=== PATIENT | female | born 1945 | race Hispanic/Latino ===

== ENCOUNTER 2019-05-02 15:48 | Emergency (ER) | payer OTHER ==
--- NOTE | 2019-05-02 16:41 | RAD REPORT ---
EXAM DESCRIPTION: RAD - Chest Pa And Lat (2 Views) - 05/02/2019 4:34 pm CLINICAL HISTORY: Cough;SOB Chest pain. COMPARISON: Chest Pa And Lat (2 Views) dated 04/30/2019; CHEST PA AND LAT 2 VIEW dated 05/23/2008 TECHNIQUE: PA and lateral views of the chest were obtained. FINDINGS: The lungs are hyperexpanded compatible with COPD. The heart is upper limit of normal in si ze. No fracture or aggressive bony process. IMPRESSION: COPD without acute process identified.
[2019-05-02 16:48] LABS: Protime INR 1.04
[2019-05-02 16:49] LABS: Basophils % 0.9 % (0-1.3); Hematocrit 43.6 % (36.0-45.0); Lymphocytes % 38.2 % (15.3-44.8); MPV 10.1 fL (7.6-11.3); RBC Red Blood Cell Count 4.57 M/uL (3.86-4.86)
[2019-05-02] MEDS ORDERED: METHYLPREDNISOLONE 40 MG INJ ONE (16:58)
[2019-05-02] MEDS ORDERED: ALBUTEROL 2.5 MG/3 ML NEB SOL ONE (16:58)
[2019-05-02] MEDS ORDERED: IPRATROPIUM BROM 0.5MG/2.5ML ONE (16:58)
[2019-05-02 17:02] LABS: BUN Blood Urea Nitrogen 12 mg/dL (7-18); Bicarbonate 27 mmol/L (21-32); Glucose Level 113 mg/dL (74-106); NT PRO-BNP 111 pg/mL (<125); Potassium 4.1 mmol/L (3.5-5.1); Sodium Level 139 mmol/L (136-145); Troponin (Emerg Dept Use Only) < 0.02 ng/mL (0.0-0.045)
--- NOTE | 2019-05-02 18:05 | ER ---
Nurse's Notes [facility] Name: Isela Silverio Age: 74 yrs Sex: Female : 1945 Arrival Date: 05/02/2019 Time: 15:50 Bed 24 Private MD: Eliseo Moreno R Diagnosis: Acute bronchitis Presentation: 05/02 15:55 Presenting complaint: Patient states: Sneezing, cough and headache for the past week. aj1 Denies fever. Reports shortness of breath at rest. States that he saw Dr. Moreno on Sunday, had a CXR which she was told was normal, she was given a Rx for antibiotics but she isn't feeling better. Transition of care: patient was not received from another setting of care. Onset of symptoms was May 02, 2019. Risk Assessment: Do you want to hurt yourself or someone else? Patient reports no desire to harm self or others. Initial Sepsis Screen: Does the patient meet any 2 criteria? No. Patient's initial sepsis screen is negative. Does the patient have a suspected source of infection? No. Patient's initial sepsis screen is negative. Care prior to arrival: None. 15:55 Method Of Arrival: Ambulatory aj1 15:55 Acuity: TEN 3 aj1 Triage Assessment: 15:57 General: Appears in no apparent distress. comfortable, Behavior is calm, cooperative, aj1 appropriate for age. Pain: Complains of pain in face. Neuro: Level of Consciousness is awake, alert, obeys commands. Cardiovascular: Patient's skin is warm and dry. Respiratory: Airway is patent Respiratory effort is even, unlabored, Respiratory pattern is regular, symmetrical. GI: Abdomen is flat. Historical: - Allergies: 15:57 No Known Allergies; aj1 - Home Meds: 15:57 meloxicam oral oral [Active]; aj1 - PMHx: 15:57 None; aj1 - Immunization history:: Flu vaccine is up to date. - Coronavirus screen:: The patient has NOT traveled to [place], [place], or [place] in the past 14 days. - Social history:: Smoking status: Patient/guardian denies using tobacco. - Ebola Screening: : Patient denies travel to an Ebola-affected area in the 21 days before illness onset. Screenin:10 Abuse screen: Denies threats or abuse. Denies injuries from another. Nutritional screening: No deficits noted. Tuberculosis screening: No symptoms or risk factors identified. Fall Risk None identified. Assessment: 16:10 General: Appears in no apparent distress. Behavior is calm, cooperative, appropriate wh for age. Pain: Denies pain. Neuro: Level of Consciousness is awake, alert, obeys commands, Oriented to person, place, time, situation, Appropriate for age. Cardiovascular: Heart tones S1 S2 Rhythm is regular. Respiratory: Reports cough that is Airway is patent Respiratory effort is even, unlabored, Respiratory pattern is regular, symmetrical, Breath sounds are clear bilaterally. GI: Abdomen is flat, non-distended. : No signs and/or symptoms were reported regarding the genitourinary system. EENT: Throat is pink. Derm: Skin is intact, is healthy with good turgor, Skin is pink, warm \T\ dry. normal. Musculoskeletal: Circulation, motion, and sensation intact. 17:03 Reassessment: Patient appears in no apparent distress at this time. No changes from previously documented assessment. Patient and/or family updated on plan of care and expected duration. Pain level reassessed. Patient is alert, oriented x 3, equal unlabored respirations, skin warm/dry/pink. 18:20 Reassessment: Patient appears in no apparent distress at this time. No changes from previously documented assessment. Patient and/or family updated on plan of care and expected duration. Pain level reassessed. Patient is alert, oriented x 3, equal unlabored respirations, skin warm/dry/pink. Patient states feeling better. Patient states symptoms have improved. Vital Signs: 15:57 BP 127 / 86; Pulse 90; Resp 18; Temp 98.3; Pulse Ox 96% on R/A; Weight 72.12 kg (R); aj1 Pain 7/10; 17:05 BP 137 / 82; Pulse 70; Resp 18; Pulse Ox 98% on R/A; wh 18:19 BP 138 / 71; Pulse 74; Resp 18; Pulse Ox 99% on R/A; ED Course: 15:50 Patient arrived in ED. ag5 15:50 Eliseo Moreno MD is Private Physician. ag5 15:56 Triage completed. aj1 15:57 Arm band placed on Patient placed in an exam room. aj1 16:06 Kevon Dexter PA is PHCP. cp 16:06 Na Nunez MD is Attending Physician. cp 16:10 Patient has correct armband on for positive identification. Placed in gown. Bed in low wh position. Call light in reach. Side rails up X 1. desk monitor on. Pulse ox on. NIBP on. 16:15 Vinicius Martin is Primary Nurse. 16:31 Initial lab(s) drawn, by me, sent to lab. Flu and/or RSV swab sent to lab. Inserted lt1 saline lock: 22 gauge in right antecubital area, using aseptic technique. 16:36 XRAY Chest Pa And Lat (2 Views) In Process Unspecified. EDMS 17:02 EKG done, by ED staff, reviewed by Kevon YOST. 18:03 Eliseo Moreno MD is Referral Physician. cp 18:20 No provider procedures requiring assistance completed. IV discontinued, intact, wh bleeding controlled, No redness/swelling at site. Administered Medications: 17:01 Drug: SOLU-Medrol 80 mg Route: IVP; Site: right antecubital; 18:21 Follow up: Response: No adverse reaction 17:02 Drug: Albuterol 2.5 mg Route: Inhalation; 18:22 Follow up: Response: No adverse reaction 17:02 Drug: AtroVENT Aerosol 0.5 mg Route: Inhalation; 18:21 Follow up: Response: No adverse reaction Outcome: 18:04 Discharge ordered by MD. cp 18:20 Discharged to home ambulatory, with family. 18:20 Condition: stable 18:20 Discharge instructions given to patient, family, Instructed on discharge instructions, follow up and referral plans. medication usage, POC Demonstrated understanding of instructions, follow-up care, medications, POC Prescriptions given X 4. 18:23 Patient left the ED. Signatures: Dispatcher [employer] EDMS Gissel Redman, RN RN Kevon Kinney PA PA Vinicius Martin Rosa Monsalve ag5 Sandhya, Diana lt1
--- NOTE | 2019-05-02 18:05 | EDPHYS ---
Physician Documentation [facility] Name: Isela Silverio Age: 74 yrs Sex: Female : 1945 Arrival Date: 05/02/2019 Time: 15:50 Bed 24 Private MD: Eliseo Moreno R ED Physician Na Nunez HPI: 05/02 16:30 This 74 yrs old Female presents to ER via Ambulatory with complaints of Cough. cp 16:30 The patient or guardian reports cough, that is constant, difficulty breathing. Onset: cp The symptoms/episode began/occurred 1 week(s) ago. Severity of symptoms: in the emergency department the symptoms are unchanged, despite home interventions. Associated signs and symptoms: Pertinent negatives: chest pain, diarrhea, fever, vomiting. The patient has been recently seen by a physician: Dr. oMreno with similar presenting complaints, X-rays were performed, was given a prescription for antibiotics, currently taking prescribed Augmentin for past 3 days. Historical: - Allergies: 15:57 No Known Allergies; aj1 - Home Meds: 15:57 meloxicam oral oral [Active]; aj1 - PMHx: 15:57 None; aj1 - Immunization history:: Flu vaccine is up to date. - Coronavirus screen:: The patient has NOT traveled to [place], [place], or [place] in the past 14 days. - Social history:: Smoking status: Patient/guardian denies using tobacco. - Ebola Screening: : Patient denies travel to an Ebola-affected area in the 21 days before illness onset. ROS: 16:31 Eyes: Negative for injury, pain, redness, and discharge. cp 16:31 Constitutional: Negative for body aches, chills, fever, poor PO intake. 16:31 ENT: Negative for drainage from ear(s), ear pain, difficulty swallowing, difficulty handling secretions. 16:31 Cardiovascular: Negative for chest pain, edema, palpitations. 16:31 Respiratory: Positive for cough, "sounds productive", shortness of breath. 16:31 Abdomen/GI: Negative for abdominal pain, vomiting, diarrhea, constipation. 16:31 Skin: Negative for rash. 16:31 Neuro: Negative for altered mental status, headache, syncope, weakness. 16:31 All other systems are negative. Exam: 16:35 Constitutional: The patient appears in no acute distress, alert, awake, non-toxic, well cp developed, well nourished. 16:35 Head/Face: Normocephalic, atraumatic. cp 16:35 Eyes: Periorbital structures: appear normal, Conjunctiva: normal, no exudate, no injection, Sclera: no appreciated abnormality, Lids and lashes: appear normal, bilaterally. 16:35 ENT: External ear(s): are unremarkable, Ear canal(s): are normal, clear, TM's: bulging, is not appreciated, bilaterally, dullness, bilaterally, erythema, is not appreciated, bilaterally, Nose: is normal, Mouth: Lips: moist, Oral mucosa: pink and intact, moist, Posterior pharynx: is normal, airway is patent, no erythema, no exudate. 16:35 Neck: ROM/movement: is normal, is supple, no meningismus, no nuchal rigidity. 16:35 Chest/axilla: Inspection: normal, Palpation: is normal, no crepitus, no tenderness. 16:35 Cardiovascular: Rate: normal, Rhythm: regular, Edema: is not appreciated, JVD: is not appreciated. 16:35 Respiratory: the patient does not display signs of respiratory distress, Respirations: normal, no use of accessory muscles, no retractions, no splinting, no tachypnea, labored breathing, is not present, Breath sounds: bronchial sounds, that are moderate, are heard diffusely, decreased breath sounds, are not appreciated, stridor, is not appreciated, + upper airway congestion. wheezing: is not appreciated. 16:35 Abdomen/GI: Inspection: abdomen appears normal, Palpation: abdomen is soft and non-tender, in all quadrants. 16:35 Back: pain, is absent, ROM is normal. 16:35 Neuro: Orientation: to person, place \\T\\ time. Mentation: is normal, Motor: moves all fours, strength is normal. 17:08 ECG was reviewed by the Attending Physician. cp Vital Signs: 15:57 BP 127 / 86; Pulse 90; Resp 18; Temp 98.3; Pulse Ox 96% on R/A; Weight 72.12 kg (R); aj1 Pain 7/10; 17:05 BP 137 / 82; Pulse 70; Resp 18; Pulse Ox 98% on R/A; wh 18:19 BP 138 / 71; Pulse 74; Resp 18; Pulse Ox 99% on R/A; wh MDM: 16:06 Patient medically screened. 18:03 Data reviewed: vital signs, nurses notes, lab test result(s), EKG, radiologic studies, cp plain films. 18:03 Differential Diagnosis: Bronchitis Influenza Pneumonia. Test interpretation: by ED cp physician or midlevel provider: ECG, plain radiologic studies, chest xray negative for infiltrates. 05/02 16:15 Order name: Influenza Screen (a \\T\\ B); Complete Time: 17:34 cp 05/02 17:34 Interpretation: Reviewed. 05/02 16:15 Order name: Basic Metabolic Panel; Complete Time: 17:19 05/02 17:19 Interpretation: Normal except: GLUC 113; GFR 57. 05/02 16:15 Order name: CBC with Diff; Complete Time: 17:19 05/02 17:19 Interpretation: Reviewed. 05/02 16:15 Order name: NT PRO-BNP; Complete Time: 17:19 05/02 17:35 Interpretation: Within normal limits: NT PRO-BNP 111. 05/02 16:15 Order name: PT-INR; Complete Time: 17:01 05/02 17:01 Interpretation: Reviewed. 05/02 16:15 Order name: Troponin (emerg Dept Use Only); Complete Time: 17:19 05/02 17:35 Interpretation: TROPED < 0.02; Reviewed. 05/02 16:15 Order name: EKG; Complete Time: 16:15 05/02 16:15 Order name: Cardiac monitoring; Complete Time: 17:06 05/02 16:15 Order name: Procalcitonin; Complete Time: 17:34 cp 05/02 17:34 Interpretation: Reviewed. 05/02 16:15 Order name: Lactate; Complete Time: 17:19 cp 05/02 17:35 Interpretation: LAC 1.2; Reviewed. 05/02 16:15 Order name: XRAY Chest Pa And Lat (2 Views); Complete Time: 17:01 cp 05/02 17:01 Interpretation: Report reviewed. 05/02 16:15 Order name: EKG - Nurse/Tech; Complete Time: 17:06 cp 05/02 16:15 Order name: IV Saline Lock; Complete Time: 16:37 cp 05/02 16:15 Order name: Labs collected and sent; Complete Time: 16:37 cp 05/02 16:15 Order name: O2 Per Protocol; Complete Time: 16:37 cp 05/02 16:15 Order name: O2 Sat Monitoring; Complete Time: 16:37 cp EC:08 Rate is 69 beats/min. Rhythm is regular. RI interval is normal. QRS interval is normal. cp QT interval is normal. T waves are Inverted in leads I, aVL, aVR. Interpreted by me. Reviewed by me. Administered Medications: 17:01 Drug: SOLU-Medrol 80 mg Route: IVP; Site: right antecubital; 18:21 Follow up: Response: No adverse reaction 17:02 Drug: Albuterol 2.5 mg Route: Inhalation; 18:22 Follow up: Response: No adverse reaction 17:02 Drug: AtroVENT Aerosol 0.5 mg Route: Inhalation; 18:21 Follow up: Response: No adverse reaction Disposition: 05/02/19 18:04 Discharged to Home. Impression: Acute bronchitis. - Condition is Stable. - Discharge Instructions: Acute Bronchitis, Adult. - Prescriptions for Tessalon Perles 100 mg Oral Capsule - take 2 capsule by ORAL route every 8 hours As needed; 20 capsule. Albuterol Sulfate 2.5 mg /3 mL (0.083 %) Inhalation Solution for Nebulization - inhale 1 unit by NEBULIZATION route every 8 hours As needed; 1 box. Prednisone 20 mg Oral Tablet - take 2 tablet by ORAL route once daily for 5 days; 10 tablet. Albuterol Sulfate 90 mcg/actuation - inhale 1-2 puff by INHALATION route every 4-6 hours; 1 Inhaler. - Medication Reconciliation Form, Thank You Letter, Antibiotic Education, Prescription Opioid Use form. - Follow up: Eliseo Moreno MD; When: 2 - 3 days; Reason: Recheck today's complaints. - Problem is new. - Symptoms have improved. Addendum: 05/05/2019 18:54 Co-signature as Attending Physician, Na Nunez MD. m a2 Signatures: Dispatcher [employer] EDGissel Warren RN RN aj1 Kevon Dexter PA PA Vinicius Cox Na Nunez MD MD co2 Corrections: (The following items were deleted from the chart) 05/02 18:23 18:04 05/02/2019 18:04 Discharged to Home. Impression: Acute bronchitis. Condition is wh Stable. Forms are Medication Reconciliation Form, Thank You Letter, Antibiotic Education, Prescription Opioid Use. Follow up: Eliseo Moreno; When: 2 - 3 days; Reason: Recheck today's complaints. Problem is new. Symptoms have improved. cp
[2019-05-02 18:30] VITALS: TEMP 98.3
[2019-05-02 18:32] VITALS: BP 138/71; O2SAT 99
--- NOTE | 2019-05-05 09:26 | EKG ---
Test Date: 2019-05-02 Test Time: 16:49:04 Coater Helper: CLARK MEASUREMENT RESULTS: Intervals: Rate: 69 NJ: 138 QRSD: 142 QT: 436 QTc: [address]: P: 62 NJ: 138 QRS: -11 T: 106 INTERPRETIVE STATEMENTS: Normal sinus rhythm Left bundle branch block Abnormal ECG Electronically Signed On 05-05-19 09:25:45 BREWERY PUMPER by Kleber Pollard
== END 2019-05-02 18:23 | disposition home or self-care (01) ==
LOC: ER 15:48
DX: J20.9 Acute bronchitis, unspecified (principal)
CPT/HCPCS: 93005; 85025; 80048; 36415; 85610; 83605; 84484; 84145; 83880; 87804 ×2; 71046; 96374; 99285; J2920

== ENCOUNTER 2021-10-19 10:35 | Day surgery (SDC) | payer MEDICARE ==
[2021-10-18 09:55] LABS: SARS-CoV-2 Antigen Rapid Res Negative (Negative)
[2021-10-19] MEDS ORDERED: Ringers Lactate 1,000 ML IV ONE (10:59)
[2021-10-19] MEDS ORDERED: TRIAMCINOLONE ACETON 40 MG/ML VIAL ONE (12:00)
[2021-10-19] MEDS ORDERED: LIDOCAINE 1% 20 ML MDV ONE (12:01)
[2021-10-19] MEDS ORDERED: LIDOCAINE 2% MPF 5 ML VIAL ONE (12:33)
[2021-10-19] MEDS ORDERED: propofoL 200 MG/20 ML VIAL IV ONE (12:33)
[2021-10-19] MEDS ORDERED: NS 0.9% VIAL 0 ML ONE (12:40)
[2021-10-19] MEDS ORDERED: BUPIVACAINE 0.25% PF 10 ML VIAL ONE (13:01)
--- NOTE | 2021-10-19 13:52 | RAD REPORT ---
EXAM DESCRIPTION: RAD - Fluoroscopy <1 Hour - 10/19/2021 1:40 pm FINDINGS: Two portable C-arm views were obtained and submitted from a fluoroscopic assisted SI joint injection procedure. Fluoro time was 0.3 minutes. Cumulative dose was 5.46 mGy.
[2021-10-19 13:59] VITALS: BP 113/73; TEMP 97.8; O2SAT 97
== END 2021-10-19 14:21 | disposition home or self-care (01) ==
LOC: OR 10:35
PROVIDERS: ATTEND Pain Medicine Interventional Pain Medicine
PROC: 3E0R3BZ Introduction of Anesthetic Agent into Spinal Canal, Percutaneous Approach (ICD-10-PCS; 2021-10-19)
PROC: B01BZZZ Fluoroscopy of Spinal Cord (ICD-10-PCS; 2021-10-19)
PROC: 3E0R3BZ Introduction of Anesthetic Agent into Spinal Canal, Percutaneous Approach (ICD-10-PCS; principal; 2021-10-19 13:00)
DX: M46.1 Sacroiliitis, not elsewhere classified (principal); M54.50 Low back pain, unspecified; M47.816 Spondylosis without myelopathy or radiculopathy, lumbar region; M62.81 Muscle weakness (generalized); G89.4 Chronic pain syndrome; M60.9 Myositis, unspecified; M54.16 Radiculopathy, lumbar region; Z79.899 Other long term (current) drug therapy; J45.909 Unspecified asthma, uncomplicated; Z20.822 Contact with and (suspected) exposure to COVID-19
CPT/HCPCS: 36415; 87811; 62323; J2704; J3301; J7120; 76000

== ENCOUNTER 2022-05-24 15:43 | Emergency (ER) | payer MEDICARE ==
--- OUTSIDE RECORDS SUMMARY | 2022-05-24 15:51 | XMS REPORT | Continuity of Care Document ---
:1945 Author Organization [facility] t Address [address] [place] [address] Care Team Providers Name Role Phone Tim Ha Attending Clinician Unavailable Nodal_J Attending Clinician Unavailable Nodal_J Admitting Clinician Unavailable Payers Payer Name Policy Type Policy Number Effective Date Expiration Date S feliz [facility] [id number] 2021 (MEDICARE 00:00:00 REPLACEMENT HMO) [employer] C1 [id number] 2020 Common g Medicare 00:00:00 [facility] Replace [facility] MEDICARE NOVITAS [id number] 2011 Common 00:00:00 [facility] [employer] C1 [id number] 2020 Common g Medicare 00:00:00 [facility] - [facility] Replace [facility] MEDICARE NOVITAS [id number] 2011 Common 00:00:00 [facility] - [facility] [employer] C1 [id number] 2020 Common g Medicare 00:00:00 [facility] - [facility] Problems Condition Condition Condition Status Onset Resolution Last Treating Co mments Source Name Details Category Date Date Treatment Clinician Date [id number] Body mass Problem Com mon index Spirit (BMI) - CHI 30.0-30.9, [facility] [id number] Other Problem Common chronic [facility] pain - [facility] [id number] Other Problem Common obesity Spirit due to - [facility] excess [facility] [id number] Mixed Problem Common hyperlipid Spirit emia - [facility] [id number] Type 2 Problem Common diabetes Spirit mellitus - [facility] with [facility] long-term current use of insulin [id number] Chronic Problem Common maxillary Spirit sinusitis - [facility] [id number] Arthritis Problem Co mmon [id number] of knee, [facility] right [facility] [id number] Essential Problem Comm on hypertensi Spirit on - [facility] [id number] Arthritis Problem Co mmon [id number] of knee, [facility] left [facility] [id number] 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 Exposure Problem Commo n to tobacco Spirit smoke - [facility] [id number] Chronic Problem Common obstructiv Spirit e - [facility] type [id number] COPD with Problem Com mon exacerbati Spirit on [facility] [id number] Primary Problem Common open-angle Spirit glaucoma, - [facility]I bilateral, [facility] [id number] GERD Problem Common without Spirit esophagiti - [facility] s [facility] [id number] Primary Problem Common insomnia Spirit - [facility] [id number] Rotator Problem Comm on [id number] cuff Spirit arthropath - [facility] y of right [facility] Type II Type 2 Problem Common diabetes diabetes Spirit mellitus - [facility] without complicati [facility] Left low Left low Problem Commo n back pain, back pain, Sp january unspecifie unspecifie - [facility]I d d St chronicity chronicity Patti kes , , Medical unspecifie unspecifie Ce nter d whether d whether sciatica sciatica present present Allergies, Adverse Reactions, Alerts Allergy Allergy Status Severity Reaction(s) Onset Inactive Treating Comm ents Source Name Type Date Date Clinician tramadol tramadol Active Severe Common vomitting [facility] Social History Social Habit Start Date Stop Date Quantity Comments Source Sex Assigned At Com mon [facility] History of Tobacco Use Co mmon [facility] Smoking Status Start Date Stop Date Source Never Smoker Common [facility] Medications Ordered Filled Start Stop Current Ordering Indication Dosage Frequency Signature Comments Components Source Medication Medication Date Date Medication? Clinician (SIG) Name Name Giselle Desai No 40mg Common (Triamcinol (Triamcinol 1-26 S pirit one) one) 00:00: - [facility] Giselle Desai No 40mg Common (Triamcinol (Triamcinol 1-26 S pirit one) one) 00:00: - [facility] Pseudoeph-B Pseudoeph-B 2021-03- No 5{ml_as QID Pseudoeph- romphen-DM romphen-DM 2-16 12-23 _needed Bromphen-D 30-2-10 30-2-10 00:00: 00:00 } M 30-2-10 MG/5ML MG/5ML 00 :00 MG/5ML Pseudoeph-B Pseudoeph-B 2021-03- No 5{ml_as QID Pseudoeph- romphen-DM romphen-DM 2-16 12-23 _needed Bromphen-D 30-2-10 30-2-10 00:00: 00:00 } M 30-2-10 MG/5ML MG/5ML 00 :00 MG/5ML predniSONE predniSONE 2021-03- No QD predniSONE 20 MG 20 MG 2-16 12-21 20 MG 00:00: 00:00 00 :00 predniSONE predniSONE 2021-03- No QD predniSONE 20 MG 20 MG 2-16 12-21 20 MG 00:00: 00:00 00 :00 Giselle Desai 2021-03 No 40mg Common (Triamcinol (Triamcinol 1-15 S pirit one) one) 00:00: - [facility] Bupivicaine Bupivicaine 2021-03 No 2.5mg Common Menno Menno 1-15 Spirit 00:00: - [facility] 00 [facility] Giselle Kenalog 2021-03 No 40mg Common (Triamcinol (Triamcinol 1-15 S pirit one) one) 00:00: - [facility] 00 [facility] Bupivicaine Bupivicaine 2021-03 No 2.5mg Common Menno Menno 1-15 Spirit 00:00: - [facility] 00 [facility] Giselle Kenalog 2021-03 No 40mg Common (Triamcinol (Triamcinol 1-15 S pirit one) one) 00:00: - [facility] 00 [facility] Bupivicaine Bupivicaine 2021-03 No 2.5mg Common Menno Menno 1-15 Spirit 00:00: - [facility] 00 [facility] Giselle Kenalog 2021-03 No 40mg Common (Triamcinol (Triamcinol 1-15 S pirit one) one) 00:00: - [facility] 00 [facility] Bupivicaine Bupivicaine 2021-03 No 2.5mg Common Menno Menno 1-15 Spirit 00:00: - [facility] 00 [facility] Giselle Woodardalog 2021-03 No 40mg Common (Triamcinol (Triamcinol 1-15 S pirit one) one) 00:00: - [facility] 00 [facility] Bupivicaine Bupivicaine 2021-03 No 2.5mg Common Menno Menno 1-15 Spirit 00:00: - [facility] 00 [facility] Giselle Kenalog 2021-03 No 40mg Common (Triamcinol (Triamcinol 1-15 S pirit one) one) 00:00: - [facility] 00 [facility] Bupivicaine Bupivicaine 2021-03 No 2.5mg Common Menno Menno 1-15 Spirit 00:00: - [facility] 00 [facility] Giselle Kenalog 2021-03 No 40mg Common (Triamcinol (Triamcinol 1-15 S pirit one) one) 00:00: - [facility] 00 [facility] Bupivicaine Bupivicaine 2021-03 No 2.5mg Common Menno Menno 1-15 Spirit 00:00: - [facility] 00 [facility] Kenalog Kenalog 2021-03 No 40mg Common (Triamcinol (Triamcinol 1-15 S pirit one) one) 00:00: - [facility] Bupivicaine Bupivicaine 2021-03 No 2.5mg Common Menno Menno 1-15 Spirit 00:00: - [facility] Cyclobenzap Cyclobenzap No 1{table QD Cyclobenza rine HCl 5 rine HCl 5 8-30 t_at_be romana HCl MG MG 00:00: dtime_a 5 MG 00 s_neede d} Cyclobenzap Cyclobenzap No 1{table QD Cyclobenza rine HCl 5 rine HCl 5 8-30 t_at_be romana HCl MG MG 00:00: dtime_a 5 MG 00 s_neede d} ProAir HFA ProAir HFA No 2{puffs ProAir HFA 108 (90 108 (90 5-25 _as_nee 108 (90 Base) Base) 00:00: ded} Base) MCG/ACT MCG/ACT 00 MCG/ACT ProAir HFA ProAir HFA No 2{puffs ProAir HFA 108 (90 108 (90 5-25 _as_nee 108 (90 Base) Base) 00:00: ded} Base) MCG/ACT MCG/ACT 00 MCG/ACT ProAir HFA ProAir HFA No 2{puffs ProAir HFA 108 (90 108 (90 5-25 _as_nee 108 (90 Base) Base) 00:00: ded} Base) MCG/ACT MCG/ACT 00 MCG/ACT ProAir HFA ProAir HFA No 2{puffs ProAir HFA 108 (90 108 (90 5-25 _as_nee 108 (90 Base) Base) 00:00: ded} Base) MCG/ACT MCG/ACT 00 MCG/ACT ProAir HFA ProAir HFA No 2{puffs ProAir HFA 108 (90 108 (90 5-25 _as_nee 108 (90 Base) Base) 00:00: ded} Base) MCG/ACT MCG/ACT 00 MCG/ACT ProAir HFA ProAir HFA 2021-0 No 2{puffs ProAir HFA 108 (90 108 (90 5-25 _as_nee 108 (90 Base) Base) 00:00: ded} Base) MCG/ACT MCG/ACT 00 MCG/ACT Kenalog Kenalog 2021-0 No 40mg Common (Triamcinol (Triamcinol 2-24 S pirit one) one) 00:00: - [facility] 00 [facility] Bupivicaine Bupivicaine 2021-0 No Common Menno Menno 2-24 Spirit 00:00: - [facility] 00 [facility] Kenalog Kenalog 2021-0 No 40mg Common (Triamcinol (Triamcinol 2-24 S pirit one) one) 00:00: - [facility] 00 [facility] Bupivicaine Bupivicaine 2021-0 No 2.5mg Common Menno Menno 2-24 Spirit 00:00: - [facility] 00 [facility] Kenalog Kenalog 2021-0 No 40mg Common (Triamcinol (Triamcinol 2-24 S pirit one) one) 00:00: - [facility] 00 [facility] Bupivicaine Bupivicaine 2021-0 No 2.5mg Common Menno Menno 2-24 Spirit 00:00: - [facility] 00 [facility] Kenalog Kenalog 2021-0 No 40mg Common (Triamcinol (Triamcinol 2-24 S pirit one) one) 00:00: - [facility] 00 [facility] Bupivicaine Bupivicaine 2021-0 No 2.5mg Common Menno Menno 2-24 Spirit 00:00: - [facility] 00 [facility] Kenalog Kenalog 2021-0 No 40mg Common (Triamcinol (Triamcinol 2-24 S pirit one) one) 00:00: - [facility] 00 [facility] Bupivicaine Bupivicaine 2-0 No 2.5mg Common Menno Menno 2-24 Spirit 00:00: - [facility] 00 [facility] Kenalog Kenalog 2-0 No 40mg Common (Triamcinol (Triamcinol 2-24 S pirit one) one) 00:00: - [facility] 00 [facility] Bupivicaine Bupivicaine 2-0 No 2.5mg Common Menno Menno 2-24 Spirit 00:00: - [facility] 00 [facility] Kenalog Kenalog 2-0 No 40mg Common (Triamcinol (Triamcinol 2-24 S pirit one) one) 00:00: - [facility] 00 [facility] Bupivicaine Bupivicaine 2-0 No 2.5mg Common Menno Menno 2-24 Spirit 00:00: - [facility] 00 [facility] Kenalog Kenalog 2021-0 No 40mg Common (Triamcinol (Triamcinol 2-24 S pirit one) one) 00:00: - [facility] 00 [facility] Bupivicaine Bupivicaine 2-0 No 2.5mg Common Menno Menno 2-24 Spirit 00:00: - [facility] 00 [facility] Kenalog Kenalog 2-0 No 40mg Common (Triamcinol (Triamcinol 2-24 S pirit one) one) 00:00: - [facility] 00 [facility] Bupivicaine Bupivicaine 2-0 No 2.5mg Common Menno Menno 2-24 Spirit 00:00: - [facility] 00 [facility] Kenalog Kenalog 2-0 No 40mg Common (Triamcinol (Triamcinol 2-24 S pirit one) one) 00:00: - [facility] 00 [facility] Bupivicaine Bupivicaine 2-0 No 2.5mg Common Menno Menno 2-24 Spirit 00:00: - [facility] 00 [facility] Kenalog Kenalog 2-0 No 40mg Common (Triamcinol (Triamcinol 2-24 S pirit one) one) 00:00: - [facility] 00 [facility] Bupivicaine Bupivicaine 2-0 No 2.5mg Common Menno Menno 2-24 Spirit 00:00: - [facility] 00 [facility] Kenalog Kenalog 2-0 No 40mg Common (Triamcinol (Triamcinol 2-24 S pirit one) one) 00:00: - [facility] 00 [facility] Bupivicaine Bupivicaine 2-0 No 2.5mg Common Menno Menno 2-24 Spirit 00:00: - [facility] 00 [facility] Kenalog Kenalog 2-0 No 40mg Common (Triamcinol (Triamcinol 2-24 S pirit one) one) 00:00: - [facility] 00 [facility] Bupivicaine Bupivicaine 2-0 No 2.5mg Common Menno Menno 2-24 Spirit 00:00: - [facility] 00 [facility] Kenalog Kenalog 2021-0 No 40mg Common (Triamcinol (Triamcinol 2-24 S pirit one) one) 00:00: - [facility] 00 [facility] Bupivicaine Bupivicaine 2-0 No 2.5mg Common Menno Menno 2-24 Spirit 00:00: - [facility] 00 [facility] Kenalog Kenalog 2021-0 No 40mg Common (Triamcinol (Triamcinol 2-24 S pirit one) one) 00:00: - [facility] 00 [facility] Bupivicaine Bupivicaine 2-0 No 2.5mg Common Menno Menno 2-24 Spirit 00:00: - [facility] 00 [facility] Kenalog Kenalog 2021-0 No 40mg Common (Triamcinol (Triamcinol 2-24 S pirit one) one) 00:00: - [facility] 00 [facility] Bupivicaine Bupivicaine 2-0 No 2.5mg Common Menno Menno 2-24 Spirit 00:00: - [facility] 00 [facility] Kenalog Kenalog 2-0 No 40mg Common (Triamcinol (Triamcinol 2-24 S pirit one) one) 00:00: - [facility] 00 [facility] Bupivicaine Bupivicaine 2-0 No 2.5mg Common Menno Menno 2-24 Spirit 00:00: - [facility] 00 [facility] Kenalog Kenalog 2-0 No 40mg Common (Triamcinol (Triamcinol 2-24 S pirit one) one) 00:00: - [facility] 00 [facility] Bupivicaine Bupivicaine 2-0 No 2.5mg Common Menno Menno 2-24 Spirit 00:00: - [facility] 00 [facility] Kenalog Kenalog 2-0 No 40mg Common (Triamcinol (Triamcinol 2-24 S pirit one) one) 00:00: - [facility] 00 [facility] Bupivicaine Bupivicaine 2-0 No 2.5mg Common Menno Menno 2-24 Spirit 00:00: - [facility] 00 [facility] Kenalog Kenalog 2-0 No 40mg Common (Triamcinol (Triamcinol 2-24 S pirit one) one) 00:00: - [facility] Bupivicaine Bupivicaine 2-0 No 2.5mg Common Menno Menno 2-24 Spirit 00:00: - [facility] 00 [facility] Kenalog Kenalog 2-0 No 40mg Common (Triamcinol (Triamcinol 2-24 S pirit one) one) 00:00: - [facility] 00 [facility] Bupivicaine Bupivicaine 2-0 No 2.5mg Common Menno Menno 2-24 Spirit 00:00: - [facility] Benzonatate Benzonatate 2020-03- No 1{capsu Benzonatat 100 MG 100 MG 03-29 le_as_n e 100 MG 00:00: 00:00 eeded} 00 :00 Benzonatate Benzonatate 2020-03- No 1{capsu 100 MG 100 MG 03-29 le_as_n 00:00: 00:00 eeded} 00 :00 methylPREDN methylPREDN 2020-03- No QD methylPRED ISolone 4 ISolone 4 03-29 NISolone 4 MG MG 00:00: 00:00 MG 00 :00 methylPREDN methylPREDN 2020-03- No QD ISolone 4 ISolone 4 03-29 MG MG 00:00: 00:00 00 :00 Azithromyci Azithromyci 2020-03- No QD Azithromyc n 250 MG n 250 MG 03-29 in 250 MG 00:00: 00:00 00 :00 Azithromyci Azithromyci 2020-03- No QD n 250 MG n 250 MG 03-29 00:00: 00:00 00 :00 Pantoprazol Pantoprazol 2020-1 No 1{table QD Pantoprazo e Sodium 40 e Sodium 40 0-14 t} le Sodium MG MG 00:00: 40 MG 00 Pantoprazol Pantoprazol 1 No 1{table QD e Sodium 40 e Sodium 40 0-14 t} MG MG 00:00: 00 Bupivicaine Bupivicaine 2020-0 No Common Menno Menno 8-17 Spirit 00:00: - [facility] 00 [facility] Bupivicaine Bupivicaine 2020-0 No Common Menno Menno 8-17 Spirit 00:00: - [facility] 00 [facility] Kenalog Kenalog 2020-0 No 40mg Common (Triamcinol (Triamcinol 8-17 S pirit one) one) 00:00: - [facility] 00 [facility] Kenalog Kenalog 2020-0 No 40mg Common (Triamcinol (Triamcinol 8-17 S pirit one) one) 00:00: - [facility] 00 [facility] Bupivicaine Bupivicaine 2020-0 No Common Menno Menno 8-17 Spirit 00:00: - [facility] 00 [facility] Bupivicaine Bupivicaine 2020-0 No Common Menno Menno 8-17 Spirit 00:00: - [facility] 00 [facility] Kenalog Kenalog 2020-0 No 40mg Common (Triamcinol (Triamcinol 8-17 S pirit one) one) 00:00: - [facility] 00 [facility] Kenalog Kenalog 2020-0 No 40mg Common (Triamcinol (Triamcinol 8-17 S pirit one) one) 00:00: - [facility] 00 [facility] Bupivicaine Bupivicaine 2020-0 No Common Menno Menno 8-17 Spirit 00:00: - [facility] 00 [facility] Bupivicaine Bupivicaine 2020-0 No Common Menno Menno 8-17 Spirit 00:00: - [facility] 00 [facility] Kenalog Kenalog 2020-0 No 40mg Common (Triamcinol (Triamcinol 8-17 S pirit one) one) 00:00: - [facility] 00 [facility] Kenalog Kenalog 2021-0 No 40mg Common (Triamcinol (Triamcinol 8-17 S pirit one) one) 00:00: - [facility] 00 [facility] Bupivicaine Bupivicaine 1-0 No 2.5mg Common Menno Menno 8-17 Spirit 00:00: - [facility] 00 [facility] Bupivicaine Bupivicaine 2020-0 No 2.5mg Common Menno Menno 8-17 Spirit 00:00: - [facility] 00 [facility] Kenalog Kenalog 2020-0 No 40mg Common (Triamcinol (Triamcinol 8-17 S pirit one) one) 00:00: - [facility] 00 [facility] Kenalog Kenalog 2020-0 No 40mg Common (Triamcinol (Triamcinol 8-17 S pirit one) one) 00:00: - [facility] 00 [facility] Bupivicaine Bupivicaine 2020-0 No 2.5mg Common Menno Menno 8-17 Spirit 00:00: - [facility] 00 [facility] Bupivicaine Bupivicaine 2020-0 No 2.5mg Common Menno Menno 8-17 Spirit 00:00: - [facility] 00 [facility] Kenalog Kenalog 2020-0 No 40mg Common (Triamcinol (Triamcinol 8-17 S pirit one) one) 00:00: - [facility] 00 [facility] Kenalog Kenalog 2020-0 No 40mg Common (Triamcinol (Triamcinol 8-17 S pirit one) one) 00:00: - [facility] 00 [facility] Bupivicaine Bupivicaine 2020-0 No 2.5mg Common Menno Menno 8-17 Spirit 00:00: - [facility] 00 [facility] Bupivicaine Bupivicaine 2020-0 No 2.5mg Common Menno Menno 8-17 Spirit 00:00: - [facility] 00 [facility] Kenalog Kenalog 2020-0 No 40mg Common (Triamcinol (Triamcinol 8-17 S pirit one) one) 00:00: - [facility] 00 [facility] Kenalog Kenalog 2020-0 No 40mg Common (Triamcinol (Triamcinol 8-17 S pirit one) one) 00:00: - [facility] 00 [facility] Bupivicaine Bupivicaine 2020-0 No 2.5mg Common Menno Menno 8-17 Spirit 00:00: - [facility] 00 [facility] Bupivicaine Bupivicaine 2020-0 No 2.5mg Common Menno Menno 8-17 Spirit 00:00: - [facility] 00 [facility] Kenalog Kenalog 2020-0 No 40mg Common (Triamcinol (Triamcinol 8-17 S pirit one) one) 00:00: - [facility] 00 [facility] Kenalog Kenalog 2020-0 No 40mg Common (Triamcinol (Triamcinol 8-17 S pirit one) one) 00:00: - [facility] 00 [facility] Bupivicaine Bupivicaine 2020-0 No 2.5mg Common Menno Menno 8-17 Spirit 00:00: - [facility] 00 [facility] Bupivicaine Bupivicaine 2020-0 No 2.5mg Common Menno Menno 8-17 Spirit 00:00: - [facility] 00 [facility] Kenalog Kenalog 2020-0 No 40mg Common (Triamcinol (Triamcinol 8-17 S pirit one) one) 00:00: - [facility] 00 [facility] Kenalog Kenalog 2020-0 No 40mg Common (Triamcinol (Triamcinol 8-17 S pirit one) one) 00:00: - [facility] 00 [facility] Bupivicaine Bupivicaine 2020-0 No 2.5mg Common Menno Menno 8-17 Spirit 00:00: - [facility] 00 [facility] Bupivicaine Bupivicaine 2020-0 No 2.5mg Common Menno Menno 8-17 Spirit 00:00: - [facility] 00 [facility] Kenalog Kenalog 2020-0 No 40mg Common (Triamcinol (Triamcinol 8-17 S pirit one) one) 00:00: - [facility] 00 [facility] Kenalog Kenalog 2020-0 No 40mg Common (Triamcinol (Triamcinol 8-17 S pirit one) one) 00:00: - [facility] 00 [facility] Bupivicaine Bupivicaine 2020-0 No 2.5mg Common Menno Menno 8-17 Spirit 00:00: - [facility] 00 [facility] Bupivicaine Bupivicaine 2020-0 No 2.5mg Common Menno Menno 8-17 Spirit 00:00: - [facility] 00 [facility] Kenalog Kenalog 2020-0 No 40mg Common (Triamcinol (Triamcinol 8-17 S pirit one) one) 00:00: - [facility] 00 [facility] Kenalog Kenalog 2020-0 No 40mg Common (Triamcinol (Triamcinol 8-17 S pirit one) one) 00:00: - [facility] 00 [facility] Bupivicaine Bupivicaine 2020-0 No 2.5mg Common Menno Menno 8-17 Spirit 00:00: - [facility] 00 [facility] Bupivicaine Bupivicaine 2020-0 No 2.5mg Common Menno Menno 8-17 Spirit 00:00: - [facility] 00 [facility] Kenalog Kenalog 2020-0 No 40mg Common (Triamcinol (Triamcinol 8-17 S pirit one) one) 00:00: - [facility] 00 [facility] Kenalog Kenalog 2020-0 No 40mg Common (Triamcinol (Triamcinol 8-17 S pirit one) one) 00:00: - [facility] 00 [facility] Bupivicaine Bupivicaine 2020-0 No 2.5mg Common Menno Menno 8-17 Spirit 00:00: - [facility] 00 [facility] Bupivicaine Bupivicaine 2020-0 No 2.5mg Common Menno Menno 8-17 Spirit 00:00: - [facility] 00 [facility] Kenalog Kenalog 2020-0 No 40mg Common (Triamcinol (Triamcinol 8-17 S pirit one) one) 00:00: - [facility] 00 [facility] Kenalog Kenalog 2020-0 No 40mg Common (Triamcinol (Triamcinol 8-17 S pirit one) one) 00:00: - [facility] 00 [facility] Bupivicaine Bupivicaine 2020-0 No 2.5mg Common Menno Menno 8-17 Spirit 00:00: - [facility] 00 [facility] Bupivicaine Bupivicaine 1-0 No 2.5mg Common Menno Menno 8-17 Spirit 00:00: - [facility] 00 [facility] Kenalog Kenalog 2020-0 No 40mg Common (Triamcinol (Triamcinol 8-17 S pirit one) one) 00:00: - [facility] 00 [facility] Kenalog Kenalog 2020-0 No 40mg Common (Triamcinol (Triamcinol 8-17 S pirit one) one) 00:00: - [facility] 00 [facility] Bupivicaine Bupivicaine 2020-0 No 2.5mg Common Menno Menno 8-17 Spirit 00:00: - [facility] 00 [facility] Bupivicaine Bupivicaine 2020-0 No 2.5mg Common Menno Menno 8-17 Spirit 00:00: - [facility] 00 [facility] Kenalog Kenalog 2020-0 No 40mg Common (Triamcinol (Triamcinol 8-17 S pirit one) one) 00:00: - [facility] 00 [facility] Kenalog Kenalog 2020-0 No 40mg Common (Triamcinol (Triamcinol 8-17 S pirit one) one) 00:00: - [facility] 00 [facility] Bupivicaine Bupivicaine 2020-0 No 2.5mg Common Menno Menno 8-17 Spirit 00:00: - [facility] 00 [facility] Bupivicaine Bupivicaine 2020-0 No 2.5mg Common Menno Menno 8-17 Spirit 00:00: - [facility] 00 [facility] Kenalog Kenalog 2020-0 No 40mg Common (Triamcinol (Triamcinol 8-17 S pirit one) one) 00:00: - [facility] 00 [facility] Kenalog Kenalog 2020-0 No 40mg Common (Triamcinol (Triamcinol 8-17 S pirit one) one) 00:00: - [facility] 00 [facility] Bupivicaine Bupivicaine 2020-0 No 2.5mg Common Menno Menno 8-17 Spirit 00:00: - [facility] 00 [facility] Bupivicaine Bupivicaine 2020-0 No 2.5mg Common Menno Menno 8-17 Spirit 00:00: - [facility] 00 [facility] Kenalog Kenalog 2020-0 No 40mg Common (Triamcinol (Triamcinol 8-17 S pirit one) one) 00:00: - [facility] 00 [facility] Kenalog Kenalog 2020-0 No 40mg Common (Triamcinol (Triamcinol 8-17 S pirit one) one) 00:00: - [facility] 00 [facility] Bupivicaine Bupivicaine 2020-0 No 2.5mg Common Menno Menno 8-17 Spirit 00:00: - [facility] 00 [facility] Bupivicaine Bupivicaine 2020-0 No 2.5mg Common Menno Menno 8-17 Spirit 00:00: - [facility] 00 [facility] Kenalog Kenalog 2020-0 No 40mg Common (Triamcinol (Triamcinol 8-17 S pirit one) one) 00:00: - [facility] 00 [facility] Kenalog Kenalog 2020-0 No 40mg Common (Triamcinol (Triamcinol 8-17 S pirit one) one) 00:00: - [facility] 00 [facility] Bupivicaine Bupivicaine 2020-0 No 2.5mg Common Menno Menno 8-17 Spirit 00:00: - [facility] 00 [facility] Bupivicaine Bupivicaine 2020-0 No 2.5mg Common Menno Menno 8-17 Spirit 00:00: - [facility] 00 [facility] Kenalog Kenalog 2020-0 No 40mg Common (Triamcinol (Triamcinol 8-17 S pirit one) one) 00:00: - [facility] 00 [facility] Kenalog Kenalog 2020-0 No 40mg Common (Triamcinol (Triamcinol 8-17 S pirit one) one) 00:00: - [facility] 00 [facility] Bupivicaine Bupivicaine 2020-0 No 2.5mg Common Menno Menno 8-17 Spirit 00:00: - [facility] Bupivicaine Bupivicaine 2020-0 No 2.5mg Common Menno Menno 8-17 [facility] 00:00: - [facility] 00 [facility] [facility] Kenalog Kenalog 2020-0 No 40mg Common (Triamcinol (Triamcinol 8-17 S pirit one) one) 00:00: - [facility] Vancealog Kenalog 2020-0 No 40mg Common (Triamcinol (Triamcinol 8-17 S pirit one) one) 00:00: - [facility] Bupivicaine Bupivicaine 2020-0 No 2.5mg Common Menno Menno 8-17 Spirit 00:00: - [facility] Bupivicaine Bupivicaine 2020-0 No 2.5mg Common Menno Menno 8-17 Spirit 00:00: - [facility] Giselle Kenalog 2020-0 No 40mg Common (Triamcinol (Triamcinol 8-17 S pirit one) one) 00:00: - [facility] Giselle Kenalog 2020-0 No 40mg Common (Triamcinol (Triamcinol 8-17 S pirit one) one) 00:00: - [facility] Bupivicaine Bupivicaine 2020-0 No 2.5mg Common Menno Menno 8-17 Spirit 00:00: - [facility] Bupivicaine Bupivicaine 2020-0 No 2.5mg Common Menno Menno 8-17 Spirit 00:00: - [facility] Giselle Kenalog 2020-0 No 40mg Common (Triamcinol (Triamcinol 8-17 S pirit one) one) 00:00: - [facility] Kenalog Kenalog 2020-0 No 40mg Common (Triamcinol (Triamcinol 8-17 S pirit one) one) 00:00: - [facility] Bupivicaine Bupivicaine 2020-0 No 2.5mg Common Menno Menno 8-17 Spirit 00:00: - [facility] Bupivicaine Bupivicaine 2020-0 No 2.5mg Common Menno Menno 8-17 Spirit 00:00: - [facility] Kenalog Kenalog 2020-0 No 40mg Common (Triamcinol (Triamcinol 8-17 S pirit one) one) 00:00: - [facility] Kenalog Kenalog 2020-0 No 40mg Common (Triamcinol (Triamcinol 8-17 S pirit one) one) 00:00: - [facility] Bupivicaine Bupivicaine 1-0 No 2.5mg Common Menno Menno 8-17 Spirit 00:00: - [facility] Bupivicaine Bupivicaine 1-0 No 2.5mg Common Menno Menno 8-17 Spirit 00:00: - [facility] Kenalog Kenalog 2020-0 No 40mg Common (Triamcinol (Triamcinol 8-17 S pirit one) one) 00:00: - [facility] Vancealog Kenalog 2020-0 No 40mg Common (Triamcinol (Triamcinol 8-17 S pirit one) one) 00:00: - [facility] predniSONE predniSONE No predniSONE Ocuvite Ocuvite No Ocuvite Lisinopril Lisinopril No 1{table QD Lisinopril 5 MG 5 MG t} 5 MG Calcium 500 Calcium 500 No 1{table BID Calcium MG MG t_with_ 500 MG meals} metFORMIN metFORMIN No metFORMIN HCl ER 750 HCl ER 750 HCl ER 750 MG MG MG Budesonide- Budesonide- No Budesonide Formoterol Formoterol -Formotero Fumarate Fumarate l Fumarate Atorvastati Atorvastati No 1{table QD Atorvastat n Calcium n Calcium t} in Calcium 10 MG 10 MG 10 MG Lisinopril Lisinopril No 1{table QD Lisinopril 5 MG 5 MG t} 5 MG Meloxicam Meloxicam No Meloxicam 7.5 MG 7.5 MG 7.5 MG Montelukast Montelukast No 1{table QD Montelukas Sodium 10 Sodium 10 t} t Sodium MG MG 10 MG Albuterol Albuterol No Albuterol Sulfate HFA Sulfate HFA Sulfate 108 (90 108 (90 HFA 108 Base) Base) (90 Base) MCG/ACT MCG/ACT MCG/ACT Breo Breo No Breo Ellipta Ellipta Ellipta 100-25 100-25 100-25 MCG/INH MCG/INH MCG/INH metFORMIN metFORMIN No 1{table QD metFORMIN HCl ER 750 HCl ER 750 t_with_ HCl ER 750 MG MG evening MG _meal} Multi Multi No Multi Vitamin Vitamin Vitamin predniSONE predniSONE No predniSONE Budesonide- Budesonide- No Budesonide Formoterol Formoterol -Formotero Fumarate Fumarate l Fumarate Meloxicam Meloxicam No Meloxicam 7.5 MG 7.5 MG 7.5 MG Lisinopril Lisinopril No 1{table QD Lisinopril 5 MG 5 MG t} 5 MG Lisinopril Lisinopril No 1{table QD Lisinopril 5 MG 5 MG t} 5 MG Albuterol Albuterol No Albuterol Sulfate HFA Sulfate HFA Sulfate 108 (90 108 (90 HFA 108 Base) Base) (90 Base) MCG/ACT MCG/ACT MCG/ACT Calcium 500 Calcium 500 No 1{table BID Calcium MG MG t_with_ 500 MG meals} Multi Multi No Multi Vitamin Vitamin Vitamin metFORMIN metFORMIN No metFORMIN HCl ER 750 HCl ER 750 HCl ER 750 MG MG MG Breo Breo No 1{puff} QD Breo Ellipta Ellipta Ellipta 100-25 100-25 100-25 MCG/INH MCG/INH MCG/INH Montelukast Montelukast No 1{table QD Montelukas Sodium 10 Sodium 10 t} t Sodium MG MG 10 MG metFORMIN metFORMIN No BID metFORMIN HCl ER 750 HCl ER 750 HCl ER 750 MG MG MG Atorvastati Atorvastati No 1{table QD Atorvastat n Calcium n Calcium t} in Calcium 10 MG 10 MG 10 MG Breo Breo No Breo Ellipta Ellipta Ellipta 100-25 100-25 100-25 MCG/INH MCG/INH MCG/INH Ocuvite Ocuvite No Ocuvite predniSONE predniSONE No Budesonide- Budesonide- No Formoterol Formoterol Fumarate Fumarate Meloxicam Meloxicam No 7.5 MG 7.5 MG Lisinopril Lisinopril No 1{table QD 5 MG 5 MG t} Lisinopril Lisinopril No 1{table QD 5 MG 5 MG t} Albuterol Albuterol No Sulfate HFA Sulfate HFA 108 (90 108 (90 Base) Base) MCG/ACT MCG/ACT Calcium 500 Calcium 500 No 1{table BID MG MG t_with_ meals} Multi Multi No Vitamin Vitamin metFORMIN metFORMIN No HCl ER 750 HCl ER 750 MG MG Breo Breo No 1{puff} QD Ellipta Ellipta 100-25 100-25 MCG/INH MCG/INH Montelukast Montelukast No 1{table QD Sodium 10 Sodium 10 t} MG MG metFORMIN metFORMIN No BID HCl ER 750 HCl ER 750 MG MG Atorvastati Atorvastati No 1{table QD n Calcium n Calcium t} 10 MG 10 MG Breo Breo No Ellipta Ellipta 100-25 100-25 MCG/INH MCG/INH Ocuvite Ocuvite No metFORMIN metFORMIN No metFORMIN HCl ER 750 HCl ER 750 HCl ER 750 MG MG MG Atorvastati Atorvastati No 1{table QD Atorvastat n Calcium n Calcium t} in Calcium 10 MG 10 MG 10 MG Breo Breo No 1{puff} QD Breo Ellipta Ellipta Ellipta 100-25 100-25 100-25 MCG/INH MCG/INH MCG/INH Calcium 500 Calcium 500 No 1{table BID Calcium MG MG t_with_ 500 MG meals} Lisinopril Lisinopril No 1{table QD Lisinopril 5 MG 5 MG t} 5 MG Albuterol Albuterol No Albuterol Sulfate HFA Sulfate HFA Sulfate 108 (90 108 (90 HFA 108 Base) Base) (90 Base) MCG/ACT MCG/ACT MCG/ACT Budesonide- Budesonide- No Budesonide Formoterol Formoterol -Formotero Fumarate Fumarate l Fumarate Montelukast Montelukast No 1{table QD Montelukas Sodium 10 Sodium 10 t} t Sodium MG MG 10 MG Ocuvite Ocuvite No Ocuvite Meloxicam Meloxicam No Meloxicam 7.5 MG 7.5 MG 7.5 MG Multi Multi No Multi Vitamin Vitamin Vitamin predniSONE predniSONE No predniSONE Breo Breo No Breo Ellipta Ellipta Ellipta 100-25 100-25 100-25 MCG/INH MCG/INH MCG/INH Lisinopril Lisinopril No 1{table QD Lisinopril 5 MG 5 MG t} 5 MG Pantoprazol Pantoprazol No Pantoprazo e Sodium 40 e Sodium 40 le Sodium MG MG 40 MG metFORMIN metFORMIN No BID metFORMIN HCl ER 750 HCl ER 750 HCl ER 750 MG MG MG Pantoprazol Pantoprazol No 1{table QD Pantoprazo e Sodium 40 e Sodium 40 t} le Sodium MG MG 40 MG Breo Breo No 1{puff} QD Breo Ellipta Ellipta Ellipta 100-25 100-25 100-25 MCG/INH MCG/INH MCG/INH Montelukast Montelukast No 1{table QD Montelukas Sodium 10 Sodium 10 t} t Sodium MG MG 10 MG Lisinopril Lisinopril No 1{table QD Lisinopril 5 MG 5 MG t} 5 MG Atorvastati Atorvastati No 1{table QD Atorvastat n Calcium n Calcium t} in Calcium 10 MG 10 MG 10 MG metFORMIN metFORMIN No BID metFORMIN HCl ER 750 HCl ER 750 HCl ER 750 MG MG MG Breo Breo No 1{puff} QD Breo Ellipta Ellipta Ellipta 100-25 100-25 100-25 MCG/INH MCG/INH MCG/INH Atorvastati Atorvastati No 1{table QD Atorvastat n Calcium n Calcium t} in Calcium 10 MG 10 MG 10 MG Montelukast Montelukast No 1{table QD Montelukas Sodium 10 Sodium 10 t} t Sodium MG MG 10 MG Lisinopril Lisinopril No 1{table QD Lisinopril 5 MG 5 MG t} 5 MG Pantoprazol Pantoprazol No Pantoprazo e Sodium 40 e Sodium 40 le Sodium MG MG 40 MG metFORMIN metFORMIN No BID metFORMIN HCl ER 750 HCl ER 750 HCl ER 750 MG MG MG Breo Breo No 1{puff} QD Breo Ellipta Ellipta Ellipta 100-25 100-25 100-25 MCG/INH MCG/INH MCG/INH Atorvastati Atorvastati No 1{table QD Atorvastat n Calcium n Calcium t} in Calcium 10 MG 10 MG 10 MG Montelukast Montelukast No 1{table QD Montelukas Sodium 10 Sodium 10 t} t Sodium MG MG 10 MG Lisinopril Lisinopril No 1{table QD Lisinopril 5 MG 5 MG t} 5 MG Pantoprazol Pantoprazol No Pantoprazo e Sodium 40 e Sodium 40 le Sodium MG MG 40 MG metFORMIN metFORMIN No BID metFORMIN HCl ER 750 HCl ER 750 HCl ER 750 MG MG MG Breo Breo No 1{puff} QD Breo Ellipta Ellipta Ellipta 100-25 100-25 100-25 MCG/INH MCG/INH MCG/INH Atorvastati Atorvastati No 1{table QD Atorvastat n Calcium n Calcium t} in Calcium 10 MG 10 MG 10 MG Montelukast Montelukast No 1{table QD Montelukas Sodium 10 Sodium 10 t} t Sodium MG MG 10 MG Lisinopril Lisinopril No 1{table QD Lisinopril 5 MG 5 MG t} 5 MG Pantoprazol Pantoprazol No Pantoprazo e Sodium 40 e Sodium 40 le Sodium MG MG 40 MG metFORMIN metFORMIN No BID metFORMIN HCl ER 750 HCl ER 750 HCl ER 750 MG MG MG Breo Breo No 1{puff} QD Breo Ellipta Ellipta Ellipta 100-25 100-25 100-25 MCG/INH MCG/INH MCG/INH Atorvastati Atorvastati No 1{table QD Atorvastat n Calcium n Calcium t} in Calcium 10 MG 10 MG 10 MG Montelukast Montelukast No 1{table QD Montelukas Sodium 10 Sodium 10 t} t Sodium MG MG 10 MG Lisinopril Lisinopril No 1{table QD Lisinopril 5 MG 5 MG t} 5 MG Pantoprazol Pantoprazol No Pantoprazo e Sodium 40 e Sodium 40 le Sodium MG MG 40 MG Montelukast Montelukast No 1{table QD Montelukas Sodium 10 Sodium 10 t} t Sodium MG MG 10 MG Lisinopril Lisinopril No 1{table QD Lisinopril 5 MG 5 MG t} 5 MG Atorvastati Atorvastati No 1{table QD Atorvastat n Calcium n Calcium t} in Calcium 10 MG 10 MG 10 MG metFORMIN metFORMIN No BID metFORMIN HCl ER 750 HCl ER 750 HCl ER 750 MG MG MG Pantoprazol Pantoprazol No Pantoprazo e Sodium 40 e Sodium 40 le Sodium MG MG 40 MG Breo Breo No 1{puff} QD Breo Ellipta Ellipta Ellipta 100-25 100-25 100-25 MCG/INH MCG/INH MCG/INH Montelukast Montelukast No 1{table QD Montelukas Sodium 10 Sodium 10 t} t Sodium MG MG 10 MG Atorvastati Atorvastati No 1{table QD Atorvastat n Calcium n Calcium t} in Calcium 10 MG 10 MG 10 MG Breo Breo No 1{puff} QD Breo Ellipta Ellipta Ellipta 100-25 100-25 100-25 MCG/INH MCG/INH MCG/INH traZODone traZODone No traZODone HCl 100 MG HCl 100 MG HCl 100 MG Pantoprazol Pantoprazol No Pantoprazo e Sodium 40 e Sodium 40 le Sodium MG MG 40 MG metFORMIN metFORMIN No BID metFORMIN HCl ER 750 HCl ER 750 HCl ER 750 MG MG MG Lisinopril Lisinopril No 1{table QD Lisinopril 5 MG 5 MG t} 5 MG Montelukast Montelukast No 1{table QD Montelukas Sodium 10 Sodium 10 t} t Sodium MG MG 10 MG Atorvastati Atorvastati No 1{table QD Atorvastat n Calcium n Calcium t} in Calcium 10 MG 10 MG 10 MG Breo Breo No 1{puff} QD Breo Ellipta Ellipta Ellipta 100-25 100-25 100-25 MCG/INH MCG/INH MCG/INH traZODone traZODone No traZODone HCl 100 MG HCl 100 MG HCl 100 MG Pantoprazol Pantoprazol No Pantoprazo e Sodium 40 e Sodium 40 le Sodium MG MG 40 MG metFORMIN metFORMIN No BID metFORMIN HCl ER 750 HCl ER 750 HCl ER 750 MG MG MG Lisinopril Lisinopril No 1{table QD Lisinopril 5 MG 5 MG t} 5 MG Montelukast Montelukast No 1{table QD Montelukas Sodium 10 Sodium 10 t} t Sodium MG MG 10 MG Atorvastati Atorvastati No 1{table QD Atorvastat n Calcium n Calcium t} in Calcium 10 MG 10 MG 10 MG Breo Breo No 1{puff} QD Breo Ellipta Ellipta Ellipta 100-25 100-25 100-25 MCG/INH MCG/INH MCG/INH traZODone traZODone No traZODone HCl 100 MG HCl 100 MG HCl 100 MG Pantoprazol Pantoprazol No Pantoprazo e Sodium 40 e Sodium 40 le Sodium MG MG 40 MG metFORMIN metFORMIN No BID metFORMIN HCl ER 750 HCl ER 750 HCl ER 750 MG MG MG Lisinopril Lisinopril No 1{table QD Lisinopril 5 MG 5 MG t} 5 MG metFORMIN metFORMIN No BID metFORMIN HCl ER 750 HCl ER 750 HCl ER 750 MG MG MG Montelukast Montelukast No 1{table QD Montelukas Sodium 10 Sodium 10 t} t Sodium MG MG 10 MG Pantoprazol Pantoprazol No Pantoprazo e Sodium 40 e Sodium 40 le Sodium MG MG 40 MG Lisinopril Lisinopril No 1{table QD Lisinopril 5 MG 5 MG t} 5 MG Breo Breo No 1{puff} QD Breo Ellipta Ellipta Ellipta 100-25 100-25 100-25 MCG/INH MCG/INH MCG/INH Atorvastati Atorvastati No 1{table QD Atorvastat n Calcium n Calcium t} in Calcium 10 MG 10 MG 10 MG traZODone traZODone No traZODone HCl 100 MG HCl 100 MG HCl 100 MG metFORMIN metFORMIN No BID metFORMIN HCl ER 750 HCl ER 750 HCl ER 750 MG MG MG Montelukast Montelukast No 1{table QD Montelukas Sodium 10 Sodium 10 t} t Sodium MG MG 10 MG Pantoprazol Pantoprazol No Pantoprazo e Sodium 40 e Sodium 40 le Sodium MG MG 40 MG Lisinopril Lisinopril No 1{table QD Lisinopril 5 MG 5 MG t} 5 MG Breo Breo No 1{puff} QD Breo Ellipta Ellipta Ellipta 100-25 100-25 100-25 MCG/INH MCG/INH MCG/INH Atorvastati Atorvastati No 1{table QD Atorvastat n Calcium n Calcium t} in Calcium 10 MG 10 MG 10 MG traZODone traZODone No traZODone HCl 100 MG HCl 100 MG HCl 100 MG Lisinopril Lisinopril No 1{table QD Lisinopril 5 MG 5 MG t} 5 MG traZODone traZODone No traZODone HCl 100 MG HCl 100 MG HCl 100 MG traZODone traZODone No 1{table QD traZODone HCl 100 MG HCl 100 MG t_at_be HCl 100 MG dtime} Pantoprazol Pantoprazol No Pantoprazo e Sodium 40 e Sodium 40 le Sodium MG MG 40 MG Montelukast Montelukast No 1{table QD Montelukas Sodium 10 Sodium 10 t} t Sodium MG MG 10 MG Pantoprazol Pantoprazol No 1{table QD Pantoprazo e Sodium 40 e Sodium 40 t} le Sodium MG MG 40 MG metFORMIN metFORMIN No BID metFORMIN HCl ER 750 HCl ER 750 HCl ER 750 MG MG MG Breo Breo No 1{puff} QD Breo Ellipta Ellipta Ellipta 100-25 100-25 100-25 MCG/INH MCG/INH MCG/INH Atorvastati Atorvastati No 1{table QD Atorvastat n Calcium n Calcium t} in Calcium 10 MG 10 MG 10 MG Lisinopril Lisinopril No 1{table QD Lisinopril 5 MG 5 MG t} 5 MG traZODone traZODone No traZODone HCl 100 MG HCl 100 MG HCl 100 MG traZODone traZODone No 1{table QD traZODone HCl 100 MG HCl 100 MG t_at_be HCl 100 MG dtime} Pantoprazol Pantoprazol No Pantoprazo e Sodium 40 e Sodium 40 le Sodium MG MG 40 MG Montelukast Montelukast No 1{table QD Montelukas Sodium 10 Sodium 10 t} t Sodium MG MG 10 MG Pantoprazol Pantoprazol No 1{table QD Pantoprazo e Sodium 40 e Sodium 40 t} le Sodium MG MG 40 MG metFORMIN metFORMIN No BID metFORMIN HCl ER 750 HCl ER 750 HCl ER 750 MG MG MG Breo Breo No 1{puff} QD Breo Ellipta Ellipta Ellipta 100-25 100-25 100-25 MCG/INH MCG/INH MCG/INH Atorvastati Atorvastati No 1{table QD Atorvastat n Calcium n Calcium t} in Calcium 10 MG 10 MG 10 MG Lisinopril Lisinopril No 1{table QD Lisinopril 5 MG 5 MG t} 5 MG Pantoprazol Pantoprazol No Pantoprazo e Sodium 40 e Sodium 40 le Sodium MG MG 40 MG Breo Breo No 1{puff} QD Breo Ellipta Ellipta Ellipta 100-25 100-25 100-25 MCG/INH MCG/INH MCG/INH Pantoprazol Pantoprazol No 1{table QD Pantoprazo e Sodium 40 e Sodium 40 t} le Sodium MG MG 40 MG traZODone traZODone No 1{table QD traZODone HCl 100 MG HCl 100 MG t_at_be HCl 100 MG dtime} Atorvastati Atorvastati No 1{table QD Atorvastat n Calcium n Calcium t} in Calcium 10 MG 10 MG 10 MG Montelukast Montelukast No 1{table QD Montelukas Sodium 10 Sodium 10 t} t Sodium MG MG 10 MG metFORMIN metFORMIN No BID metFORMIN HCl ER 750 HCl ER 750 HCl ER 750 MG MG MG traZODone traZODone No traZODone HCl 100 MG HCl 100 MG HCl 100 MG metFORMIN metFORMIN No BID metFORMIN HCl ER 750 HCl ER 750 HCl ER 750 MG MG MG Lisinopril Lisinopril No 1{table QD Lisinopril 5 MG 5 MG t} 5 MG Atorvastati Atorvastati No 1{table QD Atorvastat n Calcium n Calcium t} in Calcium 10 MG 10 MG 10 MG Pantoprazol Pantoprazol No Pantoprazo e Sodium 40 e Sodium 40 le Sodium MG MG 40 MG traZODone traZODone No 1{table QD traZODone HCl 100 MG HCl 100 MG t_at_be HCl 100 MG dtime} Montelukast Montelukast No 1{table QD Montelukas Sodium 10 Sodium 10 t} t Sodium MG MG 10 MG Pantoprazol Pantoprazol No 1{table QD Pantoprazo e Sodium 40 e Sodium 40 t} le Sodium MG MG 40 MG Breo Breo No 1{puff} QD Breo Ellipta Ellipta Ellipta 100-25 100-25 100-25 MCG/INH MCG/INH MCG/INH traZODone traZODone No traZODone HCl 100 MG HCl 100 MG HCl 100 MG metFORMIN metFORMIN No BID metFORMIN HCl ER 750 HCl ER 750 HCl ER 750 MG MG MG Lisinopril Lisinopril No 1{table QD Lisinopril 5 MG 5 MG t} 5 MG Atorvastati Atorvastati No 1{table QD Atorvastat n Calcium n Calcium t} in Calcium 10 MG 10 MG 10 MG Pantoprazol Pantoprazol No Pantoprazo e Sodium 40 e Sodium 40 le Sodium MG MG 40 MG traZODone traZODone No 1{table QD traZODone HCl 100 MG HCl 100 MG t_at_be HCl 100 MG dtime} Montelukast Montelukast No 1{table QD Montelukas Sodium 10 Sodium 10 t} t Sodium MG MG 10 MG Pantoprazol Pantoprazol No 1{table QD Pantoprazo e Sodium 40 e Sodium 40 t} le Sodium MG MG 40 MG Breo Breo No 1{puff} QD Breo Ellipta Ellipta Ellipta 100-25 100-25 100-25 MCG/INH MCG/INH MCG/INH traZODone traZODone No traZODone HCl 100 MG HCl 100 MG HCl 100 MG Breo Breo No 1{puff} QD Breo Ellipta Ellipta Ellipta 100-25 100-25 100-25 MCG/INH MCG/INH MCG/INH Atorvastati Atorvastati No 1{table QD Atorvastat n Calcium n Calcium t} in Calcium 10 MG 10 MG 10 MG traZODone traZODone No 1{table QD traZODone HCl 100 MG HCl 100 MG t_at_be HCl 100 MG dtime} Lisinopril Lisinopril No 1{table QD Lisinopril 5 MG 5 MG t} 5 MG metFORMIN metFORMIN No metFORMIN HCl ER 750 HCl ER 750 HCl ER 750 MG MG MG Pantoprazol Pantoprazol No Pantoprazo e Sodium 40 e Sodium 40 le Sodium MG MG 40 MG traZODone traZODone No traZODone HCl 100 MG HCl 100 MG HCl 100 MG Montelukast Montelukast No 1{table QD Montelukas Sodium 10 Sodium 10 t} t Sodium MG MG 10 MG metFORMIN metFORMIN No metFORMIN HCl ER 750 HCl ER 750 HCl ER 750 MG MG MG Pantoprazol Pantoprazol No Pantoprazo e Sodium 40 e Sodium 40 le Sodium MG MG 40 MG ProAir HFA ProAir HFA No 2{puffs ProAir HFA 108 (90 108 (90 _as_nee 108 (90 Base) Base) ded} Base) MCG/ACT MCG/ACT MCG/ACT traZODone traZODone No 1{table QD traZODone HCl 100 MG HCl 100 MG t_at_be HCl 100 MG dtime} Pantoprazol Pantoprazol No 1{table QD Pantoprazo e Sodium 40 e Sodium 40 t} le Sodium MG MG 40 MG Montelukast Montelukast No 1{table QD Montelukas Sodium 10 Sodium 10 t} t Sodium MG MG 10 MG Lisinopril Lisinopril No 1{table QD Lisinopril 5 MG 5 MG t} 5 MG Montelukast Montelukast No 1{table QD Montelukas Sodium 10 Sodium 10 t} t Sodium MG MG 10 MG Albuterol Albuterol No 3{ml_as 8xD Albuterol Sulfate Sulfate _needed Sulfate (2.5 (2.5 } (2.5 MG/3ML) MG/3ML) MG/3ML) 0.083% 0.083% 0.083% Breo Breo No 1{puff} QD Breo Ellipta Ellipta Ellipta 100-25 100-25 100-25 MCG/INH MCG/INH MCG/INH metFORMIN metFORMIN No TID metFORMIN HCl ER 750 HCl ER 750 HCl ER 750 MG MG MG ZyrTEC ZyrTEC No 1{capsu QD ZyrTEC Allergy 10 Allergy 10 le} Allergy 10 MG MG MG Atorvastati Atorvastati No 1{table QD Atorvastat n Calcium n Calcium t} in Calcium 10 MG 10 MG 10 MG traZODone traZODone No 1{table QD traZODone HCl 100 MG HCl 100 MG t_at_be HCl 100 MG dtime} Breo Breo No 1{puff} QD Breo Ellipta Ellipta Ellipta 100-25 100-25 100-25 MCG/INH MCG/INH MCG/INH Breo Breo No 1{puff} QD Breo Ellipta Ellipta Ellipta 100-25 100-25 100-25 MCG/INH MCG/INH MCG/INH traZODone traZODone No 1{table QD traZODone HCl 100 MG HCl 100 MG t_at_be HCl 100 MG dtime} ProAir HFA ProAir HFA No 2{puffs ProAir HFA 108 (90 108 (90 _as_nee 108 (90 Base) Base) ded} Base) MCG/ACT MCG/ACT MCG/ACT Pantoprazol Pantoprazol No 1{table QD Pantoprazo e Sodium 40 e Sodium 40 t} le Sodium MG MG 40 MG Albuterol Albuterol No 3{ml_as 8xD Albuterol Sulfate Sulfate _needed Sulfate (2.5 (2.5 } (2.5 MG/3ML) MG/3ML) MG/3ML) 0.083% 0.083% 0.083% traZODone traZODone No 1{table QD traZODone HCl 100 MG HCl 100 MG t_at_be HCl 100 MG dtime} metFORMIN metFORMIN No TID metFORMIN HCl ER 750 HCl ER 750 HCl ER 750 MG MG MG metFORMIN metFORMIN No metFORMIN HCl ER 750 HCl ER 750 HCl ER 750 MG MG MG Pantoprazol Pantoprazol No Pantoprazo e Sodium 40 e Sodium 40 le Sodium MG MG 40 MG Lisinopril Lisinopril No 1{table QD Lisinopril 5 MG 5 MG t} 5 MG Atorvastati Atorvastati No 1{table QD Atorvastat n Calcium n Calcium t} in Calcium 10 MG 10 MG 10 MG Montelukast Montelukast No Montelukas Sodium 10 Sodium 10 t Sodium MG MG 10 MG ZyrTEC ZyrTEC No 1{capsu QD ZyrTEC Allergy 10 Allergy 10 le} Allergy 10 MG MG MG Breo Breo No 1{puff} QD Breo Ellipta Ellipta Ellipta 100-25 100-25 100-25 MCG/INH MCG/INH MCG/INH Breo Breo No 1{puff} QD Breo Ellipta Ellipta Ellipta 100-25 100-25 100-25 MCG/INH MCG/INH MCG/INH metFORMIN metFORMIN No TID metFORMIN HCl ER 750 HCl ER 750 HCl ER 750 MG MG MG Montelukast Montelukast No 1{table QD Montelukas Sodium 10 Sodium 10 t} t Sodium MG MG 10 MG ProAir HFA ProAir HFA No 2{puffs ProAir HFA 108 (90 108 (90 _as_nee 108 (90 Base) Base) ded} Base) MCG/ACT MCG/ACT MCG/ACT Pantoprazol Pantoprazol No Pantoprazo e Sodium 40 e Sodium 40 le Sodium MG MG 40 MG metFORMIN metFORMIN No metFORMIN HCl ER 750 HCl ER 750 HCl ER 750 MG MG MG Montelukast Montelukast No Montelukas Sodium 10 Sodium 10 t Sodium MG MG 10 MG Atorvastati Atorvastati No 1{table QD Atorvastat n Calcium n Calcium t} in Calcium 10 MG 10 MG 10 MG traZODone traZODone No 1{table QD traZODone HCl 100 MG HCl 100 MG t_at_be HCl 100 MG dtime} Albuterol Albuterol No 3{ml_as 8xD Albuterol Sulfate Sulfate _needed Sulfate (2.5 (2.5 } (2.5 MG/3ML) MG/3ML) MG/3ML) 0.083% 0.083% 0.083% Pantoprazol Pantoprazol No 1{table QD Pantoprazo e Sodium 40 e Sodium 40 t} le Sodium MG MG 40 MG ZyrTEC ZyrTEC No 1{capsu QD ZyrTEC Allergy 10 Allergy 10 le} Allergy 10 MG MG MG Lisinopril Lisinopril No 1{table QD Lisinopril 5 MG 5 MG t} 5 MG Breo Breo No 1{puff} QD Breo Ellipta Ellipta Ellipta 100-25 100-25 100-25 MCG/INH MCG/INH MCG/INH Cyclobenzap Cyclobenzap No 1{table QD Cyclobenza rine HCl 5 rine HCl 5 t_at_be romana HCl MG MG dtime_a 5 MG s_neede d} traZODone traZODone No 1{table QD traZODone HCl 100 MG HCl 100 MG t_at_be HCl 100 MG dtime} Breo Breo No 1{puff} QD Breo Ellipta Ellipta Ellipta 100-25 100-25 100-25 MCG/INH MCG/INH MCG/INH metFORMIN metFORMIN No TID metFORMIN HCl ER 750 HCl ER 750 HCl ER 750 MG MG MG ZyrTEC ZyrTEC No 1{capsu QD ZyrTEC Allergy 10 Allergy 10 le} Allergy 10 MG MG MG metFORMIN metFORMIN No metFORMIN HCl ER 750 HCl ER 750 HCl ER 750 MG MG MG Montelukast Montelukast No Montelukas Sodium 10 Sodium 10 t Sodium MG MG 10 MG Pantoprazol Pantoprazol No Pantoprazo e Sodium 40 e Sodium 40 le Sodium MG MG 40 MG Atorvastati Atorvastati No 1{table QD Atorvastat n Calcium n Calcium t} in Calcium 10 MG 10 MG 10 MG traZODone traZODone No 1{table QD traZODone HCl 100 MG HCl 100 MG t_at_be HCl 100 MG dtime} Montelukast Montelukast No 1{table QD Montelukas Sodium 10 Sodium 10 t} t Sodium MG MG 10 MG ProAir HFA ProAir HFA No 2{puffs ProAir HFA 108 (90 108 (90 _as_nee 108 (90 Base) Base) ded} Base) MCG/ACT MCG/ACT MCG/ACT Pantoprazol Pantoprazol No 1{table QD Pantoprazo e Sodium 40 e Sodium 40 t} le Sodium MG MG 40 MG Cyclobenzap Cyclobenzap No 1{table QD Cyclobenza rine HCl 5 rine HCl 5 t_at_be romana HCl MG MG dtime_a 5 MG s_neede d} Lisinopril Lisinopril No 1{table QD Lisinopril 5 MG 5 MG t} 5 MG Breo Breo No 1{puff} QD Breo Ellipta Ellipta Ellipta 100-25 100-25 100-25 MCG/INH MCG/INH MCG/INH Albuterol Albuterol No 3{ml_as 8xD Albuterol Sulfate Sulfate _needed Sulfate (2.5 (2.5 } (2.5 MG/3ML) MG/3ML) MG/3ML) 0.083% 0.083% 0.083% traZODone traZODone No 1{table QD traZODone HCl 100 MG HCl 100 MG t_at_be HCl 100 MG dtime} Montelukast Montelukast No Montelukas Sodium 10 Sodium 10 t Sodium MG MG 10 MG ProAir HFA ProAir HFA No 2{puffs ProAir HFA 108 (90 108 (90 _as_nee 108 (90 Base) Base) ded} Base) MCG/ACT MCG/ACT MCG/ACT Atorvastati Atorvastati No 1{table QD Atorvastat n Calcium n Calcium t} in Calcium 10 MG 10 MG 10 MG ZyrTEC ZyrTEC No 1{capsu QD ZyrTEC Allergy 10 Allergy 10 le} Allergy 10 MG MG MG Pantoprazol Pantoprazol No 1{table QD Pantoprazo e Sodium 40 e Sodium 40 t} le Sodium MG MG 40 MG metFORMIN metFORMIN No TID metFORMIN HCl ER 750 HCl ER 750 HCl ER 750 MG MG MG Breo Breo No 1{puff} QD Breo Ellipta Ellipta Ellipta 100-25 100-25 100-25 MCG/INH MCG/INH MCG/INH Pantoprazol Pantoprazol No Pantoprazo e Sodium 40 e Sodium 40 le Sodium MG MG 40 MG Breo Breo No 1{puff} QD Breo Ellipta Ellipta Ellipta 100-25 100-25 100-25 MCG/INH MCG/INH MCG/INH Cyclobenzap Cyclobenzap No 1{table QD Cyclobenza rine HCl 5 rine HCl 5 t_at_be romana HCl MG MG dtime_a 5 MG s_neede d} Montelukast Montelukast No 1{table QD Montelukas Sodium 10 Sodium 10 t} t Sodium MG MG 10 MG metFORMIN metFORMIN No metFORMIN HCl ER 750 HCl ER 750 HCl ER 750 MG MG MG Albuterol Albuterol No 3{ml_as 8xD Albuterol Sulfate Sulfate _needed Sulfate (2.5 (2.5 } (2.5 MG/3ML) MG/3ML) MG/3ML) 0.083% 0.083% 0.083% Lisinopril Lisinopril No 1{table QD Lisinopril 5 MG 5 MG t} 5 MG traZODone traZODone No 1{table QD traZODone HCl 100 MG HCl 100 MG t_at_be HCl 100 MG dtime} traZODone traZODone No 1{table QD traZODone HCl 100 MG HCl 100 MG t_at_be HCl 100 MG dtime} Montelukast Montelukast No Montelukas Sodium 10 Sodium 10 t Sodium MG MG 10 MG ProAir HFA ProAir HFA No 2{puffs ProAir HFA 108 (90 108 (90 _as_nee 108 (90 Base) Base) ded} Base) MCG/ACT MCG/ACT MCG/ACT Atorvastati Atorvastati No 1{table QD Atorvastat n Calcium n Calcium t} in Calcium 10 MG 10 MG 10 MG ZyrTEC ZyrTEC No 1{capsu QD ZyrTEC Allergy 10 Allergy 10 le} Allergy 10 MG MG MG Pantoprazol Pantoprazol No 1{table QD Pantoprazo e Sodium 40 e Sodium 40 t} le Sodium MG MG 40 MG metFORMIN metFORMIN No TID metFORMIN HCl ER 750 HCl ER 750 HCl ER 750 MG MG MG Breo Breo No 1{puff} QD Breo Ellipta Ellipta Ellipta 100-25 100-25 100-25 MCG/INH MCG/INH MCG/INH Pantoprazol Pantoprazol No Pantoprazo e Sodium 40 e Sodium 40 le Sodium MG MG 40 MG Breo Breo No 1{puff} QD Breo Ellipta Ellipta Ellipta 100-25 100-25 100-25 MCG/INH MCG/INH MCG/INH Cyclobenzap Cyclobenzap No 1{table QD Cyclobenza rine HCl 5 rine HCl 5 t_at_be romana HCl MG MG dtime_a 5 MG s_neede d} Montelukast Montelukast No 1{table QD Montelukas Sodium 10 Sodium 10 t} t Sodium MG MG 10 MG metFORMIN metFORMIN No metFORMIN HCl ER 750 HCl ER 750 HCl ER 750 MG MG MG Albuterol Albuterol No 3{ml_as 8xD Albuterol Sulfate Sulfate _needed Sulfate (2.5 (2.5 } (2.5 MG/3ML) MG/3ML) MG/3ML) 0.083% 0.083% 0.083% Lisinopril Lisinopril No 1{table QD Lisinopril 5 MG 5 MG t} 5 MG traZODone traZODone No 1{table QD traZODone HCl 100 MG HCl 100 MG t_at_be HCl 100 MG dtime} traZODone traZODone No 1{table QD traZODone HCl 100 MG HCl 100 MG t_at_be HCl 100 MG dtime} ZyrTEC ZyrTEC No 1{capsu QD ZyrTEC Allergy 10 Allergy 10 le} Allergy 10 MG MG MG Albuterol Albuterol No 3{ml_as 8xD Albuterol Sulfate Sulfate _needed Sulfate (2.5 (2.5 } (2.5 MG/3ML) MG/3ML) MG/3ML) 0.083% 0.083% 0.083% Montelukast Montelukast No 1{table QD Montelukas Sodium 10 Sodium 10 t} t Sodium MG MG 10 MG Azithromyci Azithromyci No QD Azithromyc n 250 MG n 250 MG in 250 MG Atorvastati Atorvastati No 1{table QD Atorvastat n Calcium n Calcium t} in Calcium 10 MG 10 MG 10 MG Montelukast Montelukast No Montelukas Sodium 10 Sodium 10 t Sodium MG MG 10 MG Pantoprazol Pantoprazol No 1{table QD Pantoprazo e Sodium 40 e Sodium 40 t} le Sodium MG MG 40 MG Breo Breo No 1{puff} QD Breo Ellipta Ellipta Ellipta 100-25 100-25 100-25 MCG/INH MCG/INH MCG/INH Lisinopril Lisinopril No 1{table QD Lisinopril 5 MG 5 MG t} 5 MG metFORMIN metFORMIN No metFORMIN HCl ER 750 HCl ER 750 HCl ER 750 MG MG MG traZODone traZODone No 1{table QD traZODone HCl 100 MG HCl 100 MG t_at_be HCl 100 MG dtime} metFORMIN metFORMIN No TID metFORMIN HCl ER 750 HCl ER 750 HCl ER 750 MG MG MG Pantoprazol Pantoprazol No Pantoprazo e Sodium 40 e Sodium 40 le Sodium MG MG 40 MG traZODone traZODone No 1{table QD traZODone HCl 100 MG HCl 100 MG t_at_be HCl 100 MG dtime} Cyclobenzap Cyclobenzap No 1{table QD Cyclobenza rine HCl 5 rine HCl 5 t_at_be romana HCl MG MG dtime_a 5 MG s_neede d} ProAir HFA ProAir HFA No 2{puffs ProAir HFA 108 (90 108 (90 _as_nee 108 (90 Base) Base) ded} Base) MCG/ACT MCG/ACT MCG/ACT Breo Breo No 1{puff} QD Breo Ellipta Ellipta Ellipta 100-25 100-25 100-25 MCG/INH MCG/INH MCG/INH Atorvastati Atorvastati No 1{table QD Atorvastat n Calcium n Calcium t} in Calcium 10 MG 10 MG 10 MG ZyrTEC ZyrTEC No 1{capsu QD ZyrTEC Allergy 10 Allergy 10 le} Allergy 10 MG MG MG Lisinopril Lisinopril No 1{table QD Lisinopril 5 MG 5 MG t} 5 MG ProAir HFA ProAir HFA No 2{puffs ProAir HFA 108 (90 108 (90 _as_nee 108 (90 Base) Base) ded} Base) MCG/ACT MCG/ACT MCG/ACT traZODone traZODone No 1{table QD traZODone HCl 100 MG HCl 100 MG t_at_be HCl 100 MG dtime} Breo Breo No 1{puff} QD Breo Ellipta Ellipta Ellipta 100-25 100-25 100-25 MCG/INH MCG/INH MCG/INH Albuterol Albuterol No 3{ml_as 8xD Albuterol Sulfate Sulfate _needed Sulfate (2.5 (2.5 } (2.5 MG/3ML) MG/3ML) MG/3ML) 0.083% 0.083% 0.083% Pantoprazol Pantoprazol No Pantoprazo e Sodium 40 e Sodium 40 le Sodium MG MG 40 MG metFORMIN metFORMIN No TID metFORMIN HCl ER 750 HCl ER 750 HCl ER 750 MG MG MG Breo Breo No 1{puff} QD Breo Ellipta Ellipta Ellipta 100-25 100-25 100-25 MCG/INH MCG/INH MCG/INH Azithromyci Azithromyci No QD Azithromyc n 250 MG n 250 MG in 250 MG traZODone traZODone No 1{table QD traZODone HCl 100 MG HCl 100 MG t_at_be HCl 100 MG dtime} metFORMIN metFORMIN No metFORMIN HCl ER 750 HCl ER 750 HCl ER 750 MG MG MG Cyclobenzap Cyclobenzap No 1{table QD Cyclobenza rine HCl 5 rine HCl 5 t_at_be romana HCl MG MG dtime_a 5 MG s_neede d} Pantoprazol Pantoprazol No 1{table QD Pantoprazo e Sodium 40 e Sodium 40 t} le Sodium MG MG 40 MG Montelukast Montelukast No Montelukas Sodium 10 Sodium 10 t Sodium MG MG 10 MG Atorvastati Atorvastati No 1{table QD Atorvastat n Calcium n Calcium t} in Calcium 10 MG 10 MG 10 MG ZyrTEC ZyrTEC No 1{capsu QD ZyrTEC Allergy 10 Allergy 10 le} Allergy 10 MG MG MG Lisinopril Lisinopril No 1{table QD Lisinopril 5 MG 5 MG t} 5 MG ProAir HFA ProAir HFA No 2{puffs ProAir HFA 108 (90 108 (90 _as_nee 108 (90 Base) Base) ded} Base) MCG/ACT MCG/ACT MCG/ACT traZODone traZODone No 1{table QD traZODone HCl 100 MG HCl 100 MG t_at_be HCl 100 MG dtime} Breo Breo No 1{puff} QD Breo Ellipta Ellipta Ellipta 100-25 100-25 100-25 MCG/INH MCG/INH MCG/INH Albuterol Albuterol No 3{ml_as 8xD Albuterol Sulfate Sulfate _needed Sulfate (2.5 (2.5 } (2.5 MG/3ML) MG/3ML) MG/3ML) 0.083% 0.083% 0.083% Pantoprazol Pantoprazol No Pantoprazo e Sodium 40 e Sodium 40 le Sodium MG MG 40 MG metFORMIN metFORMIN No TID metFORMIN HCl ER 750 HCl ER 750 HCl ER 750 MG MG MG Breo Breo No 1{puff} QD Breo Ellipta Ellipta Ellipta 100-25 100-25 100-25 MCG/INH MCG/INH MCG/INH Azithromyci Azithromyci No QD Azithromyc n 250 MG n 250 MG in 250 MG traZODone traZODone No 1{table QD traZODone HCl 100 MG HCl 100 MG t_at_be HCl 100 MG dtime} metFORMIN metFORMIN No metFORMIN HCl ER 750 HCl ER 750 HCl ER 750 MG MG MG Cyclobenzap Cyclobenzap No 1{table QD Cyclobenza rine HCl 5 rine HCl 5 t_at_be romana HCl MG MG dtime_a 5 MG s_neede d} Pantoprazol Pantoprazol No 1{table QD Pantoprazo e Sodium 40 e Sodium 40 t} le Sodium MG MG 40 MG Montelukast Montelukast No Montelukas Sodium 10 Sodium 10 t Sodium MG MG 10 MG Immunizations Ordered Immunization Filled Immunization Date Status Commen ts Source Name Name Jeremy Luna 2020-12-24 [facility] Jeremy Luna 2020-12-24 [facility]00 [facility] Jeremy Luna 2020-12-24 [facility] - [facility] Shingrix Shingrix 2020-12-24 Completed [facility]:57:00 - [facility] Shingrix Shingrix 2020-12-24 [facility]pleted [facility]:57:00 - [facility] Shingrix Shingrix 2020-12-24 [facility]pleted [facility]:57[facility] - [facility] Shingrix Shingrix 2020-12-24 [facility]pleted [facility]:57:00 - [facility] Shingrix Shingrix 2020-12-24 [facility]pleted [facility]:57:00 - [facility] Shingrix Shingrix 2020-12-24 [facility]pleted [facility]:57[facility]00 - [facility] Shingrix Shingrix 2020-12-24 [facility]pleted [facility]:57:00 - [facility] Shingrix Shingrix 2020-12-24 [facility]pleted [facility] - [facility] Shingrix Shingrix 2020-12-24 [facility]pleted [facility]:57[facility] - [facility] Shingrix Shingrix 2020-12-24 [facility]:57[facility]00 - [facility] Shingrix Shingrix 2020-12-24 [facility]pleted [facility] - [facility] Shingrix Shingrix 2020-12-24 [facility]pleted [facility]:57[facility]00 - [facility] Shingrix Shingrix 2020-12-24 [facility]:57[facility]00 - [facility] Shingrix Shingrix 2020-12-24 [facility] - [facility] Shingrix Shingrix 2020-12-24 [facility]:57[facility] - [facility] Shingrix Shingrix 2020-12-24 [facility]00 [facility] Shingrix Shingrix 2020-12-24 [facility]00 [facility] Shingrix Shingrix 2020-12-24 [facility]pleted [facility]:57:00 - [facility] Shingrix Shingrix 2020-12-24 [facility]pleted [facility]:57:00 - [facility] Shingrix Shingrix 2020-12-24 [facility]00 - [facility] Shingrix Shingrix 2020-12-24 [facility]pleted [facility]:57[facility] - [facility] Shingrix Shingrix 2020-12-24 [facility]pleted [facility]:57[facility]00 - [facility] Shingrix Shingrix 2020-12-24 [facility]:57[facility]00 - [facility] Shingrix Shingrix 2020-12-24 [facility]:57[facility]00 - [facility] Shingrix Shingrix 2020-12-24 [facility]pleted [facility]:57:00 - [facility] Shingrix Shingrix 2020-12-24 Completed [facility]:57:00 - [facility] FluAD FluAD 2020-11-30 Completed [facility]:57:00 - [facility] FluAD FluAD 2020-11-30 Completed [facility]:57:00 - [facility] FluAD FluAD 2020-11-30 [facility]:57:00 - [facility] FluAD FluAD 2020-11-30 [facility]:57:00 - [facility] FluAD FluAD 2020-11-30 [facility]:57:00 - [facility] FluAD FluAD 2020-11-30 Com[facility]:57:00 - [facility] FluAD FluAD 2020-11-30 [facility]:57:00 - [facility] FluAD FluAD 2020-11-30 [facility]:57:00 - [facility] FluAD FluAD 2020-11-30 [facility]:57:00 - [facility] FluAD FluAD 2020-11-30 Com[facility]:57:00 - [facility] FluAD FluAD 2020-11-30 [facility]:57:00 - [facility] FluAD FluAD 2020-11-30 [facility]:57:00 - [facility] FluAD FluAD 2020-11-30 [facility]:57:00 - [facility] FluAD FluAD 2020-11-30 Com[facility]:57:00 - [facility] FluAD FluAD 2020-11-30 Com[facility]:57:00 - [facility] FluAD FluAD 2020-11-30 Completed [facility]:57:00 - [facility] FluAD FluAD 2020-11-30 Completed [facility]:57:00 - [facility] FluAD FluAD 2020-11-30 Com[facility]:57:00 - [facility] FluAD FluAD 2020-11-30 Com[facility]:57:00 - [facility] FluAD FluAD 2020-11-30 Completed [facility]:57:00 - [facility] FluAD FluAD 2020-11-30 Com[facility]:57:00 - [facility] FluAD FluAD 2020-11-30 Completed [facility]:57:00 - [facility] FluAD FluAD 2020-11-30 Completed [facility]:57:00 - [facility] FluAD FluAD 2020-11-30 Completed [facility]:57:00 - [facility] FluAD FluAD 2020-11-30 Completed [facility]:57:00 - [facility] FluAD FluAD 2020-11-30 Com[facility] 14:57:00 - [facility] FluAD FluAD 2020-11-30 Completed [facility] 14:57:00 - [facility] FluAD FluAD 2020-11-30 Completed [facility]:57:00 - [facility] FluAD FluAD 2020-11-30 Completed [facility] 14:57:00 - [facility] Bupivicaine Menno Bupivicaine Menno 2020-11-09 Completed [facility]:15:00 - [facility] Bupivicaine Menno Bupivicaine Menno 2020-11-09 Completed [facility] 15:15:00 - [facility] Kenalog Kenalog 2020-11-09 Com[facility] (Triamcinolone) (Triamcinolone) 15:14:00 - [facility] Giselle Desai 2020-11-09 Completed [facility] (Triamcinolone) (Triamcinolone) 15:14:00 - [facility] Pneumovax (PPSV23) Pneumovax (PPSV23) 2019-12-02 Completed [facility] 15:22:00 [facility] Pneumovax (PPSV23) Pneumovax (PPSV23) 2019-12-02 Completed [facility] 15:22:00 [facility] Pneumovax (PPSV23) Pneumovax (PPSV23) 2019-12-02 Completed [facility] 15:22:00 [facility] Pneumovax (PPSV23) Pneumovax (PPSV23) 2019-12-02 Completed [facility] 15:22:00 [facility] Pneumovax (PPSV23) Pneumovax (PPSV23) 2019-12-02 [facility]pleted [facility] 15:22:00 [facility] Pneumovax (PPSV23) Pneumovax (PPSV23) 2019-12-02 Completed [facility] 15:22:00 [facility] Pneumovax (PPSV23) Pneumovax (PPSV23) 2019-12-02 Completed [facility] 15:22:00 [facility] Pneumovax (PPSV23) Pneumovax (PPSV23) 2019-12-02 Completed [facility] 15:22:00 [facility] Pneumovax (PPSV23) Pneumovax (PPSV23) 2019-12-02 Completed [facility] 15:22:00 [facility] Pneumovax (PPSV23) Pneumovax (PPSV23) 2019-12-02 Completed [facility] 15:22:00 [facility] Pneumovax (PPSV23) Pneumovax (PPSV23) 2019-12-02 Completed [facility] 15:22:00 [facility] Pneumovax (PPSV23) Pneumovax (PPSV23) 2019-12-02 Completed [facility] 15:22:00 [facility] Pneumovax (PPSV23) Pneumovax (PPSV23) 2019-12-02 Completed [facility] 15:22:00 [facility] Pneumovax (PPSV23) Pneumovax (PPSV23) 2019-12-02 Completed [facility] 15:22:00 [facility] Pneumovax (PPSV23) Pneumovax (PPSV23) 2019-12-02 Completed [facility] 15:22:00 [facility] Pneumovax (PPSV23) Pneumovax (PPSV23) 2019-12-02 Completed [facility] 15:22:00 [facility] Pneumovax (PPSV23) Pneumovax (PPSV23) 2019-12-02 Completed [facility] 15:22:00 [facility] Pneumovax (PPSV23) Pneumovax (PPSV23) 2019-12-02 Completed [facility] 15:22:00 [facility] Pneumovax (PPSV23) Pneumovax (PPSV23) 2019-12-02 Completed [facility] 15:22:00 [facility] Pneumovax (PPSV23) Pneumovax (PPSV23) 2019-12-02 Completed [facility] 15:22:00 [facility] Pneumovax (PPSV23) Pneumovax (PPSV23) 2019-12-02 Completed [facility] 15:22:00 [facility] Pneumovax (PPSV23) Pneumovax (PPSV23) 2019-12-02 Completed [facility] 15:22:00 [facility] Pneumovax (PPSV23) Pneumovax (PPSV23) 2019-12-02 Completed [facility] 15:22:00 [facility] Pneumovax (PPSV23) Pneumovax (PPSV23) 2019-12-02 Completed [facility] 15:22:00 [facility] Pneumovax (PPSV23) Pneumovax (PPSV23) 2019-12-02 Completed [facility] 15:22:00 [facility] Pneumovax (PPSV23) Pneumovax (PPSV23) 2019-12-02 Completed [facility] 15:22:00 - [facility] Pneumovax (PPSV23) Pneumovax (PPSV23) 2019-12-02 Completed [facility] 15:22:00 - [facility] Pneumovax (PPSV23) Pneumovax (PPSV23) 2019-12-02 Completed [facility] 15:22:00 - [facility] Pneumovax (PPSV23) Pneumovax (PPSV23) 2019-12-02 Completed [facility] 15:22:00 - [facility] Pneumovax (PPSV23) Pneumovax (PPSV23) 2019-12-02 Completed [facility] 15:22:00 - [facility] FluAD FluAD 2019-11-26 Completed [facility] 15::00 - [facility] FluAD FluAD 2019-11-26 Completed [facility] 15:: - [facility] FluAD FluAD 2019-11-26 Completed [facility] 15:: - [facility] FluAD FluAD 2019-11-26 Completed [facility] 15:21:00 - [facility] FluAD FluAD 2019-11-26 Completed [facility] 15:21:00 - [facility] FluAD FluAD 2019-11-26 Completed [facility] 15::00 - [facility] FluAD FluAD 2019-11-26 Completed [facility] 15[facility]21: - [facility] FluAD FluAD 2019-11-26 Completed [facility] 15:21:00 - [facility] FluAD FluAD 2019-11-26 Completed [facility] 15:21:00 - [facility] FluAD FluAD 2019-11-26 Completed [facility] 15:21:00 - [facility] FluAD FluAD 2019-11-26 Completed [facility] 15::00 - [facility] FluAD FluAD 2019-11-26 Completed [facility] 15::00 - [facility] FluAD FluAD 2019-11-26 Completed [facility] 15:: - [facility] FluAD FluAD 2019-11-26 Completed [facility] 15::00 - [facility] FluAD FluAD 2019-11-26 Completed [facility] 15:21:00 - [facility] FluAD FluAD 2019-11-26 Completed [facility] 15:21:00 - [facility] FluAD FluAD 2019-11-26 Completed [facility] 15::00 - [facility] FluAD FluAD 2019-11-26 Completed [facility] 15::00 - [facility] FluAD FluAD 2019-11-26 Completed [facility] 15:21:00 - [facility] FluAD FluAD 2019-11-26 Completed [facility] 15:21:00 - [facility] FluAD FluAD 2019-11-26 Completed [facility] 15:21:00 - [facility] FluAD FluAD 2019-11-26 Completed [facility] 15:: - [facility] FluAD FluAD 2019-11-26 Completed [facility] 15:: - [facility] FluAD FluAD 2019-11-26 Completed [facility] 15::00 - [facility] FluAD FluAD 2019-11-26 Completed [facility] 15::00 - [facility] FluAD FluAD 2019-11-26 Completed [facility] 15:21:00 - [facility] FluAD FluAD 2019-11-26 Completed [facility] 15::00 - [facility] FluAD FluAD 2019-11-26 Completed [facility] 15:: - [facility] FluAD FluAD 2019-11-26 Completed [facility] 15::00 - [facility] FluAD FluAD 2019-11-26 Completed [facility] 15::00 - [facility] Vital Signs Vital Name Observation Time Observation Value Comments Source height 2022-04-20 11:30:00 60 [in_i] [facility] weight 2022-04-20 11:30:00 151.6 [lb_av] [facility] temperature 2022-04-20 11:30:00 97.6 [degF] [facility] bmi 2022-04-20 11:30:00 29.6 kg/m2 [facility] oximetry 2022-04-20 11:30:00 98 % [facility] respiratory rate 2022-04-20 11:30:00 17 /min Comm on [facility] blood pressure 2022-04-20 11:30:00 130 mm[Hg] [facility] - systolic [facility] blood pressure 2022-04-20 11:30:00 83 mm[Hg] [facility] - diastolic [facility] height 2022-03-10 11:20:00 60 [in_i] [facility] weight 2022-03-10 11:20:00 150 [lb_av] [facility] bmi 2022-03-10 11:20:00 29.29 kg/m2 [facility] height 2022-02-23 10:40:00 60 [in_i] [facility] weight 2022-02-23 10:40:00 150.1 [lb_av] [facility] temperature 2022-02-23 10:40:00 97.0 [degF] [facility] bmi 2022-02-23 10:40:00 29.31 kg/m2 [facility] oximetry 2022-02-23 10:40:00 98 % [facility] respiratory rate 2022-02-23 10:40:00 18 /min Comm on [facility] blood pressure 2022-02-23 10:40:00 124 mm[Hg] [facility] - systolic [facility] blood pressure 2022-02-23 10:40:00 69 mm[Hg] [facility] - diastolic [facility] height 2022-02-07 13:30:00 60 [in_i] [facility] weight 2022-02-07 13:30:00 153 [lb_av] [facility] temperature 2022-02-07 13:30:00 97.2 [degF] [facility] bmi 2022-02-07 13:30:00 29.88 kg/m2 [facility] blood pressure 2022-02-07 13:30:00 129 mm[Hg] [facility] - systolic [facility] blood pressure 2022-02-07 13:30:00 76 mm[Hg] [facility] - diastolic [facility] height 2021-11-22 10:30:00 60 [in_i] [facility] weight 2021-11-22 10:30:00 162 [lb_av] [facility] temperature 2021-11-22 10:30:00 97.9 [degF] [facility] bmi 2021-11-22 10:30:00 31.64 kg/m2 [facility] oximetry 2021-11-22 10:30:00 94 % [facility] respiratory rate 2021-11-22 10:30:00 16 /min [facility] blood pressure 2021-11-22 10:30:00 138 mm[Hg] [facility] - systolic [facility] blood pressure 2021-11-22 10:30:00 86 mm[Hg] [facility] - diastolic [facility] height 2021-09-06 08:00:00 60 [in_i] [facility] weight 2021-09-06 08:00:00 159.4 [lb_av] [facility] temperature 2021-09-06 08:00:00 98.0 [degF] [facility] bmi 2021-09-06 08:00:00 31.13 kg/m2 [facility] blood pressure 2021-09-06 08:00:00 134 mm[Hg] [facility] - systolic [facility] blood pressure 2021-09-06 08:00:00 86 mm[Hg] [facility] - diastolic [facility] height 2021-08-17 08:10:00 60 [in_i] [facility] weight 2021-08-17 08:10:00 159.0 [lb_av] [facility] - [facility] temperature 2021-08-17 08:10:00 97.8 [degF] [facility] bmi 2021-08-17 08:10:00 31.05 kg/m2 [facility] oximetry 2021-08-17 08:10:00 96 % [facility] respiratory rate 2021-08-17 08:10:00 17 /min [facility] blood pressure 2021-08-17 08:10:00 132 mm[Hg] [facility] - systolic [facility] blood pressure 2021-08-17 08:10:00 76 mm[Hg] [facility] - diastolic [facility] height 2021-07-19 13:30:00 60 [in_i] [facility] weight 2021-07-19 13:30:00 158.6 [lb_av] [facility] temperature 2021-07-19 13:30:00 98.3 [degF] [facility] bmi 2021-07-19 13:30:00 30.97 kg/m2 [facility] blood pressure 2021-07-19 13:30:00 134 mm[Hg] [facility] - systolic [facility] blood pressure 2021-07-19 13:30:00 80 mm[Hg] [facility] - diastolic [facility] height 2021-05-19 13:30:00 60 [in_i] [facility] weight 2021-05-19 13:30:00 155 [lb_av] [facility] bmi 2021-05-19 13:30:00 30.27 kg/m2 [facility] blood pressure 2021-05-19 13:30:00 128 mm[Hg] [facility] - systolic [facility] blood pressure 2021-05-19 13:30:00 78 mm[Hg] [facility] - diastolic [facility] height 2021-04-11 14:20:00 60 [in_i] [facility] weight 2021-04-11 14:20:00 154.2 [lb_av] [facility] temperature 2021-04-11 14:20:00 98.0 [degF] [facility] bmi 2021-04-11 14:20:00 30.11 kg/m2 [facility] oximetry 2021-04-11 14:20:00 96 % [facility] respiratory rate 2021-04-11 14:20:00 18 /min [facility] blood pressure 2021-04-11 14:20:00 119 mm[Hg] [facility] - systolic [facility] blood pressure 2021-04-11 14:20:00 79 mm[Hg] [facility] - diastolic [facility] height 2021-04-11 15:00:00 60 [in_i] [facility] weight 2021-04-11 15:00:00 154.2 [lb_av] [facility] temperature 2021-04-11 15:00:00 98.0 [degF] [facility] bmi 2021-04-11 15:00:00 30.11 kg/m2 [facility] oximetry 2021-04-11 15:00:00 96 % [facility] respiratory rate 2021-04-11 15:00:00 18 /min [facility] blood pressure 2021-04-11 15:00:00 119 mm[Hg] [facility] - systolic [facility] blood pressure 2021-04-11 15:00:00 79 mm[Hg] [facility] height 2021-01-27 08:40:00 60 [in_i] [facility] weight 2021-01-27 08:40:00 153.0 [lb_av] Common [facility] bmi 2021-01-27 08:40:00 29.88 kg/m2 [facility] height 2021-01-06 14:50:00 60 [in_i] [facility] weight 2021-01-06 14:50:00 153.0 [lb_av] [facility] temperature 2021-01-06 14:50:00 97.0 [degF] [facility] bmi 2021-01-06 14:50:00 29.88 kg/m2 [facility] oximetry 2021-01-06 14:50:00 96 % [facility] respiratory rate 2021-01-06 14:50:00 20 /min Comm on [facility] blood pressure 2021-01-06 14:50:00 132 mm[Hg] [facility] systolic [facility] blood pressure 2021-01-06 14:50:00 76 mm[Hg] Common [facility] diastolic [facility] Procedures This patient has no known procedures. Encounters Start End Encounter Admission Attending Care Care Encounter Source Date/Time Date/Time Type Type Clinicians Facility Department ID 2022-05-24 Outpatient Ha, ST[facility]MLC [facility] [id number] Common 08:01:01 [facility] [address] [facility] 2022-03-09 Outpatient Ha, STLMLC STLC [id number] Common 15:46:00 Tim [facility] 2022-03-03 Outpatient Ha, STLMLC STLMLC [id number] Common 12:41:00 Tim [facility] 2022-02-22 Outpatient Ha, STLMLC STLC [id number] Common 08:32:01 Tim [facility] 2021-09-07 Outpatient Ha, STLMLC STLC [id number] Common 07:36:00 Tim [facility] 2021-08-29 Outpatient Ha, STLMLC STLMLC [id number] Common 11:21:01 Tim [facility] 2021-04-20 Outpatient Ha, STLMLC STLC Common 14:35:25 Tim [facility] 2021-04-20 Outpatient Ha, STLMLC STLC Common 14:32:00 Tim [facility] 2021-04-20 Outpatient Ha, STLMLC STLC Common 14:10:51 Tim [facility] 2021-04-20 Outpatient Ha, STLMLC STLC Common 14:01:01 Tim [id number] [facility] 2021-04-20 Outpatient Ha, STLMLC STLC Common 14:00:51 Tim [id number] [facility] 2021-04-20 Outpatient Ha, STLMLC STLC Common 13:39:28 Tim [id number] [facility] 2021-04-20 Outpatient Ha, STLMLC STLC Common 13:32:21 Tim 14[address] [facility] 2021-04-20 Outpatient Ha, STLMLC STLC Common 13:24:06 Tim [id number] [facility] 2021-04-20 Outpatient Ha, STLMLC STLC Common 13:21:10 Tim [id number] [facility] 2021-04-20 Outpatient Ha, STLMLC STLC Common 12:38:25 Tim [id number] [facility] 2021-04-20 Outpatient Ha, STLMLC STLC Common 12:37:39 Tim 299[address] [facility] 2021-04-20 Outpatient Ha, STLMLC STLC [id number] Common 12:34:27 Tim [id number] [facility] 2021-04-20 Outpatient Ha, STLMLC STLMLC [id number] Common 12:27:35 Tim 45849 [facility] 2021-04-20 Outpatient Ha, STLMLC STLMLC [id number] Common 11:58:08 Tim 30353 [facility] 2021-04-20 Outpatient Ha, STLMLC STLMLC [id number] Common 11:57:35 Tim 39231 [facility] 2021-04-20 Outpatient Ha, STLMLC STLMLC [id number] Common 11:49:28 Tim [address] [facility] 2021-04-20 Outpatient Ha, STLMLC STLMLC [id number] Common 11:49:07 Tim 45258 [facility] 2021-04-20 Outpatient Ha, STLMLC STLMLC [id number] Common 11:48:59 Tim [id number] [facility] 2022-04-20 2022-04-20 (TEL) STLMLC STLMLC [id number] Co mmon 00:00:00 00:00:00 [facility] 2022-04-20 2022-04-20 OFFICE STLMLC STLMLC [id number] Co mmon 00:00:00 00:00:00 VISIT EST Spir it PT LEVEL 3 [facility] 2022-03-28 2022-03-28 (TEL) STLMLC STLMLC [id number] Co mmon 00:00:00 00:00:00 [facility] 2022-03-10 2022-03-10 OFFICE STLMLC STLMLC [id number] Co mmon 00:00:00 00:00:00 VISIT EST Spir it PT LEVEL 3 [facility] 2022-03-09 2022-03-09 (TEL) STLMLC STLMLC [id number] Co mmon 00:00:00 00:00:00 [facility] 2022-03-01 2022-03-01 (TEL) STLMLC STLMLC [id number] Co mmon 00:00:00 00:00:00 [facility] 2022-02-23 2022-02-23 OFFICE STLMLC STLMLC [id number] Co mmon 00:00:00 00:00:00 [facility] - CHI LEVEL 4 [facility] 2022-02-07 2022-02-07 OFFICE STLMLC STLMLC [id number] Co mmon 00:00:00 00:00:00 [facility]ISIT [facility] PT - CHI LEVEL 4 [facility] 2022-02-01 2022-02-01 Outpatient Nodal[facility] [id number] [facility] 00:00:00 00:00:00 [facility] 2021-11-22 2021-11-22 OFFICE STLMLC STLMLC [id number] Co mmon 00:00:00 00:00:00 VISIT [facility] PT - CHI LEVEL 4 [facility] 2021-11-04 2021-11-04 Outpatient Nodal[facility] [id number] [facility] 00:00:00 00:00:00 [facility] 2021-10-17 2021-10-17 (TEL) STLMLC STLMLC [id number] Co mmon 00:00:00 00:00:00 [facility] 2021-10-10 2021-10-10 Outpatient Nodal_J DMG [id number] [facility] 02:47:00 02:47:00 [facility] 2021-10-07 2021-10-07 Outpatient DM[facility] [id number] [facility] 06:09:00 06:09:00 [facility] 2021-09-08 2021-09-08 (TEL) STLMLC STLMLC [id number] Co mmon 00:00:00 00:00:00 [facility] 2021-09-06 2021-09-06 (TEL) STLMLC STLMLC [id number] Co mmon 00:00:00 00:00:00 [facility] 2021-09-06 2021-09-06 OFFICE STLMLC STLMLC [id number] Co mmon 00:00:00 00:00:00 VISIT [facility] PT - CHI LEVEL 4 [facility] 2021-08-18 2021-08-18 (TEL) STLMLC STLMLC [id number] Co mmon 00:00:00 00:00:00 [facility] 2021-08-17 2021-08-17 OFFICE STLMLC STLMLC [id number] Co mmon 00:00:00 00:00:00 VISIT [facility] PT - CHI LEVEL 4 [facility] 2021-07-21 2021-07-21 (TEL) STLMLC STLMLC [id number] Co mmon 00:00:00 00:00:00 [facility] 2021-07-19 2021-07-19 OFFICE STLMLC STLMLC [id number] Co mmon 00:00:00 00:00:00 VISIT [facility] PT - CHI LEVEL 4 [facility] 2021-07-01 2021-07-01 (TEL) STLMLC STLMLC [id number] Co mmon 00:00:00 00:00:00 [facility] 2021-06-29 2021-06-29 (TEL) STLMLC STLMLC [id number] Co mmon 00:00:00 00:00:00 [facility] 2021-06-29 2021-06-29 (TEL) STLMLC STLMLC [id number] Co mmon 00:00:00 00:00:00 [facility] 2021-05-19 2021-05-19 OFFICE STLMLC STLMLC [id number] Co mmon 00:00:00 00:00:00 VISIT [facility] PT - CHI LEVEL 4 [facility] 2021-05-17 2021-05-17 (TEL) STLMLC STLMLC [id number] Co mmon 00:00:00 00:00:00 [facility] 2021-05-17 2021-05-17 (TEL) STLMLC STLMLC [id number] Co mmon 00:00:00 00:00:00 [facility] 2021-05-11 2021-05-11 (TEL) STLMLC STLMLC [id number] Co mmon 00:00:00 00:00:00 [facility] 2021-04-11 2021-04-11 OFFICE STLMLC STLMLC [id number] Co mmon 00:00:00 00:00:00 VISIT [facility] PT - CHI LEVEL 4 [facility] 2021-04-11 2021-04-11 SUB ANNUAL STLMLC STLMLC [id number] Common 00:00:00 00:00:00 MCR [facility] WELLNESS - CHI VISIT [facility] 2021-01-27 2021-01-27 (TELEAUD) STLMLC STLMLC [id number] Common 00:00:00 00:00:00 AUDIO [facility] TELEMEDICI - CHI NE [facility] 2021-01-26 2021-01-26 Outpatient DMG DMG [id number] [facility] 08:00:00 08:00:00 [facility] 2021-01-26 2021-01-26 (TEL) STLMLC STLMLC [id number] Co mmon 00:00:00 00:00:00 [facility] 2021-01-06 2021-01-06 OFFICE STLMLC STLMLC [id number] Co mmon 00:00:00 00:00:00 VISIT [facility] PT - CHI LEVEL 4 [facility] 2020-12-08 2020-12-08 (TEL) STLMLC STLMLC [id number] Co mmon 00:00:00 00:00:00 [facility] 2020-11-09 2020-11-09 Outpatient STLMLC STLMLC [id number] Common 00:00:00 00:00:00 [facility] 2020-10-20 2020-10-20 Outpatient STLMLC STLMLC [id number] Common 00:00:00 00:00:00 [facility] 2020-10-01 2020-10-01 Outpatient STLMLC STLMLC [id number] Common 00:00:00 00:00:00 [facility] 2020-09-30 2020-09-30 Outpatient STLMLC STLMLC [id number] Common 00:00:00 00:00:00 [facility] 2020-09-24 2020-09-24 Outpatient STLMLC STLMLC [id number] Common 00:00:00 00:00:00 [facility] 2020-09-23 2020-09-23 Outpatient STLMLC STLMLC [id number] Common 00:00:00 00:00:00 [facility] 2020-09-22 2020-09-22 Outpatient STLMLC STLMLC [id number] Common 00:00:00 00:00:00 [facility] 2020-08-16 2020-08-16 Outpatient STLMLC STLMLC [id number] Common 00:00:00 00:00:00 [facility] 2020-08-02 2020-08-02 Outpatient STLMLC STLMLC [id number] Common 00:00:00 00:00:00 [facility] 2020-06-29 2020-06-29 Outpatient STLMLC STLMLC [id number] Common 00:00:00 00:00:00 [facility] 2020-06-15 2020-06-15 Outpatient STLMLC STLMLC [id number] Common 00:00:00 00:00:00 [facility] 2020-06-01 2020-06-01 Outpatient STLMLC STLMLC [id number] Common 00:00:00 00:00:00 [facility] 2020-05-31 2020-05-31 Outpatient STLMLC STLMLC [id number] Common 00:00:00 00:00:00 [facility] 2020-05-31 2020-05-31 Outpatient STLMLC STLMLC [id number] Common 00:00:00 00:00:00 [facility] 2020-05-21 2020-05-21 Outpatient STLMLC STLMLC [id number] Common 00:00:00 00:00:00 [facility] 2020-05-03 2020-05-03 Outpatient STLMLC STLMLC [id number] Common 00:00:00 00:00:00 [facility] 2020-01-29 2020-01-29 Outpatient STLMLC STLMLC [id number] Common 00:00:00 00:00:00 [facility] 2020-01-15 2020-01-15 Outpatient STLMLC STLMLC [id number] Common 00:00:00 00:00:00 [facility] 2020-01-15 2020-01-15 Outpatient STLMLC STLMLC [id number] Common 00:00:00 00:00:00 [facility] 2019-12-18 2019-12-18 Outpatient STLMLC STLMLC [id number] Common 00:00:00 00:00:00 [facility] 2019-12-18 2019-12-18 Outpatient STLMLC STLMLC [id number] Common 00:00:00 00:00:00 [facility] Results Test Description Test Time Test Comments Results Result Comments Source Lipid Panel With LDL/HDL Ratio 2021-04-04 00:00:00 Test Item Value Reference Range Interpretation Comme nts Cholesterol, Total (test code = 2093-3) 151 100-199 Triglycerides (test code = 2571-8) 194 0-149 HDL Cholesterol (test code = 2085-9) 36 >39 Microalbumin/Creat Ratio, Random [id number] 00:00:00 Test Item Value Reference Range Interpretation Comments Creatinine, Urine (test code = 2161-8) 77.5 Not Estab. Albumin, Urine (test code = 21669-7) 3.0 Not Estab. Alb/Creat Ratio (test code = 31033-8) 4 0-29 Hematopath Consultation, [id number] 00:00:00 Test Item Value Reference Range Interpretation Comments PLTs (test code = 78498-4) Comments/Recommendations (test code = 32415-2) Pathologist (test code = 31344-8) Hemoglobin [id number] 00:00:00 Test Item Value Reference Range Interpretation Comments Hemoglobin A1c (test code = 4548-4) 6.6 4.8-5.6 Comp. Metabolic Panel (14) (CMP)2021-04-04 00:00:00 Test Item Value Reference Range Interpretation Comments Glucose (test code = 2345-7) 120 65-99 BUN (test code = 3094-0) 13 8-27 Creatinine (test code = 2160-0) 0.76 0.57-1.00 eGFR If NonAfricn Am (test code = 78 >59 71495-1) eGFR If Africn Am (test code = 42478-2) 89 >59 BUN/Creatinine Ratio (test code = 11 03- 3097-3) Sodium (test code = 2951-2) 140 134-144 Potassium (test code = 2823-3) 5.1 3.5-5.2 Chloride (test code = 2075-0) 102 96-106 Carbon Dioxide, Total (test code = -2027-) Calcium (test code = 97187-2) 9.9 8.7-10.3 Protein, Total (test code = 2885-2) 7.2 6.0-8.5 Albumin (test code = 1751-7) 4.4 3.7-4.7 Globulin, Total (test code = 01938-3) 2.8 1.5-4.5 A/G Ratio (test code = 1759-0) 1.6 1.2-2.2 Bilirubin, Total (test code = 1974-) 0.3 0.0-1.2 Alkaline Phosphatase (test code = 153 44-121 6768-6) AST (SGOT) (test code = 1920-8) 26 0-40 ALT (SGPT) (test code = 1742-6) 19 0-32
--- NOTE | 2022-05-24 16:26 | RAD REPORT ---
EXAM DESCRIPTION: RAD - Chest Single View - 05/24/2022 4:21 pm CLINICAL HISTORY: COUGH Chest pain. COMPARISON: Chest Pa And Lat (2 Views) dated 05/03/2020; Chest Pa And Lat (2 Views) dated 05/02/2019; Ch est Pa And Lat (2 Views) dated 04/30/2019; CHEST PA AND LAT 2 VIEW dated 05/23/2008 FINDINGS: Portable technique limits examination quality. The lungs are grossly clear. The heart is normal in size. No displaced fractures. IMPRESSION: No acute intrathoracic process suspected.
[2022-05-24 17:35] LABS: Hematocrit 41.9 % (36.0-45.0); Lymphocytes % 31.8 % (15.3-44.8); MCV 94.6 fL (80-100); MPV 8.8 fL (7.6-11.3); RBC Red Blood Cell Count 4.43 M/uL (3.86-4.86)
[2022-05-24 17:37] LABS: Protime INR 1.01
[2022-05-24 17:46] LABS: SARS-CoV-2 Antigen Rapid Res Negative (Negative)
[2022-05-24 17:59] LABS: Albumin 3.9 g/dL (3.4-5.0); Bilirubin Direct 0.1 mg/dL (0-0.2); Bilirubin Total 0.4 mg/dL (0.2-1.0); Potassium 3.8 mmol/L (3.5-5.1); Protein, Total 7.8 g/dL (6.4-8.2); Thyroid Stimulating Hormone 2.08 uIU/mL (0.358-3.740); Troponin High Sensitivity 8.5 pg/mL (<58.9)
[2022-05-24 18:51] LABS: SARS-COV-2 RT PCR NEGATIVE (NEGATIVE)
[2022-05-24 19:14] LABS: Urine Blood Trace-lysed (Negative); Urine Glucose Negative (Negative); Urine Protein Negative (Negative); Urine pH 5.5 (5.0-7.0)
--- NOTE | 2022-05-24 19:19 | ER ---
Nurse's Notes [facility] Name: Isela Silverio Age: 77 yrs Sex: Female : 1945 Arrival Date: 05/24/2022 Time: 15:45 Bed 18 Private MD: Diagnosis: Dyspnea;Palpitations;UTI/ Urinary tract infection, site not specified Presentation: 05/24 16:39 Chief complaint: Patient states: cough and runny nose that began 2 weeks ago. ss Coronavirus screen: Client denies travel out of the [place] in the last 14 days. Client presents with at least one sign or symptom that may indicate coronavirus-19. Coronavirus screen: Client presents with at least one sign or symptom that may indicate coronavirus-19. Standard/surgical mask placed on the client. Ebola Screen: Patient denies exposure to infectious person. Patient denies travel to an Ebola-affected area in the 21 days before illness onset. Initial Sepsis Screen: Does the patient meet any 2 criteria? No. Patient's initial sepsis screen is negative. Does the patient have a suspected source of infection? No. Patient's initial sepsis screen is negative. Risk Assessment: Do you want to hurt yourself or someone else? Patient reports no desire to harm self or others. Onset of symptoms was May 10, 2022. 16:39 Method Of Arrival: Ambulatory 16:39 Acuity: TEN 3 ss Historical: - Allergies: 16:40 No Known Allergies; ss - Home Meds: 16:40 None [Active]; ss - PMHx: 16:40 Hypertensive disorder; ss - Immunization history:: Client reports receiving the 2nd dose of the Covid vaccine. - Social history:: Smoking status: Patient denies any tobacco usage or history of. - Family history:: not pertinent. Screenin:46 [facility] ED Fall Risk Assessment (Adult) History of falling in the last 3 months, ap3 including since admission No falls in past 3 months (0 pts). Abuse screen: Denies threats or abuse. Nutritional screening: No deficits noted. Tuberculosis screening: No symptoms or risk factors identified. Assessment: 17:46 General: Appears in no apparent distress. Behavior is calm, cooperative, appropriate ap3 for age. Pain: Denies pain. Neuro: Level of Consciousness is awake, alert, obeys commands, Oriented to person, place, time, situation, Appropriate for age. Cardiovascular: Patient's skin is warm and dry. Rhythm is sinus tachycardia. Respiratory: Reports cough that is Airway is patent Respiratory effort is even, unlabored, Respiratory pattern is regular, symmetrical. Vital Signs: 16:39 BP 114 / 85; Pulse 122; Resp 16; Temp 98.1(TE); Pulse Ox 98% on R/A; Weight 68.49 kg; ss Height 5 ft. 0 in. (152.40 cm); Pain 0/10; 17:45 BP 122 / 83; Pulse 86; Pulse Ox 96% ; ap3 18:58 BP 134 / 74; Pulse 72; ap3 19:37 BP 133 / 75; Pulse 79; Resp 17; Pulse Ox 96% on R/A; ll3 16:39 Body Mass Index 29.49 (68.49 kg, 152.40 cm) ED Course: 15:45 Patient arrived in ED. rg4 16:03 Kevon Do MD is Attending Physician. preston 16:22 XRAY Chest (1 view) In Process Unspecified. EDMS 16:40 Triage completed. ss 16:40 Arm band placed on right wrist. ss 17:14 Katy Yu, RN is Primary Nurse. ap3 17:46 Patient has correct armband on for positive identification. Placed in gown. Bed in low ap3 position. Call light in reach. Side rails up X 1. Adult w/ patient. swage tender on. Pulse ox on. NIBP on. Door closed. Noise minimized. 18:09 COVID-19/FLU A+B Sent. ap3 19:11 CT Chest For PE Angio In Process Unspecified. EDMS 19:19 Prudencio Garcia MD is Referral Physician. preston 19:36 No provider procedures requiring assistance completed. IV discontinued, intact, ll3 bleeding controlled, No redness/swelling at site. Pressure dressing applied. Administered Medications: 17:32 Drug: NS 0.9% 500 ml Route: IV; Rate: bolus; Site: left antecubital; ap3 18:43 Follow up: IV Status: Completed infusion; IV Intake: 500ml ap3 17:47 Drug: NS 0.9% 500 ml Route: IV; Rate: bolus; Site: left antecubital; ap3 18:58 Follow up: IV Status: Completed infusion; IV Intake: 500ml ap3 18:58 Not Given (bolus orderedd): NS 0.9% 1000 ml IV at 125 ml/hr continuous ap3 19:27 Drug: Rocephin (cefTRIAXone) 1 grams Route: IV; Rate: per protocol; Site: left ll3 antecubital; 19:27 Drug: Cipro (ciprofloxacin) 500 mg Route: PO; ll3 Medication: 18:59 VIS not applicable for this client. ap3 Intake: 18:43 IV: 500ml; Total: 500ml. ap3 18:58 IV: 500ml; Total: 1000ml. ap3 Outcome: 19:19 Discharge ordered by . preston 19:36 Discharged to home ambulatory, with family. ll3 19:36 Condition: stable 19:36 Discharge instructions given to patient, family, Instructed on discharge instructions, follow up and referral plans. medication usage, Demonstrated understanding of instructions, follow-up care, medications, Prescriptions given X 2. 19:37 Patient left the ED. ll3 Signatures: Dispatcher [employer] EDWA Kevon Do MD MD cha Smirch, Shelby, RN RN Aaliyah Crowley rg4 Katy Yu RN RN ap3 Isai Miles RN RN ll3 Corrections: (The following items were deleted from the chart) 16:42 16:40 Allergies: unknown pain pill; ss ss 16:42 16:40 PMHx: None; ss ss
--- NOTE | 2022-05-24 19:19 | EDPHYS ---
[facility] Documentation [facility] Name: Isela Silverio Age: 77 yrs Sex: Female : 1945 Arrival Date: 05/24/2022 Time: 15:45 Bed 18 Private MD: ED Physician Kevon Do HPI: 05/24 17:39 This 77 yrs old Female presents to ER via Ambulatory with complaints of preston Palpitations. 17:39 The patient presents with a history of heart racing. Context: The symptoms occur at preston rest. Onset: The symptoms/episode began/occurred 2 week(s) ago. Duration: The patient or guardian reports multiple episodes, that wax and wane, with no pattern. Modifying factors: The symptoms are aggravated by nothing. The symptoms are alleviated by nothing. Associated signs and symptoms: The patient has no apparent associated signs or symptoms. Severity of symptoms: At their worst the symptoms were moderate in the emergency department the symptoms are unchanged. The patient has not experienced similar symptoms in the past. Historical: - Allergies: 16:40 No Known Allergies; ss - Home Meds: 16:40 None [Active]; ss - PMHx: 16:40 Hypertensive disorder; ss - Immunization history:: Client reports receiving the 2nd dose of the Covid vaccine. - Social history:: Smoking status: Patient denies any tobacco usage or history of. - Family history:: not pertinent. ROS: 17:39 Constitutional: Negative for fever, chills, and weight loss, Eyes: Negative for injury, preston pain, redness, and discharge, ENT: Negative for injury, pain, and discharge, Neck: Negative for injury, pain, and swelling, Abdomen/GI: Negative for abdominal pain, nausea, vomiting, diarrhea, and constipation, Back: Negative for injury and pain, : Negative for injury, bleeding, discharge, and swelling, MS/Extremity: Negative for injury and deformity, Skin: Negative for injury, rash, and discoloration, Neuro: Negative for headache, weakness, numbness, tingling, and seizure, Psych: Negative for depression, anxiety, suicide ideation, homicidal ideation, and hallucinations, Allergy/Immunology: Negative for hives, rash, and allergies, Endocrine: Negative for neck swelling, polydipsia, polyuria, polyphagia, and marked weight changes, Hematologic/Lymphatic: Negative for swollen nodes, abnormal bleeding, and unusual bruising. 17:39 Cardiovascular: Positive for palpitations. 17:39 Respiratory: Positive for cough, shortness of breath, at rest. 17:39 MS/extremity: Negative for acute changes. Exam: 17:39 Constitutional: This is a well developed, well nourished patient who is awake, alert, preston and in no acute distress. Head/Face: Normocephalic, atraumatic. Eyes: Pupils equal round and reactive to light, extra-ocular motions intact. Lids and lashes normal. Conjunctiva and sclera are non-icteric and not injected. Cornea within normal limits. Periorbital areas with no swelling, redness, or edema. ENT: Nares patent. No nasal discharge, no septal abnormalities noted. Tympanic membranes are normal and external auditory canals are clear. Oropharynx with no redness, swelling, or masses, exudates, or evidence of obstruction, uvula midline. Mucous membranes moist. Neck: Trachea midline, no thyromegaly or masses palpated, and no cervical lymphadenopathy. Supple, full range of motion without nuchal rigidity, or vertebral point tenderness. No Meningismus. Chest/axilla: Normal chest wall appearance and motion. Nontender with no deformity. No lesions are appreciated. Respiratory: Lungs have equal breath sounds bilaterally, clear to auscultation and percussion. No rales, rhonchi or wheezes noted. No increased work of breathing, no retractions or nasal flaring. Abdomen/GI: Soft, non-tender, with normal bowel sounds. No distension or tympany. No guarding or rebound. No evidence of tenderness throughout. Back: No spinal tenderness. No costovertebral tenderness. Full range of motion. Female : Normal external genitalia. Skin: Warm, dry with normal turgor. Normal color with no rashes, no lesions, and no evidence of cellulitis. MS/ Extremity: Pulses equal, no cyanosis. Neurovascular intact. Full, normal range of motion. Neuro: Awake and alert, GCS 15, oriented to person, place, time, and situation. Cranial nerves II-XII grossly intact. Motor strength 5/5 in all extremities. Sensory grossly intact. Cerebellar exam normal. Normal gait. Psych: Awake, alert, with orientation to person, place and time. Behavior, mood, and affect are within normal limits. 17:39 Cardiovascular: Rate: tachycardic, actual rate is 122 bpm, Rhythm: regular, Pulses: Pulses are 4+ in bilateral radial, brachial, femoral, popliteal, posterior tibial and and dorsalis pedis arteries.. Heart sounds: normal, Edema: is not appreciated, JVD: is not appreciated. 17:39 Musculoskeletal/extremity: DVT Exam: No signs of deep vein thrombosis. no pain, no swelling, no tenderness, negative Homans' sign noted on exam, no appreciated bluish discoloration, no erythema, no increased warmth. 17:54 ECG was reviewed by the Attending Physician. preston 19:18 Back: pain, is absent, ROM is normal, normal spinal alignment noted, CVA tenderness, is preston absent, vertebral tenderness, is not appreciated, muscle spasm, is not present. Vital Signs: 16:39 BP 114 / 85; Pulse 122; Resp 16; Temp 98.1(TE); Pulse Ox 98% on R/A; Weight 68.49 kg; ss Height 5 ft. 0 in. (152.40 cm); Pain 0/10; 17:45 BP 122 / 83; Pulse 86; Pulse Ox 96% ; ap3 18:58 BP 134 / 74; Pulse 72; ap3 19:37 BP 133 / 75; Pulse 79; Resp 17; Pulse Ox 96% on R/A; ll3 16:39 Body Mass Index 29.49 (68.49 kg, 152.40 cm) ss MDM: 16:50 Patient medically screened. preston 17:41 PHILLIP Risk Score: 1 - Patient's age is greater or equal to 65, 1 - ASA use in past 7 preston days. Differential diagnosis: arrythmia, dehydration, stress disorder. Data reviewed: vital signs, nurses notes, lab test result(s), EKG, radiologic studies, CT scan, ultrasound. Consideration of Admission/Observation Escalation of care including admission/observation considered. I considered the following discharge prescriptions or medication management in the emergency department Medications were administered in the Emergency Department. See MAR. Test considered but Not performed: Ultrasound bilateral le venous doppler. Care significantly affected by the following chronic conditions: Hypertension. 05/24 16:06 Order name: Basic Metabolic Panel; Complete Time: 18:06 preston 05/24 16:06 Order name: CBC with Diff; Complete Time: 17:55 preston 05/24 16:06 Order name: LFT's; Complete Time: 18:06 05/24 16:06 Order name: Magnesium; Complete Time: 18:06 05/24 16:06 Order name: NT PRO-BNP; Complete Time: 18:06 05/24 16:06 Order name: PT-INR; Complete Time: 17:55 05/24 16:06 Order name: Troponin HS; Complete Time: 18:06 05/24 16:06 Order name: XRAY Chest (1 view); Complete Time: 17:29 05/24 16:06 Order name: EKG; Complete Time: 16:07 05/24 16:06 Order name: Cardiac monitoring; Complete Time: 17:45 05/24 16:06 Order name: EKG - Nurse/Tech; Complete Time: 17:45 05/24 16:06 Order name: IV Saline Lock; Complete Time: 17:33 05/24 16:06 Order name: Labs collected and sent; Complete Time: 17:33 05/24 16:06 Order name: O2 Per Protocol; Complete Time: 17:33 05/24 16:06 Order name: O2 Sat Monitoring; Complete Time: 17:33 05/24 16:06 Order name: Urine Dipstick-Ancillary (obtain specimen); Complete Time: 19:13 05/24 16:06 Order name: TSH; Complete Time: 18:06 05/24 16:06 Order name: SARS RAPID; Complete Time: 17:55 05/24 16:50 Order name: Labs - recollect needed: recollect covid swab,use correct swab; Complete bd Time: 17:32 05/24 17:37 Order name: COVID-19/FLU A+B; Complete Time: 18:52 05/24 17:37 Order name: CT Chest For PE Angio 05/24 18:52 Order name: Misc. Order: please get ua; Complete Time: 19:13 05/24 19:14 Order name: Urine Dipstick-Ancillary; Complete Time: 19:17 EDMS EC:54 Rate is 94 beats/min. Rhythm is regular. QRS [place] is Normal. NV interval is normal. QRS [place]ston interval is normal. QT interval is normal. No Q waves. T waves are Normal. No ST changes noted. Clinical impression: NSR w/ Non-specific ST/T Changes, LVH, and No evidence of ischemia. Interpreted by me. Reviewed by me. Administered Medications: 17:32 Drug: NS 0.9% 500 ml Route: IV; Rate: bolus; Site: left antecubital; ap3 18:43 Follow up: IV Status: Completed infusion; IV Intake: 500ml ap3 17:47 Drug: NS 0.9% 500 ml Route: IV; Rate: bolus; Site: left antecubital; ap3 18:58 Follow up: IV Status: Completed infusion; IV Intake: 500ml ap3 18:58 Not Given (bolus orderedd): NS 0.9% 1000 ml IV at 125 ml/hr continuous ap3 19:27 Drug: Rocephin (cefTRIAXone) 1 grams Route: IV; Rate: per protocol; Site: left ll3 antecubital; 19:27 Drug: Cipro (ciprofloxacin) 500 mg Route: PO; ll3 Disposition Summary: 05/24/22 19:19 Discharge Ordered Location: Home preston Problem: new preston Symptoms: have improved preston Condition: Stable preston Diagnosis - Dyspnea preston - Palpitations preston - UTI/ Urinary tract infection, site not specified preston Followup: preston - With: Private Physician - When: 2 - 3 days - Reason: Recheck today's complaints, Continuance of care, Re-evaluation by your physician Followup: preston - With: - When: 2 - 3 days - Reason: Recheck today's complaints, Continuance of care, Re-evaluation by your physician Discharge Instructions: - Discharge Summary Sheet preston - Palpitations preston - Urinary Tract Infection, Adult preston - Urinary Tract Infection, Adult, [id number] preston - Aspirin and Your Heart preston - Palpitations, [id number] preston Forms: - Medication Reconciliation Form preston - Thank You Letter preston - Antibiotic Education preston - Prescription Opioid Use preston Prescriptions: - Cipro 250 mg Oral Tablet - take 1 tablet by ORAL route every 12 hours; 14 tablet; Refills: 0, Product preston Selection Permitted - Toprol XL 25 mg Oral Tablet - take 1 tablet by ORAL route once daily; 20 tablet; Refills: 0, Product preston Selection Permitted Signatures: Dispatcher [employer] EDLoyda Gerber Corey, MD MD cha Smirch, Shelby, RN RN Magan Mandujano NP [employer] pm1 Katy Yu, RN RN ap3 Isai Miles RN RN ll3 Corrections: (The following items were deleted from the chart) 16: Allergies: unknown pain pill; ss ss 16:40 PMHx: None; [facility]
--- NOTE | 2022-05-24 19:19 | RAD REPORT ---
EXAM DESCRIPTION: CT - Chest For Pe Angio - 05/24/2022 7:10 pm CLINICAL HISTORY: Chest pain. Congestion COMPARISON: Chest Single View dated 05/24/2022 TECHNIQUE: CT angiogram of the pulmonary arteries was performed with MIP. All CT scans are performed using dose optimization technique as appropriate and may include automated exposure control or mA/KV adjustment according to patient size. FINDINGS: No evidence of pulmonary thromboembolism. No acute aortic finding demonstrated. The lungs are clear. No significant pericardial or pleural fluid. No concerning bony finding. IMPRESSION: No evidence of pulmonary thromboembolism. No acute lung findings.
[2022-05-24] MEDS ORDERED: CEFTRIAXONE 1000 MG/VIAL ONE (19:23)
[2022-05-24] MEDS ORDERED: CIPROFLOXACIN HCL 500 MG TAB ONE (19:23)
--- NOTE | 2022-05-25 17:27 | EKG ---
Test Date: 2022-05-24 Test Time: 17:41:08 Territory Outside Sales Manager: ALP MEASUREMENT RESULTS: Intervals: Rate: 94 AK: 150 QRSD: 112 QT: 364 QTc: 455 [place]: P: 53 AK: 150 QRS: -53 T: 92 INTERPRETIVE STATEMENTS: Normal sinus rhythm Left axis deviation Left ventricular hypertrophy with repolarization abnormality Cannot rule out Septal infarct, age undetermined Abnormal ECG Compared to ECG 05/02/2019 16:49:04 Left-axis deviation now present Left ventricular hypertrophy now present Early repolarization now present Myocardial infarct finding now present Left bundle-branch block no longer present Electronically Signed On 05-25-22 17:25:59 FRONT WORKER by Prudencio Garcia
== END 2022-05-24 19:37 | disposition home or self-care (01) ==
LOC: ER 15:43
DX: R00.2 Palpitations (principal); R06.00 Dyspnea, unspecified; N39.0 Urinary tract infection, site not specified; I10 Essential (primary) hypertension; Z20.822 Contact with and (suspected) exposure to COVID-19
CPT/HCPCS: 85025; 80048; 36415; 83735; 85610; 80076; 84443; 81003; 84484; 83880; 0240U; 71275; 71045; 87811; Q9967; 93005

== ENCOUNTER 2023-05-08 13:06 | Inpatient (IN) | payer MEDICARE, OTHER ==
--- OUTSIDE RECORDS SUMMARY | 2023-05-08 13:19 | XMS REPORT | Continuity of Care Document ---
Author Name Unknown Address [address] [facility] [place] [address] [facility] thconnect Address [address] [facility] [address] [place] [address] Care Team Providers Care Envelope Folder Name Role Phone Tim Ha Attending Clinician Unavailable Marietta Tai Attending Clinician Doe Mo Attending Clinician UnavailPa Whiteside Attending Clinician GC_GCBZW_Kadottie_Darrin Attending Clinician Regulo Yin -Ariella Wells Attending Clinician Quirino Jacinto Attending Clinician Nodal_Moises Attending Clinician Unavailable Doe Mo Admitting Clinician Unavailabl e GC_GCBZW_Kadiyalyu_S Admitting Clinician Unavaila ble Nodal_J Admitting Clinician Unavailable Payers Payer Name Policy Type Policy Number Effective Date Expirati on Date Source [facility] 53 [id number] [facility] DEVOTED HEALTH (MEDICARE REPLACEMENT HMO) [id number] 2021 00:00:00 [employer] Replace C1 [id number] 2020 00:00:00 [facility] MEDICARE NOVITAS [id number] 2011 00:00:00 [facility] [employer] Medicare Replace C1 [id number] 2020 00:00:00 [facility] MEDICARE NOVITAS [id number] 2011 00:00:00 [facility] [employer] Medicare Replace C1 [id number] 2020 00:00:00 [facility] Problems Condition Name Condition Details Condition Category Status Onset Date Resolution Date Last Treatment Date Treating Clinician Comments Source [id number] Pacemaker Problem Comm on [facility] [id number] Body mass index (BMI) 30.0-30.9, adult Problem [facility] [id number] Other chronic pain Problem [facility] [id number] Other obesity due to excess calories Problem [facility] [id number] Mixed hyperlipid emia Problem [facility] [id number] Type 2 diabetes mellitus with hyperglyce sonia, without long-term current use of insulin Problem [facility] [id number] Chronic maxillary sinusitis Problem [facility] [id number] Arthritis of knee, right Problem [facility] [id number] Essential hypertensi on Problem [facility] [id number] Arthritis of knee, left Problem [facility] [id number] Non-season al allergic rhinitis, unspecifie d trigger Problem [facility] [id number] Exposure to tobacco smoke Problem [facility] [id number] Chronic obstructiv e pulmonary disease, unspecifie d COPD type Problem [facility] [id number] COPD with exacerbati on Problem [facility] 05608295 Primary open-angle glaucoma, bilateral, mild stage Problem [facility] [id number] GERD without esophagiti s Problem [facility] Pain in pelvis Pelvic pain Problem [facility] [id number] Primary insomnia Problem [facility] [id number] Rotator cuff arthropath y of right shoulder Problem [facility] Type II diabetes mellitus without complicati on Type 2 diabetes Problem [facility] Left low back pain, unspecifie d chronicity , unspecifie d whether sciatica present Left low back pain, unspecifie d chronicity , unspecifie d whether sciatica present Problem [facility] Otorrhea Ear drainage Problem [facility] [id number] Chronic systolic congestive heart failure Problem [facility] Ear fullness Ear fullness Problem [facility] Allergies, Adverse Reactions, Alerts Allergy Name Allergy Type Status Severity Reaction(s) Onset Date Inactive Date Treating Clinician Comments Source tramadol DA Active U WEAK 2022-03- 00:00: 00 [facility] tramadol tramadol Active Severe vomitting [facility] Social History Social Habit Start Date Stop Date Quantity Comments Source Sex Assigned At [facility] History of Tobacco Use [facility] Smoking Status Start Date Stop Date Source Never Smoker [facility] Medications Ordered Medication Name Filled Medication Name Start Date Stop Date Current Medication? Ordering Clinician Indication Dosage Frequency Signature (SIG) Comments Components Source Benzonatate 200 MG Benzonatate 200 MG 2022-03 0-23 00:00: 00 No 1{capsu le} TID Benzonatat e 200 MG Benzonatate 200 MG Benzonatate 200 MG 2022-03 00:00: 00 No 1{capsu le} TID Benzonatat e 200 MG Benzonatate 200 MG Benzonatate 200 MG 2022-03 00:00: 00 No 1{capsu le} TID Benzonatat e 200 MG Benzonatate 200 MG Benzonatate 200 MG 2022-03 00:00: 00 No 1{capsu le} TID Benzonatat e 200 MG Benzonatate 200 MG Benzonatate 200 MG 2022-03 00:00: 00 No 1{capsu le} TID Benzonatat e 200 MG Benzonatate 200 MG Benzonatate 200 MG 2022-03 00:00: 00 No 1{capsu le} TID Benzonatat e 200 MG Benzonatate 200 MG Benzonatate 200 MG 2022-03 00:00: 00 No 1{capsu le} TID Benzonatat e 200 MG Benzonatate 200 MG Benzonatate 200 MG 2022-03 00:00: 00 No 1{capsu le} TID Benzonatat e 200 MG Benzonatate 200 MG Benzonatate 200 MG 2022-03 00:00: 00 No 1{capsu le} TID Benzonatat e 200 MG Benzonatate 200 MG Benzonatate 200 MG 2022-03 00:00: 00 No 1{capsu le} TID Benzonatat e 200 MG Benzonatate 200 MG Benzonatate 200 MG 2022-03 00:00: 00 No 1{capsu le} TID Benzonatat e 200 MG Benzonatate 200 MG Benzonatate 200 MG 2022-03 00:00: 00 No 1{capsu le} TID Benzonatat e 200 MG Benzonatate 200 MG Benzonatate 200 MG 2022-03 00:00: 00 No 1{capsu le} TID Benzonatat e 200 MG Benzonatate 200 MG Benzonatate 200 MG 2022-03 00:00: 00 No 1{capsu le} TID Benzonatat e 200 MG Benzonatate 200 MG Benzonatate 200 MG 2022-03 00:00: 00 No 1{capsu le} TID Benzonatat e 200 MG Benzonatate 200 MG Benzonatate 200 MG 2022-1 0-23 00:00: 00 No 1{capsu le} TID Benzonatat e 200 MG Benzonatate 200 MG Benzonatate 200 MG 2022-1 0-23 00:00: 00 No 1{capsu le} TID Benzonatat e 200 MG Benzonatate 200 MG Benzonatate 200 MG 2022-1 023 00:00: 00 No 1{capsu le} TID Benzonatat e 200 MG Amoxicillin -Pot Clavulanate 875-125 MG Amoxicillin -Pot Clavulanate 875-125 MG 3-1 0-18 00:00: 00 No 1{table t} BID Amoxicilli n-Pot Clavulanat e 875-125 MG Amoxicillin -Pot Clavulanate 875-125 MG Amoxicillin -Pot Clavulanate 875-125 MG 2022-1 0-18 00:00: 00 No 1{table t} BID Amoxicilli n-Pot Clavulanat e 875-125 MG Amoxicillin -Pot Clavulanate 875-125 MG Amoxicillin -Pot Clavulanate 875-125 MG 3-1 018 00:00: 00 No 1{table t} BID Amoxicilli n-Pot Clavulanat e 875-125 MG Amoxicillin -Pot Clavulanate 875-125 MG Amoxicillin -Pot Clavulanate 875-125 MG 3-1 018 00:00: 00 No 1{table t} BID Amoxicilli n-Pot Clavulanat e 875-125 MG Amoxicillin -Pot Clavulanate 875-125 MG Amoxicillin -Pot Clavulanate 875-125 MG 3-1 0-18 00:00: 00 No 1{table t} BID Amoxicilli n-Pot Clavulanat e 875-125 MG [facility] [place] [facility] [place] 2022-0 14 00:00: 00 No 5mL [facility] Kenalog (Triamcinol one) Kenalog (Triamcinol one) 2022-0 -14 00:00: 00 No 1mL [facility]upivic[facility] [place] [facility]up[facility] [place] 2022-0 14 00:00: 00 No 5mL [facility] Kenalog (Triamcinol one) Kenalog (Triamcinol one) 0 14 00:00: 00 No 1mL [facility] Bupivicaine [place] Bupivicaine [place] 2022-0 14 00:00: 00 No 5mL [facility] Kenalog (Triamcinol one) Kenalog (Triamcinol one) 0 14 00:00: 00 No 1mL [facility] B[facility]iv[facility] [place] Bupiv[facility] [place] 0 14 00:00: 00 No 5mL [facility] Kenalog (Triamcinol one) Kenalog (Triamcinol one) 0 12-07 00:00: 00 No 1mL [facility] Bupivicaine [place] Bupivicaine [place] 0 12-07 00:00: 00 No 5mL [facility] Kenal[facility] (Triamcinol one) Kenalog (Triamcinol one) 0 14 00:00: 00 No 1mL [facility] Bupivicaine [place] Bupivicaine [place] 0 12-07 00:00: 00 No 5mL [facility] Kenalog (Triamcinol one) Kenalog (Triamcinol one) 0 12-07 00:00: 00 No 1mL [facility] Bupiv[facility] [place] Bupiv[facility]aine [place] 2022-0 14 00:00: 00 No 5mL [facility] Kenal[facility] (Triamcinol one) Kenalog (Triamcinol one) 0 14 00:00: 00 No 1mL [facility] Bupivic[facility] [place] Bupiv[facility]aine [place] 2022-0 14 00:00: 00 No 5mL [facility] Ken[facility] (Triamcinol one) Kenalog (Triamcinol one) 0 12-07 00:00: 00 No 1mL [facility] Bupivicaine [place] Bupivicaine [place] 0 12-07 00:00: 00 No 5mL [facility] Kenalog (Triamcinol one) Kenalog (Triamcinol one) 0 12-07 00:00: 00 No 1mL [facility] Bupivicaine [place] Bupiv[facility]aine [place] 0 12-07 00:00: 00 No 5mL [facility] Kenalog (Triamcinol one) Kenalog (Triamcinol one) 0 12-07 00:00: 00 No 1mL [facility] Bupivicaine [place] Bupiv[facility]aine [place] 0 12-07 00:00: 00 No 5mL [facility] Kenalog (Triamcinol one) Kenalog (Triamcinol one) 0 12-07 00:00: 00 No 1mL [facility] Bupivicaine [place] Bupiv[facility]aine [place] 0 12-07 00:00: 00 No 5mL [facility] Ken[facility]og (Triamcinol one) Kenalog (Triamcinol one) 0 12-07 00:00: 00 No 1mL [facility] Bupivicaine [place] Bupivicaine [place] 0 12-07 00:00: 00 No 5mL [facility] Kenalog (Triamcinol one) Kenalog (Triamcinol one) 0 12-07 00:00: 00 No 1mL [facility] Bupivicaine [place] Bupiv[facility]aine [place] 0 14 00:00: 00 No 5mL [facility] Kenalog (Triamcinol one) Kenalog (Triamcinol one) 0 14 00:00: 00 No 1mL [facility] Bupivicaine [place] Bupiv[facility]aine [place] 0 14 00:00: 00 No 5mL [facility] Kenalog (Triamcinol one) Kenalog (Triamcinol one) 0 -14 00:00: 00 No 1mL [facility] Bupivicaine [place] Bupiv[facility]aine [place] 0 14 00:00: 00 No 5mL [facility] Kenalog (Triamcinol one) Kenalog (Triamcinol one) 0 14 00:00: 00 No 1mL [facility] Bupivicaine [place] Bupivicaine [place] 0 14 00:00: 00 No 5mL [facility] Kenalog (Triamcinol one) Kenalog (Triamcinol one) 0 14 00:00: 00 No 1mL [facility] Bupivicaine [place] Bupivicaine [place] 0 14 00:00: 00 No 5mL [facility] Kenalog (Triamcinol one) Kenalog (Triamcinol one) 0 14 00:00: 00 No 1mL [facility] Bupivicaine [place] Bupivicaine [place] 0 14 00:00: 00 No 5mL [facility] Kenalog (Triamcinol one) Kenalog (Triamcinol one) 0 14 00:00: 00 No 1mL [facility] Bupivicaine [place] Bupivicaine [place] 0 -14 00:00: 00 No 5mL [facility] Kenalog (Triamcinol one) Kenalog (Triamcinol one) 0 -14 00:00: 00 No 1mL [facility] Bupivicaine [place] Bupiv[facility]aine [place] 2022-0 -14 00:00: 00 No 5mL [facility] Ken[facility]og (Triamcinol one) Kenalog (Triamcinol one) 0 -14 00:00: 00 No 1mL [facility] Bupivicaine [place] Bupivicaine [place] 0 -14 00:00: 00 No 5mL [facility] Kenalog (Triamcinol one) Kenalog (Triamcinol one) 0 14 00:00: 00 No 1mL [facility] Bupivicaine [place] Bupivicaine [place] 0 14 00:00: 00 No 5mL [facility] Kenalog (Triamcinol one) Kenalog (Triamcinol one) 0 14 00:00: 00 No 1mL [facility] Bupivicaine [place] Bupivicaine [place] 0 14 00:00: 00 No 5mL [facility] Kenalog (Triamcinol one) Kenalog (Triamcinol one) 0 14 00:00: 00 No 1mL [facility] Bupivicaine [place] Bupivicaine [place] 0 14 00:00: 00 No 5mL [facility] Kenalog (Triamcinol one) Kenalog (Triamcinol one) 0 14 00:00: 00 No 1mL [facility] Bupivicaine [place] Bupivicaine [place] 0 14 00:00: 00 No 5mL [facility] Ken[facility] (Triamcinol one) Kenalog (Triamcinol one) 0 14 00:00: 00 No 1mL [facility] Bupivicaine [place] Bupivicaine [place] 0 -14 00:00: 00 No 5mL [facility] Kenalog (Triamcinol one) Kenalog (Triamcinol one) 0 14 00:00: 00 No 1mL [facility] Bupivicaine [place] Bupiv[facility]aine [place] 2022-0 -14 00:00: 00 No 5mL [facility] Ken[facility]og (Triamcinol one) Kenalog (Triamcinol one) 0 12-07 00:00: 00 No 1mL [facility] Bupivicaine [place] Bupivicaine [place] 0 12-07 00:00: 00 No 5mL [facility] Kenalog (Triamcinol one) Kenalog (Triamcinol one) 0 12-07 00:00: 00 No 1mL [facility] Bupivicaine [place] Bupivicaine [place] 0 12-07 00:00: 00 No 5mL [facility] Kenalog (Triamcinol one) Kenalog (Triamcinol one) 0 12-07 00:00: 00 No 1mL [facility] Bupivicaine [place] Bupivicaine [place] 0 12-07 00:00: 00 No 5mL [facility] Ken[facility] (Triamcinol one) Kenalog (Triamcinol one) 0 12-07 00:00: 00 No 1mL [facility] Bupivicaine [place] Bupivicaine [place] 0 12-07 00:00: 00 No 5mL [facility] Ken[facility] (Triamcinol one) Kenalog (Triamcinol one) 0 12-07 00:00: 00 No 1mL [facility] Bupivicaine [place] Bupivicaine [place] 0 12-07 00:00: 00 No 5mL [facility] Kenalog (Triamcinol one) Kenalog (Triamcinol one) 0 12-07 00:00: 00 No 1mL [facility] Bupivicaine [place] Bupivicaine [place] 0 14 00:00: 00 No 5mL [facility] Kenal[facility] (Triamcinol one) Kenalog (Triamcinol one) 0 12-07 00:00: 00 No 1mL [facility] Bupivicaine [place] Bupivicaine [place] 0 12-07 00:00: 00 No 5mL [facility] Ken[facility] (Triamcinol one) Kenalog (Triamcinol one) 0 12-07 00:00: 00 No 1mL [facility] Bupivicaine [place] Bupivicaine [place] 0 14 00:00: 00 No 5mL [facility] (Triamcinol one) Kenalog (Triamcinol one) 0 12-07 00:00: 00 No 1mL [facility] Bupivicaine [place] Bupivicaine [place] 0 12-07 00:00: 00 No 5mL [facility] Ken[facility]og (Triamcinol one) Kenalog (Triamcinol one) 0 12-07 00:00: 00 No 1mL [facility] Bupivicaine [place] Bupiv[facility]aine [place] 0 12-07 00:00: 00 No 5mL [facility] Ken[facility]og (Triamcinol one) Kenalog (Triamcinol one) 0 12-07 00:00: 00 No 1mL [facility] Ken[facility]og (Triamcinol one) Kenalog (Triamcinol one) 0 04-20 00:00: 00 No 40mg [facility] Ken[facility] (Triamcinol one) Kenalog (Triamcinol one) 0 - 00:00: 00 No 40mg [facility] Ken[facility] (Triamcinol one) Kenalog (Triamcinol one) 0 - 00:00: 00 No 40mg [facility] Ken[facility] (Triamcinol one) Kenalog (Triamcinol one) 0 - 00:00: 00 No 40mg [facility] Kenal[facility] (Triamcinol one) Kenalog (Triamcinol one) 0 - 00:00: 00 No 40mg [facility] Kenal[facility] (Triamcinol one) Kenalog (Triamcinol one) 04-20 00:00: 00 No 40mg [facility] Ken[facility] (Triamcinol one) Kenalog (Triamcinol one) 04-20 00:00: 00 No 40mg [facility] Ken[facility] (Triamcinol one) Kenalog (Triamcinol one) 04-20 00:00: 00 No 40mg [facility] Ken[facility] (Triamcinol one) Kenalog (Triamcinol one) 04-20 00:00: 00 No 40mg [facility] Ken[facility] (Triamcinol one) Kenalog (Triamcinol one) 04-20 00:00: 00 No 40mg [facility] (Triamcinol one) Kenalog (Triamcinol one) 04-20 00:00: 00 No 40mg [facility] (Triamcinol one) Kenalog (Triamcinol one) 04-20 00:00: 00 No 40mg [facility] (Triamcinol one) Kenalog (Triamcinol one) 04-20 00:00: 00 No 40mg [facility] (Triamcinol one) Kenalog (Triamcinol one) 04-20 00:00: 00 No 40mg [facility] (Triamcinol one) Kenalog (Triamcinol one) 04-20 00:00: 00 No 40mg [facility] (Triamcinol one) Kenalog (Triamcinol one) 04-20 00:00: 00 No 40mg [facility] (Triamcinol one) Kenalog (Triamcinol one) 04-20 00:00: 00 No 40mg [facility] Ken[facility] (Triamcinol one) Kenalog (Triamcinol one) 04-20 00:00: 00 No 40mg [facility] (Triamcinol one) Kenalog (Triamcinol one) 04-20 00:00: 00 No 40mg [facility] (Triamcinol one) Kenalog (Triamcinol one) 04-20 00:00: 00 No 40mg [facility] (Triamcinol one) Kenalog (Triamcinol one) 04-20 00:00: 00 No 40mg [facility] Kenal[facility] (Triamcinol one) Kenalog (Triamcinol one) 04-20 00:00: 00 No 40mg [facility] Kenal[facility] (Triamcinol one) Kenalog (Triamcinol one) 04-20 00:00: 00 No 40mg [facility] Ken[facility] (Triamcinol one) Kenalog (Triamcinol one) 04-20 00:00: 00 No 40mg [facility] (Triamcinol one) Kenalog (Triamcinol one) 04-20 00:00: 00 No 40mg [facility] Ken[facility] (Triamcinol one) Kenalog (Triamcinol one) 04-20 00:00: 00 No 40mg [facility] (Triamcinol one) Kenalog (Triamcinol one) 04-20 00:00: 00 No 40mg [facility] (Triamcinol one) Kenalog (Triamcinol one) 04-20 00:00: 00 No 40mg [facility] Ken[place] (Triamcinol one) Kenalog (Triamcinol one) 04-20 00:00: 00 No 40mg [facility] Kenalog (Triamcinol one) Kenalog (Triamcinol one) 04-20 00:00: 00 No 40mg [facility] Ken[facility] (Triamcinol one) Kenalog (Triamcinol one) 04-20 00:00: 00 No 40mg [facility] Ken[place] (Triamcinol one) Kenalog (Triamcinol one) 04-20 00:00: 00 No 40mg [facility] Ken[facility] (Triamcinol one) Kenalog (Triamcinol one) 04-20 00:00: 00 No 40mg [facility] Ken[facility] (Triamcinol one) Kenalog (Triamcinol one) 04-20 00:00: 00 No 40mg [facility] Ken[facility] (Triamcinol one) Kenalog (Triamcinol one) 04-20 00:00: 00 No 40mg [facility] Ken[facility] (Triamcinol one) Kenalog (Triamcinol one) 04-20 00:00: 00 No 40mg [facility] (Triamcinol one) Kenalog (Triamcinol one) 04-20 00:00: 00 No 40mg [facility] Ken[facility] (Triamcinol one) Kenalog (Triamcinol one) 04-20 00:00: 00 No 40mg [facility] (Triamcinol one) Kenalog (Triamcinol one) 04-20 00:00: 00 No 40mg [facility] Kenal[facility] (Triamcinol one) Kenalog (Triamcinol one) 04-20 00:00: 00 No 40mg [facility] Pseudoeph-B romphen-DM 30-2-10 MG/5ML Pseudoeph-B romphen-DM 30-2-10 MG/5ML 2021-03-16 00:00: 00 03-17 00:00 :00 No 5{ml_as _needed } QID Pseudoeph- Bromphen-D M 30-2-10 MG/5ML Pseudoeph-B romphen-DM 30-2-10 MG/5ML Pseudoeph-B romphen-DM 30-2-10 MG/5ML 2021-0316 00:00: 00 03-17 00:00 :00 No 5{ml_as _needed } QID Pseudoeph- Bromphen-D M 30-2-10 MG/5ML predniSONE 20 MG predniSONE 20 MG 2021-03 00:00: 00 03-15 00:00 :00 No QD predniSONE 20 MG predniSONE 20 MG predniSONE 20 MG 2021-03 00:00: 00 03-15 00:00 :00 No QD predniSONE 20 MG [facility] [place] Bupivicaine [place] 2021-03 00:00: 00 No 2.5mg [facility] Kenalog (Triamcinol one) Kenalog (Triamcinol one) 2021-03 00:00: 00 No 40mg [facility] Bupivicaine [place] Bupivicaine [place] 2021-03 00:00: 00 No 2.5mg [facility] Kenalog (Triamcinol one) Kenalog (Triamcinol one) 2021-03 00:00: 00 No 40mg [facility] Bupivicaine [place] Bupivicaine [place] 2021-03 00:00: 00 No 2.5mg [facility] Kenalog (Triamcinol one) Kenalog (Triamcinol one) 2021-03 00:00: 00 No 40mg [facility] Bupivicaine [place] Bupivicaine [place] 2021-03 00:00: 00 No 2.5mg [facility] Kenalog (Triamcinol one) Kenalog (Triamcinol one) 2021-03 00:00: 00 No 40mg [facility] Bupivicaine [place] Bupivicaine [place] 2021-03 00:00: 00 No 2.5mg [facility]og (Triamcinol one) Kenalog (Triamcinol one) 2021-03 00:00: 00 No 40mg [facility] Bupivicaine [place] Bupivicaine [place] 2021-03 00:00: 00 No 2.5mg [facility] Kenalog (Triamcinol one) Kenalog (Triamcinol one) 2021-03 00:00: 00 No 40mg [facility] Bupivicaine [place] Bupivicaine [place] 2021-03 00:00: 00 No 2.5mg [facility] Kenalog (Triamcinol one) Kenalog (Triamcinol one) 2021-03 00:00: 00 No 40mg [facility] Bupivicaine [place] Bupivicaine [place] 2021-03 00:00: 00 No 2.5mg [facility]alog (Triamcinol one) Kenalog (Triamcinol one) 2021-03 00:00: 00 No 40mg [facility] Bupivicaine [place] Bupiv[facility]aine [place] 2021-03 00:00: 00 No 2.5mg [facility] Kenalog (Triamcinol one) Kenalog (Triamcinol one) 2021-03 00:00: 00 No 40mg [facility] Bupivicaine [place] Bupiv[facility]aine [place] 2021-03 00:00: 00 No 2.5mg [facility] (Triamcinol one) Kenalog (Triamcinol one) 2021-03 00:00: 00 No 40mg [facility] [facility] [place] [facility] [place] 2021-03 00:00: 00 No 2.5mg [facility] Kenalog (Triamcinol one) Kenalog (Triamcinol one) 2021-03 00:00: 00 No 40mg [facility] [place] [facility] [place] 2021-03 00:00: 00 No 2.5mg [facility] Kenalog (Triamcinol one) Kenalog (Triamcinol one) 2021-03 00:00: 00 No 40mg [facility] [place] [facility] [place] 2021-03 00:00: 00 No 2.5mg [facility] Kenalog (Triamcinol one) Kenalog (Triamcinol one) 2021-03 00:00: 00 No 40mg [facility] [place] [facility] [place] 2021-03 00:00: 00 No 2.5mg [facility] Kenalog (Triamcinol one) Kenalog (Triamcinol one) 2021-03 00:00: 00 No 40mg [facility] [place] [facility] [place] 2021-03 00:00: 00 No 2.5mg [facility] Kenalog (Triamcinol one) Kenalog (Triamcinol one) 2021-03 00:00: 00 No 40mg [facility] [place] [facility] [place] 2021-03 00:00: 00 No 2.5mg [facility] Kenalog (Triamcinol one) Kenalog (Triamcinol one) 2021-03 00:00: 00 No 40mg [facility] [place] [facility] [place] 2021-03 00:00: 00 No 2.5mg [facility] Kenalog (Triamcinol one) Kenalog (Triamcinol one) 2021-03 00:00: 00 No 40mg [facility] [place] [facility] [place] 2021-03 00:00: 00 No 2.5mg [facility] Kenalog (Triamcinol one) Kenalog (Triamcinol one) 2021-03 00:00: 00 No 40mg [facility] [place] [facility] [place] 2021-03 00:00: 00 No 2.5mg [facility] Kenalog (Triamcinol one) Kenalog (Triamcinol one) 2021-03 00:00: 00 No 40mg [facility] [place] [facility] [place] 2021-03 00:00: 00 No 2.5mg [facility] Kenalog (Triamcinol one) Kenalog (Triamcinol one) 2021-03 00:00: 00 No 40mg [facility] [place] [facility] [place] 2021-03 00:00: 00 No 2.5mg [facility] Kenalog (Triamcinol one) Kenalog (Triamcinol one) 2021-03 00:00: 00 No 40mg [facility] [place] [facility] [place] 2021-03 00:00: 00 No 2.5mg [facility] Kenalog (Triamcinol one) Kenalog (Triamcinol one) 2021-03 00:00: 00 No 40mg [facility] [place] [facility] [place] 2021-03 00:00: 00 No 2.5mg [facility] Kenalog (Triamcinol one) Kenalog (Triamcinol one) 2021-03 00:00: 00 No 40mg [facility] [place] [facility] [place] 2021-03 00:00: 00 No 2.5mg [facility] Kenalog (Triamcinol one) Kenalog (Triamcinol one) 2021-03 00:00: 00 No 40mg [facility] [place] [facility] [place] 2021-03 00:00: 00 No 2.5mg [facility] Kenalog (Triamcinol one) Kenalog (Triamcinol one) 2021-03 00:00: 00 No 40mg [facility] [place] [facility] [place] 2021-03 00:00: 00 No 2.5mg [facility] Kenalog (Triamcinol one) Kenalog (Triamcinol one) 2021-03 00:00: 00 No 40mg [facility] [place] [facility] [place] 2021-03 00:00: 00 No 2.5mg [facility] Kenalog (Triamcinol one) Kenalog (Triamcinol one) 2021-03 00:00: 00 No 40mg [facility] [place] [facility] [place] 2021-03 00:00: 00 No 2.5mg [facility] Kenalog (Triamcinol one) Kenalog (Triamcinol one) 2021-03 00:00: 00 No 40mg [facility] [place] [facility] [place] 2021-03 00:00: 00 No 2.5mg [facility] Kenalog (Triamcinol one) Kenalog (Triamcinol one) 2021-03 00:00: 00 No 40mg [facility] [place] [facility] [place] 2021-03 00:00: 00 No 2.5mg [facility] Kenalog (Triamcinol one) Kenalog (Triamcinol one) 2021-03 00:00: 00 No 40mg [facility] [place] [facility] [place] 2021-03 00:00: 00 No 2.5mg [facility] Kenalog (Triamcinol one) Kenalog (Triamcinol one) 2021-03 00:00: 00 No 40mg [facility] [place] [facility] [place] 2021-03 00:00: 00 No 2.5mg [facility] Kenalog (Triamcinol one) Kenalog (Triamcinol one) 2021-03 00:00: 00 No 40mg [facility] [place] [facility] [place] 2021-03 00:00: 00 No 2.5mg [facility] Kenalog (Triamcinol one) Kenalog (Triamcinol one) 2021-03 00:00: 00 No 40mg [facility] [place] [facility] [place] 2021-03 00:00: 00 No 2.5mg [facility] Kenalog (Triamcinol one) Kenalog (Triamcinol one) 2021-03 00:00: 00 No 40mg [facility] [place] [facility] [place] 2021-03 00:00: 00 No 2.5mg [facility] Kenalog (Triamcinol one) Kenalog (Triamcinol one) 2021-03 00:00: 00 No 40mg [facility] [place] [facility] [place] 2021-03 00:00: 00 No 2.5mg [facility] Kenalog (Triamcinol one) Kenalog (Triamcinol one) 2021-03 00:00: 00 No 40mg [facility] [place] [facility] [place] 2021-03 00:00: 00 No 2.5mg [facility] Kenalog (Triamcinol one) Kenalog (Triamcinol one) 2021-03 00:00: 00 No 40mg [facility] Kenalog (Triamcinol one) Kenalog (Triamcinol one) 2021-03 00:00: 00 No 40mg [facility] [place] [facility] [place] 2021-03 00:00: 00 No 2.5mg [facility] Kenalog (Triamcinol one) Kenalog (Triamcinol one) 2021-03 00:00: 00 No 40mg [facility] [place] [facility] [place] 2021-03 00:00: 00 No 2.5mg [facility] Kenalog (Triamcinol one) Kenalog (Triamcinol one) 2021-03 00:00: 00 No 40mg [facility] [place] [facility] [place] 2021-03 00:00: 00 No 2.5mg [facility] Kenalog (Triamcinol one) Kenalog (Triamcinol one) 2021-03 00:00: 00 No 40mg [facility] [place] [facility] [place] 2021-03 00:00: 00 No 2.5mg [facility] Kenalog (Triamcinol one) Kenalog (Triamcinol one) 2021-03 00:00: 00 No 40mg [facility] [place] [facility] [place] 2021-03 00:00: 00 No 2.5mg [facility] Kenalog (Triamcinol one) Kenalog (Triamcinol one) 2021-03 00:00: 00 No 40mg [facility] [place] [facility] [place] 2021-03 00:00: 00 No 2.5mg [facility] Kenalog (Triamcinol one) Kenalog (Triamcinol one) 2021-03 00:00: 00 No 40mg [facility] [place] [facility] [place] 2021-03 00:00: 00 No 2.5mg [facility] Kenalog (Triamcinol one) Kenalog (Triamcinol one) 2021-03 00:00: 00 No 40mg [facility] [place] [facility] [place] 2021-03 00:00: 00 No 2.5mg [facility] [place] [facility] [place] 2021-03 00:00: 00 No 2.5mg [facility] Kenalog (Triamcinol one) Kenalog (Triamcinol one) 2021-03 00:00: 00 No 40mg [facility] Cyclobenzap rine HCl 5 MG Cyclobenzap rine HCl 5 MG 830 00:00: 00 No 1{table t_at_be dtime_a s_neede d} QD Cyclobenza romana HCl 5 MG Cyclobenzap rine HCl 5 MG Cyclobenzap rine HCl 5 MG 8-30 00:00: 00 No 1{table t_at_be dtime_a s_neede d} QD Cyclobenza romana HCl 5 MG ProAir HFA 108 (90 Base) MCG/ACT ProAir HFA 108 (90 Base) MCG/ACT 5 00:00: 00 No 2{puffs _as_nee ded} ProAir HFA 108 (90 Base) MCG/ACT ProAir HFA 108 (90 Base) MCG/ACT ProAir HFA 108 (90 Base) MCG/ACT 2021-0 08-17 00:00: 00 No 2{puffs _as_nee ded} ProAir HFA 108 (90 Base) MCG/ACT ProAir HFA 108 (90 Base) MCG/ACT ProAir HFA 108 (90 Base) MCG/ACT 2021-0 08-17 00:00: 00 No 2{puffs _as_nee ded} ProAir HFA 108 (90 Base) MCG/ACT ProAir HFA 108 (90 Base) MCG/ACT ProAir HFA 108 (90 Base) MCG/ACT 2021-0 08-17 00:00: 00 No 2{puffs _as_nee ded} ProAir HFA 108 (90 Base) MCG/ACT ProAir HFA 108 (90 Base) MCG/ACT ProAir HFA 108 (90 Base) MCG/ACT 2021-0 08-17 00:00: 00 No 2{puffs _as_nee ded} ProAir HFA 108 (90 Base) MCG/ACT ProAir HFA 108 (90 Base) MCG/ACT ProAir HFA 108 (90 Base) MCG/ACT 2021-0 08-17 00:00: 00 No 2{puffs _as_nee ded} ProAir HFA 108 (90 Base) MCG/ACT Kenalog (Triamcinol one) Kenalog (Triamcinol one) 0 2-24 00:00: 00 No 40mg [facility] [place] [facility] [place] 2021-0 -24 00:00: 00 No 2.5mg [facility] Kenalog (Triamcinol one) Kenalog (Triamcinol one) 2021-0 -24 00:00: 00 No 40mg [facility] [place] [facility] [place] 2021-0 2-24 00:00: 00 No 2.5mg [facility] Kenalog (Triamcinol one) Kenalog (Triamcinol one) 2021-0 2-24 00:00: 00 No 40mg [facility] [place] [facility] [place] 2021-0 2-24 00:00: 00 No 2.5mg [facility] Kenalog (Triamcinol one) Kenalog (Triamcinol one) 2021-0 224 00:00: 00 No 40mg [facility] [place] [facility] [place] 2021-0 24 00:00: 00 No 2.5mg [facility] Kenalog (Triamcinol one) Kenalog (Triamcinol one) 2021-0 224 00:00: 00 No 40mg [facility] [place] [facility] [place] 2021-0 24 00:00: 00 No 2.5mg [facility] Kenalog (Triamcinol one) Kenalog (Triamcinol one) 2021-0 24 00:00: 00 No 40mg [facility] [place] [facility] [place] 2021-0 24 00:00: 00 No 2.5mg [facility] Kenalog (Triamcinol one) Kenalog (Triamcinol one) 2021-0 24 00:00: 00 No 40mg [facility] [place] [facility] [place] 2021-0 24 00:00: 00 No 2.5mg [facility] Kenalog (Triamcinol one) Kenalog (Triamcinol one) 2021-0 224 00:00: 00 No 40mg [facility] [place] [facility] [place] 2021-0 24 00:00: 00 No 2.5mg [facility] Kenalog (Triamcinol one) Kenalog (Triamcinol one) 2021-0 224 00:00: 00 No 40mg [facility] [place] [facility] [place] 2021-0 224 00:00: 00 No 2.5mg [facility] Kenalog (Triamcinol one) Kenalog (Triamcinol one) 0 24 00:00: 00 No 40mg [facility] [place] [facility] [place] 2021-0 24 00:00: 00 No 2.5mg [facility] Kenalog (Triamcinol one) Kenalog (Triamcinol one) 0 224 00:00: 00 No 40mg [facility] [place] [facility] [place] 2021-0 05-19 00:00: 00 No 2.5mg [facility] Kenalog (Triamcinol one) Kenalog (Triamcinol one) 0 05-19 00:00: 00 No 40mg [facility] [place] [facility] [place] 2021-0 05-19 00:00: 00 No 2.5mg [facility] Kenalog (Triamcinol one) Kenalog (Triamcinol one) 0 2 00:00: 00 No 40mg [facility] [place] [facility] [place] 2021-0 05-19 00:00: 00 No 2.5mg [facility] Kenalog (Triamcinol one) Kenalog (Triamcinol one) 2021-0 24 00:00: 00 No 40mg [facility] [place] [facility] [place] 2021-0 24 00:00: 00 No 2.5mg [facility] Kenalog (Triamcinol one) Kenalog (Triamcinol one) 2021-0 224 00:00: 00 No 40mg [facility] [place] [facility] [place] 2021-0 24 00:00: 00 No 2.5mg [facility] Kenalog (Triamcinol one) Kenalog (Triamcinol one) 2021-0 224 00:00: 00 No 40mg [facility] [place] [facility] [place] 2021-0 24 00:00: 00 No 2.5mg [facility] Kenalog (Triamcinol one) Kenalog (Triamcinol one) 0 24 00:00: 00 No 40mg [facility] [place] [facility] [place] 2021-0 24 00:00: 00 No 2.5mg [facility] Kenalog (Triamcinol one) Kenalog (Triamcinol one) 0 24 00:00: 00 No 40mg [facility] [place] [facility] [place] 0 05-19 00:00: 00 No 2.5mg [facility] Kenalog (Triamcinol one) Kenalog (Triamcinol one) 0 24 00:00: 00 No 40mg [facility] [place] [facility] [place] 0 05-19 00:00: 00 No 2.5mg [facility] Kenalog (Triamcinol one) Kenalog (Triamcinol one) 0 05-19 00:00: 00 No 40mg [facility] [place] [facility] [place] 2021-0 05-19 00:00: 00 No 2.5mg [facility] Kenalog (Triamcinol one) Kenalog (Triamcinol one) 0 24 00:00: 00 No 40mg [facility] [place] [facility] [place] 2021-0 24 00:00: 00 No 2.5mg [facility] Kenalog (Triamcinol one) Kenalog (Triamcinol one) 0 24 00:00: 00 No 40mg [facility] [place] [facility] [place] 2021-0 24 00:00: 00 No 2.5mg [facility] Kenalog (Triamcinol one) Kenalog (Triamcinol one) 0 05-19 00:00: 00 No 40mg [facility] [place] [facility] [place] 0 05-19 00:00: 00 No 2.5mg [facility] Kenalog (Triamcinol one) Kenalog (Triamcinol one) 0 2 00:00: 00 No 40mg [facility] [place] [facility] [place] 0 05-19 00:00: 00 No 2.5mg [facility] Kenalog (Triamcinol one) Kenalog (Triamcinol one) 0 05-19 00:00: 00 No 40mg [facility] [place] [facility] [place] 0 05-19 00:00: 00 No 2.5mg [facility] Kenalog (Triamcinol one) Kenalog (Triamcinol one) 0 05-19 00:00: 00 No 40mg [facility] [place] [facility] [place] 0 05-19 00:00: 00 No 2.5mg [facility] Kenalog (Triamcinol one) Kenalog (Triamcinol one) 0 05-19 00:00: 00 No 40mg [facility] [place] [facility] [place] 2021-0 05-19 00:00: 00 No 2.5mg [facility] Kenalog (Triamcinol one) Kenalog (Triamcinol one) 0 2 00:00: 00 No 40mg [facility] [place] [facility] [place] 2021-0 24 00:00: 00 No 2.5mg [facility] Kenalog (Triamcinol one) Kenalog (Triamcinol one) 0 224 00:00: 00 No 40mg [facility] [place] [facility] [place] 2021-0 2-24 00:00: 00 No 2.5mg [facility] Kenalog (Triamcinol one) Kenalog (Triamcinol one) 0 2-24 00:00: 00 No 40mg [facility] [place] [facility] [place] 2021-0 224 00:00: 00 No 2.5mg [facility] Kenalog (Triamcinol one) Kenalog (Triamcinol one) 2021-0 2-24 00:00: 00 No 40mg [facility] [place] [facility] [place] 2021-0 24 00:00: 00 No 2.5mg [facility] Kenalog (Triamcinol one) Kenalog (Triamcinol one) 2021-0 224 00:00: 00 No 40mg [facility] [place] [facility] [place] 2021-0 24 00:00: 00 No 2.5mg [facility] Kenalog (Triamcinol one) Kenalog (Triamcinol one) 2021-0 224 00:00: 00 No 40mg [facility] [place] [facility] [place] 2021-0 24 00:00: 00 No 2.5mg [facility] Kenalog (Triamcinol one) Kenalog (Triamcinol one) 2021-0 224 00:00: 00 No 40mg [facility] [place] [facility] [place] 2021-0 2-24 00:00: 00 No 2.5mg [facility] Kenalog (Triamcinol one) Kenalog (Triamcinol one) 2021-0 2-24 00:00: 00 No 40mg [facility] [place] [facility] [place] 2021-0 2-24 00:00: 00 No 2.5mg [facility] Kenalog (Triamcinol one) Kenalog (Triamcinol one) 0 05-19 00:00: 00 No 40mg [facility] [place] [facility] [place] 0 05-19 00:00: 00 No 2.5mg [facility] Kenalog (Triamcinol one) Kenalog (Triamcinol one) 0 05-19 00:00: 00 No 40mg [facility] [place] [facility] [place] 0 05-19 00:00: 00 No 2.5mg [facility] Kenalog (Triamcinol one) Kenalog (Triamcinol one) 0 05-19 00:00: 00 No 40mg [facility] [place] [facility] [place] 0 05-19 00:00: 00 No [facility] Kenalog (Triamcinol one) Kenalog (Triamcinol one) 0 05-19 00:00: 00 No 40mg [facility] [place] [facility] [place] 0 05-19 00:00: 00 No 2.5mg [facility] Kenalog (Triamcinol one) Kenalog (Triamcinol one) 0 05-19 00:00: 00 No 40mg [facility] [place] [facility] [place] 2021-0 05-19 00:00: 00 No 2.5mg [facility] Kenalog (Triamcinol one) Kenalog (Triamcinol one) 0 05-19 00:00: 00 No 40mg [facility] [place] [facility] [place] 2021-0 24 00:00: 00 No 2.5mg [facility] Kenalog (Triamcinol one) Kenalog (Triamcinol one) 2021-0 224 00:00: 00 No 40mg [facility] [place] [facility] [place] 2021-0 24 00:00: 00 No 2.5mg [facility] Kenalog (Triamcinol one) Kenalog (Triamcinol one) 2021-0 2-24 00:00: 00 No 40mg [facility] [place] [facility] [place] 2021-0 24 00:00: 00 No 2.5mg [facility] Kenalog (Triamcinol one) Kenalog (Triamcinol one) 0 2 00:00: 00 No 40mg [facility] [place] [facility] [place] 2021-0 24 00:00: 00 No 2.5mg [facility] Kenalog (Triamcinol one) Kenalog (Triamcinol one) 2021-0 224 00:00: 00 No 40mg [facility] [place] [facility] [place] 2021-0 24 00:00: 00 No 2.5mg [facility] Kenalog (Triamcinol one) Kenalog (Triamcinol one) 2021-0 224 00:00: 00 No 40mg [facility] [place] [facility] [place] 2021-0 224 00:00: 00 No 2.5mg [facility] Kenalog (Triamcinol one) Kenalog (Triamcinol one) 2021-0 224 00:00: 00 No 40mg [facility] [place] [facility] [place] 2021-0 24 00:00: 00 No 2.5mg [facility] Kenalog (Triamcinol one) Kenalog (Triamcinol one) 2021-0 2-24 00:00: 00 No 40mg [facility] [place] [facility] [place] 2021-0 24 00:00: 00 No 2.5mg [facility] Kenalog (Triamcinol one) Kenalog (Triamcinol one) 0 24 00:00: 00 No 40mg [facility] [place] [facility] [place] 2021-0 24 00:00: 00 No 2.5mg [facility] Kenalog (Triamcinol one) Kenalog (Triamcinol one) 0 05-19 00:00: 00 No 40mg [facility] [place] [facility] [place] 2021-0 05-19 00:00: 00 No 2.5mg [facility] Kenalog (Triamcinol one) Kenalog (Triamcinol one) 0 05-19 00:00: 00 No 40mg [facility] [place] [facility] [place] 2021-0 05-19 00:00: 00 No 2.5mg [facility] Kenalog (Triamcinol one) Kenalog (Triamcinol one) 2021-0 05-19 00:00: 00 No 40mg [facility] [place] [facility] [place] 2021-0 05-19 00:00: 00 No 2.5mg [facility] Kenalog (Triamcinol one) Kenalog (Triamcinol one) 0 24 00:00: 00 No 40mg [facility] [place] [facility] [place] 2021-0 24 00:00: 00 No 2.5mg [facility] Kenalog (Triamcinol one) Kenalog (Triamcinol one) 0 224 00:00: 00 No 40mg [facility] [place] [facility] [place] 2021-0 24 00:00: 00 No 2.5mg [facility] Kenalog (Triamcinol one) Kenalog (Triamcinol one) 0 224 00:00: 00 No 40mg [facility] [place] [facility] [place] 0 24 00:00: 00 No 2.5mg [facility] Kenalog (Triamcinol one) Kenalog (Triamcinol one) 0 224 00:00: 00 No 40mg [facility] [place] [facility] [place] 0 05-19 00:00: 00 No 2.5mg [facility] Kenalog (Triamcinol one) Kenalog (Triamcinol one) 0 2 00:00: 00 No 40mg [facility] [place] [facility] [place] 0 05-19 00:00: 00 No 2.5mg [facility] Kenalog (Triamcinol one) Kenalog (Triamcinol one) 0 224 00:00: 00 No [facility] [place] [facility] [place] 0 05-19 00:00: 00 No 2.5mg [facility] Kenalog (Triamcinol one) Kenalog (Triamcinol one) 0 224 00:00: 00 No 40mg [facility] [place] [facility] [place] 0 24 00:00: 00 No 2.5mg [facility] Benzonatate 100 MG Benzonatate 100 MG 2020-03 00:00: 00 02-09 00:00 :00 No 1{capsu le_as_n eeded} Benzonatat e 100 MG Benzonatate 100 MG Benzonatate 100 MG 2020-03 00:00: 00 02-09 00:00 :00 No 1{capsu le_as_n eeded} methylPREDN ISolone 4 MG methylPREDN ISolone 4 MG 2020-03 00:00: 00 02-01 00:00 :00 No QD methylPRED NISolone 4 MG methylPREDN ISolone 4 MG methylPREDN ISolone 4 MG 2020-03 00:00: 00 02-01 00:00 :00 No QD Azithromyci n 250 MG Azithromyci n 250 MG 2020-03 00:00: 00 01-31 00:00 :00 No QD Azithromyc in 250 MG Azithromyci n 250 MG Azithromyci n 250 MG 2020-03 00:00: 00 01-31 00:00 :00 No QD Pantoprazol e Sodium 40 MG Pantoprazol e Sodium 40 MG 2020-03 00:00: 00 No 1{table t} QD Pantoprazo le Sodium 40 MG Pantoprazol e Sodium 40 MG Pantoprazol e Sodium 40 MG 2020-03 00:00: 00 No 1{table t} QD [facility] [place] [facility] [place] 11-09 00:00: 00 No 2.5mg [facility] [facility] [place] [facility] [place] 11-09 00:00: 00 No 2.5mg [facility] Kenalog (Triamcinol one) Kenalog (Triamcinol one) 11-09 00:00: 00 No 40mg [facility] Kenalog (Triamcinol one) Kenalog (Triamcinol one) 11-09 00:00: 00 No [facility] [place] [facility] [place] 11-09 00:00: 00 No 2.5mg [facility] [place] [facility] [place] 11-09 00:00: 00 No 2.5mg [facility] Kenalog (Triamcinol one) Kenalog (Triamcinol one) 11-09 00:00: 00 No 40mg [facility] Kenalog (Triamcinol one) Kenalog (Triamcinol one) 0 11-09 00:00: 00 No 40mg [facility] [place] [facility] [place] 0 11-09 00:00: 00 No 2.5mg [facility] [place] [facility] [place] 0 11-09 00:00: 00 No 2.5mg [facility] Kenalog (Triamcinol one) Kenalog (Triamcinol one) 0 11-09 00:00: 00 No 40mg [facility] Kenalog (Triamcinol one) Kenalog (Triamcinol one) 0 11-09 00:00: 00 No 40mg [facility] [place] [facility] [place] 0 11-09 00:00: 00 No 2.5mg [facility] [place] [facility] [place] 0 11-09 00:00: 00 No 2.5mg [facility] Kenalog (Triamcinol one) Kenalog (Triamcinol one) 11-09 00:00: 00 No 40mg [facility] Kenalog (Triamcinol one) Kenalog (Triamcinol one) 0 11-09 00:00: 00 No 40mg [facility] [place] [facility] [place] 0 11-09 00:00: 00 No 2.5mg [facility] [place] [facility] [place] 0 11-09 00:00: 00 No 2.5mg [facility] Kenalog (Triamcinol one) Kenalog (Triamcinol one) 0 11-09 00:00: 00 No 40mg [facility] Kenalog (Triamcinol one) Kenalog (Triamcinol one) 0 11-09 00:00: 00 No 40mg [facility] [place] [facility] [place] 0 11-09 00:00: 00 No 2.5mg [facility] [place] [facility] [place] 0 11-09 00:00: 00 No 2.5mg [facility] Kenalog (Triamcinol one) Kenalog (Triamcinol one) 0 11-09 00:00: 00 No 40mg [facility] Kenalog (Triamcinol one) Kenalog (Triamcinol one) 0 11-09 00:00: 00 No 40mg [facility] [place] [facility] [place] 0 11-09 00:00: 00 No 2.5mg [facility] [place] [facility] [place] 0 11-09 00:00: 00 No 2.5mg [facility] Kenalog (Triamcinol one) Kenalog (Triamcinol one) 0 11-09 00:00: 00 No 40mg [facility] Kenalog (Triamcinol one) Kenalog (Triamcinol one) 0 11-09 00:00: 00 No 40mg [facility] [place] [facility] [place] 0 11-09 00:00: 00 No 2.5mg [facility] [place] [facility] [place] 0 11-09 00:00: 00 No 2.5mg [facility] Kenalog (Triamcinol one) Kenalog (Triamcinol one) 0 11-09 00:00: 00 No 40mg [facility] Kenalog (Triamcinol one) Kenalog (Triamcinol one) 0 11-09 00:00: 00 No 40mg [facility] [place] [facility] [place] 0 11-09 00:00: 00 No 2.5mg [facility] [place] [facility] [place] 2020-0 11-09 00:00: 00 No 2.5mg [facility] Kenalog (Triamcinol one) Kenalog (Triamcinol one) 0 11-09 00:00: 00 No 40mg [facility] Kenalog (Triamcinol one) Kenalog (Triamcinol one) 0 11-09 00:00: 00 No 40mg [facility] [place] [facility] [place] 2020-0 11-09 00:00: 00 No 2.5mg [facility] [place] [facility] [place] 0 11-09 00:00: 00 No 2.5mg [facility] Kenalog (Triamcinol one) Kenalog (Triamcinol one) 0 11-09 00:00: 00 No 40mg [facility] Kenalog (Triamcinol one) Kenalog (Triamcinol one) 0 11-09 00:00: 00 No 40mg [facility] [place] [facility] [place] 2020-0 11-09 00:00: 00 No 2.5mg [facility] [place] [facility] [place] 2020-0 11-09 00:00: 00 No 2.5mg [facility] Kenalog (Triamcinol one) Kenalog (Triamcinol one) 0 11-09 00:00: 00 No 40mg [facility] Kenalog (Triamcinol one) Kenalog (Triamcinol one) 0 11-09 00:00: 00 No 40mg [facility] [place] [facility] [place] 2020-0 11-09 00:00: 00 No 2.5mg [facility] [place] [facility] [place] 2020-0 11-09 00:00: 00 No 2.5mg [facility] Kenalog (Triamcinol one) Kenalog (Triamcinol one) 0 11-09 00:00: 00 No 40mg [facility] Kenalog (Triamcinol one) Kenalog (Triamcinol one) 0 8 00:00: 00 No 40mg [facility] [place] [facility] [place] 0 11-09 00:00: 00 No 2.5mg [facility] [place] [facility] [place] 0 11-09 00:00: 00 No 2.5mg [facility] Kenalog (Triamcinol one) Kenalog (Triamcinol one) 0 11-09 00:00: 00 No 40mg [facility] Kenalog (Triamcinol one) Kenalog (Triamcinol one) 0 11-09 00:00: 00 No 40mg [facility] [place] [facility] [place] 0 11-09 00:00: 00 No 2.5mg [facility] [place] [facility] [place] 0 11-09 00:00: 00 No 2.5mg [facility] Kenalog (Triamcinol one) Kenalog (Triamcinol one) 0 11-09 00:00: 00 No 40mg [facility] Kenalog (Triamcinol one) Kenalog (Triamcinol one) 0 11-09 00:00: 00 No 40mg [facility] [place] [facility] [place] 0 11-09 00:00: 00 No 2.5mg [facility] [place] [facility] [place] 0 8 00:00: 00 No 2.5mg [facility] Kenalog (Triamcinol one) Kenalog (Triamcinol one) 0 11-09 00:00: 00 No 40mg [facility] Kenalog (Triamcinol one) Kenalog (Triamcinol one) 0 11-09 00:00: 00 No 40mg [facility] [place] [facility] [place] 0 8 00:00: 00 No 2.5mg [facility] [place] [facility] [place] 0 11-09 00:00: 00 No 2.5mg [facility] Kenalog (Triamcinol one) Kenalog (Triamcinol one) 0 11-09 00:00: 00 No 40mg [facility] Kenalog (Triamcinol one) Kenalog (Triamcinol one) 0 11-09 00:00: 00 No 40mg [facility] [place] [facility] [place] 0 11-09 00:00: 00 No 2.5mg [facility] [place] [facility] [place] 0 11-09 00:00: 00 No 2.5mg [facility] Kenalog (Triamcinol one) Kenalog (Triamcinol one) 0 11-09 00:00: 00 No 40mg [facility] Kenalog (Triamcinol one) Kenalog (Triamcinol one) 0 11-09 00:00: 00 No 40mg [facility] [place] [facility] [place] 0 11-09 00:00: 00 No 2.5mg [facility] [place] [facility] [place] 0 11-09 00:00: 00 No 2.5mg [facility] Kenalog (Triamcinol one) Kenalog (Triamcinol one) 0 8 00:00: 00 No 40mg [facility] Kenalog (Triamcinol one) Kenalog (Triamcinol one) 11-09 00:00: 00 No 40mg [facility] [place] [facility] [place] 11-09 00:00: 00 No 2.5mg [facility] [place] [facility] [place] 0 11-09 00:00: 00 No 2.5mg [facility] Kenalog (Triamcinol one) Kenalog (Triamcinol one) 0 11-09 00:00: 00 No 40mg [facility] Kenalog (Triamcinol one) Kenalog (Triamcinol one) 11-09 00:00: 00 No 40mg [facility] [place] [facility] [place] 0 11-09 00:00: 00 No 2.5mg [facility] [place] [facility] [place] 11-09 00:00: 00 No 2.5mg [facility] Kenalog (Triamcinol one) Kenalog (Triamcinol one) 11-09 00:00: 00 No 40mg [facility] Kenalog (Triamcinol one) Kenalog (Triamcinol one) 0 11-09 00:00: 00 No 40mg [facility] [place] [facility] [place] 11-09 00:00: 00 No 2.5mg [facility] [place] [facility] [place] 0 11-09 00:00: 00 No 2.5mg [facility] Kenalog (Triamcinol one) Kenalog (Triamcinol one) 0 11-09 00:00: 00 No 40mg [facility] Kenalog (Triamcinol one) Kenalog (Triamcinol one) 0 11-09 00:00: 00 No 40mg [facility] [place] [facility] [place] 2020-0 11-09 00:00: 00 No 2.5mg [facility] [place] [facility] [place] 0 11-09 00:00: 00 No 2.5mg [facility] Kenalog (Triamcinol one) Kenalog (Triamcinol one) 0 8 00:00: 00 No 40mg [facility] Kenalog (Triamcinol one) Kenalog (Triamcinol one) 0 11-09 00:00: 00 No 40mg [facility] [place] [facility] [place] 0 11-09 00:00: 00 No 2.5mg [facility] [place] [facility] [place] 0 11-09 00:00: 00 No 2.5mg [facility] Kenalog (Triamcinol one) Kenalog (Triamcinol one) 0 11-09 00:00: 00 No 40mg [facility] Kenalog (Triamcinol one) Kenalog (Triamcinol one) 0 11-09 00:00: 00 No 40mg [facility] [place] [facility] [place] 0 11-09 00:00: 00 No 2.5mg [facility] [place] [facility] [place] 0 11-09 00:00: 00 No 2.5mg [facility] Kenalog (Triamcinol one) Kenalog (Triamcinol one) 0 11-09 00:00: 00 No 40mg [facility] Kenal[facility] (Triamcinol one) Kenalog (Triamcinol one) 0 11-09 00:00: 00 No 40mg [facility] [place] [facility] [place] 0 8 00:00: 00 No 2.5mg [facility] [place] [facility] [place] 2020-0 11-09 00:00: 00 No 2.5mg [facility] Kenalog (Triamcinol one) Kenalog (Triamcinol one) 0 11-09 00:00: 00 No 40mg [facility] Kenalog (Triamcinol one) Kenalog (Triamcinol one) 0 11-09 00:00: 00 No 40mg [facility] [place] [facility] [place] 0 11-09 00:00: 00 No 2.5mg [facility] [place] [facility] [place] 0 11-09 00:00: 00 No 2.5mg [facility] Kenalog (Triamcinol one) Kenalog (Triamcinol one) 0 11-09 00:00: 00 No 40mg [facility] Kenalog (Triamcinol one) Kenalog (Triamcinol one) 0 11-09 00:00: 00 No 40mg [facility] [place] [facility] [place] 0 11-09 00:00: 00 No 2.5mg [facility] [place] [facility] [place] 0 11-09 00:00: 00 No 2.5mg [facility] Kenalog (Triamcinol one) Kenalog (Triamcinol one) 0 11-09 00:00: 00 No 40mg [facility] Kenalog (Triamcinol one) Kenalog (Triamcinol one) 0 11-09 00:00: 00 No 40mg [facility] [place] [facility] [place] 0 11-09 00:00: 00 No 2.5mg [facility] [place] [facility] [place] 2020-0 11-09 00:00: 00 No 2.5mg [facility] Kenalog (Triamcinol one) Kenalog (Triamcinol one) 0 11-09 00:00: 00 No 40mg [facility] Kenalog (Triamcinol one) Kenalog (Triamcinol one) 0 11-09 00:00: 00 No 40mg [facility] [place] [facility] [place] 0 11-09 00:00: 00 No 2.5mg [facility] [place] [facility] [place] 0 11-09 00:00: 00 No 2.5mg [facility] Kenalog (Triamcinol one) Kenalog (Triamcinol one) 0 11-09 00:00: 00 No 40mg [facility] Kenalog (Triamcinol one) Kenalog (Triamcinol one) 0 11-09 00:00: 00 No 40mg [facility] [place] [facility] [place] 0 11-09 00:00: 00 No 2.5mg [facility] [place] [facility] [place] 0 11-09 00:00: 00 No 2.5mg [facility] Kenalog (Triamcinol one) Kenalog (Triamcinol one) 0 11-09 00:00: 00 No 40mg [facility] Kenalog (Triamcinol one) Kenalog (Triamcinol one) 0 11-09 00:00: 00 No 40mg [facility] [place] [facility] [place] 0 11-09 00:00: 00 No 2.5mg [facility] [place] [facility] [place] 2020-0 11-09 00:00: 00 No 2.5mg [facility] Kenal[facility] (Triamcinol one) Kenalog (Triamcinol one) 0 11-09 00:00: 00 No 40mg [facility] Kenalog (Triamcinol one) Kenalog (Triamcinol one) 0 11-09 00:00: 00 No 40mg [facility] [place] [facility] [place] 0 11-09 00:00: 00 No 2.5mg [facility] [place] [facility] [place] 0 11-09 00:00: 00 No 2.5mg [facility] Kenal[facility] (Triamcinol one) Kenalog (Triamcinol one) 0 11-09 00:00: 00 No 40mg [facility] Kenalog (Triamcinol one) Kenalog (Triamcinol one) 0 11-09 00:00: 00 No 40mg [facility] [place] [facility] [place] 0 11-09 00:00: 00 No 2.5mg [facility] [place] [facility] [place] 0 11-09 00:00: 00 No 2.5mg [facility] Kenal[facility] (Triamcinol one) Kenalog (Triamcinol one) 0 11-09 00:00: 00 No 40mg [facility] Kenalog (Triamcinol one) Kenalog (Triamcinol one) 0 11-09 00:00: 00 No 40mg [facility] [place] [facility] [place] 0 11-09 00:00: 00 No 2.5mg [facility] [place] [facility] [place] 2020-0 11-09 00:00: 00 No 2.5mg [facility] Kenalog (Triamcinol one) Kenalog (Triamcinol one) 0 8 00:00: 00 No 40mg [facility] Kenal[facility] (Triamcinol one) Kenalog (Triamcinol one) 0 11-09 00:00: 00 No 40mg [facility] [place] [facility] [place] 0 11-09 00:00: 00 No 2.5mg [facility] [place] [facility] [place] 0 11-09 00:00: 00 No 2.5mg [facility] Kenalog (Triamcinol one) Kenalog (Triamcinol one) 0 11-09 00:00: 00 No 40mg [facility] Kenalog (Triamcinol one) Kenalog (Triamcinol one) 0 11-09 00:00: 00 No 40mg [facility] [place] [facility] [place] 0 11-09 00:00: 00 No 2.5mg [facility] [place] [facility] [place] 0 11-09 00:00: 00 No 2.5mg [facility] Kenalog (Triamcinol one) Kenalog (Triamcinol one) 0 11-09 00:00: 00 No 40mg [facility] Kenalog (Triamcinol one) Kenalog (Triamcinol one) 0 11-09 00:00: 00 No 40mg [facility] [place] [facility] [place] 0 11-09 00:00: 00 No 2.5mg [facility] [place] [facility] [place] 0 11-09 00:00: 00 No 2.5mg [facility] Kenal[facility] (Triamcinol one) Kenalog (Triamcinol one) 0 11-09 00:00: 00 No 40mg [facility] Kenalog (Triamcinol one) Kenalog (Triamcinol one) 0 11-09 00:00: 00 No 40mg [facility] [place] [facility] [place] 0 11-09 00:00: 00 No 2.5mg [facility] [place] [facility] [place] 0 11-09 00:00: 00 No 2.5mg [facility] Ken[facility] (Triamcinol one) Kenalog (Triamcinol one) 0 11-09 00:00: 00 No 40mg [facility] Kenalog (Triamcinol one) Kenalog (Triamcinol one) 0 11-09 00:00: 00 No 40mg [facility] [place] [facility] [place] 0 11-09 00:00: 00 No 2.5mg [facility] [place] [facility] [place] 0 11-09 00:00: 00 No 2.5mg [facility] Kenal[facility] (Triamcinol one) Kenalog (Triamcinol one) 0 11-09 00:00: 00 No 40mg [facility] Kenalog (Triamcinol one) Kenalog (Triamcinol one) 0 11-09 00:00: 00 No 40mg [facility] [place] [facility] [place] 0 11-09 00:00: 00 No 2.5mg [facility] [place] [facility] [place] 0 11-09 00:00: 00 No 2.5mg [facility] Kenalog (Triamcinol one) Kenalog (Triamcinol one) 0 11-09 00:00: 00 No 40mg [facility] Kenal[facility] (Triamcinol one) Kenalog (Triamcinol one) 0 11-09 00:00: 00 No 40mg [facility] [place] [facility] [place] 0 11-09 00:00: 00 No 2.5mg [facility] [place] [facility] [place] 2020-0 11-09 00:00: 00 No 2.5mg [facility] Kenalog (Triamcinol one) Kenalog (Triamcinol one) 0 11-09 00:00: 00 No 40mg [facility] Kenal[facility] (Triamcinol one) Kenalog (Triamcinol one) 0 11-09 00:00: 00 No 40mg [facility] [place] [facility] [place] 0 11-09 00:00: 00 No 2.5mg [facility] [place] [facility] [place] 0 11-09 00:00: 00 No 2.5mg [facility] Kenal[facility] (Triamcinol one) Kenalog (Triamcinol one) 0 11-09 00:00: 00 No 40mg [facility] Kenal[facility] (Triamcinol one) Kenalog (Triamcinol one) 0 11-09 00:00: 00 No 40mg [facility] [place] [facility] [place] 11-09 00:00: 00 No 2.5mg [facility] [place] [facility] [place] 0 11-09 00:00: 00 No 2.5mg [facility] Kenal[facility] (Triamcinol one) Kenalog (Triamcinol one) 0 11-09 00:00: 00 No 40mg [facility] Kenal[facility] (Triamcinol one) Kenalog (Triamcinol one) 0 11-09 00:00: 00 No 40mg [facility] [place] [facility] [place] 2020-0 11-09 00:00: 00 No 2.5mg [facility] [place] [facility] [place] 2020-0 11-09 00:00: 00 No 2.5mg [facility] Kenalog (Triamcinol one) Kenalog (Triamcinol one) 0 11-09 00:00: 00 No 40mg [facility] Kenalog (Triamcinol one) Kenalog (Triamcinol one) 0 11-09 00:00: 00 No 40mg [facility] [place] [facility] [place] 0 11-09 00:00: 00 No 2.5mg [facility] [place] [facility] [place] 0 11-09 00:00: 00 No 2.5mg [facility] (Triamcinol one) Kenalog (Triamcinol one) 0 11-09 00:00: 00 No 40mg [facility] (Triamcinol one) Kenalog (Triamcinol one) 0 11-09 00:00: 00 No 40mg [facility] [place] [facility] [place] 2020-0 11-09 00:00: 00 No 2.5mg [facility] [place] [facility] [place] 0 11-09 00:00: 00 No 2.5mg [facility] Kenalog (Triamcinol one) Kenalog (Triamcinol one) 0 11-09 00:00: 00 No 40mg [facility] Kenalog (Triamcinol one) Kenalog (Triamcinol one) 0 11-09 00:00: 00 No 40mg [facility] [place] [facility] [place] 2020-0 11-09 00:00: 00 No 2.5mg [facility] [place] [facility] [place] 2020-0 11-09 00:00: 00 No 2.5mg [facility] (Triamcinol one) Kenalog (Triamcinol one) 0 11-09 00:00: 00 No 40mg [facility] Kenalog (Triamcinol one) Kenalog (Triamcinol one) 0 11-09 00:00: 00 No 40mg [facility] [place] [facility] [place] 0 11-09 00:00: 00 No 2.5mg [facility] [place] [facility] [place] 0 11-09 00:00: 00 No 2.5mg [facility] (Triamcinol one) Kenalog (Triamcinol one) 0 11-09 00:00: 00 No [facility]mg [facility] (Triamcinol one) Kenalog (Triamcinol one) 0 11-09 00:00: 00 No [facility]mg [facility] [place] [facility] [place] 0 11-09 00:00: 00 No 2.5mg [facility] [place] [facility] [place] 0 11-09 00:00: 00 No 2.5mg [facility] (Triamcinol one) Kenalog (Triamcinol one) 0 11-09 00:00: 00 No [facility]mg [facility] (Triamcinol one) Kenalog (Triamcinol one) 0 11-09 00:00: 00 No 40mg [facility] [place] [facility] [place] 0 11-09 00:00: 00 No 2.5mg [facility] [place] [facility] [place] 0 11-09 00:00: 00 No 2.5mg [facility] (Triamcinol one) Kenalog (Triamcinol one) 0 8 00:00: 00 No [facility]mg [facility] (Triamcinol one) Kenalog (Triamcinol one) 0 11-09 00:00: 00 No [facility]mg [facility] [place] [facility] [place] 0 11-09 00:00: 00 No 2.5mg [facility] [place] [facility] [place] 0 11-09 00:00: 00 No 2.5mg [facility] (Triamcinol one) Kenalog (Triamcinol one) 0 11-09 00:00: 00 No 40mg [facility]al[facility] (Triamcinol one) Kenalog (Triamcinol one) 0 11-09 00:00: 00 No [facility]mg [facility] [place] [facility] [place] 0 11-09 00:00: 00 No [facility] - [facility] [place] [place] 11-09 00:00: 00 No [facility] Kenalog (Triamcinol one) Kenalog (Triamcinol one) 0 11-09 00:00: 00 No 40mg [facility] Kenalog (Triamcinol one) Kenalog (Triamcinol one) 0 11-09 00:00: 00 No 40mg [facility] [place] B[facility] [place] 0 11-09 00:00: 00 No 2.5mg [facility] [place] Bup[facility] [place] 0 11-09 00:00: 00 No 2.5mg [facility] Kenalog (Triamcinol one) Kenalog (Triamcinol one) 0 11-09 00:00: 00 No 40mg [facility] Kenalog (Triamcinol one) Kenalog (Triamcinol one) 0 8 00:00: 00 No 40mg [facility] [place] [place] 2020-0 11-09 00:00: 00 No [facility] [place] Bupiv[place]aine [place] 0 11-09 00:00: 00 No [facility] Kenalog (Triamcinol one) Kenalog (Triamcinol one) 0 8 00:00: 00 No 40mg [facility] Kenalog (Triamcinol one) Kenalog (Triamcinol one) 0 11-09 00:00: 00 No 40mg [facility] [place] Bup[facility] 0 11-09 00:00: 00 No [facility] [place] Bup[facility] [place] 0 11-09 00:00: 00 No [facility] Kenalog (Triamcinol one) Kenalog (Triamcinol one) 0 11-09 00:00: 00 No 40mg [facility] Kenalog (Triamcinol one) Kenalog (Triamcinol one) 0 11-09 00:00: 00 No 40mg [facility] [place] Bup[facility] 0 11-09 00:00: 00 No [facility] [place] Bup[facility]aine [place] 0 11-09 00:00: 00 No [facility] Kenalog (Triamcinol one) Kenalog (Triamcinol one) 0 11-09 00:00: 00 No 40mg [facility] Kenalog (Triamcinol one) Kenalog (Triamcinol one) 0 8 00:00: 00 No 40mg [facility] [place] [facility] [place] 2020-0 11-09 00:00: 00 No 2.5mg [facility] [place] [facility] [place] 2020-0 8 00:00: 00 No 2.5mg [facility] Kenalog (Triamcinol one) Kenalog (Triamcinol one) 0 11-09 00:00: 00 No 40mg [facility] Kenalog (Triamcinol one) Kenalog (Triamcinol one) 0 11-09 00:00: 00 No 40mg [facility] [place] Bup[place] [place] 0 11-09 00:00: 00 No 2.5mg [facility] [place] Bup[facility]aine [place] 0 11-09 00:00: 00 No 2.5mg [facility] Kenalog (Triamcinol one) Kenalog (Triamcinol one) 0 11-09 00:00: 00 No 40mg [facility] Kenalog (Triamcinol one) Kenalog (Triamcinol one) 0 11-09 00:00: 00 No 40mg [facility] [place] Bup[place]aine [place] 0 11-09 00:00: 00 No 2.5mg [facility] [place] Bup[facility]aine [place] 0 11-09 00:00: 00 No 2.5mg [facility] Kenalog (Triamcinol one) Kenalog (Triamcinol one) 0 11-09 00:00: 00 No 40mg [facility] Kenalog (Triamcinol one) Kenalog (Triamcinol one) 0 11-09 00:00: 00 No 40mg [facility] [place] Bup[place] 0 11-09 00:00: 00 No 2.5mg [facility] [place] [facility] [place] 2020-0 11-09 00:00: 00 No 2.5mg [facility] Kenalog (Triamcinol one) Kenalog (Triamcinol one) 11-09 00:00: 00 No [facility] Kenalog (Triamcinol one) Kenalog (Triamcinol one) 11-09 00:00: 00 No 40mg [facility] [place] B[place] [place] 11-09 00:00: 00 No 2.5mg [facility] [place] B[place] [place] 11-09 00:00: 00 No 2.5mg [facility] Kenalog (Triamcinol one) Kenalog (Triamcinol one) 11-09 00:00: 00 No 40mg [facility] Kenalog (Triamcinol one) Kenalog (Triamcinol one) 11-09 00:00: 00 No 40mg [facility] Farxiga 10 MG Farxiga 10 MG No Farxiga 10 MG Atorvastati n Calcium 10 MG Atorvastati n Calcium 10 MG No 1{table t} QD Atorvastat in Calcium 10 MG Aspirin 81 81 MG Aspirin 81 81 MG No 1{table t} QD Aspirin 81 81 MG Montelukast Sodium 10 MG Montelukast Sodium 10 MG No 1{table t} QD Montelukas t Sodium 10 MG Tradjenta 5 MG Tradjenta 5 MG No Tradjenta 5 MG metFORMIN HCl ER 500 MG metFORMIN HCl ER 500 MG No BID metFORMIN HCl ER 500 MG predniSONE 10 MG predniSONE 10 MG No 1{table t} QD predniSONE 10 MG Pantoprazol e Sodium 40 MG Pantoprazol e Sodium 40 MG No 1{table t} QD Pantoprazo le Sodium 40 MG traZODone HCl 100 MG traZODone HCl 100 MG No 1{table t_at_be dtime} QD traZODone HCl 100 MG Breo Ellipta 100-25 MCG/INH Breo Ellipta 100-25 MCG/INH No 1{puff} QD Breo Ellipta 100-25 MCG/INH Farxiga 10 MG Farxiga 10 MG No 1{table t} QD Farxiga 10 MG Tradjenta 5 MG Tradjenta 5 MG No 1{table t} QD Tradjenta 5 MG Lisinopril 5 MG Lisinopril 5 MG No 1{table t} QD Lisinopril 5 MG Carvedilol 12.5 MG Carvedilol 12.5 MG No 1{table t_with_ food} BID Carvedilol 12.5 MG metFORMIN HCl ER 500 MG metFORMIN HCl ER 500 MG No 2{table t_with_ food} BID metFORMIN HCl ER 500 MG Atorvastati n Calcium 10 MG Atorvastati n Calcium 10 MG No 1{table t} QD Atorvastat in Calcium 10 MG ZyrTEC Allergy 10 MG ZyrTEC Allergy 10 MG No 1{capsu le} QD ZyrTEC Allergy 10 MG Cyclobenzap rine HCl 5 MG Cyclobenzap rine HCl 5 MG No 1{table t_at_be dtime_a s_neede d} QD Cyclobenza romana HCl 5 MG Lisinopril 5 MG Lisinopril 5 MG No 1{table t} QD Lisinopril 5 MG Farxiga 10 MG Farxiga 10 MG No Farxiga 10 MG Atorvastati n Calcium 10 MG Atorvastati n Calcium 10 MG No 1{table t} QD Atorvastat in Calcium 10 MG Aspirin 81 81 MG Aspirin 81 81 MG No 1{table t} QD Aspirin 81 81 MG Montelukast Sodium 10 MG Montelukast Sodium 10 MG No 1{table t} QD Montelukas t Sodium 10 MG Tradjenta 5 MG Tradjenta 5 MG No Tradjenta 5 MG metFORMIN HCl ER 500 MG metFORMIN HCl ER 500 MG No BID metFORMIN HCl ER 500 MG predniSONE 10 MG predniSONE 10 MG No 1{table t} QD predniSONE 10 MG Pantoprazol e Sodium 40 MG Pantoprazol e Sodium 40 MG No 1{table t} QD Pantoprazo le Sodium 40 MG traZODone HCl 100 MG traZODone HCl 100 MG No 1{table t_at_be dtime} QD traZODone HCl 100 MG Breo Ellipta 100-25 MCG/INH Breo Ellipta 100-25 MCG/INH No 1{puff} QD Breo Ellipta 100-25 MCG/INH Farxiga 10 MG Farxiga 10 MG No 1{table t} QD Farxiga 10 MG Tradjenta 5 MG Tradjenta 5 MG No 1{table t} QD Tradjenta 5 MG Lisinopril 5 MG Lisinopril 5 MG No 1{table t} QD Lisinopril 5 MG Carvedilol 12.5 MG Carvedilol 12.5 MG No 1{table t_with_ food} BID Carvedilol 12.5 MG metFORMIN HCl ER 500 MG metFORMIN HCl ER 500 MG No 2{table t_with_ food} BID metFORMIN HCl ER 500 MG Atorvastati n Calcium 10 MG Atorvastati n Calcium 10 MG No 1{table t} QD Atorvastat in Calcium 10 MG ZyrTEC Allergy 10 MG ZyrTEC Allergy 10 MG No 1{capsu le} QD ZyrTEC Allergy 10 MG Cyclobenzap rine HCl 5 MG Cyclobenzap rine HCl 5 MG No 1{table t_at_be dtime_a s_neede d} QD Cyclobenza romana HCl 5 MG Lisinopril 5 MG Lisinopril 5 MG No 1{table t} QD Lisinopril 5 MG Farxiga 10 MG Farxiga 10 MG No Farxiga 10 MG Atorvastati n Calcium 10 MG Atorvastati n Calcium 10 MG No 1{table t} QD Atorvastat in Calcium 10 MG Aspirin 81 81 MG Aspirin 81 81 MG No 1{table t} QD Aspirin 81 81 MG Montelukast Sodium 10 MG Montelukast Sodium 10 MG No 1{table t} QD Montelukas t Sodium 10 MG Tradjenta 5 MG Tradjenta 5 MG No Tradjenta 5 MG metFORMIN HCl ER 500 MG metFORMIN HCl ER 500 MG No BID metFORMIN HCl ER 500 MG predniSONE 10 MG predniSONE 10 MG No 1{table t} QD predniSONE 10 MG Pantoprazol e Sodium 40 MG Pantoprazol e Sodium 40 MG No 1{table t} QD Pantoprazo le Sodium 40 MG traZODone HCl 100 MG traZODone HCl 100 MG No 1{table t_at_be dtime} QD traZODone HCl 100 MG Breo Ellipta 100-25 MCG/INH Breo Ellipta 100-25 MCG/INH No 1{puff} QD Breo Ellipta 100-25 MCG/INH Farxiga 10 MG Farxiga 10 MG No 1{table t} QD Farxiga 10 MG Tradjenta 5 MG Tradjenta 5 MG No 1{table t} QD Tradjenta 5 MG Lisinopril 5 MG Lisinopril 5 MG No 1{table t} QD Lisinopril 5 MG Carvedilol 12.5 MG Carvedilol 12.5 MG No 1{table t_with_ food} BID Carvedilol 12.5 MG metFORMIN HCl ER 500 MG metFORMIN HCl ER 500 MG No 2{table t_with_ food} BID metFORMIN HCl ER 500 MG Atorvastati n Calcium 10 MG Atorvastati n Calcium 10 MG No 1{table t} QD Atorvastat in Calcium 10 MG ZyrTEC Allergy 10 MG ZyrTEC Allergy 10 MG No 1{capsu le} QD ZyrTEC Allergy 10 MG Cyclobenzap rine HCl 5 MG Cyclobenzap rine HCl 5 MG No 1{table t_at_be dtime_a s_neede d} QD Cyclobenza romana HCl 5 MG Lisinopril 5 MG Lisinopril 5 MG No 1{table t} QD Lisinopril 5 MG Farxiga 10 MG Farxiga 10 MG No Farxiga 10 MG Atorvastati n Calcium 10 MG Atorvastati n Calcium 10 MG No 1{table t} QD Atorvastat in Calcium 10 MG Aspirin 81 81 MG Aspirin 81 81 MG No 1{table t} QD Aspirin 81 81 MG Montelukast Sodium 10 MG Montelukast Sodium 10 MG No 1{table t} QD Montelukas t Sodium 10 MG Tradjenta 5 MG Tradjenta 5 MG No Tradjenta 5 MG metFORMIN HCl ER 500 MG metFORMIN HCl ER 500 MG No BID metFORMIN HCl ER 500 MG predniSONE 10 MG predniSONE 10 MG No 1{table t} QD predniSONE 10 MG Pantoprazol e Sodium 40 MG Pantoprazol e Sodium 40 MG No 1{table t} QD Pantoprazo le Sodium 40 MG traZODone HCl 100 MG traZODone HCl 100 MG No 1{table t_at_be dtime} QD traZODone HCl 100 MG Breo Ellipta 100-25 MCG/INH Breo Ellipta 100-25 MCG/INH No 1{puff} QD Breo Ellipta 100-25 MCG/INH Farxiga 10 MG Farxiga 10 MG No 1{table t} QD Farxiga 10 MG Tradjenta 5 MG Tradjenta 5 MG No 1{table t} QD Tradjenta 5 MG Lisinopril 5 MG Lisinopril 5 MG No 1{table t} QD Lisinopril 5 MG Carvedilol 12.5 MG Carvedilol 12.5 MG No 1{table t_with_ food} BID Carvedilol 12.5 MG metFORMIN HCl ER 500 MG metFORMIN HCl ER 500 MG No 2{table t_with_ food} BID metFORMIN HCl ER 500 MG Atorvastati n Calcium 10 MG Atorvastati n Calcium 10 MG No 1{table t} QD Atorvastat in Calcium 10 MG ZyrTEC Allergy 10 MG ZyrTEC Allergy 10 MG No 1{capsu le} QD ZyrTEC Allergy 10 MG Cyclobenzap rine HCl 5 MG Cyclobenzap rine HCl 5 MG No 1{table t_at_be dtime_a s_neede d} QD Cyclobenza romana HCl 5 MG Lisinopril 5 MG Lisinopril 5 MG No 1{table t} QD Lisinopril 5 MG predniSONE predniSONE No predniSONE Ocuvite Ocuvite No Ocuvite Echinacea 400 MG Echinacea 400 MG No Echinacea 400 MG Levaquin 750 MG Levaquin 750 MG No 1{table t} QD Levaquin 750 MG Lisinopril 5 MG Lisinopril 5 MG No 1{table t} QD Lisinopril 5 MG Lisinopril 5 MG Lisinopril 5 MG No 1{table t} QD Lisinopril 5 MG Cyanocobala min 1000 MCG Cyanocobala min 1000 MCG No 1{table t} QD Cyanocobal mixon 1000 MCG Farxiga 10 MG Farxiga 10 MG No 1{table t} QD Farxiga 10 MG Entresto 24-26 MG Entresto 24-26 MG No 1{table t} BID Entresto 24-26 MG Aspirin 81 81 MG Aspirin 81 81 MG No 1{table t} QD Aspirin 81 81 MG Atorvastati n Calcium 10 MG Atorvastati n Calcium 10 MG No 1{table t} QD Atorvastat in Calcium 10 MG metFORMIN HCl ER 500 MG metFORMIN HCl ER 500 MG No BID metFORMIN HCl ER 500 MG predniSONE 20 MG predniSONE 20 MG No 1{table t} QD predniSONE 20 MG Lumigan 0.01 % Lumigan 0.01 % No 1{drop_ into_af fected_ eye_in_ the_eve jason} QD Lumigan 0.01 % Centrum Silver Centrum Silver No Centrum Silver Calcium 500 MG Calcium 500 MG No 1{table t_with_ meals} BID Calcium 500 MG Carvedilol 25 MG Carvedilol 25 MG No 1{table t_with_ food} BID Carvedilol 25 MG Breo Ellipta 100-25 MCG/INH Breo Ellipta 100-25 MCG/INH No 1{puff} QD Breo Ellipta 100-25 MCG/INH metFORMIN HCl ER 750 MG metFORMIN HCl ER 750 MG No metFORMIN HCl ER 750 MG Echinacea 400 MG Echinacea 400 MG No Echinacea 400 MG Budesonide- Formoterol Fumarate Budesonide- Formoterol Fumarate No Budesonide -Formotero l Fumarate Levaquin 750 MG Levaquin 750 MG No 1{table t} QD Levaquin 750 MG Lisinopril 5 MG Lisinopril 5 MG No 1{table t} QD Lisinopril 5 MG Cyanocobala min 1000 MCG Cyanocobala min 1000 MCG No 1{table t} QD Cyanocobal mixon 1000 MCG Farxiga 10 MG Farxiga 10 MG No 1{table t} QD Farxiga 10 MG Entresto 24-26 MG Entresto 24-26 MG No 1{table t} BID Entresto 24-26 MG Aspirin 81 81 MG Aspirin 81 81 MG No 1{table t} QD Aspirin 81 81 MG Atorvastati n Calcium 10 MG Atorvastati n Calcium 10 MG No 1{table t} QD Atorvastat in Calcium 10 MG metFORMIN HCl ER 500 MG metFORMIN HCl ER 500 MG No BID metFORMIN HCl ER 500 MG predniSONE 20 MG predniSONE 20 MG No 1{table t} QD predniSONE 20 MG Atorvastati n Calcium 10 MG Atorvastati n Calcium 10 MG No 1{table t} QD Atorvastat in Calcium 10 MG Lumigan 0.01 % Lumigan 0.01 % No 1{drop_ into_af fected_ eye_in_ the_eve jason} QD Lumigan 0.01 % Centrum Silver Centrum Silver No Centrum Silver Carvedilol 25 MG Carvedilol 25 MG No 1{table t_with_ food} BID Carvedilol 25 MG Breo Ellipta 100-25 MCG/INH Breo Ellipta 100-25 MCG/INH No 1{puff} QD Breo Ellipta 100-25 MCG/INH Lisinopril 5 MG Lisinopril 5 MG No 1{table t} QD Lisinopril 5 MG Meloxicam 7.5 MG Meloxicam 7.5 MG No Meloxicam 7.5 MG Echinacea 400 MG Echinacea 400 MG No Echinacea 400 MG Levaquin 750 MG Levaquin 750 MG No 1{table t} QD Levaquin 750 MG Lisinopril 5 MG Lisinopril 5 MG No 1{table t} QD Lisinopril 5 MG Cyanocobala min 1000 MCG Cyanocobala min 1000 MCG No 1{table t} QD Cyanocobal mixon 1000 MCG Farxiga 10 MG Farxiga 10 MG No 1{table t} QD Farxiga 10 MG Entresto 24-26 MG Entresto 24-26 MG No 1{table t} BID Entresto 24-26 MG Aspirin 81 81 MG Aspirin 81 81 MG No 1{table t} QD Aspirin 81 81 MG Atorvastati n Calcium 10 MG Atorvastati n Calcium 10 MG No 1{table t} QD Atorvastat in Calcium 10 MG Montelukast Sodium 10 MG Montelukast Sodium 10 MG No 1{table t} QD Montelukas t Sodium 10 MG metFORMIN HCl ER 500 MG metFORMIN HCl ER 500 MG No BID metFORMIN HCl ER 500 MG predniSONE 20 MG predniSONE 20 MG No 1{table t} QD predniSONE 20 MG Lumigan 0.01 % Lumigan 0.01 % No 1{drop_ into_af fected_ eye_in_ the_eve jason} QD Lumigan 0.01 % Centrum Silver Centrum Silver No Centrum Silver Carvedilol 25 MG Carvedilol 25 MG No 1{table t_with_ food} BID Carvedilol 25 MG Breo Ellipta 100-25 MCG/INH Breo Ellipta 100-25 MCG/INH No 1{puff} QD Breo Ellipta 100-25 MCG/INH Albuterol Sulfate HFA 108 (90 Base) MCG/ACT Albuterol Sulfate HFA 108 (90 Base) MCG/ACT No Albuterol Sulfate HFA 108 (90 Base) MCG/ACT Breo Ellipta 100-25 MCG/INH Breo Ellipta 100-25 MCG/INH No Breo Ellipta 100-25 MCG/INH Echinacea 400 MG Echinacea 400 MG No Echinacea 400 MG Levaquin 750 MG Levaquin 750 MG No 1{table t} QD Levaquin 750 MG Lisinopril 5 MG Lisinopril 5 MG No 1{table t} QD Lisinopril 5 MG Cyanocobala min 1000 MCG Cyanocobala min 1000 MCG No 1{table t} QD Cyanocobal mixon 1000 MCG Farxiga 10 MG Farxiga 10 MG No 1{table t} QD Farxiga 10 MG metFORMIN HCl ER 750 MG metFORMIN HCl ER 750 MG No 1{table t_with_ evening _meal} QD metFORMIN HCl ER 750 MG Entresto 24-26 MG Entresto 24-26 MG No 1{table t} BID Entresto 24-26 MG Aspirin 81 81 MG Aspirin 81 81 MG No 1{table t} QD Aspirin 81 81 MG Atorvastati n Calcium 10 MG Atorvastati n Calcium 10 MG No 1{table t} QD Atorvastat in Calcium 10 MG metFORMIN HCl ER 500 MG metFORMIN HCl ER 500 MG No BID metFORMIN HCl ER 500 MG predniSONE 20 MG predniSONE 20 MG No 1{table t} QD predniSONE 20 MG Lumigan 0.01 % Lumigan 0.01 % No 1{drop_ into_af fected_ eye_in_ the_eve jason} QD Lumigan 0.01 % Centrum Silver Centrum Silver No Centrum Silver Carvedilol 25 MG Carvedilol 25 MG No 1{table t_with_ food} BID Carvedilol 25 MG Breo Ellipta 100-25 MCG/INH Breo Ellipta 100-25 MCG/INH No 1{puff} QD Breo Ellipta 100-25 MCG/INH Multi Vitamin Multi Vitamin No Multi Vitamin Echinacea 400 MG Echinacea 400 MG No Echinacea 400 MG Levaquin 750 MG Levaquin 750 MG No 1{table t} QD Levaquin 750 MG Lisinopril 5 MG Lisinopril 5 MG No 1{table t} QD Lisinopril 5 MG Cyanocobala min 1000 MCG Cyanocobala min 1000 MCG No 1{table t} QD Cyanocobal mixon 1000 MCG Farxiga 10 MG Farxiga 10 MG No 1{table t} QD Farxiga 10 MG Entresto 24-26 MG Entresto 24-26 MG No 1{table t} BID Entresto 24-26 MG Aspirin 81 81 MG Aspirin 81 81 MG No 1{table t} QD Aspirin 81 81 MG Atorvastati n Calcium 10 MG Atorvastati n Calcium 10 MG No 1{table t} QD Atorvastat in Calcium 10 MG metFORMIN HCl ER 500 MG metFORMIN HCl ER 500 MG No BID metFORMIN HCl ER 500 MG predniSONE 20 MG predniSONE 20 MG No 1{table t} QD predniSONE 20 MG Lumigan 0.01 % Lumigan 0.01 % No 1{drop_ into_af fected_ eye_in_ the_eve jason} QD Lumigan 0.01 % Centrum Silver Centrum Silver No Centrum Silver Carvedilol 25 MG Carvedilol 25 MG No 1{table t_with_ food} BID Carvedilol 25 MG Breo Ellipta 100-25 MCG/INH Breo Ellipta 100-25 MCG/INH No 1{puff} QD Breo Ellipta 100-25 MCG/INH Echinacea 400 MG Echinacea 400 MG No Echinacea 400 MG Levaquin 750 MG Levaquin 750 MG No 1{table t} QD Levaquin 750 MG Lisinopril 5 MG Lisinopril 5 MG No 1{table t} QD Lisinopril 5 MG Cyanocobala min 1000 MCG Cyanocobala min 1000 MCG No 1{table t} QD Cyanocobal mixon 1000 MCG Farxiga 10 MG Farxiga 10 MG No 1{table t} QD Farxiga 10 MG Entresto 24-26 MG Entresto 24-26 MG No 1{table t} BID Entresto 24-26 MG Aspirin 81 81 MG Aspirin 81 81 MG No 1{table t} QD Aspirin 81 81 MG Atorvastati n Calcium 10 MG Atorvastati n Calcium 10 MG No 1{table t} QD Atorvastat in Calcium 10 MG metFORMIN HCl ER 500 MG metFORMIN HCl ER 500 MG No BID metFORMIN HCl ER 500 MG predniSONE 20 MG predniSONE 20 MG No 1{table t} QD predniSONE 20 MG Lumigan 0.01 % Lumigan 0.01 % No 1{drop_ into_af fected_ eye_in_ the_eve jason} QD Lumigan 0.01 % Centrum Silver Centrum Silver No Centrum Silver Carvedilol 25 MG Carvedilol 25 MG No 1{table t_with_ food} BID Carvedilol 25 MG Breo Ellipta 100-25 MCG/INH Breo Ellipta 100-25 MCG/INH No 1{puff} QD Breo Ellipta 100-25 MCG/INH Echinacea 400 MG Echinacea 400 MG No Echinacea 400 MG Levaquin 750 MG Levaquin 750 MG No 1{table t} QD Levaquin 750 MG Lisinopril 5 MG Lisinopril 5 MG No 1{table t} QD Lisinopril 5 MG Cyanocobala min 1000 MCG Cyanocobala min 1000 MCG No 1{table t} QD Cyanocobal mixon 1000 MCG Farxiga 10 MG Farxiga 10 MG No 1{table t} QD Farxiga 10 MG Entresto 24-26 MG Entresto 24-26 MG No 1{table t} BID Entresto 24-26 MG predniSONE predniSONE No predniSONE Aspirin 81 81 MG Aspirin 81 81 MG No 1{table t} QD Aspirin 81 81 MG Atorvastati n Calcium 10 MG Atorvastati n Calcium 10 MG No 1{table t} QD Atorvastat in Calcium 10 MG metFORMIN HCl ER 500 MG metFORMIN HCl ER 500 MG No BID metFORMIN HCl ER 500 MG predniSONE 20 MG predniSONE 20 MG No 1{table t} QD predniSONE 20 MG Lumigan 0.01 % Lumigan 0.01 % No 1{drop_ into_af fected_ eye_in_ the_eve jason} QD Lumigan 0.01 % Centrum Silver Centrum Silver No Centrum Silver Carvedilol 25 MG Carvedilol 25 MG No 1{table t_with_ food} BID Carvedilol 25 MG Breo Ellipta 100-25 MCG/INH Breo Ellipta 100-25 MCG/INH No 1{puff} QD Breo Ellipta 100-25 MCG/INH Budesonide- Formoterol Fumarate Budesonide- Formoterol Fumarate No Budesonide -Formotero l Fumarate Meloxicam 7.5 MG Meloxicam 7.5 MG No Meloxicam 7.5 MG Lisinopril 5 MG Lisinopril 5 MG No 1{table t} QD Lisinopril 5 MG Echinacea 400 MG Echinacea 400 MG No Echinacea 400 MG Levaquin 750 MG Levaquin 750 MG No 1{table t} QD Levaquin 750 MG Lisinopril 5 MG Lisinopril 5 MG No 1{table t} QD Lisinopril 5 MG Cyanocobala min 1000 MCG Cyanocobala min 1000 MCG No 1{table t} QD Cyanocobal mixon 1000 MCG Farxiga 10 MG Farxiga 10 MG No 1{table t} QD Farxiga 10 MG Entresto 24-26 MG Entresto 24-26 MG No 1{table t} BID Entresto 24-26 MG Aspirin 81 81 MG Aspirin 81 81 MG No 1{table t} QD Aspirin 81 81 MG Atorvastati n Calcium 10 MG Atorvastati n Calcium 10 MG No 1{table t} QD Atorvastat in Calcium 10 MG metFORMIN HCl ER 500 MG metFORMIN HCl ER 500 MG No BID metFORMIN HCl ER 500 MG Lisinopril 5 MG Lisinopril 5 MG No 1{table t} QD Lisinopril 5 MG predniSONE 20 MG predniSONE 20 MG No 1{table t} QD predniSONE 20 MG Lumigan 0.01 % Lumigan 0.01 % No 1{drop_ into_af fected_ eye_in_ the_eve jason} QD Lumigan 0.01 % Centrum Silver Centrum Silver No Centrum Silver Carvedilol 25 MG Carvedilol 25 MG No 1{table t_with_ food} BID Carvedilol 25 MG Breo Ellipta 100-25 MCG/INH Breo Ellipta 100-25 MCG/INH No 1{puff} QD Breo Ellipta 100-25 MCG/INH Albuterol Sulfate HFA 108 (90 Base) MCG/ACT Albuterol Sulfate HFA 108 (90 Base) MCG/ACT No Albuterol Sulfate HFA 108 (90 Base) MCG/ACT Calcium 500 MG Calcium 500 MG No 1{table t_with_ meals} BID Calcium 500 MG Echinacea 400 MG Echinacea 400 MG No Echinacea 400 MG Levaquin 750 MG Levaquin 750 MG No 1{table t} QD Levaquin 750 MG Lisinopril 5 MG Lisinopril 5 MG No 1{table t} QD Lisinopril 5 MG Cyanocobala min 1000 MCG Cyanocobala min 1000 MCG No 1{table t} QD Cyanocobal mixon 1000 MCG Farxiga 10 MG Farxiga 10 MG No 1{table t} QD Farxiga 10 MG Entresto 24-26 MG Entresto 24-26 MG No 1{table t} BID Entresto 24-26 MG Aspirin 81 81 MG Aspirin 81 81 MG No 1{table t} QD Aspirin 81 81 MG Atorvastati n Calcium 10 MG Atorvastati n Calcium 10 MG No 1{table t} QD Atorvastat in Calcium 10 MG metFORMIN HCl ER 500 MG metFORMIN HCl ER 500 MG No BID metFORMIN HCl ER 500 MG predniSONE 20 MG predniSONE 20 MG No 1{table t} QD predniSONE 20 MG Lumigan 0.01 % Lumigan 0.01 % No 1{drop_ into_af fected_ eye_in_ the_eve jason} QD Lumigan 0.01 % Centrum Silver Centrum Silver No Centrum Silver Carvedilol 25 MG Carvedilol 25 MG No 1{table t_with_ food} BID Carvedilol 25 MG Multi Vitamin Multi Vitamin No Multi Vitamin Breo Ellipta 100-25 MCG/INH Breo Ellipta 100-25 MCG/INH No 1{puff} QD Breo Ellipta 100-25 MCG/INH metFORMIN HCl ER 750 MG metFORMIN HCl ER 750 MG No metFORMIN HCl ER 750 MG Breo Ellipta 100-25 MCG/INH Breo Ellipta 100-25 MCG/INH No 1{puff} QD Breo Ellipta 100-25 MCG/INH Echinacea 400 MG Echinacea 400 MG No Echinacea 400 MG Levaquin 750 MG Levaquin 750 MG No 1{table t} QD Levaquin 750 MG Lisinopril 5 MG Lisinopril 5 MG No 1{table t} QD Lisinopril 5 MG Cyanocobala min 1000 MCG Cyanocobala min 1000 MCG No 1{table t} QD Cyanocobal mixon 1000 MCG Montelukast Sodium 10 MG Montelukast Sodium 10 MG No 1{table t} QD Montelukas t Sodium 10 MG Farxiga 10 MG Farxiga 10 MG No 1{table t} QD Farxiga 10 MG Entresto 24-26 MG Entresto 24-26 MG No 1{table t} BID Entresto 24-26 MG Aspirin 81 81 MG Aspirin 81 81 MG No 1{table t} QD Aspirin 81 81 MG Atorvastati n Calcium 10 MG Atorvastati n Calcium 10 MG No 1{table t} QD Atorvastat in Calcium 10 MG metFORMIN HCl ER 500 MG metFORMIN HCl ER 500 MG No BID metFORMIN HCl ER 500 MG predniSONE 20 MG predniSONE 20 MG No 1{table t} QD predniSONE 20 MG Lumigan 0.01 % Lumigan 0.01 % No 1{drop_ into_af fected_ eye_in_ the_eve jason} QD Lumigan 0.01 % Centrum Silver Centrum Silver No Centrum Silver Carvedilol 25 MG Carvedilol 25 MG No 1{table t_with_ food} BID Carvedilol 25 MG metFORMIN HCl ER 750 MG metFORMIN HCl ER 750 MG No BID metFORMIN HCl ER 750 MG Breo Ellipta 100-25 MCG/INH Breo Ellipta 100-25 MCG/INH No 1{puff} QD Breo Ellipta 100-25 MCG/INH Atorvastati n Calcium 10 MG Atorvastati n Calcium 10 MG No 1{table t} QD Atorvastat in Calcium 10 MG Echinacea 400 MG Echinacea 400 MG No Echinacea 400 MG Breo Ellipta 100-25 MCG/INH Breo Ellipta 100-25 MCG/INH No Breo Ellipta 100-25 MCG/INH Levaquin 750 MG Levaquin 750 MG No 1{table t} QD Levaquin 750 MG Lisinopril 5 MG Lisinopril 5 MG No 1{table t} QD Lisinopril 5 MG Cyanocobala min 1000 MCG Cyanocobala min 1000 MCG No 1{table t} QD Cyanocobal mixon 1000 MCG Farxiga 10 MG Farxiga 10 MG No 1{table t} QD Farxiga 10 MG Entresto 24-26 MG Entresto 24-26 MG No 1{table t} BID Entresto 24-26 MG Aspirin 81 81 MG Aspirin 81 81 MG No 1{table t} QD Aspirin 81 81 MG Atorvastati n Calcium 10 MG Atorvastati n Calcium 10 MG No 1{table t} QD Atorvastat in Calcium 10 MG metFORMIN HCl ER 500 MG metFORMIN HCl ER 500 MG No BID metFORMIN HCl ER 500 MG predniSONE 20 MG predniSONE 20 MG No 1{table t} QD predniSONE 20 MG Ocuvite Ocuvite No Ocuvite Lumigan 0.01 % Lumigan 0.01 % No 1{drop_ into_af fected_ eye_in_ the_eve jason} QD Lumigan 0.01 % Centrum Silver Centrum Silver No Centrum Silver Carvedilol 25 MG Carvedilol 25 MG No 1{table t_with_ food} BID Carvedilol 25 MG Breo Ellipta 100-25 MCG/INH Breo Ellipta 100-25 MCG/INH No 1{puff} QD Breo Ellipta 100-25 MCG/INH Echinacea 400 MG Echinacea 400 MG No Echinacea 400 MG Levaquin 750 MG Levaquin 750 MG No 1{table t} QD Levaquin 750 MG Lisinopril 5 MG Lisinopril 5 MG No 1{table t} QD Lisinopril 5 MG Cyanocobala min 1000 MCG Cyanocobala min 1000 MCG No 1{table t} QD Cyanocobal mixon 1000 MCG Farxiga 10 MG Farxiga 10 MG No 1{table t} QD Farxiga 10 MG Entresto 24-26 MG Entresto 24-26 MG No 1{table t} BID Entresto 24-26 MG Aspirin 81 81 MG Aspirin 81 81 MG No 1{table t} QD Aspirin 81 81 MG Atorvastati n Calcium 10 MG Atorvastati n Calcium 10 MG No 1{table t} QD Atorvastat in Calcium 10 MG metFORMIN HCl ER 500 MG metFORMIN HCl ER 500 MG No BID metFORMIN HCl ER 500 MG predniSONE 20 MG predniSONE 20 MG No 1{table t} QD predniSONE 20 MG Lumigan 0.01 % Lumigan 0.01 % No 1{drop_ into_af fected_ eye_in_ the_eve jason} QD Lumigan 0.01 % Centrum Silver Centrum Silver No Centrum Silver Carvedilol 25 MG Carvedilol 25 MG No 1{table t_with_ food} BID Carvedilol 25 MG Breo Ellipta 100-25 MCG/INH Breo Ellipta 100-25 MCG/INH No 1{puff} QD Breo Ellipta 100-25 MCG/INH Echinacea 400 MG Echinacea 400 MG No Echinacea 400 MG Levaquin 750 MG Levaquin 750 MG No 1{table t} QD Levaquin 750 MG Lisinopril 5 MG Lisinopril 5 MG No 1{table t} QD Lisinopril 5 MG Cyanocobala min 1000 MCG Cyanocobala min 1000 MCG No 1{table t} QD Cyanocobal mixon 1000 MCG Farxiga 10 MG Farxiga 10 MG No 1{table t} QD Farxiga 10 MG Entresto 24-26 MG Entresto 24-26 MG No 1{table t} BID Entresto 24-26 MG Aspirin 81 81 MG Aspirin 81 81 MG No 1{table t} QD Aspirin 81 81 MG Atorvastati n Calcium 10 MG Atorvastati n Calcium 10 MG No 1{table t} QD Atorvastat in Calcium 10 MG metFORMIN HCl ER 500 MG metFORMIN HCl ER 500 MG No BID metFORMIN HCl ER 500 MG predniSONE 20 MG predniSONE 20 MG No 1{table t} QD predniSONE 20 MG Lumigan 0.01 % Lumigan 0.01 % No 1{drop_ into_af fected_ eye_in_ the_eve jason} QD Lumigan 0.01 % Centrum Silver Centrum Silver No Centrum Silver Carvedilol 25 MG Carvedilol 25 MG No 1{table t_with_ food} BID Carvedilol 25 MG Breo Ellipta 100-25 MCG/INH Breo Ellipta 100-25 MCG/INH No 1{puff} QD Breo Ellipta 100-25 MCG/INH predniSONE predniSONE No Lumigan 0.01 % Lumigan 0.01 % No 1{drop_ into_af fected_ eye_in_ the_eve jason} QD Lumigan 0.01 % Montelukast Sodium 10 MG Montelukast Sodium 10 MG No 1{table t} QD Montelukas t Sodium 10 MG Echinacea 400 MG Echinacea 400 MG No Echinacea 400 MG traZODone HCl 100 MG traZODone HCl 100 MG No 1{table t_at_be dtime} QD traZODone HCl 100 MG Entresto 24-26 MG Entresto 24-26 MG No 1{table t} BID Entresto 24-26 MG Budesonide- Formoterol Fumarate Budesonide- Formoterol Fumarate No Farxiga 10 MG Farxiga 10 MG No 1{table t} QD Farxiga 10 MG Cyanocobala min 1000 MCG Cyanocobala min 1000 MCG No 1{table t} QD Cyanocobal mixon 1000 MCG Cyclobenzap rine HCl 5 MG Cyclobenzap rine HCl 5 MG No 1{table t_at_be dtime_a s_neede d} QD Cyclobenza romana HCl 5 MG Aspirin 81 81 MG Aspirin 81 81 MG No 1{table t} QD Aspirin 81 81 MG Tradjenta 5 MG Tradjenta 5 MG No 1{table t} QD Tradjenta 5 MG Breo Ellipta 100-25 MCG/INH Breo Ellipta 100-25 MCG/INH No 1{puff} QD Breo Ellipta 100-25 MCG/INH metFORMIN HCl ER 500 MG metFORMIN HCl ER 500 MG No BID metFORMIN HCl ER 500 MG predniSONE 20 MG predniSONE 20 MG No 1{table t} QD predniSONE 20 MG Lisinopril 5 MG Lisinopril 5 MG No 1{table t} QD Lisinopril 5 MG Farxiga 10 MG Farxiga 10 MG No 1{table t} QD Farxiga 10 MG Meloxicam 7.5 MG Meloxicam 7.5 MG No Carvedilol 25 MG Carvedilol 25 MG No 1{table t_with_ food} BID Carvedilol 25 MG Atorvastati n Calcium 10 MG Atorvastati n Calcium 10 MG No 1{table t} QD Atorvastat in Calcium 10 MG Centrum Silver Centrum Silver No Centrum Silver metFORMIN HCl ER 500 MG metFORMIN HCl ER 500 MG No 2{table t_with_ food} BID metFORMIN HCl ER 500 MG Pantoprazol e Sodium 40 MG Pantoprazol e Sodium 40 MG No 1{table t} QD Pantoprazo le Sodium 40 MG Amoxicillin -Pot Clavulanate 875-125 MG Amoxicillin -Pot Clavulanate 875-125 MG No 1{table t} BID Amoxicilli n-Pot Clavulanat e 875-125 MG Lisinopril 5 MG Lisinopril 5 MG No 1{table t} QD Lumigan 0.01 % Lumigan 0.01 % No 1{drop_ into_af fected_ eye_in_ the_eve jason} QD Lumigan 0.01 % Montelukast Sodium 10 MG Montelukast Sodium 10 MG No 1{table t} QD Montelukas t Sodium 10 MG Echinacea 400 MG Echinacea 400 MG No Echinacea 400 MG traZODone HCl 100 MG traZODone HCl 100 MG No 1{table t_at_be dtime} QD traZODone HCl 100 MG Entresto 24-26 MG Entresto 24-26 MG No 1{table t} BID Entresto 24-26 MG Farxiga 10 MG Farxiga 10 MG No 1{table t} QD Farxiga 10 MG Cyanocobala min 1000 MCG Cyanocobala min 1000 MCG No 1{table t} QD Cyanocobal mixon 1000 MCG Lisinopril 5 MG Lisinopril 5 MG No 1{table t} QD Cyclobenzap rine HCl 5 MG Cyclobenzap rine HCl 5 MG No 1{table t_at_be dtime_a s_neede d} QD Cyclobenza romana HCl 5 MG Aspirin 81 81 MG Aspirin 81 81 MG No 1{table t} QD Aspirin 81 81 MG Tradjenta 5 MG Tradjenta 5 MG No 1{table t} QD Tradjenta 5 MG Breo Ellipta 100-25 MCG/INH Breo Ellipta 100-25 MCG/INH No 1{puff} QD Breo Ellipta 100-25 MCG/INH metFORMIN HCl ER 500 MG metFORMIN HCl ER 500 MG No BID metFORMIN HCl ER 500 MG predniSONE 20 MG predniSONE 20 MG No 1{table t} QD predniSONE 20 MG Lisinopril 5 MG Lisinopril 5 MG No 1{table t} QD Lisinopril 5 MG Farxiga 10 MG Farxiga 10 MG No 1{table t} QD Farxiga 10 MG Carvedilol 25 MG Carvedilol 25 MG No 1{table t_with_ food} BID Carvedilol 25 MG Atorvastati n Calcium 10 MG Atorvastati n Calcium 10 MG No 1{table t} QD Atorvastat in Calcium 10 MG Albuterol Sulfate HFA 108 (90 Base) MCG/ACT Albuterol Sulfate HFA 108 (90 Base) MCG/ACT No Centrum Silver Centrum Silver No Centrum Silver metFORMIN HCl ER 500 MG metFORMIN HCl ER 500 MG No 2{table t_with_ food} BID metFORMIN HCl ER 500 MG Pantoprazol e Sodium 40 MG Pantoprazol e Sodium 40 MG No 1{table t} QD Pantoprazo le Sodium 40 MG Amoxicillin -Pot Clavulanate 875-125 MG Amoxicillin -Pot Clavulanate 875-125 MG No 1{table t} BID Amoxicilli n-Pot Clavulanat e 875-125 MG Calcium 500 MG Calcium 500 MG No 1{table t_with_ meals} BID Lumigan 0.01 % Lumigan 0.01 % No 1{drop_ into_af fected_ eye_in_ the_eve jason} QD Lumigan 0.01 % Montelukast Sodium 10 MG Montelukast Sodium 10 MG No 1{table t} QD Montelukas t Sodium 10 MG Echinacea 400 MG Echinacea 400 MG No Echinacea 400 MG traZODone HCl 100 MG traZODone HCl 100 MG No 1{table t_at_be dtime} QD traZODone HCl 100 MG Entresto 24-26 MG Entresto 24-26 MG No 1{table t} BID Entresto 24-26 MG Farxiga 10 MG Farxiga 10 MG No 1{table t} QD Farxiga 10 MG Cyanocobala min 1000 MCG Cyanocobala min 1000 MCG No 1{table t} QD Cyanocobal mixon 1000 MCG Cyclobenzap rine HCl 5 MG Cyclobenzap rine HCl 5 MG No 1{table t_at_be dtime_a s_neede d} QD Cyclobenza romana HCl 5 MG Aspirin 81 81 MG Aspirin 81 81 MG No 1{table t} QD Aspirin 81 81 MG Tradjenta 5 MG Tradjenta 5 MG No 1{table t} QD Tradjenta 5 MG Breo Ellipta 100-25 MCG/INH Breo Ellipta 100-25 MCG/INH No 1{puff} QD Breo Ellipta 100-25 MCG/INH metFORMIN HCl ER 500 MG metFORMIN HCl ER 500 MG No BID metFORMIN HCl ER 500 MG predniSONE 20 MG predniSONE 20 MG No 1{table t} QD predniSONE 20 MG Lisinopril 5 MG Lisinopril 5 MG No 1{table t} QD Lisinopril 5 MG Farxiga 10 MG Farxiga 10 MG No 1{table t} QD Farxiga 10 MG Carvedilol 25 MG Carvedilol 25 MG No 1{table t_with_ food} BID Carvedilol 25 MG Atorvastati n Calcium 10 MG Atorvastati n Calcium 10 MG No 1{table t} QD Atorvastat in Calcium 10 MG Centrum Silver Centrum Silver No Centrum Silver metFORMIN HCl ER 500 MG metFORMIN HCl ER 500 MG No 2{table t_with_ food} BID metFORMIN HCl ER 500 MG Multi Vitamin Multi Vitamin No Pantoprazol e Sodium 40 MG Pantoprazol e Sodium 40 MG No 1{table t} QD Pantoprazo le Sodium 40 MG Amoxicillin -Pot Clavulanate 875-125 MG Amoxicillin -Pot Clavulanate 875-125 MG No 1{table t} BID Amoxicilli n-Pot Clavulanat e 875-125 MG metFORMIN HCl ER 750 MG metFORMIN HCl ER 750 MG No Breo Ellipta 100-25 MCG/INH Breo Ellipta 100-25 MCG/INH No 1{puff} QD Lumigan 0.01 % Lumigan 0.01 % No 1{drop_ into_af fected_ eye_in_ the_eve jason} QD Lumigan 0.01 % Montelukast Sodium 10 MG Montelukast Sodium 10 MG No 1{table t} QD Montelukas t Sodium 10 MG Echinacea 400 MG Echinacea 400 MG No Echinacea 400 MG traZODone HCl 100 MG traZODone HCl 100 MG No 1{table t_at_be dtime} QD traZODone HCl 100 MG Entresto 24-26 MG Entresto 24-26 MG No 1{table t} BID Entresto 24-26 MG Farxiga 10 MG Farxiga 10 MG No 1{table t} QD Farxiga 10 MG Cyanocobala min 1000 MCG Cyanocobala min 1000 MCG No 1{table t} QD Cyanocobal mixon 1000 MCG Cyclobenzap rine HCl 5 MG Cyclobenzap rine HCl 5 MG No 1{table t_at_be dtime_a s_neede d} QD Cyclobenza romana HCl 5 MG Aspirin 81 81 MG Aspirin 81 81 MG No 1{table t} QD Aspirin 81 81 MG Tradjenta 5 MG Tradjenta 5 MG No 1{table t} QD Tradjenta 5 MG Montelukast Sodium 10 MG Montelukast Sodium 10 MG No 1{table t} QD Breo Ellipta 100-25 MCG/INH Breo Ellipta 100-25 MCG/INH No 1{puff} QD Breo Ellipta 100-25 MCG/INH metFORMIN HCl ER 500 MG metFORMIN HCl ER 500 MG No BID metFORMIN HCl ER 500 MG predniSONE 20 MG predniSONE 20 MG No 1{table t} QD predniSONE 20 MG Lisinopril 5 MG Lisinopril 5 MG No 1{table t} QD Lisinopril 5 MG Farxiga 10 MG Farxiga 10 MG No 1{table t} QD Farxiga 10 MG Carvedilol 25 MG Carvedilol 25 MG No 1{table t_with_ food} BID Carvedilol 25 MG Atorvastati n Calcium 10 MG Atorvastati n Calcium 10 MG No 1{table t} QD Atorvastat in Calcium 10 MG Centrum Silver Centrum Silver No Centrum Silver metFORMIN HCl ER 500 MG metFORMIN HCl ER 500 MG No 2{table t_with_ food} BID metFORMIN HCl ER 500 MG Pantoprazol e Sodium 40 MG Pantoprazol e Sodium 40 MG No 1{table t} QD Pantoprazo le Sodium 40 MG metFORMIN HCl ER 750 MG metFORMIN HCl ER 750 MG No BID Amoxicillin -Pot Clavulanate 875-125 MG Amoxicillin -Pot Clavulanate 875-125 MG No 1{table t} BID Amoxicilli n-Pot Clavulanat e 875-125 MG Atorvastati n Calcium 10 MG Atorvastati n Calcium 10 MG No 1{table t} QD Breo Ellipta 100-25 MCG/INH Breo Ellipta 100-25 MCG/INH No Lumigan 0.01 % Lumigan 0.01 % No 1{drop_ into_af fected_ eye_in_ the_eve jason} QD Lumigan 0.01 % Montelukast Sodium 10 MG Montelukast Sodium 10 MG No 1{table t} QD Montelukas t Sodium 10 MG Echinacea 400 MG Echinacea 400 MG No Echinacea 400 MG traZODone HCl 100 MG traZODone HCl 100 MG No 1{table t_at_be dtime} QD traZODone HCl 100 MG Ocuvite Ocuvite No Entresto 24-26 MG Entresto 24-26 MG No 1{table t} BID Entresto 24-26 MG Farxiga 10 MG Farxiga 10 MG No 1{table t} QD Farxiga 10 MG Cyanocobala min 1000 MCG Cyanocobala min 1000 MCG No 1{table t} QD Cyanocobal mixon 1000 MCG Cyclobenzap rine HCl 5 MG Cyclobenzap rine HCl 5 MG No 1{table t_at_be dtime_a s_neede d} QD Cyclobenza romana HCl 5 MG Aspirin 81 81 MG Aspirin 81 81 MG No 1{table t} QD Aspirin 81 81 MG Tradjenta 5 MG Tradjenta 5 MG No 1{table t} QD Tradjenta 5 MG Breo Ellipta 100-25 MCG/INH Breo Ellipta 100-25 MCG/INH No 1{puff} QD Breo Ellipta 100-25 MCG/INH metFORMIN HCl ER 500 MG metFORMIN HCl ER 500 MG No BID metFORMIN HCl ER 500 MG predniSONE 20 MG predniSONE 20 MG No 1{table t} QD predniSONE 20 MG Lisinopril 5 MG Lisinopril 5 MG No 1{table t} QD Lisinopril 5 MG Farxiga 10 MG Farxiga 10 MG No 1{table t} QD Farxiga 10 MG Carvedilol 25 MG Carvedilol 25 MG No 1{table t_with_ food} BID Carvedilol 25 MG Atorvastati n Calcium 10 MG Atorvastati n Calcium 10 MG No 1{table t} QD Atorvastat in Calcium 10 MG Centrum Silver Centrum Silver No Centrum Silver metFORMIN HCl ER 500 MG metFORMIN HCl ER 500 MG No 2{table t_with_ food} BID metFORMIN HCl ER 500 MG Pantoprazol e Sodium 40 MG Pantoprazol e Sodium 40 MG No 1{table t} QD Pantoprazo le Sodium 40 MG Amoxicillin -Pot Clavulanate 875-125 MG Amoxicillin -Pot Clavulanate 875-125 MG No 1{table t} BID Amoxicilli n-Pot Clavulanat e 875-125 MG Lumigan 0.01 % Lumigan 0.01 % No 1{drop_ into_af fected_ eye_in_ the_eve jason} QD Lumigan 0.01 % Montelukast Sodium 10 MG Montelukast Sodium 10 MG No 1{table t} QD Montelukas t Sodium 10 MG Echinacea 400 MG Echinacea 400 MG No Echinacea 400 MG traZODone HCl 100 MG traZODone HCl 100 MG No 1{table t_at_be dtime} QD traZODone HCl 100 MG Entresto 24-26 MG Entresto 24-26 MG No 1{table t} BID Entresto 24-26 MG Farxiga 10 MG Farxiga 10 MG No 1{table t} QD Farxiga 10 MG Cyanocobala min 1000 MCG Cyanocobala min 1000 MCG No 1{table t} QD Cyanocobal mixon 1000 MCG Cyclobenzap rine HCl 5 MG Cyclobenzap rine HCl 5 MG No 1{table t_at_be dtime_a s_neede d} QD Cyclobenza romana HCl 5 MG Aspirin 81 81 MG Aspirin 81 81 MG No 1{table t} QD Aspirin 81 81 MG Tradjenta 5 MG Tradjenta 5 MG No 1{table t} QD Tradjenta 5 MG Breo Ellipta 100-25 MCG/INH Breo Ellipta 100-25 MCG/INH No 1{puff} QD Breo Ellipta 100-25 MCG/INH metFORMIN HCl ER 500 MG metFORMIN HCl ER 500 MG No BID metFORMIN HCl ER 500 MG predniSONE 20 MG predniSONE 20 MG No 1{table t} QD predniSONE 20 MG Lisinopril 5 MG Lisinopril 5 MG No 1{table t} QD Lisinopril 5 MG Farxiga 10 MG Farxiga 10 MG No 1{table t} QD Farxiga 10 MG Carvedilol 25 MG Carvedilol 25 MG No 1{table t_with_ food} BID Carvedilol 25 MG Atorvastati n Calcium 10 MG Atorvastati n Calcium 10 MG No 1{table t} QD Atorvastat in Calcium 10 MG Centrum Silver Centrum Silver No Centrum Silver metFORMIN HCl ER 500 MG metFORMIN HCl ER 500 MG No 2{table t_with_ food} BID metFORMIN HCl ER 500 MG Pantoprazol e Sodium 40 MG Pantoprazol e Sodium 40 MG No 1{table t} QD Pantoprazo le Sodium 40 MG Amoxicillin -Pot Clavulanate 875-125 MG Amoxicillin -Pot Clavulanate 875-125 MG No 1{table t} BID Amoxicilli n-Pot Clavulanat e 875-125 MG Lumigan 0.01 % Lumigan 0.01 % No 1{drop_ into_af fected_ eye_in_ the_eve jason} QD Lumigan 0.01 % Montelukast Sodium 10 MG Montelukast Sodium 10 MG No 1{table t} QD Montelukas t Sodium 10 MG Echinacea 400 MG Echinacea 400 MG No Echinacea 400 MG traZODone HCl 100 MG traZODone HCl 100 MG No 1{table t_at_be dtime} QD traZODone HCl 100 MG Entresto 24-26 MG Entresto 24-26 MG No 1{table t} BID Entresto 24-26 MG Farxiga 10 MG Farxiga 10 MG No 1{table t} QD Farxiga 10 MG Cyanocobala min 1000 MCG Cyanocobala min 1000 MCG No 1{table t} QD Cyanocobal mixon 1000 MCG Cyclobenzap rine HCl 5 MG Cyclobenzap rine HCl 5 MG No 1{table t_at_be dtime_a s_neede d} QD Cyclobenza romana HCl 5 MG Aspirin 81 81 MG Aspirin 81 81 MG No 1{table t} QD Aspirin 81 81 MG Tradjenta 5 MG Tradjenta 5 MG No 1{table t} QD Tradjenta 5 MG Breo Ellipta 100-25 MCG/INH Breo Ellipta 100-25 MCG/INH No 1{puff} QD Breo Ellipta 100-25 MCG/INH metFORMIN HCl ER 500 MG metFORMIN HCl ER 500 MG No BID metFORMIN HCl ER 500 MG predniSONE 20 MG predniSONE 20 MG No 1{table t} QD predniSONE 20 MG Lisinopril 5 MG Lisinopril 5 MG No 1{table t} QD Lisinopril 5 MG Farxiga 10 MG Farxiga 10 MG No 1{table t} QD Farxiga 10 MG Carvedilol 25 MG Carvedilol 25 MG No 1{table t_with_ food} BID Carvedilol 25 MG Atorvastati n Calcium 10 MG Atorvastati n Calcium 10 MG No 1{table t} QD Atorvastat in Calcium 10 MG Centrum Silver Centrum Silver No Centrum Silver metFORMIN HCl ER 500 MG metFORMIN HCl ER 500 MG No 2{table t_with_ food} BID metFORMIN HCl ER 500 MG Pantoprazol e Sodium 40 MG Pantoprazol e Sodium 40 MG No 1{table t} QD Pantoprazo le Sodium 40 MG Amoxicillin -Pot Clavulanate 875-125 MG Amoxicillin -Pot Clavulanate 875-125 MG No 1{table t} BID Amoxicilli n-Pot Clavulanat e 875-125 MG Lumigan 0.01 % Lumigan 0.01 % No 1{drop_ into_af fected_ eye_in_ the_eve jason} QD Lumigan 0.01 % Montelukast Sodium 10 MG Montelukast Sodium 10 MG No 1{table t} QD Montelukas t Sodium 10 MG Echinacea 400 MG Echinacea 400 MG No Echinacea 400 MG traZODone HCl 100 MG traZODone HCl 100 MG No 1{table t_at_be dtime} QD traZODone HCl 100 MG Entresto 24-26 MG Entresto 24-26 MG No 1{table t} BID Entresto 24-26 MG Farxiga 10 MG Farxiga 10 MG No 1{table t} QD Farxiga 10 MG Cyanocobala min 1000 MCG Cyanocobala min 1000 MCG No 1{table t} QD Cyanocobal mixon 1000 MCG Cyclobenzap rine HCl 5 MG Cyclobenzap rine HCl 5 MG No 1{table t_at_be dtime_a s_neede d} QD Cyclobenza romana HCl 5 MG Aspirin 81 81 MG Aspirin 81 81 MG No 1{table t} QD Aspirin 81 81 MG Tradjenta 5 MG Tradjenta 5 MG No 1{table t} QD Tradjenta 5 MG Breo Ellipta 100-25 MCG/INH Breo Ellipta 100-25 MCG/INH No 1{puff} QD Breo Ellipta 100-25 MCG/INH metFORMIN HCl ER 500 MG metFORMIN HCl ER 500 MG No BID metFORMIN HCl ER 500 MG predniSONE 20 MG predniSONE 20 MG No 1{table t} QD predniSONE 20 MG Lisinopril 5 MG Lisinopril 5 MG No 1{table t} QD Lisinopril 5 MG Farxiga 10 MG Farxiga 10 MG No 1{table t} QD Farxiga 10 MG Carvedilol 25 MG Carvedilol 25 MG No 1{table t_with_ food} BID Carvedilol 25 MG Atorvastati n Calcium 10 MG Atorvastati n Calcium 10 MG No 1{table t} QD Atorvastat in Calcium 10 MG Centrum Silver Centrum Silver No Centrum Silver metFORMIN HCl ER 500 MG metFORMIN HCl ER 500 MG No 2{table t_with_ food} BID metFORMIN HCl ER 500 MG Pantoprazol e Sodium 40 MG Pantoprazol e Sodium 40 MG No 1{table t} QD Pantoprazo le Sodium 40 MG Amoxicillin -Pot Clavulanate 875-125 MG Amoxicillin -Pot Clavulanate 875-125 MG No 1{table t} BID Amoxicilli n-Pot Clavulanat e 875-125 MG Lumigan 0.01 % Lumigan 0.01 % No 1{drop_ into_af fected_ eye_in_ the_eve jason} QD Lumigan 0.01 % Montelukast Sodium 10 MG Montelukast Sodium 10 MG No 1{table t} QD Montelukas t Sodium 10 MG Echinacea 400 MG Echinacea 400 MG No Echinacea 400 MG traZODone HCl 100 MG traZODone HCl 100 MG No 1{table t_at_be dtime} QD traZODone HCl 100 MG Entresto 24-26 MG Entresto 24-26 MG No 1{table t} BID Entresto 24-26 MG Farxiga 10 MG Farxiga 10 MG No 1{table t} QD Farxiga 10 MG Cyanocobala min 1000 MCG Cyanocobala min 1000 MCG No 1{table t} QD Cyanocobal mixon 1000 MCG Cyclobenzap rine HCl 5 MG Cyclobenzap rine HCl 5 MG No 1{table t_at_be dtime_a s_neede d} QD Cyclobenza romana HCl 5 MG metFORMIN HCl ER 750 MG metFORMIN HCl ER 750 MG No metFORMIN HCl ER 750 MG Aspirin 81 81 MG Aspirin 81 81 MG No 1{table t} QD Aspirin 81 81 MG Tradjenta 5 MG Tradjenta 5 MG No 1{table t} QD Tradjenta 5 MG Breo Ellipta 100-25 MCG/INH Breo Ellipta 100-25 MCG/INH No 1{puff} QD Breo Ellipta 100-25 MCG/INH metFORMIN HCl ER 500 MG metFORMIN HCl ER 500 MG No BID metFORMIN HCl ER 500 MG predniSONE 20 MG predniSONE 20 MG No 1{table t} QD predniSONE 20 MG Lisinopril 5 MG Lisinopril 5 MG No 1{table t} QD Lisinopril 5 MG Farxiga 10 MG Farxiga 10 MG No 1{table t} QD Farxiga 10 MG Carvedilol 25 MG Carvedilol 25 MG No 1{table t_with_ food} BID Carvedilol 25 MG Atorvastati n Calcium 10 MG Atorvastati n Calcium 10 MG No 1{table t} QD Atorvastat in Calcium 10 MG Centrum Silver Centrum Silver No Centrum Silver Atorvastati n Calcium 10 MG Atorvastati n Calcium 10 MG No 1{table t} QD Atorvastat in Calcium 10 MG metFORMIN HCl ER 500 MG metFORMIN HCl ER 500 MG No 2{table t_with_ food} BID metFORMIN HCl ER 500 MG Pantoprazol e Sodium 40 MG Pantoprazol e Sodium 40 MG No 1{table t} QD Pantoprazo le Sodium 40 MG Amoxicillin -Pot Clavulanate 875-125 MG Amoxicillin -Pot Clavulanate 875-125 MG No 1{table t} BID Amoxicilli n-Pot Clavulanat e 875-125 MG Breo Ellipta 100-25 MCG/INH Breo Ellipta 100-25 MCG/INH No 1{puff} QD Breo Ellipta 100-25 MCG/INH Calcium 500 MG Calcium 500 MG No 1{table t_with_ meals} BID Calcium 500 MG Lumigan 0.01 % Lumigan 0.01 % No 1{drop_ into_af fected_ eye_in_ the_eve jason} QD Lumigan 0.01 % Montelukast Sodium 10 MG Montelukast Sodium 10 MG No 1{table t} QD Montelukas t Sodium 10 MG Echinacea 400 MG Echinacea 400 MG No Echinacea 400 MG traZODone HCl 100 MG traZODone HCl 100 MG No 1{table t_at_be dtime} QD traZODone HCl 100 MG Entresto 24-26 MG Entresto 24-26 MG No 1{table t} BID Entresto 24-26 MG Farxiga 10 MG Farxiga 10 MG No 1{table t} QD Farxiga 10 MG Cyanocobala min 1000 MCG Cyanocobala min 1000 MCG No 1{table t} QD Cyanocobal mixon 1000 MCG Cyclobenzap rine HCl 5 MG Cyclobenzap rine HCl 5 MG No 1{table t_at_be dtime_a s_neede d} QD Cyclobenza romana HCl 5 MG Aspirin 81 81 MG Aspirin 81 81 MG No 1{table t} QD Aspirin 81 81 MG Tradjenta 5 MG Tradjenta 5 MG No 1{table t} QD Tradjenta 5 MG Lisinopril 5 MG Lisinopril 5 MG No 1{table t} QD Lisinopril 5 MG Breo Ellipta 100-25 MCG/INH Breo Ellipta 100-25 MCG/INH No 1{puff} QD Breo Ellipta 100-25 MCG/INH metFORMIN HCl ER 500 MG metFORMIN HCl ER 500 MG No BID metFORMIN HCl ER 500 MG predniSONE 20 MG predniSONE 20 MG No 1{table t} QD predniSONE 20 MG Lisinopril 5 MG Lisinopril 5 MG No 1{table t} QD Lisinopril 5 MG Farxiga 10 MG Farxiga 10 MG No 1{table t} QD Farxiga 10 MG Carvedilol 25 MG Carvedilol 25 MG No 1{table t_with_ food} BID Carvedilol 25 MG Atorvastati n Calcium 10 MG Atorvastati n Calcium 10 MG No 1{table t} QD Atorvastat in Calcium 10 MG Centrum Silver Centrum Silver No Centrum Silver metFORMIN HCl ER 500 MG metFORMIN HCl ER 500 MG No 2{table t_with_ food} BID metFORMIN HCl ER 500 MG Pantoprazol e Sodium 40 MG Pantoprazol e Sodium 40 MG No 1{table t} QD Pantoprazo le Sodium 40 MG Albuterol Sulfate HFA 108 (90 Base) MCG/ACT Albuterol Sulfate HFA 108 (90 Base) MCG/ACT No Albuterol Sulfate HFA 108 (90 Base) MCG/ACT Amoxicillin -Pot Clavulanate 875-125 MG Amoxicillin -Pot Clavulanate 875-125 MG No 1{table t} BID Amoxicilli n-Pot Clavulanat e 875-125 MG Budesonide- Formoterol Fumarate Budesonide- Formoterol Fumarate No Budesonide -Formotero l Fumarate Lumigan 0.01 % Lumigan 0.01 % No 1{drop_ into_af fected_ eye_in_ the_eve jason} QD Lumigan 0.01 % Montelukast Sodium 10 MG Montelukast Sodium 10 MG No 1{table t} QD Montelukas t Sodium 10 MG Montelukast Sodium 10 MG Montelukast Sodium 10 MG No 1{table t} QD Montelukas t Sodium 10 MG Echinacea 400 MG Echinacea 400 MG No Echinacea 400 MG traZODone HCl 100 MG traZODone HCl 100 MG No 1{table t_at_be dtime} QD traZODone HCl 100 MG Entresto 24-26 MG Entresto 24-26 MG No 1{table t} BID Entresto 24-26 MG Farxiga 10 MG Farxiga 10 MG No 1{table t} QD Farxiga 10 MG Cyanocobala min 1000 MCG Cyanocobala min 1000 MCG No 1{table t} QD Cyanocobal mixon 1000 MCG Cyclobenzap rine HCl 5 MG Cyclobenzap rine HCl 5 MG No 1{table t_at_be dtime_a s_neede d} QD Cyclobenza romana HCl 5 MG Aspirin 81 81 MG Aspirin 81 81 MG No 1{table t} QD Aspirin 81 81 MG Tradjenta 5 MG Tradjenta 5 MG No 1{table t} QD Tradjenta 5 MG Breo Ellipta 100-25 MCG/INH Breo Ellipta 100-25 MCG/INH No 1{puff} QD Breo Ellipta 100-25 MCG/INH metFORMIN HCl ER 500 MG metFORMIN HCl ER 500 MG No BID metFORMIN HCl ER 500 MG Ocuvite Ocuvite No Ocuvite predniSONE 20 MG predniSONE 20 MG No 1{table t} QD predniSONE 20 MG Lisinopril 5 MG Lisinopril 5 MG No 1{table t} QD Lisinopril 5 MG Farxiga 10 MG Farxiga 10 MG No 1{table t} QD Farxiga 10 MG Carvedilol 25 MG Carvedilol 25 MG No 1{table t_with_ food} BID Carvedilol 25 MG Atorvastati n Calcium 10 MG Atorvastati n Calcium 10 MG No 1{table t} QD Atorvastat in Calcium 10 MG Centrum Silver Centrum Silver No Centrum Silver metFORMIN HCl ER 500 MG metFORMIN HCl ER 500 MG No 2{table t_with_ food} BID metFORMIN HCl ER 500 MG Pantoprazol e Sodium 40 MG Pantoprazol e Sodium 40 MG No 1{table t} QD Pantoprazo le Sodium 40 MG Amoxicillin -Pot Clavulanate 875-125 MG Amoxicillin -Pot Clavulanate 875-125 MG No 1{table t} BID Amoxicilli n-Pot Clavulanat e 875-125 MG Meloxicam 7.5 MG Meloxicam 7.5 MG No Meloxicam 7.5 MG Multi Vitamin Multi Vitamin No Multi Vitamin predniSONE predniSONE No predniSONE Breo Ellipta 100-25 MCG/INH Breo Ellipta 100-25 MCG/INH No Breo Ellipta 100-25 MCG/INH Lumigan 0.01 % Lumigan 0.01 % No 1{drop_ into_af fected_ eye_in_ the_eve jason} QD Lumigan 0.01 % Montelukast Sodium 10 MG Montelukast Sodium 10 MG No 1{table t} QD Montelukas t Sodium 10 MG Echinacea 400 MG Echinacea 400 MG No Echinacea 400 MG traZODone HCl 100 MG traZODone HCl 100 MG No 1{table t_at_be dtime} QD traZODone HCl 100 MG Entresto 24-26 MG Entresto 24-26 MG No 1{table t} BID Entresto 24-26 MG Farxiga 10 MG Farxiga 10 MG No 1{table t} QD Farxiga 10 MG Cyanocobala min 1000 MCG Cyanocobala min 1000 MCG No 1{table t} QD Cyanocobal mixon 1000 MCG Cyclobenzap rine HCl 5 MG Cyclobenzap rine HCl 5 MG No 1{table t_at_be dtime_a s_neede d} QD Cyclobenza romana HCl 5 MG Lisinopril 5 MG Lisinopril 5 MG No 1{table t} QD Lisinopril 5 MG Aspirin 81 81 MG Aspirin 81 81 MG No 1{table t} QD Aspirin 81 81 MG Tradjenta 5 MG Tradjenta 5 MG No 1{table t} QD Tradjenta 5 MG Breo Ellipta 100-25 MCG/INH Breo Ellipta 100-25 MCG/INH No 1{puff} QD Breo Ellipta 100-25 MCG/INH metFORMIN HCl ER 500 MG metFORMIN HCl ER 500 MG No BID metFORMIN HCl ER 500 MG predniSONE 20 MG predniSONE 20 MG No 1{table t} QD predniSONE 20 MG Lisinopril 5 MG Lisinopril 5 MG No 1{table t} QD Lisinopril 5 MG Farxiga 10 MG Farxiga 10 MG No 1{table t} QD Farxiga 10 MG Carvedilol 25 MG Carvedilol 25 MG No 1{table t_with_ food} BID Carvedilol 25 MG Atorvastati n Calcium 10 MG Atorvastati n Calcium 10 MG No 1{table t} QD Atorvastat in Calcium 10 MG Centrum Silver Centrum Silver No Centrum Silver Pantoprazol e Sodium 40 MG Pantoprazol e Sodium 40 MG No Pantoprazo le Sodium 40 MG metFORMIN HCl ER 500 MG metFORMIN HCl ER 500 MG No 2{table t_with_ food} BID metFORMIN HCl ER 500 MG Pantoprazol e Sodium 40 MG Pantoprazol e Sodium 40 MG No 1{table t} QD Pantoprazo le Sodium 40 MG Amoxicillin -Pot Clavulanate 875-125 MG Amoxicillin -Pot Clavulanate 875-125 MG No 1{table t} BID Amoxicilli n-Pot Clavulanat e 875-125 MG Lumigan 0.01 % Lumigan 0.01 % No 1{drop_ into_af fected_ eye_in_ the_eve jason} QD Lumigan 0.01 % Montelukast Sodium 10 MG Montelukast Sodium 10 MG No 1{table t} QD Montelukas t Sodium 10 MG Echinacea 400 MG Echinacea 400 MG No Echinacea 400 MG traZODone HCl 100 MG traZODone HCl 100 MG No 1{table t_at_be dtime} QD traZODone HCl 100 MG Entresto 24-26 MG Entresto 24-26 MG No 1{table t} BID Entresto 24-26 MG Farxiga 10 MG Farxiga 10 MG No 1{table t} QD Farxiga 10 MG Cyanocobala min 1000 MCG Cyanocobala min 1000 MCG No 1{table t} QD Cyanocobal mixon 1000 MCG Cyclobenzap rine HCl 5 MG Cyclobenzap rine HCl 5 MG No 1{table t_at_be dtime_a s_neede d} QD Cyclobenza romana HCl 5 MG Aspirin 81 81 MG Aspirin 81 81 MG No 1{table t} QD Aspirin 81 81 MG Tradjenta 5 MG Tradjenta 5 MG No 1{table t} QD Tradjenta 5 MG Breo Ellipta 100-25 MCG/INH Breo Ellipta 100-25 MCG/INH No 1{puff} QD Breo Ellipta 100-25 MCG/INH metFORMIN HCl ER 500 MG metFORMIN HCl ER 500 MG No BID metFORMIN HCl ER 500 MG predniSONE 20 MG predniSONE 20 MG No 1{table t} QD predniSONE 20 MG Lisinopril 5 MG Lisinopril 5 MG No 1{table t} QD Lisinopril 5 MG Farxiga 10 MG Farxiga 10 MG No 1{table t} QD Farxiga 10 MG Carvedilol 25 MG Carvedilol 25 MG No 1{table t_with_ food} BID Carvedilol 25 MG Atorvastati n Calcium 10 MG Atorvastati n Calcium 10 MG No 1{table t} QD Atorvastat in Calcium 10 MG Centrum Silver Centrum Silver No Centrum Silver metFORMIN HCl ER 500 MG metFORMIN HCl ER 500 MG No 2{table t_with_ food} BID metFORMIN HCl ER 500 MG Pantoprazol e Sodium 40 MG Pantoprazol e Sodium 40 MG No 1{table t} QD Pantoprazo le Sodium 40 MG Amoxicillin -Pot Clavulanate 875-125 MG Amoxicillin -Pot Clavulanate 875-125 MG No 1{table t} BID Amoxicilli n-Pot Clavulanat e 875-125 MG Lumigan 0.01 % Lumigan 0.01 % No 1{drop_ into_af fected_ eye_in_ the_eve jason} QD Lumigan 0.01 % Montelukast Sodium 10 MG Montelukast Sodium 10 MG No 1{table t} QD Montelukas t Sodium 10 MG Echinacea 400 MG Echinacea 400 MG No Echinacea 400 MG traZODone HCl 100 MG traZODone HCl 100 MG No 1{table t_at_be dtime} QD traZODone HCl 100 MG Entresto 24-26 MG Entresto 24-26 MG No 1{table t} BID Entresto 24-26 MG Farxiga 10 MG Farxiga 10 MG No 1{table t} QD Farxiga 10 MG Cyanocobala min 1000 MCG Cyanocobala min 1000 MCG No 1{table t} QD Cyanocobal mixon 1000 MCG Cyclobenzap rine HCl 5 MG Cyclobenzap rine HCl 5 MG No 1{table t_at_be dtime_a s_neede d} QD Cyclobenza romana HCl 5 MG Aspirin 81 81 MG Aspirin 81 81 MG No 1{table t} QD Aspirin 81 81 MG Tradjenta 5 MG Tradjenta 5 MG No 1{table t} QD Tradjenta 5 MG Breo Ellipta 100-25 MCG/INH Breo Ellipta 100-25 MCG/INH No 1{puff} QD Breo Ellipta 100-25 MCG/INH metFORMIN HCl ER 500 MG metFORMIN HCl ER 500 MG No BID metFORMIN HCl ER 500 MG predniSONE 20 MG predniSONE 20 MG No 1{table t} QD predniSONE 20 MG Lisinopril 5 MG Lisinopril 5 MG No 1{table t} QD Lisinopril 5 MG Farxiga 10 MG Farxiga 10 MG No 1{table t} QD Farxiga 10 MG Carvedilol 25 MG Carvedilol 25 MG No 1{table t_with_ food} BID Carvedilol 25 MG Atorvastati n Calcium 10 MG Atorvastati n Calcium 10 MG No 1{table t} QD Atorvastat in Calcium 10 MG Centrum Silver Centrum Silver No Centrum Silver metFORMIN HCl ER 500 MG metFORMIN HCl ER 500 MG No 2{table t_with_ food} BID metFORMIN HCl ER 500 MG Pantoprazol e Sodium 40 MG Pantoprazol e Sodium 40 MG No 1{table t} QD Pantoprazo le Sodium 40 MG Amoxicillin -Pot Clavulanate 875-125 MG Amoxicillin -Pot Clavulanate 875-125 MG No 1{table t} BID Amoxicilli n-Pot Clavulanat e 875-125 MG Lumigan 0.01 % Lumigan 0.01 % No 1{drop_ into_af fected_ eye_in_ the_eve jason} QD Lumigan 0.01 % Montelukast Sodium 10 MG Montelukast Sodium 10 MG No 1{table t} QD Montelukas t Sodium 10 MG Echinacea 400 MG Echinacea 400 MG No Echinacea 400 MG traZODone HCl 100 MG traZODone HCl 100 MG No 1{table t_at_be dtime} QD traZODone HCl 100 MG Entresto 24-26 MG Entresto 24-26 MG No 1{table t} BID Entresto 24-26 MG Farxiga 10 MG Farxiga 10 MG No 1{table t} QD Farxiga 10 MG Cyanocobala min 1000 MCG Cyanocobala min 1000 MCG No 1{table t} QD Cyanocobal mixon 1000 MCG Cyclobenzap rine HCl 5 MG Cyclobenzap rine HCl 5 MG No 1{table t_at_be dtime_a s_neede d} QD Cyclobenza romana HCl 5 MG Aspirin 81 81 MG Aspirin 81 81 MG No 1{table t} QD Aspirin 81 81 MG Tradjenta 5 MG Tradjenta 5 MG No 1{table t} QD Tradjenta 5 MG Breo Ellipta 100-25 MCG/INH Breo Ellipta 100-25 MCG/INH No 1{puff} QD Breo Ellipta 100-25 MCG/INH metFORMIN HCl ER 500 MG metFORMIN HCl ER 500 MG No BID metFORMIN HCl ER 500 MG predniSONE 20 MG predniSONE 20 MG No 1{table t} QD predniSONE 20 MG Lisinopril 5 MG Lisinopril 5 MG No 1{table t} QD Lisinopril 5 MG Farxiga 10 MG Farxiga 10 MG No 1{table t} QD Farxiga 10 MG Carvedilol 25 MG Carvedilol 25 MG No 1{table t_with_ food} BID Carvedilol 25 MG Atorvastati n Calcium 10 MG Atorvastati n Calcium 10 MG No 1{table t} QD Atorvastat in Calcium 10 MG Centrum Silver Centrum Silver No Centrum Silver metFORMIN HCl ER 500 MG metFORMIN HCl ER 500 MG No 2{table t_with_ food} BID metFORMIN HCl ER 500 MG Pantoprazol e Sodium 40 MG Pantoprazol e Sodium 40 MG No 1{table t} QD Pantoprazo le Sodium 40 MG Amoxicillin -Pot Clavulanate 875-125 MG Amoxicillin -Pot Clavulanate 875-125 MG No 1{table t} BID Amoxicilli n-Pot Clavulanat e 875-125 MG Lumigan 0.01 % Lumigan 0.01 % No 1{drop_ into_af fected_ eye_in_ the_eve jason} QD Lumigan 0.01 % Montelukast Sodium 10 MG Montelukast Sodium 10 MG No 1{table t} QD Montelukas t Sodium 10 MG Echinacea 400 MG Echinacea 400 MG No Echinacea 400 MG traZODone HCl 100 MG traZODone HCl 100 MG No 1{table t_at_be dtime} QD traZODone HCl 100 MG Entresto 24-26 MG Entresto 24-26 MG No 1{table t} BID Entresto 24-26 MG Farxiga 10 MG Farxiga 10 MG No 1{table t} QD Farxiga 10 MG Cyanocobala min 1000 MCG Cyanocobala min 1000 MCG No 1{table t} QD Cyanocobal mixon 1000 MCG Cyclobenzap rine HCl 5 MG Cyclobenzap rine HCl 5 MG No 1{table t_at_be dtime_a s_neede d} QD Cyclobenza romana HCl 5 MG Aspirin 81 81 MG Aspirin 81 81 MG No 1{table t} QD Aspirin 81 81 MG Tradjenta 5 MG Tradjenta 5 MG No 1{table t} QD Tradjenta 5 MG Breo Ellipta 100-25 MCG/INH Breo Ellipta 100-25 MCG/INH No 1{puff} QD Breo Ellipta 100-25 MCG/INH metFORMIN HCl ER 500 MG metFORMIN HCl ER 500 MG No BID metFORMIN HCl ER 500 MG predniSONE 20 MG predniSONE 20 MG No 1{table t} QD predniSONE 20 MG Lisinopril 5 MG Lisinopril 5 MG No 1{table t} QD Lisinopril 5 MG Farxiga 10 MG Farxiga 10 MG No 1{table t} QD Farxiga 10 MG Carvedilol 25 MG Carvedilol 25 MG No 1{table t_with_ food} BID Carvedilol 25 MG Atorvastati n Calcium 10 MG Atorvastati n Calcium 10 MG No 1{table t} QD Atorvastat in Calcium 10 MG Centrum Silver Centrum Silver No Centrum Silver metFORMIN HCl ER 500 MG metFORMIN HCl ER 500 MG No 2{table t_with_ food} BID metFORMIN HCl ER 500 MG Pantoprazol e Sodium 40 MG Pantoprazol e Sodium 40 MG No 1{table t} QD Pantoprazo le Sodium 40 MG Amoxicillin -Pot Clavulanate 875-125 MG Amoxicillin -Pot Clavulanate 875-125 MG No 1{table t} BID Amoxicilli n-Pot Clavulanat e 875-125 MG Lumigan 0.01 % Lumigan 0.01 % No 1{drop_ into_af fected_ eye_in_ the_eve jason} QD Lumigan 0.01 % Montelukast Sodium 10 MG Montelukast Sodium 10 MG No 1{table t} QD Montelukas t Sodium 10 MG Echinacea 400 MG Echinacea 400 MG No Echinacea 400 MG traZODone HCl 100 MG traZODone HCl 100 MG No 1{table t_at_be dtime} QD traZODone HCl 100 MG Entresto 24-26 MG Entresto 24-26 MG No 1{table t} BID Entresto 24-26 MG Farxiga 10 MG Farxiga 10 MG No 1{table t} QD Farxiga 10 MG Cyanocobala min 1000 MCG Cyanocobala min 1000 MCG No 1{table t} QD Cyanocobal mixon 1000 MCG Cyclobenzap rine HCl 5 MG Cyclobenzap rine HCl 5 MG No 1{table t_at_be dtime_a s_neede d} QD Cyclobenza romana HCl 5 MG Aspirin 81 81 MG Aspirin 81 81 MG No 1{table t} QD Aspirin 81 81 MG Tradjenta 5 MG Tradjenta 5 MG No 1{table t} QD Tradjenta 5 MG Breo Ellipta 100-25 MCG/INH Breo Ellipta 100-25 MCG/INH No 1{puff} QD Breo Ellipta 100-25 MCG/INH metFORMIN HCl ER 500 MG metFORMIN HCl ER 500 MG No BID metFORMIN HCl ER 500 MG predniSONE 20 MG predniSONE 20 MG No 1{table t} QD predniSONE 20 MG Lisinopril 5 MG Lisinopril 5 MG No 1{table t} QD Lisinopril 5 MG Farxiga 10 MG Farxiga 10 MG No 1{table t} QD Farxiga 10 MG Carvedilol 25 MG Carvedilol 25 MG No 1{table t_with_ food} BID Carvedilol 25 MG Atorvastati n Calcium 10 MG Atorvastati n Calcium 10 MG No 1{table t} QD Atorvastat in Calcium 10 MG Centrum Silver Centrum Silver No Centrum Silver metFORMIN HCl ER 500 MG metFORMIN HCl ER 500 MG No 2{table t_with_ food} BID metFORMIN HCl ER 500 MG Pantoprazol e Sodium 40 MG Pantoprazol e Sodium 40 MG No 1{table t} QD Pantoprazo le Sodium 40 MG Amoxicillin -Pot Clavulanate 875-125 MG Amoxicillin -Pot Clavulanate 875-125 MG No 1{table t} BID Amoxicilli n-Pot Clavulanat e 875-125 MG Lumigan 0.01 % Lumigan 0.01 % No 1{drop_ into_af fected_ eye_in_ the_eve jason} QD Lumigan 0.01 % Montelukast Sodium 10 MG Montelukast Sodium 10 MG No 1{table t} QD Montelukas t Sodium 10 MG Echinacea 400 MG Echinacea 400 MG No Echinacea 400 MG traZODone HCl 100 MG traZODone HCl 100 MG No 1{table t_at_be dtime} QD traZODone HCl 100 MG Entresto 24-26 MG Entresto 24-26 MG No 1{table t} BID Entresto 24-26 MG Farxiga 10 MG Farxiga 10 MG No 1{table t} QD Farxiga 10 MG Cyanocobala min 1000 MCG Cyanocobala min 1000 MCG No 1{table t} QD Cyanocobal mixon 1000 MCG Cyclobenzap rine HCl 5 MG Cyclobenzap rine HCl 5 MG No 1{table t_at_be dtime_a s_neede d} QD Cyclobenza romana HCl 5 MG Aspirin 81 81 MG Aspirin 81 81 MG No 1{table t} QD Aspirin 81 81 MG Tradjenta 5 MG Tradjenta 5 MG No 1{table t} QD Tradjenta 5 MG Breo Ellipta 100-25 MCG/INH Breo Ellipta 100-25 MCG/INH No 1{puff} QD Breo Ellipta 100-25 MCG/INH metFORMIN HCl ER 500 MG metFORMIN HCl ER 500 MG No BID metFORMIN HCl ER 500 MG predniSONE 20 MG predniSONE 20 MG No 1{table t} QD predniSONE 20 MG Lisinopril 5 MG Lisinopril 5 MG No 1{table t} QD Lisinopril 5 MG Farxiga 10 MG Farxiga 10 MG No 1{table t} QD Farxiga 10 MG Carvedilol 25 MG Carvedilol 25 MG No 1{table t_with_ food} BID Carvedilol 25 MG Atorvastati n Calcium 10 MG Atorvastati n Calcium 10 MG No 1{table t} QD Atorvastat in Calcium 10 MG Centrum Silver Centrum Silver No Centrum Silver metFORMIN HCl ER 500 MG metFORMIN HCl ER 500 MG No 2{table t_with_ food} BID metFORMIN HCl ER 500 MG Pantoprazol e Sodium 40 MG Pantoprazol e Sodium 40 MG No 1{table t} QD Pantoprazo le Sodium 40 MG Amoxicillin -Pot Clavulanate 875-125 MG Amoxicillin -Pot Clavulanate 875-125 MG No 1{table t} BID Amoxicilli n-Pot Clavulanat e 875-125 MG Lumigan 0.01 % Lumigan 0.01 % No 1{drop_ into_af fected_ eye_in_ the_eve jason} QD Lumigan 0.01 % Montelukast Sodium 10 MG Montelukast Sodium 10 MG No 1{table t} QD Montelukas t Sodium 10 MG Echinacea 400 MG Echinacea 400 MG No Echinacea 400 MG traZODone HCl 100 MG traZODone HCl 100 MG No 1{table t_at_be dtime} QD traZODone HCl 100 MG Entresto 24-26 MG Entresto 24-26 MG No 1{table t} BID Entresto 24-26 MG Farxiga 10 MG Farxiga 10 MG No 1{table t} QD Farxiga 10 MG Cyanocobala min 1000 MCG Cyanocobala min 1000 MCG No 1{table t} QD Cyanocobal mixon 1000 MCG Cyclobenzap rine HCl 5 MG Cyclobenzap rine HCl 5 MG No 1{table t_at_be dtime_a s_neede d} QD Cyclobenza romana HCl 5 MG Aspirin 81 81 MG Aspirin 81 81 MG No 1{table t} QD Aspirin 81 81 MG Tradjenta 5 MG Tradjenta 5 MG No 1{table t} QD Tradjenta 5 MG Breo Ellipta 100-25 MCG/INH Breo Ellipta 100-25 MCG/INH No 1{puff} QD Breo Ellipta 100-25 MCG/INH metFORMIN HCl ER 500 MG metFORMIN HCl ER 500 MG No BID metFORMIN HCl ER 500 MG predniSONE 20 MG predniSONE 20 MG No 1{table t} QD predniSONE 20 MG Lisinopril 5 MG Lisinopril 5 MG No 1{table t} QD Lisinopril 5 MG Farxiga 10 MG Farxiga 10 MG No 1{table t} QD Farxiga 10 MG Carvedilol 25 MG Carvedilol 25 MG No 1{table t_with_ food} BID Carvedilol 25 MG Atorvastati n Calcium 10 MG Atorvastati n Calcium 10 MG No 1{table t} QD Atorvastat in Calcium 10 MG Centrum Silver Centrum Silver No Centrum Silver metFORMIN HCl ER 500 MG metFORMIN HCl ER 500 MG No 2{table t_with_ food} BID metFORMIN HCl ER 500 MG Pantoprazol e Sodium 40 MG Pantoprazol e Sodium 40 MG No 1{table t} QD Pantoprazo le Sodium 40 MG Amoxicillin -Pot Clavulanate 875-125 MG Amoxicillin -Pot Clavulanate 875-125 MG No 1{table t} BID Amoxicilli n-Pot Clavulanat e 875-125 MG Lumigan 0.01 % Lumigan 0.01 % No 1{drop_ into_af fected_ eye_in_ the_eve jason} QD Lumigan 0.01 % Atorvastati n Calcium 10 MG Atorvastati n Calcium 10 MG No Atorvastat in Calcium 10 MG Echinacea 400 MG Echinacea 400 MG No Echinacea 400 MG traZODone HCl 100 MG traZODone HCl 100 MG No 1{table t_at_be dtime} QD traZODone HCl 100 MG Entresto 24-26 MG Entresto 24-26 MG No 1{table t} BID Entresto 24-26 MG Farxiga 10 MG Farxiga 10 MG No 1{table t} QD Farxiga 10 MG Cyanocobala min 1000 MCG Cyanocobala min 1000 MCG No 1{table t} QD Cyanocobal mixon 1000 MCG Cyclobenzap rine HCl 5 MG Cyclobenzap rine HCl 5 MG No 1{table t_at_be dtime_a s_neede d} QD Cyclobenza romana HCl 5 MG Aspirin 81 81 MG Aspirin 81 81 MG No 1{table t} QD Aspirin 81 81 MG Tradjenta 5 MG Tradjenta 5 MG No 1{table t} QD Tradjenta 5 MG Breo Ellipta 100-25 MCG/INH Breo Ellipta 100-25 MCG/INH No 1{puff} QD Breo Ellipta 100-25 MCG/INH metFORMIN HCl ER 500 MG metFORMIN HCl ER 500 MG No BID metFORMIN HCl ER 500 MG predniSONE 20 MG predniSONE 20 MG No 1{table t} QD predniSONE 20 MG Amoxicillin -Pot Clavulanate 875-125 MG Amoxicillin -Pot Clavulanate 875-125 MG No 1{table t} BID Amoxicilli n-Pot Clavulanat e 875-125 MG Farxiga 10 MG Farxiga 10 MG No 1{table t} QD Farxiga 10 MG Carvedilol 25 MG Carvedilol 25 MG No 1{table t_with_ food} BID Carvedilol 25 MG Lisinopril 5 MG Lisinopril 5 MG No 1{table t} QD Lisinopril 5 MG Centrum Silver Centrum Silver No Centrum Silver metFORMIN HCl ER 500 MG metFORMIN HCl ER 500 MG No 2{table t_with_ food} BID metFORMIN HCl ER 500 MG Pantoprazol e Sodium 40 MG Pantoprazol e Sodium 40 MG No 1{table t} QD Pantoprazo le Sodium 40 MG metFORMIN HCl ER 750 MG metFORMIN HCl ER 750 MG No BID metFORMIN HCl ER 750 MG Montelukast Sodium 10 MG Montelukast Sodium 10 MG No 1{table t} QD Montelukas t Sodium 10 MG Pantoprazol e Sodium 40 MG Pantoprazol e Sodium 40 MG No 1{table t} QD Pantoprazo le Sodium 40 MG Breo Ellipta 100-25 MCG/INH Breo Ellipta 100-25 MCG/INH No 1{puff} QD Breo Ellipta 100-25 MCG/INH Montelukast Sodium 10 MG Montelukast Sodium 10 MG No 1{table t} QD Montelukas t Sodium 10 MG Lisinopril 5 MG Lisinopril 5 MG No 1{table t} QD Lisinopril 5 MG Atorvastati n Calcium 10 MG Atorvastati n Calcium 10 MG No 1{table t} QD Atorvastat in Calcium 10 MG metFORMIN HCl ER 750 MG metFORMIN HCl ER 750 MG No BID metFORMIN HCl ER 750 MG Breo Ellipta 100-25 MCG/INH Breo Ellipta 100-25 MCG/INH No 1{puff} QD Breo Ellipta 100-25 MCG/INH Atorvastati n Calcium 10 MG Atorvastati n Calcium 10 MG No 1{table t} QD Atorvastat in Calcium 10 MG Montelukast Sodium 10 MG Montelukast Sodium 10 MG No 1{table t} QD Montelukas t Sodium 10 MG Lisinopril 5 MG Lisinopril 5 MG No 1{table t} QD Lisinopril 5 MG Pantoprazol e Sodium 40 MG Pantoprazol e Sodium 40 MG No Pantoprazo le Sodium 40 MG metFORMIN HCl ER 750 MG metFORMIN HCl ER 750 MG No BID metFORMIN HCl ER 750 MG Breo Ellipta 100-25 MCG/INH Breo Ellipta 100-25 MCG/INH No 1{puff} QD Breo Ellipta 100-25 MCG/INH Atorvastati n Calcium 10 MG Atorvastati n Calcium 10 MG No 1{table t} QD Atorvastat in Calcium 10 MG Montelukast Sodium 10 MG Montelukast Sodium 10 MG No 1{table t} QD Montelukas t Sodium 10 MG Lisinopril 5 MG Lisinopril 5 MG No 1{table t} QD Lisinopril 5 MG Pantoprazol e Sodium 40 MG Pantoprazol e Sodium 40 MG No Pantoprazo le Sodium 40 MG metFORMIN HCl ER 750 MG metFORMIN HCl ER 750 MG No BID metFORMIN HCl ER 750 MG Breo Ellipta 100-25 MCG/INH Breo Ellipta 100-25 MCG/INH No 1{puff} QD Breo Ellipta 100-25 MCG/INH Atorvastati n Calcium 10 MG Atorvastati n Calcium 10 MG No 1{table t} QD Atorvastat in Calcium 10 MG Montelukast Sodium 10 MG Montelukast Sodium 10 MG No 1{table t} QD Montelukas t Sodium 10 MG Lisinopril 5 MG Lisinopril 5 MG No 1{table t} QD Lisinopril 5 MG Pantoprazol e Sodium 40 MG Pantoprazol e Sodium 40 MG No Pantoprazo le Sodium 40 MG metFORMIN HCl ER 750 MG metFORMIN HCl ER 750 MG No BID metFORMIN HCl ER 750 MG Breo Ellipta 100-25 MCG/INH Breo Ellipta 100-25 MCG/INH No 1{puff} QD Breo Ellipta 100-25 MCG/INH Atorvastati n Calcium 10 MG Atorvastati n Calcium 10 MG No 1{table t} QD Atorvastat in Calcium 10 MG Montelukast Sodium 10 MG Montelukast Sodium 10 MG No 1{table t} QD Montelukas t Sodium 10 MG Lisinopril 5 MG Lisinopril 5 MG No 1{table t} QD Lisinopril 5 MG Pantoprazol e Sodium 40 MG Pantoprazol e Sodium 40 MG No Pantoprazo le Sodium 40 MG Montelukast Sodium 10 MG Montelukast Sodium 10 MG No 1{table t} QD Montelukas t Sodium 10 MG Lisinopril 5 MG Lisinopril 5 MG No 1{table t} QD Lisinopril 5 MG Atorvastati n Calcium 10 MG Atorvastati n Calcium 10 MG No 1{table t} QD Atorvastat in Calcium 10 MG metFORMIN HCl ER 750 MG metFORMIN HCl ER 750 MG No BID metFORMIN HCl ER 750 MG Pantoprazol e Sodium 40 MG Pantoprazol e Sodium 40 MG No Pantoprazo le Sodium 40 MG Breo Ellipta 100-25 MCG/INH Breo Ellipta 100-25 MCG/INH No 1{puff} QD Breo Ellipta 100-25 MCG/INH Montelukast Sodium 10 MG Montelukast Sodium 10 MG No 1{table t} QD Montelukas t Sodium 10 MG Atorvastati n Calcium 10 MG Atorvastati n Calcium 10 MG No 1{table t} QD Atorvastat in Calcium 10 MG Breo Ellipta 100-25 MCG/INH Breo Ellipta 100-25 MCG/INH No 1{puff} QD Breo Ellipta 100-25 MCG/INH traZODone HCl 100 MG traZODone HCl 100 MG No traZODone HCl 100 MG Pantoprazol e Sodium 40 MG Pantoprazol e Sodium 40 MG No Pantoprazo le Sodium 40 MG metFORMIN HCl ER 750 MG metFORMIN HCl ER 750 MG No BID metFORMIN HCl ER 750 MG Lisinopril 5 MG Lisinopril 5 MG No 1{table t} QD Lisinopril 5 MG Montelukast Sodium 10 MG Montelukast Sodium 10 MG No 1{table t} QD Montelukas t Sodium 10 MG Atorvastati n Calcium 10 MG Atorvastati n Calcium 10 MG No 1{table t} QD Atorvastat in Calcium 10 MG Breo Ellipta 100-25 MCG/INH Breo Ellipta 100-25 MCG/INH No 1{puff} QD Breo Ellipta 100-25 MCG/INH traZODone HCl 100 MG traZODone HCl 100 MG No traZODone HCl 100 MG Pantoprazol e Sodium 40 MG Pantoprazol e Sodium 40 MG No Pantoprazo le Sodium 40 MG metFORMIN HCl ER 750 MG metFORMIN HCl ER 750 MG No BID metFORMIN HCl ER 750 MG Lisinopril 5 MG Lisinopril 5 MG No 1{table t} QD Lisinopril 5 MG Montelukast Sodium 10 MG Montelukast Sodium 10 MG No 1{table t} QD Montelukas t Sodium 10 MG Atorvastati n Calcium 10 MG Atorvastati n Calcium 10 MG No 1{table t} QD Atorvastat in Calcium 10 MG Breo Ellipta 100-25 MCG/INH Breo Ellipta 100-25 MCG/INH No 1{puff} QD Breo Ellipta 100-25 MCG/INH traZODone HCl 100 MG traZODone HCl 100 MG No traZODone HCl 100 MG Pantoprazol e Sodium 40 MG Pantoprazol e Sodium 40 MG No Pantoprazo le Sodium 40 MG metFORMIN HCl ER 750 MG metFORMIN HCl ER 750 MG No BID metFORMIN HCl ER 750 MG Lisinopril 5 MG Lisinopril 5 MG No 1{table t} QD Lisinopril 5 MG metFORMIN HCl ER 750 MG metFORMIN HCl ER 750 MG No BID metFORMIN HCl ER 750 MG Montelukast Sodium 10 MG Montelukast Sodium 10 MG No 1{table t} QD Montelukas t Sodium 10 MG Pantoprazol e Sodium 40 MG Pantoprazol e Sodium 40 MG No Pantoprazo le Sodium 40 MG Lisinopril 5 MG Lisinopril 5 MG No 1{table t} QD Lisinopril 5 MG Breo Ellipta 100-25 MCG/INH Breo Ellipta 100-25 MCG/INH No 1{puff} QD Breo Ellipta 100-25 MCG/INH Atorvastati n Calcium 10 MG Atorvastati n Calcium 10 MG No 1{table t} QD Atorvastat in Calcium 10 MG traZODone HCl 100 MG traZODone HCl 100 MG No traZODone HCl 100 MG metFORMIN HCl ER 750 MG metFORMIN HCl ER 750 MG No BID metFORMIN HCl ER 750 MG Montelukast Sodium 10 MG Montelukast Sodium 10 MG No 1{table t} QD Montelukas t Sodium 10 MG Pantoprazol e Sodium 40 MG Pantoprazol e Sodium 40 MG No Pantoprazo le Sodium 40 MG Lisinopril 5 MG Lisinopril 5 MG No 1{table t} QD Lisinopril 5 MG Breo Ellipta 100-25 MCG/INH Breo Ellipta 100-25 MCG/INH No 1{puff} QD Breo Ellipta 100-25 MCG/INH Atorvastati n Calcium 10 MG Atorvastati n Calcium 10 MG No 1{table t} QD Atorvastat in Calcium 10 MG traZODone HCl 100 MG traZODone HCl 100 MG No traZODone HCl 100 MG Lisinopril 5 MG Lisinopril 5 MG No 1{table t} QD Lisinopril 5 MG traZODone HCl 100 MG traZODone HCl 100 MG No traZODone HCl 100 MG traZODone HCl 100 MG traZODone HCl 100 MG No 1{table t_at_be dtime} QD traZODone HCl 100 MG Pantoprazol e Sodium 40 MG Pantoprazol e Sodium 40 MG No Pantoprazo le Sodium 40 MG Montelukast Sodium 10 MG Montelukast Sodium 10 MG No 1{table t} QD Montelukas t Sodium 10 MG Pantoprazol e Sodium 40 MG Pantoprazol e Sodium 40 MG No 1{table t} QD Pantoprazo le Sodium 40 MG metFORMIN HCl ER 750 MG metFORMIN HCl ER 750 MG No BID metFORMIN HCl ER 750 MG Breo Ellipta 100-25 MCG/INH Breo Ellipta 100-25 MCG/INH No 1{puff} QD Breo Ellipta 100-25 MCG/INH Atorvastati n Calcium 10 MG Atorvastati n Calcium 10 MG No 1{table t} QD Atorvastat in Calcium 10 MG Lisinopril 5 MG Lisinopril 5 MG No 1{table t} QD Lisinopril 5 MG traZODone HCl 100 MG traZODone HCl 100 MG No traZODone HCl 100 MG traZODone HCl 100 MG traZODone HCl 100 MG No 1{table t_at_be dtime} QD traZODone HCl 100 MG Pantoprazol e Sodium 40 MG Pantoprazol e Sodium 40 MG No Pantoprazo le Sodium 40 MG Montelukast Sodium 10 MG Montelukast Sodium 10 MG No 1{table t} QD Montelukas t Sodium 10 MG Pantoprazol e Sodium 40 MG Pantoprazol e Sodium 40 MG No 1{table t} QD Pantoprazo le Sodium 40 MG metFORMIN HCl ER 750 MG metFORMIN HCl ER 750 MG No BID metFORMIN HCl ER 750 MG Breo Ellipta 100-25 MCG/INH Breo Ellipta 100-25 MCG/INH No 1{puff} QD Breo Ellipta 100-25 MCG/INH Atorvastati n Calcium 10 MG Atorvastati n Calcium 10 MG No 1{table t} QD Atorvastat in Calcium 10 MG Lisinopril 5 MG Lisinopril 5 MG No 1{table t} QD Lisinopril 5 MG Pantoprazol e Sodium 40 MG Pantoprazol e Sodium 40 MG No Pantoprazo le Sodium 40 MG Breo Ellipta 100-25 MCG/INH Breo Ellipta 100-25 MCG/INH No 1{puff} QD Breo Ellipta 100-25 MCG/INH Pantoprazol e Sodium 40 MG Pantoprazol e Sodium 40 MG No 1{table t} QD Pantoprazo le Sodium 40 MG traZODone HCl 100 MG traZODone HCl 100 MG No 1{table t_at_be dtime} QD traZODone HCl 100 MG Atorvastati n Calcium 10 MG Atorvastati n Calcium 10 MG No 1{table t} QD Atorvastat in Calcium 10 MG Montelukast Sodium 10 MG Montelukast Sodium 10 MG No 1{table t} QD Montelukas t Sodium 10 MG metFORMIN HCl ER 750 MG metFORMIN HCl ER 750 MG No BID metFORMIN HCl ER 750 MG traZODone HCl 100 MG traZODone HCl 100 MG No traZODone HCl 100 MG metFORMIN HCl ER 750 MG metFORMIN HCl ER 750 MG No BID metFORMIN HCl ER 750 MG Lisinopril 5 MG Lisinopril 5 MG No 1{table t} QD Lisinopril 5 MG Atorvastati n Calcium 10 MG Atorvastati n Calcium 10 MG No 1{table t} QD Atorvastat in Calcium 10 MG Pantoprazol e Sodium 40 MG Pantoprazol e Sodium 40 MG No Pantoprazo le Sodium 40 MG traZODone HCl 100 MG traZODone HCl 100 MG No 1{table t_at_be dtime} QD traZODone HCl 100 MG Montelukast Sodium 10 MG Montelukast Sodium 10 MG No 1{table t} QD Montelukas t Sodium 10 MG Pantoprazol e Sodium 40 MG Pantoprazol e Sodium 40 MG No 1{table t} QD Pantoprazo le Sodium 40 MG Breo Ellipta 100-25 MCG/INH Breo Ellipta 100-25 MCG/INH No 1{puff} QD Breo Ellipta 100-25 MCG/INH traZODone HCl 100 MG traZODone HCl 100 MG No traZODone HCl 100 MG metFORMIN HCl ER 750 MG metFORMIN HCl ER 750 MG No BID metFORMIN HCl ER 750 MG Lisinopril 5 MG Lisinopril 5 MG No 1{table t} QD Lisinopril 5 MG Atorvastati n Calcium 10 MG Atorvastati n Calcium 10 MG No 1{table t} QD Atorvastat in Calcium 10 MG Pantoprazol e Sodium 40 MG Pantoprazol e Sodium 40 MG No Pantoprazo le Sodium 40 MG traZODone HCl 100 MG traZODone HCl 100 MG No 1{table t_at_be dtime} QD traZODone HCl 100 MG Montelukast Sodium 10 MG Montelukast Sodium 10 MG No 1{table t} QD Montelukas t Sodium 10 MG Pantoprazol e Sodium 40 MG Pantoprazol e Sodium 40 MG No 1{table t} QD Pantoprazo le Sodium 40 MG Breo Ellipta 100-25 MCG/INH Breo Ellipta 100-25 MCG/INH No 1{puff} QD Breo Ellipta 100-25 MCG/INH traZODone HCl 100 MG traZODone HCl 100 MG No traZODone HCl 100 MG Breo Ellipta 100-25 MCG/INH Breo Ellipta 100-25 MCG/INH No 1{puff} QD Breo Ellipta 100-25 MCG/INH Atorvastati n Calcium 10 MG Atorvastati n Calcium 10 MG No 1{table t} QD Atorvastat in Calcium 10 MG traZODone HCl 100 MG traZODone HCl 100 MG No 1{table t_at_be dtime} QD traZODone HCl 100 MG Lisinopril 5 MG Lisinopril 5 MG No 1{table t} QD Lisinopril 5 MG metFORMIN HCl ER 750 MG metFORMIN HCl ER 750 MG No metFORMIN HCl ER 750 MG Pantoprazol e Sodium 40 MG Pantoprazol e Sodium 40 MG No Pantoprazo le Sodium 40 MG traZODone HCl 100 MG traZODone HCl 100 MG No traZODone HCl 100 MG Montelukast Sodium 10 MG Montelukast Sodium 10 MG No 1{table t} QD Montelukas t Sodium 10 MG metFORMIN HCl ER 750 MG metFORMIN HCl ER 750 MG No metFORMIN HCl ER 750 MG Pantoprazol e Sodium 40 MG Pantoprazol e Sodium 40 MG No Pantoprazo le Sodium 40 MG ProAir HFA 108 (90 Base) MCG/ACT ProAir HFA 108 (90 Base) MCG/ACT No 2{puffs _as_nee ded} ProAir HFA 108 (90 Base) MCG/ACT traZODone HCl 100 MG traZODone HCl 100 MG No 1{table t_at_be dtime} QD traZODone HCl 100 MG Pantoprazol e Sodium 40 MG Pantoprazol e Sodium 40 MG No 1{table t} QD Pantoprazo le Sodium 40 MG Montelukast Sodium 10 MG Montelukast Sodium 10 MG No 1{table t} QD Montelukas t Sodium 10 MG Lisinopril 5 MG Lisinopril 5 MG No 1{table t} QD Lisinopril 5 MG Montelukast Sodium 10 MG Montelukast Sodium 10 MG No 1{table t} QD Montelukas t Sodium 10 MG Albuterol Sulfate (2.5 MG/3ML) 0.083% Albuterol Sulfate (2.5 MG/3ML) 0.083% No 3{ml_as _needed } 8xD Albuterol Sulfate (2.5 MG/3ML) 0.083% Breo Ellipta 100-25 MCG/INH Breo Ellipta 100-25 MCG/INH No 1{puff} QD Breo Ellipta 100-25 MCG/INH metFORMIN HCl ER 750 MG metFORMIN HCl ER 750 MG No TID metFORMIN HCl ER 750 MG ZyrTEC Allergy 10 MG ZyrTEC Allergy 10 MG No 1{capsu le} QD ZyrTEC Allergy 10 MG Atorvastati n Calcium 10 MG Atorvastati n Calcium 10 MG No 1{table t} QD Atorvastat in Calcium 10 MG traZODone HCl 100 MG traZODone HCl 100 MG No 1{table t_at_be dtime} QD traZODone HCl 100 MG Breo Ellipta 100-25 MCG/INH Breo Ellipta 100-25 MCG/INH No 1{puff} QD Breo Ellipta 100-25 MCG/INH Breo Ellipta 100-25 MCG/INH Breo Ellipta 100-25 MCG/INH No 1{puff} QD Breo Ellipta 100-25 MCG/INH traZODone HCl 100 MG traZODone HCl 100 MG No 1{table t_at_be dtime} QD traZODone HCl 100 MG ProAir HFA 108 (90 Base) MCG/ACT ProAir HFA 108 (90 Base) MCG/ACT No 2{puffs _as_nee ded} ProAir HFA 108 (90 Base) MCG/ACT Pantoprazol e Sodium 40 MG Pantoprazol e Sodium 40 MG No 1{table t} QD Pantoprazo le Sodium 40 MG Albuterol Sulfate (2.5 MG/3ML) 0.083% Albuterol Sulfate (2.5 MG/3ML) 0.083% No 3{ml_as _needed } 8xD Albuterol Sulfate (2.5 MG/3ML) 0.083% traZODone HCl 100 MG traZODone HCl 100 MG No 1{table t_at_be dtime} QD traZODone HCl 100 MG metFORMIN HCl ER 750 MG metFORMIN HCl ER 750 MG No TID metFORMIN HCl ER 750 MG metFORMIN HCl ER 750 MG metFORMIN HCl ER 750 MG No metFORMIN HCl ER 750 MG Pantoprazol e Sodium 40 MG Pantoprazol e Sodium 40 MG No Pantoprazo le Sodium 40 MG Lisinopril 5 MG Lisinopril 5 MG No 1{table t} QD Lisinopril 5 MG Atorvastati n Calcium 10 MG Atorvastati n Calcium 10 MG No 1{table t} QD Atorvastat in Calcium 10 MG Montelukast Sodium 10 MG Montelukast Sodium 10 MG No Montelukas t Sodium 10 MG ZyrTEC Allergy 10 MG ZyrTEC Allergy 10 MG No 1{capsu le} QD ZyrTEC Allergy 10 MG Breo Ellipta 100-25 MCG/INH Breo Ellipta 100-25 MCG/INH No 1{puff} QD Breo Ellipta 100-25 MCG/INH Breo Ellipta 100-25 MCG/INH Breo Ellipta 100-25 MCG/INH No 1{puff} QD Breo Ellipta 100-25 MCG/INH metFORMIN HCl ER 750 MG metFORMIN HCl ER 750 MG No TID metFORMIN HCl ER 750 MG Montelukast Sodium 10 MG Montelukast Sodium 10 MG No 1{table t} QD Montelukas t Sodium 10 MG ProAir HFA 108 (90 Base) MCG/ACT ProAir HFA 108 (90 Base) MCG/ACT No 2{puffs _as_nee ded} ProAir HFA 108 (90 Base) MCG/ACT Pantoprazol e Sodium 40 MG Pantoprazol e Sodium 40 MG No Pantoprazo le Sodium 40 MG metFORMIN HCl ER 750 MG metFORMIN HCl ER 750 MG No metFORMIN HCl ER 750 MG Montelukast Sodium 10 MG Montelukast Sodium 10 MG No Montelukas t Sodium 10 MG Atorvastati n Calcium 10 MG Atorvastati n Calcium 10 MG No 1{table t} QD Atorvastat in Calcium 10 MG traZODone HCl 100 MG traZODone HCl 100 MG No 1{table t_at_be dtime} QD traZODone HCl 100 MG Albuterol Sulfate (2.5 MG/3ML) 0.083% Albuterol Sulfate (2.5 MG/3ML) 0.083% No 3{ml_as _needed } 8xD Albuterol Sulfate (2.5 MG/3ML) 0.083% Pantoprazol e Sodium 40 MG Pantoprazol e Sodium 40 MG No 1{table t} QD Pantoprazo le Sodium 40 MG ZyrTEC Allergy 10 MG ZyrTEC Allergy 10 MG No 1{capsu le} QD ZyrTEC Allergy 10 MG Lisinopril 5 MG Lisinopril 5 MG No 1{table t} QD Lisinopril 5 MG Breo Ellipta 100-25 MCG/INH Breo Ellipta 100-25 MCG/INH No 1{puff} QD Breo Ellipta 100-25 MCG/INH Cyclobenzap rine HCl 5 MG Cyclobenzap rine HCl 5 MG No 1{table t_at_be dtime_a s_neede d} QD Cyclobenza romana HCl 5 MG traZODone HCl 100 MG traZODone HCl 100 MG No 1{table t_at_be dtime} QD traZODone HCl 100 MG Breo Ellipta 100-25 MCG/INH Breo Ellipta 100-25 MCG/INH No 1{puff} QD Breo Ellipta 100-25 MCG/INH metFORMIN HCl ER 750 MG metFORMIN HCl ER 750 MG No TID metFORMIN HCl ER 750 MG ZyrTEC Allergy 10 MG ZyrTEC Allergy 10 MG No 1{capsu le} QD ZyrTEC Allergy 10 MG metFORMIN HCl ER 750 MG metFORMIN HCl ER 750 MG No metFORMIN HCl ER 750 MG Montelukast Sodium 10 MG Montelukast Sodium 10 MG No Montelukas t Sodium 10 MG Pantoprazol e Sodium 40 MG Pantoprazol e Sodium 40 MG No Pantoprazo le Sodium 40 MG Atorvastati n Calcium 10 MG Atorvastati n Calcium 10 MG No 1{table t} QD Atorvastat in Calcium 10 MG traZODone HCl 100 MG traZODone HCl 100 MG No 1{table t_at_be dtime} QD traZODone HCl 100 MG Montelukast Sodium 10 MG Montelukast Sodium 10 MG No 1{table t} QD Montelukas t Sodium 10 MG ProAir HFA 108 (90 Base) MCG/ACT ProAir HFA 108 (90 Base) MCG/ACT No 2{puffs _as_nee ded} ProAir HFA 108 (90 Base) MCG/ACT Pantoprazol e Sodium 40 MG Pantoprazol e Sodium 40 MG No 1{table t} QD Pantoprazo le Sodium 40 MG Cyclobenzap rine HCl 5 MG Cyclobenzap rine HCl 5 MG No 1{table t_at_be dtime_a s_neede d} QD Cyclobenza romana HCl 5 MG Lisinopril 5 MG Lisinopril 5 MG No 1{table t} QD Lisinopril 5 MG Breo Ellipta 100-25 MCG/INH Breo Ellipta 100-25 MCG/INH No 1{puff} QD Breo Ellipta 100-25 MCG/INH Albuterol Sulfate (2.5 MG/3ML) 0.083% Albuterol Sulfate (2.5 MG/3ML) 0.083% No 3{ml_as _needed } 8xD Albuterol Sulfate (2.5 MG/3ML) 0.083% traZODone HCl 100 MG traZODone HCl 100 MG No 1{table t_at_be dtime} QD traZODone HCl 100 MG Montelukast Sodium 10 MG Montelukast Sodium 10 MG No Montelukas t Sodium 10 MG ProAir HFA 108 (90 Base) MCG/ACT ProAir HFA 108 (90 Base) MCG/ACT No 2{puffs _as_nee ded} ProAir HFA 108 (90 Base) MCG/ACT Atorvastati n Calcium 10 MG Atorvastati n Calcium 10 MG No 1{table t} QD Atorvastat in Calcium 10 MG ZyrTEC Allergy 10 MG ZyrTEC Allergy 10 MG No 1{capsu le} QD ZyrTEC Allergy 10 MG Pantoprazol e Sodium 40 MG Pantoprazol e Sodium 40 MG No 1{table t} QD Pantoprazo le Sodium 40 MG metFORMIN HCl ER 750 MG metFORMIN HCl ER 750 MG No TID metFORMIN HCl ER 750 MG Breo Ellipta 100-25 MCG/INH Breo Ellipta 100-25 MCG/INH No 1{puff} QD Breo Ellipta 100-25 MCG/INH Pantoprazol e Sodium 40 MG Pantoprazol e Sodium 40 MG No Pantoprazo le Sodium 40 MG Breo Ellipta 100-25 MCG/INH Breo Ellipta 100-25 MCG/INH No 1{puff} QD Breo Ellipta 100-25 MCG/INH Cyclobenzap rine HCl 5 MG Cyclobenzap rine HCl 5 MG No 1{table t_at_be dtime_a s_neede d} QD Cyclobenza romana HCl 5 MG Montelukast Sodium 10 MG Montelukast Sodium 10 MG No 1{table t} QD Montelukas t Sodium 10 MG metFORMIN HCl ER 750 MG metFORMIN HCl ER 750 MG No metFORMIN HCl ER 750 MG Albuterol Sulfate (2.5 MG/3ML) 0.083% Albuterol Sulfate (2.5 MG/3ML) 0.083% No 3{ml_as _needed } 8xD Albuterol Sulfate (2.5 MG/3ML) 0.083% Lisinopril 5 MG Lisinopril 5 MG No 1{table t} QD Lisinopril 5 MG traZODone HCl 100 MG traZODone HCl 100 MG No 1{table t_at_be dtime} QD traZODone HCl 100 MG traZODone HCl 100 MG traZODone HCl 100 MG No 1{table t_at_be dtime} QD traZODone HCl 100 MG Montelukast Sodium 10 MG Montelukast Sodium 10 MG No Montelukas t Sodium 10 MG ProAir HFA 108 (90 Base) MCG/ACT ProAir HFA 108 (90 Base) MCG/ACT No 2{puffs _as_nee ded} ProAir HFA 108 (90 Base) MCG/ACT Atorvastati n Calcium 10 MG Atorvastati n Calcium 10 MG No 1{table t} QD Atorvastat in Calcium 10 MG ZyrTEC Allergy 10 MG ZyrTEC Allergy 10 MG No 1{capsu le} QD ZyrTEC Allergy 10 MG Pantoprazol e Sodium 40 MG Pantoprazol e Sodium 40 MG No 1{table t} QD Pantoprazo le Sodium 40 MG metFORMIN HCl ER 750 MG metFORMIN HCl ER 750 MG No TID metFORMIN HCl ER 750 MG Breo Ellipta 100-25 MCG/INH Breo Ellipta 100-25 MCG/INH No 1{puff} QD Breo Ellipta 100-25 MCG/INH Pantoprazol e Sodium 40 MG Pantoprazol e Sodium 40 MG No Pantoprazo le Sodium 40 MG Breo Ellipta 100-25 MCG/INH Breo Ellipta 100-25 MCG/INH No 1{puff} QD Breo Ellipta 100-25 MCG/INH Cyclobenzap rine HCl 5 MG Cyclobenzap rine HCl 5 MG No 1{table t_at_be dtime_a s_neede d} QD Cyclobenza romana HCl 5 MG Montelukast Sodium 10 MG Montelukast Sodium 10 MG No 1{table t} QD Montelukas t Sodium 10 MG metFORMIN HCl ER 750 MG metFORMIN HCl ER 750 MG No metFORMIN HCl ER 750 MG Albuterol Sulfate (2.5 MG/3ML) 0.083% Albuterol Sulfate (2.5 MG/3ML) 0.083% No 3{ml_as _needed } 8xD Albuterol Sulfate (2.5 MG/3ML) 0.083% Lisinopril 5 MG Lisinopril 5 MG No 1{table t} QD Lisinopril 5 MG traZODone HCl 100 MG traZODone HCl 100 MG No 1{table t_at_be dtime} QD traZODone HCl 100 MG traZODone HCl 100 MG traZODone HCl 100 MG No 1{table t_at_be dtime} QD traZODone HCl 100 MG ZyrTEC Allergy 10 MG ZyrTEC Allergy 10 MG No 1{capsu le} QD ZyrTEC Allergy 10 MG Albuterol Sulfate (2.5 MG/3ML) 0.083% Albuterol Sulfate (2.5 MG/3ML) 0.083% No 3{ml_as _needed } 8xD Albuterol Sulfate (2.5 MG/3ML) 0.083% Montelukast Sodium 10 MG Montelukast Sodium 10 MG No 1{table t} QD Montelukas t Sodium 10 MG Azithromyci n 250 MG Azithromyci n 250 MG No QD Azithromyc in 250 MG Atorvastati n Calcium 10 MG Atorvastati n Calcium 10 MG No 1{table t} QD Atorvastat in Calcium 10 MG Montelukast Sodium 10 MG Montelukast Sodium 10 MG No Montelukas t Sodium 10 MG Pantoprazol e Sodium 40 MG Pantoprazol e Sodium 40 MG No 1{table t} QD Pantoprazo le Sodium 40 MG Breo Ellipta 100-25 MCG/INH Breo Ellipta 100-25 MCG/INH No 1{puff} QD Breo Ellipta 100-25 MCG/INH Lisinopril 5 MG Lisinopril 5 MG No 1{table t} QD Lisinopril 5 MG metFORMIN HCl ER 750 MG metFORMIN HCl ER 750 MG No metFORMIN HCl ER 750 MG traZODone HCl 100 MG traZODone HCl 100 MG No 1{table t_at_be dtime} QD traZODone HCl 100 MG metFORMIN HCl ER 750 MG metFORMIN HCl ER 750 MG No TID metFORMIN HCl ER 750 MG Pantoprazol e Sodium 40 MG Pantoprazol e Sodium 40 MG No Pantoprazo le Sodium 40 MG traZODone HCl 100 MG traZODone HCl 100 MG No 1{table t_at_be dtime} QD traZODone HCl 100 MG Cyclobenzap rine HCl 5 MG Cyclobenzap rine HCl 5 MG No 1{table t_at_be dtime_a s_neede d} QD Cyclobenza romana HCl 5 MG ProAir HFA 108 (90 Base) MCG/ACT ProAir HFA 108 (90 Base) MCG/ACT No 2{puffs _as_nee ded} ProAir HFA 108 (90 Base) MCG/ACT Breo Ellipta 100-25 MCG/INH Breo Ellipta 100-25 MCG/INH No 1{puff} QD Breo Ellipta 100-25 MCG/INH Atorvastati n Calcium 10 MG Atorvastati n Calcium 10 MG No 1{table t} QD Atorvastat in Calcium 10 MG ZyrTEC Allergy 10 MG ZyrTEC Allergy 10 MG No 1{capsu le} QD ZyrTEC Allergy 10 MG Lisinopril 5 MG Lisinopril 5 MG No 1{table t} QD Lisinopril 5 MG ProAir HFA 108 (90 Base) MCG/ACT ProAir HFA 108 (90 Base) MCG/ACT No 2{puffs _as_nee ded} ProAir HFA 108 (90 Base) MCG/ACT traZODone HCl 100 MG traZODone HCl 100 MG No 1{table t_at_be dtime} QD traZODone HCl 100 MG Breo Ellipta 100-25 MCG/INH Breo Ellipta 100-25 MCG/INH No 1{puff} QD Breo Ellipta 100-25 MCG/INH Albuterol Sulfate (2.5 MG/3ML) 0.083% Albuterol Sulfate (2.5 MG/3ML) 0.083% No 3{ml_as _needed } 8xD Albuterol Sulfate (2.5 MG/3ML) 0.083% Pantoprazol e Sodium 40 MG Pantoprazol e Sodium 40 MG No Pantoprazo le Sodium 40 MG metFORMIN HCl ER 750 MG metFORMIN HCl ER 750 MG No TID metFORMIN HCl ER 750 MG Breo Ellipta 100-25 MCG/INH Breo Ellipta 100-25 MCG/INH No 1{puff} QD Breo Ellipta 100-25 MCG/INH Azithromyci n 250 MG Azithromyci n 250 MG No QD Azithromyc in 250 MG traZODone HCl 100 MG traZODone HCl 100 MG No 1{table t_at_be dtime} QD traZODone HCl 100 MG metFORMIN HCl ER 750 MG metFORMIN HCl ER 750 MG No metFORMIN HCl ER 750 MG Cyclobenzap rine HCl 5 MG Cyclobenzap rine HCl 5 MG No 1{table t_at_be dtime_a s_neede d} QD Cyclobenza romana HCl 5 MG Pantoprazol e Sodium 40 MG Pantoprazol e Sodium 40 MG No 1{table t} QD Pantoprazo le Sodium 40 MG Montelukast Sodium 10 MG Montelukast Sodium 10 MG No Montelukas t Sodium 10 MG Atorvastati n Calcium 10 MG Atorvastati n Calcium 10 MG No 1{table t} QD Atorvastat in Calcium 10 MG ZyrTEC Allergy 10 MG ZyrTEC Allergy 10 MG No 1{capsu le} QD ZyrTEC Allergy 10 MG Lisinopril 5 MG Lisinopril 5 MG No 1{table t} QD Lisinopril 5 MG ProAir HFA 108 (90 Base) MCG/ACT ProAir HFA 108 (90 Base) MCG/ACT No 2{puffs _as_nee ded} ProAir HFA 108 (90 Base) MCG/ACT traZODone HCl 100 MG traZODone HCl 100 MG No 1{table t_at_be dtime} QD traZODone HCl 100 MG Breo Ellipta 100-25 MCG/INH Breo Ellipta 100-25 MCG/INH No 1{puff} QD Breo Ellipta 100-25 MCG/INH Albuterol Sulfate (2.5 MG/3ML) 0.083% Albuterol Sulfate (2.5 MG/3ML) 0.083% No 3{ml_as _needed } 8xD Albuterol Sulfate (2.5 MG/3ML) 0.083% Pantoprazol e Sodium 40 MG Pantoprazol e Sodium 40 MG No Pantoprazo le Sodium 40 MG metFORMIN HCl ER 750 MG metFORMIN HCl ER 750 MG No TID metFORMIN HCl ER 750 MG Breo Ellipta 100-25 MCG/INH Breo Ellipta 100-25 MCG/INH No 1{puff} QD Breo Ellipta 100-25 MCG/INH Azithromyci n 250 MG Azithromyci n 250 MG No QD Azithromyc in 250 MG traZODone HCl 100 MG traZODone HCl 100 MG No 1{table t_at_be dtime} QD traZODone HCl 100 MG metFORMIN HCl ER 750 MG metFORMIN HCl ER 750 MG No metFORMIN HCl ER 750 MG Cyclobenzap rine HCl 5 MG Cyclobenzap rine HCl 5 MG No 1{table t_at_be dtime_a s_neede d} QD Cyclobenza romana HCl 5 MG Pantoprazol e Sodium 40 MG Pantoprazol e Sodium 40 MG No 1{table t} QD Pantoprazo le Sodium 40 MG Montelukast Sodium 10 MG Montelukast Sodium 10 MG No Montelukas t Sodium 10 MG Farxiga 10 MG Farxiga 10 MG No Farxiga 10 MG Atorvastati n Calcium 10 MG Atorvastati n Calcium 10 MG No 1{table t} QD Atorvastat in Calcium 10 MG Aspirin 81 81 MG Aspirin 81 81 MG No 1{table t} QD Aspirin 81 81 MG Montelukast Sodium 10 MG Montelukast Sodium 10 MG No 1{table t} QD Montelukas t Sodium 10 MG Tradjenta 5 MG Tradjenta 5 MG No Tradjenta 5 MG metFORMIN HCl ER 500 MG metFORMIN HCl ER 500 MG No BID metFORMIN HCl ER 500 MG predniSONE 10 MG predniSONE 10 MG No 1{table t} QD predniSONE 10 MG Pantoprazol e Sodium 40 MG Pantoprazol e Sodium 40 MG No 1{table t} QD Pantoprazo le Sodium 40 MG traZODone HCl 100 MG traZODone HCl 100 MG No 1{table t_at_be dtime} QD traZODone HCl 100 MG Breo Ellipta 100-25 MCG/INH Breo Ellipta 100-25 MCG/INH No 1{puff} QD Breo Ellipta 100-25 MCG/INH Farxiga 10 MG Farxiga 10 MG No 1{table t} QD Farxiga 10 MG Tradjenta 5 MG Tradjenta 5 MG No 1{table t} QD Tradjenta 5 MG Lisinopril 5 MG Lisinopril 5 MG No 1{table t} QD Lisinopril 5 MG Carvedilol 12.5 MG Carvedilol 12.5 MG No 1{table t_with_ food} BID Carvedilol 12.5 MG metFORMIN HCl ER 500 MG metFORMIN HCl ER 500 MG No 2{table t_with_ food} BID metFORMIN HCl ER 500 MG Atorvastati n Calcium 10 MG Atorvastati n Calcium 10 MG No 1{table t} QD Atorvastat in Calcium 10 MG ZyrTEC Allergy 10 MG ZyrTEC Allergy 10 MG No 1{capsu le} QD ZyrTEC Allergy 10 MG Cyclobenzap rine HCl 5 MG Cyclobenzap rine HCl 5 MG No 1{table t_at_be dtime_a s_neede d} QD Cyclobenza romana HCl 5 MG Lisinopril 5 MG Lisinopril 5 MG No 1{table t} QD Lisinopril 5 MG Immunizations Ordered Immunization Name Filled Immunization Name Date Status Comments Source Shincarlos Luna 2020-12-24 14:57:00 Completed [facility] Jeremy 2020-12-24 14:57:00 [facility] Jeremy 2020-12-24 14:57:00 [facility] Jeremy 2020-12-24 14:57:00 [facility] Shingrpineda Luna 2020-12-24 14:57:00 Completed [facility] Shingrpineda 2020-12-24 14:57:00 Completed [facility] Shingrpineda 2020-12-24 14:57:00 Completed [facility] Shingrpineda 2020-12-24 14:57:00 [facility]pleted [facility] Cjgrpineda 2020-12-24 14:57:00 [facility]pleted [facility] Shingrpineda Coronagrpineda 2020-12-24 14:57:00 Completed [facility] Shingrix 2020-12-24 14:57:00 Completed [facility] Shingrix 2020-12-24 14:57:00 Completed [facility] Shingrix 2020-12-24 14:57:00 Completed [facility] Shingrix 2020-12-24 14:57:00 Completed [facility] Shingrix 2020-12-24 14:57:00 Completed [facility] Shingrix 2020-12-24 14:57:00 Completed [facility] Shingrix 2020-12-24 14:57:00 Completed [facility] Shingrix 2020-12-24 14:57:00 Completed [facility] Shingrix 2020-12-24 14:57:00 Completed [facility] Shingrix 2020-12-24 14:57:00 Completed [facility] Shingrix 2020-12-24 14:57:00 Completed [facility] Shingrix 2020-12-24 14:57:00 Completed [facility] Shingrix 2020-12-24 14:57:00 Completed [facility] Shingrix 2020-12-24 14:57:00 Completed [facility] Shingrix 2020-12-24 14:57:00 Completed [facility] Shingrix 2020-12-24 14:57:00 Completed [facility] Shingrix 2020-12-24 14:57:00 Completed [facility] Shingrix 2020-12-24 14:57:00 Completed [facility] Shingrix 2020-12-24 14:57:00 Completed [facility] FluAD 2020-11-30 14:57:00 Completed [facility] FluAD 2020-11-30 14:57:00 Completed [facility] Flu[facility] FluAD 2020-11-30 14:57:00 Completed [facility] FluAD 2020-11-30 14:57:00 Completed [facility] Flu[facility] FluAD 2020-11-30 14:57:00 Completed [facility] FluAD 2020-11-30 14:57:00 Completed [facility] FluAD FluAD 2020-11-30 14:57:00 Completed [facility] Flu[facility] FluAD 2020-11-30 14:57:00 Completed [facility] Flu[facility] FluAD 2020-11-30 14:57:00 Completed [facility] FluAD 2020-11-30 14:57:00 Completed [facility] Flu[facility] FluAD 2020-11-30 14:57:00 Completed [facility] Flu[facility] FluAD 2020-11-30 14:57:00 Completed [facility] Flu[facility] FluAD 2020-11-30 14:57:00 Completed [facility] FluAD FluAD 2020-11-30 14:57:00 Completed [facility] FluAD FluAD 2020-11-30 14:57:00 [facility] FluAD FluAD 2020-11-30 14:57:00 Completed [facility] FluAD FluAD 2020-11-30 14:57:00 [facility] FluAD FluAD 2020-11-30 14:57:00 [facility] FluAD FluAD 2020-11-30 14:57:00 Completed [facility] FluAD FluAD 2020-11-30 14:57:00 Completed [facility] FluAD FluAD 2020-11-30 14:57:00 Completed [facility] FluAD FluAD 2020-11-30 14:57:00 Completed [facility] FluAD FluAD 2020-11-30 14:57:00 Completed [facility] FluAD FluAD 2020-11-30 14:57:00 Completed [facility] FluAD FluAD 2020-11-30 14:57:00 Completed [facility] FluAD FluAD 2020-11-30 14:57:00 Completed [facility] FluAD FluAD 2020-11-30 14:57:00 Completed [facility] FluAD FluAD 2020-11-30 14:57:00 Completed [facility] FluAD FluAD 2020-11-30 14:57:00 Completed [facility] Bupivicaine [place] Bupivicaine [place] 2020-11-09 15:15:00 Completed [facility] Bupivicaine [place] Bupivicaine [place] 2020-11-09 15:15:00 Completed [facility] Kenalog (Triamcinolone) Kenalog (Triamcinolone) 2020-11-09 15:14:00 Completed [facility] Kenalog (Triamcinolone) Kenalog (Triamcinolone) 2020-11-09 15:14:00 Completed [facility] Pneumovax (PPSV23) Pneumovax (PPSV23) 2019-12-02 15:22:00 Completed [facility] Pneumovax (PPSV23) Pneumovax (PPSV23) 2019-12-02 15:22:00 Completed [facility] Pneumovax (PPSV23) Pneumovax (PPSV23) 2019-12-02 15:22:00 Completed [facility] Pneumovax (PPSV23) Pneumovax (PPSV23) 2019-12-02 15:22:00 Completed [facility] Pneumovax (PPSV23) Pneumovax (PPSV23) 2019-12-02 15:22:00 Completed [facility] Pneumovax (PPSV23) Pneumovax (PPSV23) 2019-12-02 15:22:00 Completed [facility] Pneumovax (PPSV23) Pneumovax (PPSV23) 2019-12-02 15:22:00 Completed [facility] Pneumovax (PPSV23) Pneumovax (PPSV23) 2019-12-02 15:22:00 Completed [facility] Pneumovax (PPSV23) Pneumovax (PPSV23) 2019-12-02 15:22:00 Completed [facility] Pneumovax (PPSV23) Pneumovax (PPSV23) 2019-12-02 15:22:00 Completed [facility] Pneumovax (PPSV23) Pneumovax (PPSV23) 2019-12-02 15:22:00 Completed [facility] Pneumovax (PPSV23) Pneumovax (PPSV23) 2019-12-02 15:22:00 Completed [facility] Pneumovax (PPSV23) Pneumovax (PPSV23) 2019-12-02 15:22:00 Completed [facility] Pneumovax (PPSV23) Pneumovax (PPSV23) 2019-12-02 15:22:00 Completed [facility] Pneumovax (PPSV23) Pneumovax (PPSV23) 2019-12-02 15:22:00 Completed [facility] Pneumovax (PPSV23) Pneumovax (PPSV23) 2019-12-02 15:22:00 Completed [facility] Pneumovax (PPSV23) Pneumovax (PPSV23) 2019-12-02 15:22:00 Completed [facility] Pneumovax (PPSV23) Pneumovax (PPSV23) 2019-12-02 15:22:00 Completed [facility] Pneumovax (PPSV23) Pneumovax (PPSV23) 2019-12-02 15:22:00 Completed [facility] Pneumovax (PPSV23) Pneumovax (PPSV23) 2019-12-02 15:22:00 Completed [facility] Pneumovax (PPSV23) Pneumovax (PPSV23) 2019-12-02 15:22:00 Completed [facility] Pneumovax (PPSV23) Pneumovax (PPSV23) 2019-12-02 15:22:00 Completed [facility] Pneumovax (PPSV23) Pneumovax (PPSV23) 2019-12-02 15:22:00 Completed [facility] Pneumovax (PPSV23) Pneumovax (PPSV23) 2019-12-02 15:22:00 Completed [facility] Pneumovax (PPSV23) Pneumovax (PPSV23) 2019-12-02 15:22:00 Completed [facility] Pneumovax (PPSV23) Pneumovax (PPSV23) 2019-12-02 15:22:00 Completed [facility] Pneumovax (PPSV23) Pneumovax (PPSV23) 2019-12-02 15:22:00 Completed [facility] Pneumovax (PPSV23) Pneumovax (PPSV23) 2019-12-02 15:22:00 Completed [facility] Pneumovax (PPSV23) Pneumovax (PPSV23) 2019-12-02 15:22:00 Completed [facility] Pneumovax (PPSV23) Pneumovax (PPSV23) 2019-12-02 15:22:00 Completed [facility] FluAD FluAD 2019-11-26 15:21:00 Completed [facility] FluAD FluAD 2019-11-26 15:21:00 Completed [facility] FluAD FluAD 2019-11-26 15:21:00 Completed [facility] FluAD FluAD 2019-11-26 15:21:00 Completed [facility] FluAD FluAD 2019-11-26 15:21:00 Completed [facility] FluAD FluAD 2019-11-26 15:21:00 Completed [facility] FluAD FluAD 2019-11-26 15:21:00 Completed [facility] FluAD FluAD 2019-11-26 15:21:00 Completed [facility] FluAD FluAD 2019-11-26 15:21:00 Completed [facility] FluAD FluAD 2019-11-26 15:21:00 Completed [facility] FluAD FluAD 2019-11-26 15:21:00 Completed [facility] FluAD FluAD 2019-11-26 15:21:00 Completed [facility] FluAD FluAD 2019-11-26 15:21:00 Completed [facility] FluAD FluAD 2019-11-26 15:21:00 Completed [facility] FluAD FluAD 2019-11-26 15:21:00 Completed [facility] FluAD FluAD 2019-11-26 15:21:00 Completed [facility] FluAD FluAD 2019-11-26 15:21:00 Completed [facility] FluAD FluAD 2019-11-26 15:21:00 Completed [facility] FluAD FluAD 2019-11-26 15:21:00 Completed [facility] FluAD FluAD 2019-11-26 15:21:00 Completed [facility] FluAD FluAD 2019-11-26 15:21:00 Completed [facility] FluAD FluAD 2019-11-26 15:21:00 Completed [facility] FluAD FluAD 2019-11-26 15:21:00 Completed [facility] FluAD FluAD 2019-11-26 15:21:00 Completed [facility] FluAD FluAD 2019-11-26 15:21:00 Completed [facility] FluAD FluAD 2019-11-26 15:21:00 Completed [facility] FluAD FluAD 2019-11-26 15:21:00 Completed [facility] FluAD FluAD 2019-11-26 15:21:00 Completed [facility] FluAD FluAD 2019-11-26 15:21:00 Completed [facility] FluAD FluAD 2019-11-26 15:21:00 Completed [facility] Shingrix Shingrix Unknown Completed [facility] Pneumovax (PPSV23) Pneumovax (PPSV23) Unknown Completed [facility] FluAD FluAD Unknown Completed [facility] FluAD FluAD Unknown Completed [facility] Shingrix Shingrix Unknown Completed [facility] Pneumovax (PPSV23) Pneumovax (PPSV23) Unknown Completed [facility] FluAD FluAD Unknown Completed [facility] FluAD FluAD Unknown Completed [facility] Shingrix Unknown Completed [facility] Pneumovax (PPSV23) Pneumovax (PPSV23) Unknown Completed [facility] FluAD FluAD Unknown Completed [facility] FluAD FluAD Unknown Completed [facility] Shingrix Unknown Completed [facility] Pneumovax (PPSV23) Pneumovax (PPSV23) Unknown Completed [facility] FluAD FluAD Unknown Completed [facility] FluAD FluAD Unknown Completed [facility] Shingrix Unknown Completed [facility] Pneumovax (PPSV23) Pneumovax (PPSV23) Unknown Completed [facility] FluAD FluAD Unknown Completed [facility] FluAD FluAD Unknown Completed [facility] Shingrix Unknown Completed [facility] Pneumovax (PPSV23) Pneumovax (PPSV23) Unknown Completed [facility] FluAD FluAD Unknown Completed [facility] FluAD FluAD Unknown Completed [facility] Shingrix Unknown Completed [facility] Pneumovax (PPSV23) Pneumovax (PPSV23) Unknown Completed [facility] FluAD FluAD Unknown Completed [facility] FluAD FluAD Unknown Completed [facility] Shingrix Unknown Completed [facility] Pneumovax (PPSV23) Pneumovax (PPSV23) Unknown Completed [facility] FluAD FluAD Unknown Completed [facility] FluAD FluAD Unknown Completed [facility] Shingrix Unknown Completed [facility] Pneumovax (PPSV23) Pneumovax (PPSV23) Unknown Completed [facility] FluAD FluAD Unknown Completed [facility] FluAD FluAD Unknown Completed [facility] Shingrix Unknown Completed [facility] Pneumovax (PPSV23) Pneumovax (PPSV23) Unknown Completed [facility] FluAD FluAD Unknown Completed [facility] FluAD FluAD Unknown Completed [facility] Shingrix Unknown Completed [facility] Pneumovax (PPSV23) Pneumovax (PPSV23) Unknown Completed [facility] FluAD FluAD Unknown Completed [facility] FluAD FluAD Unknown Completed [facility] Shingrix Unknown Completed [facility] Pneumovax (PPSV23) Pneumovax (PPSV23) Unknown Completed [facility] FluAD FluAD Unknown Completed [facility] FluAD FluAD Unknown Completed [facility] Shingrix Unknown Completed [facility] Pneumovax (PPSV23) Pneumovax (PPSV23) Unknown Completed [facility] FluAD FluAD Unknown Completed [facility] FluAD FluAD Unknown Completed [facility] Shingrix Unknown Completed [facility] Pneumovax (PPSV23) Pneumovax (PPSV23) Unknown Completed [facility] FluAD FluAD Unknown Completed [facility] FluAD FluAD Unknown Completed [facility] Shingrix Unknown Completed [facility] Pneumovax (PPSV23) Pneumovax (PPSV23) Unknown Completed [facility] FluAD FluAD Unknown Completed [facility] FluAD FluAD Unknown Completed [facility] Sh[facility] Unknown Completed [facility] Pneumovax (PPSV23) Pneumovax (PPSV23) Unknown Completed [facility] FluAD FluAD Unknown Completed [facility] FluAD FluAD Unknown Completed [facility] Sh[facility] Unknown Completed [facility] Pneumovax (PPSV23) Pneumovax (PPSV23) Unknown Completed [facility] FluAD FluAD Unknown Completed [facility] FluAD FluAD Unknown Completed [facility] Shingrix Unknown Completed [facility] Pneumovax (PPSV23) Pneumovax (PPSV23) Unknown Completed [facility] FluAD FluAD Unknown Completed [facility] FluAD FluAD Unknown Completed [facility] Shingrix Unknown Completed [facility] Pneumovax (PPSV23) Pneumovax (PPSV23) Unknown Completed [facility] FluAD FluAD Unknown Completed [facility] FluAD FluAD Unknown Completed [facility] Shingrix Unknown Completed [facility] Pneumovax (PPSV23) Pneumovax (PPSV23) Unknown Completed [facility] FluAD FluAD Unknown Completed [facility] FluAD FluAD Unknown Completed [facility] Shingrix Unknown Completed [facility] Pneumovax (PPSV23) Pneumovax (PPSV23) Unknown Completed [facility] FluAD FluAD Unknown Completed [facility] FluAD FluAD Unknown Completed [facility] Shingrix Unknown Completed [facility] Pneumovax (PPSV23) Pneumovax (PPSV23) Unknown Completed [facility] FluAD FluAD Unknown Completed [facility] FluAD FluAD Unknown Completed [facility] Shingrix Unknown Completed [facility] Pneumovax (PPSV23) Pneumovax (PPSV23) Unknown Completed [facility] FluAD FluAD Unknown Completed [facility] FluAD FluAD Unknown Completed [facility] Shingrix Unknown Completed [facility] Pneumovax (PPSV23) Pneumovax (PPSV23) Unknown Completed [facility] FluAD FluAD Unknown Completed [facility] FluAD FluAD Unknown Completed [facility] Shingrix Unknown Completed [facility] Pneumovax (PPSV23) Pneumovax (PPSV23) Unknown Completed [facility] FluAD FluAD Unknown Completed [facility] FluAD FluAD Unknown Completed [facility] Shingrix Unknown Completed [facility] Pneumovax (PPSV23) Pneumovax (PPSV23) Unknown Completed [facility] FluAD FluAD Unknown Completed [facility] FluAD FluAD Unknown Completed [facility] Shingrix Unknown Completed [facility] Pneumovax (PPSV23) Pneumovax (PPSV23) Unknown Completed [facility] FluAD FluAD Unknown Completed [facility] FluAD FluAD Unknown Completed [facility] Shingrix Unknown Completed [facility] Pneumovax (PPSV23) Pneumovax (PPSV23) Unknown Completed [facility] FluAD FluAD Unknown Completed [facility] FluAD FluAD Unknown Completed [facility] Shingrix Unknown Completed [facility] Pneumovax (PPSV23) Pneumovax (PPSV23) Unknown Completed [facility] FluAD FluAD Unknown Completed [facility] FluAD FluAD Unknown Completed [facility] Shingrix Unknown Completed [facility] Pneumovax (PPSV23) Pneumovax (PPSV23) Unknown Completed [facility] FluAD FluAD Unknown Completed [facility] FluAD FluAD Unknown Completed [facility] Shingrix Unknown Completed [facility] Pneumovax (PPSV23) Pneumovax (PPSV23) Unknown Completed [facility] FluAD FluAD Unknown Completed [facility] FluAD FluAD Unknown Completed [facility] Shingrix Unknown Completed [facility] Pneumovax (PPSV23) Pneumovax (PPSV23) Unknown Completed [facility] FluAD FluAD Unknown Completed [facility] FluAD FluAD Unknown Completed [facility] Shingrix Unknown Completed [facility] Pneumovax (PPSV23) Pneumovax (PPSV23) Unknown Completed [facility] FluAD FluAD Unknown Completed [facility] FluAD FluAD Unknown Completed [facility] Shingrix Unknown Completed [facility] Pneumovax (PPSV23) Pneumovax (PPSV23) Unknown Completed [facility] FluAD FluAD Unknown Completed [facility] FluAD FluAD Unknown Completed [facility] Shingrix Unknown Completed [facility] Pneumovax (PPSV23) Pneumovax (PPSV23) Unknown Completed [facility] FluAD FluAD Unknown Completed [facility] FluAD FluAD Unknown Completed [facility] Shingrix Unknown Completed [facility] Pneumovax (PPSV23) Pneumovax (PPSV23) Unknown Completed [facility] FluAD FluAD Unknown Completed [facility] FluAD FluAD Unknown Completed [facility] Shingrix Unknown Completed [facility] Pneumovax (PPSV23) Pneumovax (PPSV23) Unknown Completed [facility] FluAD FluAD Unknown Completed [facility] FluAD FluAD Unknown Completed [facility] Shingrix Shingrix Unknown Completed [facility] Pneumovax (PPSV23) Pneumovax (PPSV23) Unknown Completed [facility] FluAD FluAD Unknown Completed [facility] FluAD FluAD Unknown Completed [facility] Vital Signs Vital Name Observation Time Observation Value Comments S lazaroce height 2023-03-15 10:30:00 60 [in_i] Commo n [facility] weight 2023-03-15 10:30:00 141.4 [lb_av] Co [facility] temperature 2023-03-15 10:30:00 97.3 [degF] Com [facility] bmi 2023-03-15 10:30:00 27.61 kg/m2 Comm on [facility] oximetry 2023-03-15 10:30:00 97 % Commo n [facility] blood pressure systolic 2023-03-15 10:30:00 122 mm[Hg] [facility] blood pressure diastolic 2023-03-15 10:30:00 66 mm[Hg] [facility] height 2023-01-10 15:00:00 60 [in_i] Commo n [facility] weight 2023-01-10 15:00:00 142.0 [lb_av] Co [facility] temperature 2023-01-10 15:00:00 97.3 [degF] Com [facility] bmi 2023-01-10 15:00:00 27.73 kg/m2 Comm on [facility] oximetry 2023-01-10 15:00:00 97 % Commo n [facility] respiratory rate 2023-01-10 15:00:00 18 /min [facility] blood pressure systolic 2023-01-10 15:00:00 124 mm[Hg] [facility] blood pressure diastolic 2023-01-10 15:00:00 76 mm[Hg] [facility] height 2022-12-07 09:15:00 60 [in_i] Commo n [facility] weight 2022-12-07 09:15:00 145 [lb_av] Comm on [facility] temperature 2022-12-07 09:15:00 97.7 [degF] Com [facility] bmi 2022-12-07 09:15:00 28.32 kg/m2 Comm on [facility] blood pressure systolic 2022-12-07 09:15:00 112 mm[Hg] [facility] blood pressure diastolic 2022-12-07 09:15:00 72 mm[Hg] [facility] height 2022-12-06 15:20:00 60 [in_i] Commo n [facility] weight 2022-12-06 15:20:00 145.0 [lb_av] Co mmon [facility] temperature 2022-12-06 15:20:00 97.6 [degF] Com [facility] bmi 2022-12-06 15:20:00 28.32 kg/m2 Comm on [facility] oximetry 2022-12-06 15:20:00 98 % Commo n [facility] respiratory rate 2022-12-06 15:20:00 18 /min [facility] blood pressure systolic 2022-12-06 15:20:00 130 mm[Hg] [facility] blood pressure diastolic 2022-12-06 15:20:00 67 mm[Hg] Common [facility] height 2022-11-23 14:00:00 60 [in_i] Commo n [facility] weight 2022-11-23 14:00:00 143.6 [lb_av] Co mmon [facility] temperature 2022-11-23 14:00:00 97.7 [degF] Com mon [facility] bmi 2022-11-23 14:00:00 28.04 kg/m2 Comm on [facility] oximetry 2022-11-23 14:00:00 97 % Commo n [facility] respiratory rate 2022-11-23 14:00:00 18 /min [facility] blood pressure systolic 2022-11-23 14:00:00 128 mm[Hg] [facility] blood pressure diastolic 2022-11-23 14:00:00 69 mm[Hg] [facility] height 2022-11-17 13:40:00 60 [in_i] Commo n [facility] weight 2022-11-17 13:40:00 142.4 [lb_av] Co mmon [facility] temperature 2022-11-17 13:40:00 97.2 [degF] Com [facility] bmi 2022-11-17 13:40:00 27.81 kg/m2 Comm on [facility] oximetry 2022-11-17 13:40:00 96 % Commo n [facility] respiratory rate 2022-11-17 13:40:00 17 /min [facility] blood pressure systolic 2022-11-17 13:40:00 108 mm[Hg] [facility] blood pressure diastolic 2022-11-17 13:40:00 66 mm[Hg] [facility] height 2022-11-07 16:10:00 60 [in_i] Commo n [facility] weight 2022-11-07 16:10:00 145.6 [lb_av] Co mmon [facility] temperature 2022-11-07 16:10:00 97.5 [degF] Com [facility] bmi 2022-11-07 16:10:00 28.43 kg/m2 Comm on [facility] oximetry 2022-11-07 16:10:00 95 % Commo n [facility] respiratory rate 2022-11-07 16:10:00 18 /min [facility] blood pressure systolic 2022-11-07 16:10:00 139 mm[Hg] [facility] blood pressure diastolic 2022-11-07 16:10:00 77 mm[Hg] [facility] height 2022-11-07 16:10:00 60 [in_i] Commo n [facility] weight 2022-11-07 16:10:00 145.6 [lb_av] Co [facility] temperature 2022-11-07 16:10:00 97.5 [degF] Com [facility] bmi 2022-11-07 16:10:00 28.43 kg/m2 Comm on [facility] oximetry 2022-11-07 16:10:00 95 % Commo n [facility] respiratory rate 2022-11-07 16:10:00 18 /min [facility] blood pressure systolic 2022-11-07 16:10:00 139 mm[Hg] [facility] blood pressure diastolic 2022-11-07 16:10:00 77 mm[Hg] Common [facility] height 2022-10-17 14:20:00 60 [in_i] Commo n [facility] weight 2022-10-17 14:20:00 147.0 [lb_av] Co [facility] temperature 2022-10-17 14:20:00 97.2 [degF] Com [facility] bmi 2022-10-17 14:20:00 28.71 kg/m2 Comm on [facility] oximetry 2022-10-17 14:20:00 97 % Commo n [facility] respiratory rate 2022-10-17 14:20:00 16 /min Common [facility] blood pressure systolic 2022-10-17 14:20:00 117 mm[Hg] [facility] blood pressure diastolic 2022-10-17 14:20:00 73 mm[Hg] [facility] height 2022-05-24 14:40:00 60 [in_i] Commo n [facility] weight 2022-05-24 14:40:00 152.0 [lb_av] Co mmon [facility] temperature 2022-05-24 14:40:00 97.2 [degF] Com [facility] bmi 2022-05-24 14:40:00 29.68 kg/m2 Comm on [facility] oximetry 2022-05-24 14:40:00 97 % Commo n [facility] respiratory rate 2022-05-24 14:40:00 17 /min [facility] blood pressure systolic 2022-05-24 14:40:00 134 mm[Hg] [facility] blood pressure diastolic 2022-05-24 14:40:00 72 mm[Hg] [facility] height 2022-04-20 11:30:00 60 [in_i] Commo n [facility] weight 2022-04-20 11:30:00 151.6 [lb_av] Co mmon [facility] temperature 2022-04-20 11:30:00 97.6 [degF] Com mon [facility] bmi 2022-04-20 11:30:00 29.6 kg/m2 Commo n [facility] oximetry 2022-04-20 11:30:00 98 % Commo n [facility] respiratory rate 2022-04-20 11:30:00 17 /min [facility] blood pressure systolic 2022-04-20 11:30:00 130 mm[Hg] [facility] blood pressure diastolic 2022-04-20 11:30:00 83 mm[Hg] [facility] height 2022-03-10 11:20:00 60 [in_i] Commo n [facility] weight 2022-03-10 11:20:00 150 [lb_av] Comm on [facility] bmi 2022-03-10 11:20:00 29.29 kg/m2 Comm on [facility] height 2022-02-23 10:40:00 60 [in_i] Commo n [facility] weight 2022-02-23 10:40:00 150.1 [lb_av] Co mmon [facility] temperature 2022-02-23 10:40:00 97.0 [degF] Com [facility] bmi 2022-02-23 10:40:00 29.31 kg/m2 Comm on [facility] oximetry 2022-02-23 10:40:00 98 % Commo n [facility] respiratory rate 2022-02-23 10:40:00 18 /min Common [facility] blood pressure systolic 2022-02-23 10:40:00 124 mm[Hg] [facility] blood pressure diastolic 2022-02-23 10:40:00 69 mm[Hg] [facility] height 2022-02-07 13:30:00 60 [in_i] Commo n [facility] weight 2022-02-07 13:30:00 153 [lb_av] Comm on [facility] temperature 2022-02-07 13:30:00 97.2 [degF] Com [facility] bmi 2022-02-07 13:30:00 29.88 kg/m2 Comm on [facility] blood pressure systolic 2022-02-07 13:30:00 129 mm[Hg] [facility] blood pressure diastolic 2022-02-07 13:30:00 76 mm[Hg] Common [facility] height 2021-11-22 10:30:00 60 [in_i] Commo n [facility] weight 2021-11-22 10:30:00 162 [lb_av] Comm on [facility] temperature 2021-11-22 10:30:00 97.9 [degF] Com [facility] bmi 2021-11-22 10:30:00 31.64 kg/m2 Comm on [facility] [facility] oximetry 2021-11-22 10:30:00 94 % Commo n [facility] respiratory rate 2021-11-22 10:30:00 16 /min [facility] blood pressure systolic 2021-11-22 10:30:00 138 mm[Hg] Common [facility] blood pressure diastolic 2021-11-22 10:30:00 86 mm[Hg] Common [facility] height 2021-09-06 08:00:00 60 [in_i] Commo n [facility] weight 2021-09-06 08:00:00 159.4 [lb_av] Co [facility] temperature 2021-09-06 08:00:00 98.0 [degF] Com [facility] bmi 2021-09-06 08:00:00 31.13 kg/m2 Comm on [facility] blood pressure systolic 2021-09-06 08:00:00 134 mm[Hg] [facility] blood pressure diastolic 2021-09-06 08:00:00 86 mm[Hg] Common [facility] height 2021-08-17 08:10:00 60 [in_i] Commo n [facility] weight 2021-08-17 08:10:00 159.0 [lb_av] Co on [facility] temperature 2021-08-17 08:10:00 97.8 [degF] Com mon [facility] bmi 2021-08-17 08:10:00 31.05 kg/m2 Comm on [facility] oximetry 2021-08-17 08:10:00 96 % Commo n [facility] respiratory rate 2021-08-17 08:10:00 17 /min Common [facility] blood pressure systolic 2021-08-17 08:10:00 132 mm[Hg] Common [facility] blood pressure diastolic 2021-08-17 08:10:00 76 mm[Hg] [facility] height 2021-07-19 13:30:00 60 [in_i] Commo n [facility] weight 2021-07-19 13:30:00 158.6 [lb_av] Co mmon [facility] temperature 2021-07-19 13:30:00 98.3 [degF] Com mon [facility] bmi 2021-07-19 13:30:00 30.97 kg/m2 Comm on [facility] blood pressure systolic 2021-07-19 13:30:00 134 mm[Hg] Common [facility] blood pressure diastolic 2021-07-19 13:30:00 80 mm[Hg] [facility] height 2021-05-19 13:30:00 60 [in_i] Commo n [facility] weight 2021-05-19 13:30:00 155 [lb_av] Comm on [facility] bmi 2021-05-19 13:30:00 30.27 kg/m2 Comm on [facility] blood pressure systolic 2021-05-19 13:30:00 128 mm[Hg] [facility] blood pressure diastolic 2021-05-19 13:30:00 78 mm[Hg] Common [facility] height 2021-04-11 14:20:00 60 [in_i] Commo n [facility] weight 2021-04-11 14:20:00 154.2 [lb_av] Co mmon [facility] temperature 2021-04-11 14:20:00 98.0 [degF] Com [facility] bmi 2021-04-11 14:20:00 30.11 kg/m2 Comm on [facility] oximetry 2021-04-11 14:20:00 96 % Commo n [facility] respiratory rate 2021-04-11 14:20:00 18 /min Common [facility] blood pressure systolic 2021-04-11 14:20:00 119 mm[Hg] [facility] blood pressure diastolic 2021-04-11 14:20:00 79 mm[Hg] Common [facility] height 2021-04-11 15:00:00 60 [in_i] Commo n [facility] weight 2021-04-11 15:00:00 154.2 [lb_av] Co [facility] temperature 2021-04-11 15:00:00 98.0 [degF] Com [facility] bmi 2021-04-11 15:00:00 30.11 kg/m2 Comm on [facility] oximetry 2021-04-11 15:00:00 96 % Commo n [facility] respiratory rate 2021-04-11 15:00:00 18 /min Common [facility] blood pressure systolic 2021-04-11 15:00:00 119 mm[Hg] Common [facility] blood pressure diastolic 2021-04-11 15:00:00 79 mm[Hg] Common [facility] height 2021-01-27 08:40:00 60 [in_i] Commo n [facility] weight 2021-01-27 08:40:00 153.0 [lb_av] Co [facility] bmi 2021-01-27 08:40:00 29.88 kg/m2 Comm on [facility] height 2021-01-06 14:50:00 60 [in_i] Commo n [facility] weight 2021-01-06 14:50:00 153.0 [lb_av] Co mmon [facility] temperature 2021-01-06 14:50:00 97.0 [degF] Com mon [facility] bmi 2021-01-06 14:50:00 29.88 kg/m2 Comm on [facility] oximetry 2021-01-06 14:50:00 96 % Commo n [facility] respiratory rate 2021-01-06 14:50:00 20 /min [facility] blood pressure systolic 2021-01-06 14:50:00 132 mm[Hg] [facility] blood pressure diastolic 2021-01-06 14:50:00 76 mm[Hg] [facility] Encounters Start Date/Time End Date/Time Encounter Type Admission Type Attending Clinicians Care Facility Care Department Encounter ID Source 2023-04-18 11:38:01 Outpatient Ha, [facility] [id number] [facility] 2023-04-16 14:31:00 Outpatient Ha, [facility] [id number] [facility] 2023-01-10 14:59:00 [facility] [id number] [facility] 2023-01-09 15:39:00 [facility] [id number] [facility] 2023-01-08 15:56:00 [facility] [id number] [facility] 2022-12-07 10:59:00 [facility] [id number] [facility] 2022-11-22 16:39:00 Outpatient Ha, Tim STLMLC STLMLC [id number] [facility] 2022-11-16 10:44:00 Outpatient Ha, Tim STLC STLMLC [id number] [facility] 2022-11-07 15:44:00 Outpatient Ha, Tim STLC STLMLC [id number] [facility] 2022-10-16 13:50:00 Outpatient Ha, Tim STLMLC STLMLC [id number] [facility] 2022-05-24 08:01:01 Outpatient Ha, Tim STLC STLMLC [id number] [facility] 2022-03-09 15:46:00 Outpatient Ha, Tim STLC STLC [id number] [facility] 2022-03-03 12:41:00 Outpatient Ha, Tim STLC STLMLC [id number] [facility] 2022-02-22 08:32:01 Outpatient Ha, Tim STLC STLMLC [id number] [facility] 2021-09-07 07:36:00 Outpatient Ha, Tim STLC STL[facility]C [id number] [facility] 2021-08-29 11:21:01 Outpatient Ha, Tim STLC STLMLC [id number] [facility] 2021-04-20 14:35:25 Outpatient Ha, Tim STLMLC STLMLC [id number] [facility] 2021-04-20 14:32:00 Outpatient Ha, Tim STLMLC STLMLC [id number] [facility] 2021-04-20 14:10:51 Outpatient Ha, Tim STLMLC STLMLC [id number] [facility] 2021-04-20 14:01:01 Outpatient Ha, Tim STLMLC STLMLC [id number] [facility] 2021-04-20 14:00:51 Outpatient Ha, Tim STLC STLMLC [id number] [facility] 2021-04-20 13:39:28 Outpatient Ha, Tim STLC STLMLC [id number] [facility] 2021-04-20 13:32:21 Outpatient Ha, Tim STLC STLMLC [id number] [facility] 2021-04-20 13:24:06 Outpatient Ha, Tim STLC STLC [id number] [facility] 2021-04-20 13:21:10 Outpatient Ha, Tim STLC STLC [id number] [facility] 2021-04-20 12:38:25 Outpatient Ha, Tim STLC STLMLC [id number] [facility] 2021-04-20 12:37:39 Outpatient Ha, Tim STLC STLMLC [id number] [facility] 2021-04-20 12:34:27 Outpatient Ha, Tim STLC STLMLC [id number] [facility] 2021-04-20 12:27:35 Outpatient Ha, Tim STLC STLMLC [id number] [facility] 2021-04-20 11:58:08 Outpatient Ha, Tim STLMLC STLMLC [id number] [facility] 2021-04-20 11:57:35 Outpatient Ha, Tim STLMLC STLMLC [id number] [facility] 2021-04-20 11:49:28 Outpatient Ha, Tim STLMLC STLMLC [id number] [facility] 2021-04-20 11:49:07 Outpatient Tim Ha STLMLC STLMLC [id number] [facility] 2021-04-20 11:48:59 Outpatient Tim Ha STLMLC STLMLC [id number] [facility] 2023-04-19 00:00:00 2023-04-19 00:00:00 (TEL) STLMLC STLMLC [id number] [facility] 2023-03-15 00:00:00 2023-03-15 00:00:00 OFFICE VISIT ESTAB PT LEVEL 4 STLMLC STLMLC [id number] [facility] 2023-02-21 17:00:00 2023-02-21 18:30:00 DMG CHF Initial [place] Tai [id number]. [id number]23-[facility]-14 00:00:00 2023-02-14 00:00:00 (TEL) STLMLC STLMLC [id number] [facility] 2023-02-05 11:32:00 2023-02-06 14:30:00 Inpatient JASON Mo Doe [facility]02 [id number] 36 [facility] 2023-02-02 00:00:00 2023-02-02 00:00:00 (TEL) STLMLC STLMLC [id number] [facility] 2023-01-25 16:30:00 2023-01-25 17:00:00 Care Мария Allen [id number]. [id number] 2023-01-25 00:00:00 2023-01-25 00:00:00 (TEL) STLMLC STLMLC [id number] [facility] 2023-01-18 00:00:00 2023-01-18 00:00:00 Outpatient GC_GCBZW_Ka diyala_S [facility] [id number] [facility] 2023-01-16 00:00:00 2023-01-16 00:00:00 (TEL) STLMLC STLMLC [id number] [facility] 2023-01-16 00:00:00 2023-01-16 00:00:00 (TEL) STLMLC STLMLC [id number] [facility] 2023-01-15 00:00:00 2023-01-15 00:00:00 (TEL) STLMLC STLMLC [id number] [facility] 2023-01-10 00:00:00 2023-01-10 00:00:00 OFFICE VISIT ESTAB PT LEVEL 4 STLMLC STLMLC [id number] [facility] 2023-01-04 00:00:00 2023-01-04 00:00:00 (TEL) STLMLC STLMLC [id number] [facility] 2022-12-29 00:00:00 2022-12-29 00:00:00 (TEL) STLMLC STLMLC [id number] [facility] 2022-12-20 00:00:00 2022-12-20 00:00:00 (TEL) STLMLC STLMLC [id number] [facility] 2022-12-07 00:00:00 2022-12-07 00:00:00 OFFICE VISIT ESTAB PT LEVEL 4 STLMLC STLMLC [id number] [facility] 2022-12-06 00:00:00 2022-12-06 00:00:00 OFFICE VISIT ESTAB PT LEVEL 4 STLMLC STLMLC [id number] [facility] 2022-11-30 00:00:00 2022-11-30 00:00:00 (TEL) STLMLC STLMLC [id number] [facility] 2022-11-23 00:00:00 2022-11-23 00:00:00 OFFICE VISIT ESTAB PT LEVEL 2 STLMLC STLMLC [id number] [facility] 2022-11-23 00:00:00 2022-11-23 00:00:00 (TEL) STLMLC STLMLC [id number] [facility] 2022-11-22 00:00:00 2022-11-22 00:00:00 (TEL) STLMLC STLMLC [id number] [facility] 2022-11-20 00:00:00 2022-11-20 00:00:00 (TEL) STLMLC STLMLC [id number] [facility] 2022-11-20 00:00:00 2022-11-20 00:00:00 (TEL) STLMLC STLMLC [id number] [facility] 2022-11-17 00:00:00 2022-11-17 00:00:00 OFFICE VISIT ESTAB PT LEVEL 3 STLMLC STLMLC [id number] [facility] 2022-11-16 00:00:00 2022-11-16 00:00:00 (TEL) STLMLC STLMLC [id number] [facility] 2022-11-07 00:00:00 2022-11-07 00:00:00 OFFICE VISIT ESTAB PT LEVEL 4 STLMLC STLMLC [id number] [facility] 2022-11-07 00:00:00 2022-11-07 00:00:00 SUB ANNUAL [facility] VISIT STLMLC STLMLC [id number] [facility] 2022-11-07 00:00:00 2022-11-07 00:00:00 (TEL) STLMLC STLMLC [id number] [facility] 2022-11-07 00:00:00 2022-11-07 00:00:00 (TEL) STLMLC STLMLC [id number] [facility] 2022-10-27 00:00:00 2022-10-27 00:00:00 (TEL) STLMLC STLMLC [id number] [facility] 2022-10-17 00:00:00 2022-10-17 00:00:00 OFFICE VISIT ESTAB PT LEVEL 3 STLMLC STLMLC [id number] [facility] 2022-10-17 00:00:00 2022-10-17 00:00:00 (TEL) STLMLC STLMLC [id number] [facility] 2022-10-16 00:00:00 2022-10-16 00:00:00 (TEL) STLMLC STLMLC [id number] [facility] 2022-09-25 00:00:00 2022-09-25 00:00:00 (TEL) STLMLC STLMLC [id number] [facility] 2022-09-06 00:00:00 2022-09-06 00:00:00 (TEL) STLMLC STLMLC [id number] [facility] 2022-08-09 00:00:00 2022-08-09 00:00:00 (TEL) STLMLC STLMLC [id number] [facility] 2022-06-07 00:00:00 2022-06-07 00:00:00 (TEL) STLMLC STLMLC [id number] [facility] 2022-05-31 14:30:00 2022-05-31 16:00:00 DONG Yin [id number]. [id number] CY9 [facility] 2022-05-25 00:00:00 2022-05-25 00:00:00 (TEL) STLMLC STLMLC [id number] [facility] 2022-05-24 00:00:00 2022-05-24 00:00:00 OFFICE VISIT ESTAB PT LEVEL 4 STLMLC STLMLC [id number] [facility] 2022-05-22 00:00:00 2022-05-22 00:00:00 (TEL) STLMLC STLMLC [id number] [facility] 2022-05-19 00:00:00 2022-05-19 00:00:00 (TEL) STLMLC STLMLC [id number] [facility] 2022-04-20 00:00:00 2022-04-20 00:00:00 (TEL) STLMLC STLMLC [id number] [facility] 2022-04-20 00:00:00 2022-04-20 00:00:00 OFFICE VISIT EST PT LEVEL 3 STLMLC STLMLC [id number] [facility] 2022-03-28 00:00:00 2022-03-28 00:00:00 (TEL) STLMLC STLMLC [id number] [facility] 2022-03-10 00:00:00 2022-03-10 00:00:00 OFFICE VISIT EST PT LEVEL 3 STLMLC STLMLC [id number] [facility] 2022-03-09 00:00:00 2022-03-09 00:00:00 (TEL) STLMLC STLMLC [id number] [facility] 2022-03-01 00:00:00 2022-03-01 00:00:00 (TEL) STLMLC STLMLC [id number] [facility] 2022-02-23 00:00:00 2022-02-23 00:00:00 OFFICE VISIT ESTAB PT LEVEL 4 STLMLC STLMLC [id number] [facility] 2022-02-09 20:00:00 2022-02-09 20:30:00 CAV Revisit: Gap Closure & Clinical Check-in Quirino Ophelia [id number]. [id number]. [id number] J98 [facility] 2022-02-07 00:00:00 2022-02-07 00:00:00 OFFICE VISIT ESTAB PT LEVEL 4 STLMLC STLMLC [id number] [facility] 2022-02-01 00:00:00 2022-02-01 00:00:00 Outpatient Nodal_J DMG DMG [id number] [facility] 2022-02-01 00:00:00 2022-02-01 00:00:00 Outpatient Nodal_J DMG DMG [id number] [facility] 2021-11-22 00:00:00 2021-11-22 00:00:00 OFFICE VISIT ESTAB PT LEVEL 4 STLMLC STLMLC [id number] [facility] 2021-11-04 00:00:00 2021-11-04 00:00:00 Outpatient Nodal_J DMG DMG [id number] [facility] 2021-10-24 19:00:00 2021-10-24 20:00:00 CAV Quirino Ophelia [id number]. [id number]. [id number] SJF [facility] 2021-10-17 00:00:00 2021-10-17 00:00:00 (TEL) STLMLC STLMLC [id number] [facility] 2021-10-10 02:47:00 2021-10-10 02:47:00 Outpatient Nodal_J DMG DMG [id number] [facility] 2021-10-07 06:09:00 2021-10-07 06:09:00 Outpatient DMG DMG [id number] [facility] 2021-09-08 00:00:00 2021-09-08 00:00:00 (TEL) STLMLC STLMLC [id number] [facility] 2021-09-06 00:00:00 2021-09-06 00:00:00 (TEL) STLMLC STLMLC [id number] [facility] 2021-09-06 00:00:00 2021-09-06 00:00:00 OFFICE VISIT ESTAB PT LEVEL 4 STLMLC STLMLC [id number] [facility] 2021-08-18 00:00:00 2021-08-18 00:00:00 (TEL) STLMLC STLMLC [id number] [facility] 2021-08-17 00:00:00 2021-08-17 00:00:00 OFFICE VISIT ESTAB PT LEVEL 4 STLMLC STLMLC [id number] [facility] 2021-07-21 00:00:00 2021-07-21 00:00:00 (TEL) STLMLC STLMLC [id number] [facility] 2021-07-19 00:00:00 2021-07-19 00:00:00 OFFICE VISIT ESTAB PT LEVEL 4 STLMLC STLMLC [id number] [facility] 2021-07-01 00:00:00 2021-07-01 00:00:00 (TEL) STLMLC STLMLC [id number] [facility] 2021-06-29 00:00:00 2021-06-29 00:00:00 (TEL) STLMLC STLMLC [id number] [facility] 2021-06-29 00:00:00 2021-06-29 00:00:00 (TEL) STLMLC STLMLC [id number] [facility] 2021-05-19 00:00:00 2021-05-19 00:00:00 OFFICE VISIT ESTAB PT LEVEL 4 STLMLC STLMLC [id number] [facility] 2021-05-17 00:00:00 2021-05-17 00:00:00 (TEL) STLMLC STLMLC [id number] [facility] 2021-05-17 00:00:00 2021-05-17 00:00:00 (TEL) STLMLC STLMLC [id number] [facility] 2021-05-11 00:00:00 2021-05-11 00:00:00 (TEL) STLMLC STLMLC [id number] [facility] 2021-04-11 00:00:00 2021-04-11 00:00:00 OFFICE VISIT ESTAB PT LEVEL 4 STLMLC STLMLC [id number] [facility] 2021-04-11 00:00:00 2021-04-11 00:00:00 SUB ANNUAL [facility] VISIT STLMLC STLMLC [id number] [facility] 2021-01-27 00:00:00 2021-01-27 00:00:00 (TELEAUD) AUDIO TELEMEDICI NE STLMLC STLMLC [id number] [facility] 2021-01-26 08:00:00 2021-01-26 08:00:00 [place] [id number] [facility] 2021-01-26 00:00:00 2021-01-26 00:00:00 (TEL) STLMLC STLMLC [id number] [facility] 2021-01-06 00:00:00 2021-01-06 00:00:00 OFFICE VISIT ESTAB PT LEVEL 4 STLMLC STLMLC [id number] [facility] 2020-12-08 00:00:00 2020-12-08 00:00:00 (TEL) STLMLC STLMLC [id number] [facility] 2020-11-09 00:00:00 2020-11-09 00:00:00 Outpatient STLMLC STLMLC [id number] [facility] 2020-10-20 00:00:00 2020-10-20 00:00:00 Outpatient STLMLC STLMLC [id number] [facility] 2020-10-01 00:00:00 2020-10-01 00:00:00 Outpatient STLMLC STLMLC [id number] [facility] 2020-09-30 00:00:00 2020-09-30 00:00:00 Outpatient STLMLC STLMLC [id number] [facility] 2020-09-24 00:00:00 2020-09-24 00:00:00 Outpatient STLMLC STLMLC [id number] [facility] 2020-09-23 00:00:00 2020-09-23 00:00:00 Outpatient STLMLC STLMLC [id number] [facility] 2020-09-22 00:00:00 2020-09-22 00:00:00 Outpatient STLMLC STLMLC [id number] [facility] 2020-08-16 00:00:00 2020-08-16 00:00:00 Outpatient STLMLC STLMLC [id number] [facility] 2020-08-02 00:00:00 2020-08-02 00:00:00 Outpatient STLMLC STLMLC [id number] [facility] 2020-06-29 00:00:00 2020-06-29 00:00:00 Outpatient STLMLC STLMLC [id number] [facility] 2020-06-15 00:00:00 2020-06-15 00:00:00 Outpatient STLMLC STLMLC [id number] [facility] 2020-06-01 00:00:00 2020-06-01 00:00:00 Outpatient STLMLC STLMLC [id number] [facility] 2020-05-31 00:00:00 2020-05-31 00:00:00 Outpatient STLMLC STLMLC [id number] [facility] 2020-05-31 00:00:00 2020-05-31 00:00:00 Outpatient STLMLC STLMLC [id number] [facility] 2020-05-21 00:00:00 2020-05-21 00:00:00 Outpatient STLMLC STLMLC [id number] [facility] 2020-05-03 00:00:00 2020-05-03 00:00:00 Outpatient STLMLC STLMLC [id number] [facility] 2020-01-29 00:00:2020-01-29 00:00:00 Outpatient STLMLC STLMLC [id number] [facility] 2020-01-15 00:00:00 2020-01-15 00:00:00 Outpatient STLMLC STLMLC [id number] [facility] 2020-01-15 00:00:00 2020-01-15 00:00:00 Outpatient STLMLC STLMLC [id number] [facility] 2019-12-18 00:00:00 2019-12-18 00:00:00 Outpatient STLC STLC [id number] [facility] 2019-12-18 00:00:00 2019-12-18 00:00:00 Outpatient STLC STLMLC [id number] [facility] Results Test Description Test Time Test Comments Results Result Co mments Source HEMOGLOBIN [id number] 00:00:00* Test Item Value Reference Range Interpretation Comme nts HEMOGLOBIN A1c (test code = 4548-4) 7.4 % See_Comment H [Automated messa ge] The system which generated this result transmitted reference range: 4.2-5.6 %. The reference range was not used to interpret this result as normal/abnormal. LIPID PANEL WITH REFLEX DIRECT [id number] 00:00:00* Test Item Value Reference Range Interpretation Comme nts CALC LDL CHOL (test code = 83554-6) 86 MG/DL See_Comment [Automated messa ge] The system which generated this result transmitted reference range: <100 MG/DL. The reference range was not used to interpret this result as normal/abnormal. CHOLESTEROL (test code = 2093-3) 151 MG/DL See_Comment [Automated messa ge] The system which generated this result transmitted reference range: <200 MG/DL. The reference range was not used to interpret this result as normal/abnormal. HDL CHOLESTEROL (test code = 2085-9) 30 MG/DL See_Comment L [Automated messa ge] The system which generated this result transmitted reference range: >39 MG/DL. The reference range was not used to interpret this result as normal/abnormal. RISK RATIO LDL/HDL (test code = 18950-6) 2.87 RATIO See_Comment [Automated message] The system which generated this result transmitted reference range: <3.22 RATIO. The reference range was not used to interpret this result as normal/abnormal. TRIGLYCERIDES (test code = 2571-8) 264 MG/DL See_Comment H [Automated messa ge] The system which generated this result transmitted reference range: <150 MG/DL. The reference range was not used to interpret this result as normal/abnormal. ALBUMIN/CREATININE RATIO, RANDOM [id number] 00:00:00* Test Item Value Reference Range Interpretation Comme nts ALBUMIN, URINE, RANDOM (test code = 80829-2) 0.6 MG/DL NOT ESTAB MG/DL CALC ALBUMIN/CREAT, RND (test code = 78828-4) 6 MG/G See_Comment [Automated SYMIC BIOMEDICALa ge] The system which generated this result transmitted reference range: <30 MG/G. The reference range was not used to interpret this result as normal/abnormal. CREATININE, URINE, CONC. (test code = 2161-8) 98.9 MG/DL NOT ESTAB MG/DL COMPREHENSIVE METABOLIC [id number] 00:00:00* Test Item Value Reference Range Interpretation Comme nts ALBUMIN (test code = 1751-7) 4.4 G/DL See_Comment [Automated [employer]] The system which generated this result transmitted reference range: 3.5-5.2 G/DL. The reference range was not used to interpret this result as normal/abnormal. ALKALINE PHOSPHATASE (test code = 6768-6) 111 U/L See_Comment [Automated message] The system which generated this result transmitted reference range: 40-142 U/L. The reference range was not used to interpret this result as normal/abnormal. BILIRUBIN, TOTAL (test code = 1975-2) 0.3 MG/DL See_Comment [Automated message] The system which generated this result transmitted reference range: <=1.2 MG/DL. The reference range was not used to interpret this result as normal/abnormal. BUN (test code = 3094-0) 16 MG/DL See_Comment [Automated SYMIC BIOM[employer]ICALa ge] The system which generated this result transmitted reference range: 8-23 MG/DL. The reference range was not used to interpret this result as normal/abnormal. CALCIUM (test code = 12399-8) 10.3 MG/DL See_Comment [Automated messa ge] The system which generated this result transmitted reference range: 8.5-10.5 MG/DL. The reference range was not used to interpret this result as normal/abnormal. CALC A/G RATIO (test code = 1759-0) 1.5 RATIO See_Comment [Automated messa ge] The system which generated this result transmitted reference range: 1.0-2.6 RATIO. The reference range was not used to interpret this result as normal/abnormal. CALC BUN/CREAT (test code = 3097-3) 19 RATIO See_Comment [Automated messa ge] The system which generated this result transmitted reference range: 6-28 RATIO. The reference range was not used to interpret this result as normal/abnormal. CALC GLOBULIN (test code = 23459-6) 2.9 G/DL See_Comment [Automated messa ge] The system which generated this result transmitted reference range: 1.9-3.7 G/DL. The reference range was not used to interpret this result as normal/abnormal. CARBON DIOXIDE (test code = 1963-8) 25 MEQ/L See_Comment [Automated messa ge] The system which generated this result transmitted reference range: 19-31 MEQ/L. The reference range was not used to interpret this result as normal/abnormal. CHLORIDE (test code = 2075-0) 100 MEQ/L See_Comment [Automated messa ge] The system which generated this result transmitted reference range: 95-107 MEQ/L. The reference range was not used to interpret this result as normal/abnormal. CREATININE (test code = 2160-0) 0.85 MG/DL See_Comment [Automated messa ge] The system which generated this result transmitted reference range: 0.60-1.30 MG/DL. The reference range was not used to interpret this result as normal/abnormal. eGFR (2020 CKD-EPI) (test code = 88927-2) 71 ML/MIN/1.73 See_Comment [Automated messa ge] The system which generated this result transmitted reference range: >60 ML/MIN/1.73. The reference range was not used to interpret this result as normal/abnormal. GLUCOSE (test code = 1558-6) 179 MG/DL See_Comment H [Automated messa ge] The system which generated this result transmitted reference range: 70-99 MG/DL. The reference range was not used to interpret this result as normal/abnormal. POTASSIUM (test code = 2823-3) 4.6 MEQ/L See_Comment [Automated messa ge] The system which generated this result transmitted reference range: 3.5-5.4 MEQ/L. The reference range was not used to interpret this result as normal/abnormal. PROTEIN, TOTAL (test code = 2885-2) 7.3 G/DL See_Comment [Automated messa ge] The system which generated this result transmitted reference range: 6.1-8.3 G/DL. The reference range was not used to interpret this result as normal/abnormal. AST (test code = 1920-8) 19 U/L See_Comment [Automated messa ge] The system which generated this result transmitted reference range: 9-40 U/L. The reference range was not used to interpret this result as normal/abnormal. ALT (test code = 1742-6) 14 U/L See_Comment [Automated messa ge] The system which generated this result transmitted reference range: 5-40 U/L. The reference range was not used to interpret this result as normal/abnormal. SODIUM (test code = 2951-2) 136 MEQ/L See_Comment [Automated messa ge] The system which generated this result transmitted reference range: 133-146 MEQ/L. The reference range was not used to interpret this result as normal/abnormal. BASIC METABOLIC [id number] 05:35:00* Test Item Value Reference Range Interpretation Comme nts SODIUM (test code = NA) 132 MMOL/L 137-145 L POTASSIUM (test code = K) 4.4 MMOL/L 3.5-5.1 N CHLORIDE (test code = CL) 103 MMOL/L 98-107 N CARBON DIOXIDE (test code = CO2) 21 MMOL/L 22-30 L ANION GAP (test code = GAP) 12 MMOL/L 14-24 L GLUCOSE (test code = GLU) 131 MG/DL 74-106 H BLOOD UREA NITROGEN (test code = BUN) 19 MG/DL 7-17 H GLOMERULAR FILTRATION RATE (test code = GFR) > 60 The Glomerular Filtration Rate is a calculated parameterbased on serum Creatinine, patient age and sex. GFR valuesless than 60 mL/min/1.73 square meters are indicative ofChronic Kidney Disease. Values less than 15 mL/min/1.73square meters indicate Kidney failure. The calculation forGFR is based on the CKD-EPI (202) calculation. This formulais race indifferent and is the recommended formula for GFRby the National Kidney Foundation for Adults.The GFR will not calculate if the sex is unknown or if thepatient's age is <18 years. CREATININE (test code = CREAT) 0.60 MG/DL 0.52-1.04 N CALCIUM (test code = CA) 8.4 MG/DL 8.4-10.2 N [id number] 05:35:00* Test Item Value Reference Range Interpretation Comme nts MAGNESIUM (test code = MAG) 1.9 MG/DL 1.6-2.3 N CBC W/AUTO [id number] 04:55:00* Test Item Value Reference Range Interpretation Comme nts WHITE BLOOD CELL (test code = WBC) 8.6 K/MM3 3.8-9.8 N RED BLOOD CELL (test code = RBC) 4.01 M/MM3 3.58-4.97 N HEMOGLOBIN (test code = HGB) 12.8 G/DL 11.2-14.9 N HEMATOCRIT (test code = HCT) 40.0 % 33.2-43.5 MEAN CELL VOLUME (test code = MCV) 100 fL 80.7-99.1 H MEAN CELL HGB (test code = MCH) 31.9 pg 27.0-34.1 N MEAN CELL HGB CONCETRATION (test code = MCHC) 32.0 % 32.2-35.7 L RED CELL DISTRIBUTION WIDTH (test code = RDW) 13.0 % 12.1-15.2 N PLATELET COUNT (test code = PLT) 125 K/MM3 129-368 L MEAN PLATELET VOLUME (test c ode = MPV) 12.3 fl 7.4-10.4 H NEUTROPHIL % (test code = NT%) 56.4 % 43-75 N IMMATURE GRANULOCYTE % (test code = IG%) 0.3 % 0.0-2.0 N LYMPHOCYTE % (test code = LY%) 32.0 % 14-44 N MONOCYTE % (test code = MO%) 8.6 % 4-13 N EOSINOPHIL % (test code = EO%) 2.1 % 0-6 N BASOPHIL % (test code = BA%) 0.6 % 0-2 N NUCLEATED RBC % (test code = NRBC%) 0.0 % 0-1.0 N NEUTROPHIL # (test code = NT#) 4.86 K/mm3 2.0-7.6 N IMMATURE GRANULOCYTE # (test code = IG#) 0.03 x10 3/uL 0-0.03 N LYMPHOCYTE # (test code = LY#) 2.76 K/mm3 1.0-3.8 N MONOCYTE # (test code = MO#) 0.74 K/mm3 0.1-0.8 N EOSINOPHIL # (test code = EO#) 0.18 K/mm3 0.0-0.2 N BASOPHIL # (test code = BA#) 0.05 K/mm3 0.0-0.2 N NUCLEATED RBC # (test code = NRBC#) 0.00 K/mm3 0.0-0.1 N - XR CHEST [id number] 16:32:00 [facility] 1945 Sex: F Patient Name: CARMEL SERRANO Unit No: [id number] EXAMS: CPT CODE: [id number] XR CHEST 1V 15519 LOCATION: B2 EXAM: - XR CHEST 1V HISTORY: S/P ICD COMPARISON: None FINDINGS: Cardiac pacemaker/defibrillator lead projects over the right ventricle. Patchy perihilar airspace opacities. No pleural effusion or pneumothorax. The cardiac silhouette is within normal limits. No acute osseous abnormalities.IMPRESSION: 1. Defibrillator is present. 2. Mild perihilar atelectasis and/or pulmonary edema. at 1632 Reported and signed by: Serjio Vera MD CC: John Ha MD; Doe Mo Technologist: Leatha Worthington RT(R) Transcrpt Date/Tm/Trnsp: 02/05/2023 (1632) JuliaVB7 Orig Print D/T: S: 02/05/2023 (7570) [facility] NAME: CARMEL SERRANO [address] PHYS: [place] [address] : 1945 AGE: 77 SEX: F LOC: Z.DC4T B PHONE #: [phone] EXAM DATE: 02/05/2023 STATUS: ADM IN FAX#: [phone] RADIOLOGY NO: PAGE 1 Signed ReportPROTHROMBIN [id number] 12:19:00* Test Item Value Reference Range Interpretation Comme nts PROTHROMBIN TIME PATIENT (test code = PTP) 12.2 SECONDS 10.1-12.6 N INTERNATIONAL NORMAL RATIO (test code = INR) 1.1 0.86-1.14 N The INR is to be used only for monitoring oral anticoagulanttherap y. INDICATION INR VALUE -------1. Prophylaxis, deep venous thrombosis, including high risk surgery. 2.0 - 3.0 2. Prophylaxis, deep venous thrombosis, hip surgery, treatment for deep venous thrombosis or pulmonary prevention of systemic embolism in patients with valvular heart disease, atrial fibrillation, tissue heart valve, or acute myocardial infarction. 2.0 - 3.0 3. Mechanical prosthesis heart valves, recurrent systemic embolism. 3.0 - 4.5 PTT [id number] 12:19:00* Test Item Value Reference Range Interpretation Comme nts PTT ACTIVATED (test code = APTT) 35.5 SECONDS 27.2-37.9 N BASIC METABOLIC [id number] 12:15:00* Test Item Value Reference Range Interpretation Comme nts SODIUM (test code = NA) 139 MMOL/L 137-145 N POTASSIUM (test code = K) 4.3 MMOL/L 3.5-5.1 N CHLORIDE (test code = CL) 104 MMOL/L 98-107 N CARBON DIOXIDE (test code = CO2) 26 MMOL/L 22-30 N GLUCOSE (test code = GLU) 126 MG/DL 74-106 H BLOOD UREA NITROGEN (test code = BUN) 20 MG/DL 7-17 H GLOMERULAR FILTRATION RATE (test code = GFR) > 60 The Glomerular Filtration Rate is a calculated parameterbased on serum Creatinine, patient age and sex. GFR valuesless than 60 mL/min/1.73 square meters are indicative ofChronic Kidney Disease. Values less than 15 mL/min/1.73square meters indicate Kidney failure. The calculation forGFR is based on the CKD-EPI (2020) calculation. This formulais race indifferent and is the recommended formula for GFRby the National Kidney Foundation for Adults.The GFR will not calculate if the sex is unknown or if thepatient's age is <18 years. CREATININE (test code = CREAT) 0.60 MG/DL 0.52-1.04 N CALCIUM (test code = CA) 9.7 MG/DL 8.4-10.2 N [id number] 12:15:00* Test Item Value Reference Range Interpretation Comme nts MAGNESIUM (test code = MAG) 2.0 MG/DL 1.6-2.3 N CBC W/AUTO [id number] 12:03:00* Test Item Value Reference Range Interpretation Comme nts WHITE BLOOD CELL (test code = WBC) 9.3 K/MM3 3.8-9.8 N RED BLOOD CELL (test code = RBC) 4.62 M/MM3 3.58-4.97 N HEMOGLOBIN (test code = HGB) 14.7 G/DL 11.2-14.9 N HEMATOCRIT (test code = HCT) 44.8 % 33.2-43.5 H MEAN CELL VOLUME (test code = MCV) 97 fL 80.7-99.1 N MEAN CELL HGB (test code = MCH) 31.8 pg 27.0-34.1 N MEAN CELL HGB CONCETRATION (test code = MCHC) 32.8 % 32.2-35.7 N RED CELL DISTRIBUTION WIDTH (test code = RDW) 13.2 % 12.1-15.2 N PLATELET COUNT (test code = PLT) 193 K/MM3 129-368 N MEAN PLATELET VOLUME (test c ode = MPV) 11.0 fl 7.4-10.4 H NEUTROPHIL % (test code = NT%) 57.4 % 43-75 N IMMATURE GRANULOCYTE % (test code = IG%) 0.4 % 0.0-2.0 N LYMPHOCYTE % (test code = LY%) 32.2 % 14-44 N MONOCYTE % (test code = MO%) 7.7 % 4-13 N EOSINOPHIL % (test code = EO%) 1.7 % 0-6 N BASOPHIL % (test code = BA%) 0.6 % 0-2 N NUCLEATED RBC % (test code = NRBC%) 0.0 % 0-1.0 N NEUTROPHIL # (test code = NT#) 5.31 K/mm3 2.0-7.6 N IMMATURE GRANULOCYTE # (test code = IG#) 0.04 x10 3/uL 0-0.03 H LYMPHOCYTE # (test code = LY#) 2.98 K/mm3 1.0-3.8 N MONOCYTE # (test code = MO#) 0.71 K/mm3 0.1-0.8 N EOSINOPHIL # (test code = EO#) 0.16 K/mm3 0.0-0.2 N BASOPHIL # (test code = BA#) 0.06 K/mm3 0.0-0.2 N NUCLEATED RBC # (test code = NRBC#) 0.00 K/mm3 0.0-0.1 N HEMOGLOBIN [id number] 00:00:00* Test Item Value Reference Range Interpretation Comme [facility] A1C (test code = 4548-4) 8.6 HEMOGLOBIN [id number] 00:00:00* Test Item Value Reference Range Interpretation Comme [facility] A1C (test code = 4548-4) 11.6 Lipid Panel With LDL/HDL [id number] 00:00:00* Test Item Value Reference Range Interpretation Comme [facility] Cholesterol, Total (test code = 2093-3) 151 100-199 Triglycerides (test code = 2571-8) 194 0-149 HDL Cholesterol (test code = 2085-9) 36 >39 Microalbumin/Creat Ratio, Random [id number] 00:00:00* Test Item Value Reference Range Interpretation Comme nts Creatinine, Urine (test code = 2161-8) 77.5 Not Esta b. Albumin, Urine (test code = 25235-9) 3.0 Not Estab. Alb/Creat Ratio (test code = 63259-8) 4 0-29 Hematopath Consultation, [id number] 00:00:00* Test Item Value Reference Range Interpretation Comme nts PLTs (test code = 12742-9) Comments/Recommendations (te st code = 71480-0) Pathologist (test code = 19837-8) Hemoglobin [id number] 00:00:00* Test Item Value Reference Range Interpretation Comme nts Hemoglobin A1c (test code = 4548-4) 6.6 4.8-5.6 Comp. Metabolic Panel (14) (CMP)2021-04-04 00:00:00* Test Item Value Reference Range Interpretation Comme nts Glucose (test code = 2345-7) 120 65-99 BUN (test code = 3094-0) 13 8-27 Creatinine (test code = 2160-0) 0.76 0.57-1.00 eGFR If NonAfricn Am (test c ode = 94576-1) 78 >59 eGFR If Africn Am (test code = 14266-7) 89 >59 BUN/Creatinine Ratio (test c ode = 3097-3) 17 12-28 Sodium (test code = 2951-2) 140 134-144 Potassium (test code = 2823-3) 5.1 3.5-5.2 Chloride (test code = 2075-0) 102 96-106 Carbon Dioxide, Total (test code = 2027-) 25 20-29 Calcium (test code = 97001-3) 9.9 8.7-10.3 Protein, Total (test code = 2885-2) 7.2 6.0-8.5 Albumin (test code = 1751-7) 4.4 3.7-4.7 Globulin, Total (test code = 29075-4) 2.8 1.5-4.5 A/G Ratio (test code = 1759-0) 1.6 1.2-2.2 Bilirubin, Total (test code = 1975-2) 0.3 0.0-1.2 Alkaline Phosphatase (test c ode = 6768-6) 153 44-121 AST (SGOT) (test code = 1920-8) 26 0-40 ALT (SGPT) (test code = 1742-6) 19 0-32 Notes Date/Time Note Provider Source 2023-02-06 06:36:00 [id number] FuKUtS0exZ5hh/q0vNTytfuC4Bi9394-26-81H36:36:00 [facility]Cardiology Progress NoteREPORT#:[id number] REPORT STATUS: SignedREPORT INITIALIZATION DATE:02/06/23 TIME: 635 PATIENT: CARMEL SERRANO UNIT #: [id number]#: [id number] [facility]GE[facility] 77 SEX: F ATTEND: Doe Mo MDADM AUTHOR: Doe Mo MDREPT SERVICE DT/TIME: 02/06/23635* ALL edits or amendments must be made on the electronic/computer document * SubjectiveChief complaint:CHFPatient reports:No: chest pain, palpitations, shortness of breath. Objective GeneralVS/I O:24 hour I O ending at 0700: 02/06 0700 02/05 1900 Intake Total Output Total 850 Balance -850 Output, Urine 850 Patient 142.3 kg Weight Weight Bed scale Measurement Method Vital Signs: Date Time Temp Pulse Resp B/P B/P Pulse O2 O2 Flow FiO2 Mean Ox Delivery Rate 02/06 0632 98.1 82 16 126/78 94.0 94 02/06 0600 97 23 135/79 102 93 02/06 0517 98.0 02/06 0500 95 22 131/78 99 96 02/06 0400 93 16 129/75 97 94 02/06 0300 94 27 116/69 88 95 02/06 0200 93 29 124/70 92 94 02/06 0119 97.6 02/06 0100 78 17 124/64 89 94 02/06 0000 83 22 107/56 77 94 02/05 2300 101 21 115/65 84 94 02/05 2200 82 18 140/75 100 95 02/05 2103 81 34 114/67 86 96 02/06 2000 83 21 132/74 96 93 02/05 1939 97.6 02/05 1900 93 18 129/62 89 93 PATIENT WEIGHT: Weight (lb): 313Weight (oz): 11.48Weight (kg): 142.300 Physical ExamGeneral appearance: alert, awake, orientedHead/Eyes: atraumatic, normocephalicENT: moist mucosal membranesNeck: no JVDCardiovascular: CV assessment: regular rate and rhythmRespiratory: clear to auscultation, no distressLower extremity: LE assessment: no edemaMusculoskeletal: full range of motionNeuro/MID WIFE: alert, oriented X 3, CN II-XII intactSkin: dry, intactWound/incision: Location:Left precordial Site condition: dressing clean dryPsychiatry: normal affect, normal judgment/insight, normal mood ResultsFindings/Data:Laboratory Tests 02/06 1148 Chemistry Sodium (137 - 145 MMOL/L) 132 L 139 Potassium (3.5 - 5.1 MMOL/L) 4.4 4.3 Chloride (98 - 107 MMOL/L) 103 104 Carbon Dioxide (22 - 30 MMOL/L) 21 L 26 Anion Gap (14 - 24 MMOL/L) 12 L BUN (7 - 17 MG/DL) 19 H 20 H Creatinine (0.52 - 1.04 MG/DL) 0.60 0.60 Glomerular Filtr Rate > 60 > 60 Glucose (74 - 106 MG/DL) 131 H 126 H Calcium (8.4 - 10.2 MG/DL) 8.4 9.7 Magnesium (1.6 - 2.3 MG/DL) 1.9 2.0 Laboratory Tests 02/05 1148 Coagulation INR (0.86 - 1.14) 1.1 APTT (27.2 - 37.9 SECONDS) 35.5 PT Patient/Control Mix (10.1 - 12.6 SECONDS) 12.2 Laboratory Tests 02/06 02/05 033 1148 Hematology WBC (3.8 - 9.8 K/MM3) 8.6 9.3 RBC (3.58 - 4.97 M/MM3) 4.01 4.62 Hgb (11.2 - 14.9 G/DL) 12.8 14.7 Hct (33.2 - 43.5 %) 40.0 44.8 H MCV (80.7 - 99.1 fL) 100 H 97 MCH (27.0 - 34.1 pg) 31.9 31.8 MCHC (32.2 - 35.7 %) 32.0 L 32.8 RDW (12.1 - 15.2 %) 13.0 13.2 Plt Count (129 - 368 K/MM3) 125 L 193 MPV (7.4 - 10.4 fl) 12.3 H 11.0 H Neut % (Auto) (43 - 75 %) 56.4 57.4 Lymph % (Auto) (14 - 44 %) 32.0 32.2 Page % (Auto) (4 - 13 %) 8.6 7.7 Eos % (Auto) (0 - 6 %) 2.1 1.7 Baso % (Auto) (0 - 2 %) 0.6 0.6 Neut # (Auto) (2.0 - 7.6 K/mm3) 4.86 5.31 Lymph # (Auto) (1.0 - 3.8 K/mm3) 2.76 2.98 Page # (Auto) (0.1 - 0.8 K/mm3) 0.74 0.71 Eos # (Auto) (0.0 - 0.2 K/mm3) 0.18 0.16 Baso # (Auto) (0.0 - 0.2 K/mm3) 0.05 0.06 Immature Gran % (0.0 - 2.0 %) 0.3 0.4 Nucleated RBC % (0 - 1.0 %) 0.0 0.0 Nucleated RBCs # (Man) (0.0 - 0.1 K/mm3) 0.00 0.00 Laboratory Tests 02/06 02/05 0331 1148 Chemistry Magnesium (1.6 - 2.3 MG/DL) 1.9 2.0 Laboratory Tests 02/05 1148 Coagulation APTT (27.2 - 37.9 SECONDS) 35.5 Radiology data:Recent Impressions:RADIOLOGY - XR CHEST 1V 02/05 1625 Report Impression - Status: SIGNED Entered: 02/05/2023 1635 IMPRESSION: 1. Defibrillator is present.2. Mild perihilar atelectasis and/or pulmonary edema.Impression By: Gemma Vera MD Diagnosis, Assessment Plan Free Text DxA P NotesFree Text DxA P Notes:IMP: Nonischemic cardiomyopathy s/p MDT AICD - single PLAN: AICD interrogation d/c planning. at 1714 [facility] #:[id number] OF REPORTPRProgress kfte4363-17-93P62:36:00Z.[id number] able for patient mhqmOACJANAPCRXIQP6145-14-78V30:14:29 [facility] 2023-02-05 16:37:00 [id number] /hsV4D77Slk3iZU8VV+qtBPLoJppL 67RVT2VQC1/YCNfsdK50zJO12FM1358-56-11S71:37:59786 [address] [place] [address] PATIENT NAME: CARMEL SERRANO ADMIT DATE: 02/05/23ACCOUNT NO: [id number] ROOM NO: [facility] AGE: 77 REPORT TYPE: CARDIAC CATHETERIZATION REPORT SEX: F ADMITTING PHYSICIAN:Doe Mo MD ATTENDING PHYSICIAN:Doe Mo MD PROCEDURE DATE: 02/05/2023 PROCEDURE: Non-thoracotomy single-lead AICD placement. PREPROCEDURE DIAGNOSES:1. 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 [place] [employer] Class I congestive heart failure.3. Left bundle-branch block with a QRS duration of 150 milliseconds. POSTPROCEDURE DIAGNOSES:1. 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 [place] [employer] Class I congestive heart failure.3. Left bundle-branch block with a QRS duration of 150 milliseconds. SURGEON:. Doe Mo M.D. [employer] REPAIRER: None. ANESTHESIA: Local anesthesia with 1% lidocaine and moderate sedation. DESCRIPTION OF PROCEDURE: After informed consent was obtained explaining to thepatient risks, benefits, and alternatives the patient was brought to the cardiaccatheterization lab in the fasting postabsorptive state. She was prepped and draped in sterile fashion. Local anesthesia was applied over the left infraclavicular area with 1% lidocaine. Following a left subclavian venogram, access to left subclavian vein was obtained using modified Seldinger technique with a micropuncture kit. One wire was placed in low right atrium and secured proximally. Additional 1% lidocaine was applied to the infraclavicular area. The pocket was formed with sharp and blunt dissection as well as electrocautery. The pocket was flushed with antibiotic-containing solution. A 9-Armenian sheath was advanced over the wire in left subclavian vein. The dilator and wire removed. An active fixation right ventricular lead was advanced via the sheath under fluoroscopic guidance and secured in the right ventricular apex. Adequatepacing and sensing parameters were confirmed. The sheath was peeled away. The lead was secured in the pocket with 0 Ethibond suture around the suture sleeve. The pocket was flushed with antibiotic-containing solution. The generator was connected to the lead. Powdered Surgicel was applied to the pocket. The generator was placed in the pocket and secured in the pocket with 0 Ethibond suture. The pocket was closed in 3 layers using 2-0 Vicryl in subcutaneous layers and 4-0 Vicryl for the skin. A small section of the medial wound had 2 PATIENT NAME: CARMEL SERRANO additional interrupted Prolene sutures added. Steri-Strips were applied on the wound externally. The patient tolerated the procedure well with no complications. IMPLANT DATA: Pulse generator Medtronic model TPQS6A4, serial #[id number]. Right ventricular lead, Medtronic model 3256N09 length 55 cm, serial #[id number]. STIMULATION THRESHOLD DATA: Right ventricle 11.5 millivolt, R waves impedance 650 ohms, HVB impedance 39 ohms, HVX impedance 52 ohms, threshold 1 volt at 0.4 milliseconds. CONCLUSIONS:1. Successful non-thoracotomy single-lead AICD placement.2. Estimated blood loss 5 mL.3. No complications. Dictated By: Doe Mo MD Date Dictated: 02/05/2023 16:37:20Date Transcribed: 02/05/2023 17:02:49GSP/Hussain #: [id number] ID: [id number] CC:Susie Croft MD (F)Authenticated by Doe Mo MD On 02/06/2023 04:48:24 PM at 0448 PATIENT NAME: CARMEL SERRANO ungr1178-37-74U15:02:00Z.[id number] ble for patient bqdaAIHTNXXNQCDLOL0191-01-01T57:49:05 [facility] 2023-[facility] 12:06:00 [id number]+QzRj WfmhicigMogj+OzzoTWI43ACFQmMv Jeih6lXiSxNcPfSs6vAUDd4ad/65073-32-69E40:06:62971 [address] [place] [address] PATIENT NAME: CARMEL SERRANO ADMIT DATE: 02/05/23ACCOUNT NO: [id number] ROOM NO: Z.DC4T AGE: 77 REPORT TYPE: ELECTROCARDIOGRAM SEX: F ADMITTING PHYSICIAN:Doe Mo MD ATTENDING PHYSICIAN:Doe Mo MD Order:[id number] Reason : ICD IMPLANT Test Date/Time Stamp:SunFeb 05 2023 12:06:21Blood Pressure : / mmHGVent. Rate : 074 BPM Atrial Rate : 074 BPM P-R Int : 144 ms QRS Dur : 150 ms QT Int : 448 ms P-R-T Axes : 039 042 211 degrees QTc Int : 497 ms Normal sinus rhythmLeft bundle branch blockAbnormal ECGNo previous ECGs availableConfirmed by SUSIE CROFT ([id number]) on 02/05/2023 5:54:12 PM Referred By: Self Referred Confirmed by:SUSIE CROFT at 1754 PATIENT NAME: CARMEL SERRANO .[id number] AVAvailable for patient kmfgJSKJBNGZDFHYYI6735-34-29L31:54:37 [facility]
[2023-05-08 13:29] LABS: Absolute Basophils 0.1 K/uL (0-0.5); Absolute Eosinophils 0.2 K/uL (0-0.5); Absolute Monocytes 0.6 K/uL (0.1-1.3); Absolute Neutrophil 5.1 K/uL (1.8-8.0); Basophils % 0.7 % (0-1.3); Eosinophils % 2.9 % (0-4.4); Hematocrit 38.4 % (36.0-45.0); Lymphocytes % 25.4 % (15.3-44.8); MCH 31.5 pg (27.0-35.0); MCHC 33.8 g/dL (32.0-36.0); MCV 93.4 fL (80-100); MPV 9.8 fL (7.6-11.3); Monocytes % 7.8 % (3.3-12.3); Neutrophils % 63.2 % (41.7-73.7); Platelets 152 thou/uL (152-406); RBC Red Blood Cell Count 4.11 M/uL (3.86-4.86); Red Cell Distribution Width 12.7 % (12.1-15.2)
[2023-05-08 13:39] LABS: PT Prothrombin Time 12.4 SECONDS (9.5-12.5); Protime INR 1.13
--- NOTE | 2023-05-08 13:40 | RAD REPORT ---
EXAM DESCRIPTION: RADChest Single View05/08/2023 1:30 pm CLINICAL HISTORY: near syncope, hypotension COMPARISON: Chest Single View dated 05/24/2022; Chest Pa And Lat (2 Views) dated 05/03/2020; Chest Pa An d Lat (2 Views) dated 05/02/2019; Chest Pa And Lat (2 Views) dated 04/30/2019 TECHNIQUE: Portable AP view of the chest. FINDINGS: Left chest wall pacer. The lungs are clear. No pneumothorax or effusion. The cardiomedias tinal contours are unremarkable. IMPRESSION: No acute cardiopulmonary process.
[2023-05-08 13:49] LABS: Anion Gap 7.6 mEq/L (5.0-15.0); Bilirubin Direct 0.1 mg/dL (0-0.2); Bilirubin Indirect, Calculated 0.2 mg/dL (0.2-0.8); Bilirubin Total 0.3 mg/dL (0.2-1.0); Potassium 4.6 mEq/L (3.5-5.1)
[2023-05-08 13:50] LABS: Albumin 3.2 g/dL (3.4-5.0); Albumin/Globulin Ratio 0.9 (1.1-1.8); Globulin 3.5 g/dL (2.3-3.5); Magnesium 1.8 mg/dL (1.6-2.4); Protein, Total 6.7 g/dL (6.4-8.2); Troponin High Sensitivity 3.9 pg/mL (<58.9)
--- NOTE | 2023-05-08 14:45 | ER ---
Nurse's Notes [facility] Name: Isela Silverio Age: 78 yrs Sex: Female : 1945 Arrival Date: 05/08/2023 Time: 13:06 Bed 5 Private MD: Diagnosis: Dizziness and giddiness;Syncope Near;Hypotension, unspecified;Hyperglycemia, unspecified Presentation: 05/08 13:10 Chief complaint: EMS states: they were toned out for hypotensive patient, upon arrival ko1 patients blood pressures had improved but she is hyperglycemic with bg 309. Coronavirus screen: At this time, the client does not indicate any symptoms associated with coronavirus-19. Ebola Screen: No symptoms or risks identified at this time. Initial Sepsis Screen: Does the patient meet any 2 criteria? No. Patient's initial sepsis screen is negative. Does the patient have a suspected source of infection? No. Patient's initial sepsis screen is negative. Risk Assessment: Do you want to hurt yourself or someone else? Patient reports no desire to harm self or others. Onset of symptoms was May 08, 2023. Care prior to arrival: IV initiated. 20 GA, in the right antecubital area, Glucose check: 309. 13:10 Method Of Arrival: EMS: [facility] ko1 13:10 Acuity: TEN 3 ko1 Triage Assessment: 13:22 General: Appears in no apparent distress. Behavior is calm, cooperative, appropriate ko1 for age. Pain: Denies pain. Historical: - Allergies: 13:21 No Known Allergies; ko1 - PMHx: 13:21 Hypertensive disorder; ko1 - PSHx: 13:22 pacemaker/defibrilator placement; ko1 - Immunization history:: Adult Immunizations up to date. - Social history:: Smoking status: Patient denies any tobacco usage or history of. Screenin:23 [facility] ED Fall Risk Assessment (Adult) History of falling in the last 3 months, ko1 including since admission No falls in past 3 months (0 pts) Confusion or Disorientation No (0 pts) Intoxicated or Sedated No (0 pts) Impaired Gait No (0 pts) Mobility Assist Device Used No (0 pt) Altered Elimination No (0 pt) Score/Fall Risk Level 0 - 2 = Low Risk Oriented to surroundings, Maintained a safe environment, Educated pt \T\ family on fall prevention, incl call for assistance when getting out of bed, Assessed \T\ reinforced patient's understanding of fall precautions, Provided non-skid footwear, Hourly rounding (assess needs \T\ fall precautionary measures) done, Used ambulatory aids as needed (educated on \T\ assisted with). Abuse screen: Denies threats or abuse. Denies injuries from another. Nutritional screening: No deficits noted. Tuberculosis screening: No symptoms or risk factors identified. Assessment: 13:23 Cardiovascular: Patient's skin is warm and dry. Rhythm is sinus rhythm Parent/caregiver ko1 reports patient has had recent defibrillator placement. 15:00 General: Appears in no apparent distress. Behavior is calm, cooperative. Pain: Denies mb9 pain. Neuro: Level of Consciousness is awake, alert, obeys commands, Oriented to person, place, time, situation, Appropriate for age. Cardiovascular: Heart tones S1 S2 present Patient's skin is warm and dry. Rhythm is regular. Respiratory: Airway is patent Respiratory effort is even, unlabored, Respiratory pattern is regular, symmetrical. GI: Abdomen is round non-distended, Bowel sounds present X 4 quads. : No signs and/or symptoms were reported regarding the genitourinary system. EENT: No signs and/or symptoms were reported regarding the EENT system. Derm: Skin is pink, warm \T\ dry. Musculoskeletal: Range of motion: intact in all extremities. 15:25 Reassessment: Attempted to call report to admitting nurse, no answer. mb9 Vital Signs: 13:10 BP 126 / 71; Pulse 65; Resp 20; Temp 97.4; Pulse Ox 98% ; ko1 13:54 BP 117 / 75; Pulse 82; Resp 15; Pulse Ox 100% ; ko1 14:28 BP 110 / 63; Pulse 84; Resp 15; Pulse Ox 99% ; ko1 15:06 Weight 68.04 kg; Height 5 ft. 2 in. ; mb9 15:06 BP 113 / 64; Pulse 80; Resp 18; Pulse Ox 100% on R/A; mb9 15:06 Body Mass Index 27.44 (68.04 kg, 157.48 cm) mb9 ED Course: 13:08 Patient arrived in ED. ko1 13:10 Aggie Murillo FNP-C is PHCP. kb 13:10 Baltazar, Darren, DO is Attending Physician. kb 13:15 Yolanda Albright, RN is Primary Nurse. ko1 13:17 Basic Metabolic Panel Sent. ko1 13:17 CBC with Diff Sent. ko1 13:17 Hepatic Function Sent. ko1 13:17 Magnesium Sent. ko1 13:17 Protime (+inr) Sent. ko1 13:17 Ptt, Activated Sent. ko1 13:17 Troponin High Sensitivity Sent. ko1 13:21 Triage completed. ko1 13:22 Arm band placed on right wrist. Patient placed in an exam room, on a stretcher, on ko1 ekg monitor tech, on pulse oximetry, Patient notified of wait time. 13:23 Maintain EMS IV. Dressing intact. Good blood return noted. Site clean \T\ dry. Gauge \T\ ko 1 site: 20g right ac. 13:23 Patient has correct armband on for positive identification. Bed in low position. Call ko1 light in reach. Side rails up X2. Client placed on continuous cardiac and pulse oximetry monitoring. NIBP monitoring applied. environmental monitoring technician on. Door closed. Noise minimized. Lights dimmed. Warm blanket given. 13:32 Chest Single View XRAY In Process Unspecified. EDMS 14:28 Urinalysis w/ reflexes Sent. ko1 14:44 Hill Mcleod MD is Hospitalizing Provider. kb 15:11 No provider procedures requiring assistance completed. Patient admitted, IV remains in mb9 place. 15:14 Urinalysis w/ reflexes Sent. mb9 Administered Medications: No medications were administered Medication: 15:12 VIS not applicable for this client. mb9 Outcome: 14:45 Decision to Hospitalize by Provider. kb 15:44 Admitted to Tele accompanied by tech, via wheelchair, room 408, with chart, Report mb9 called to JEREMIAH Cortes 15:44 Condition: stable 15:44 Instructed on the need for admit, 15:47 Patient left the ED. mb9 Signatures: Dispatcher [employer] EDMS Aggie Murillo, FOUR H CLUB AGENT-C FOUR H CLUB AGENT-Ckb Yolanda Albright, RN RN ko1 Nanette Ferrell RN RN mb9 Corrections: (The following items were deleted from the chart) 15:44 15:43 BP 107 / 91; Pulse 81bpm; Resp 18bpm; Pulse Ox 100% RA; mb9 mb9
--- NOTE | 2023-05-08 14:45 | EDPHYS ---
Physician Documentation [facility] Name: Isela Silverio Age: 78 yrs Sex: Female : 1945 Arrival Date: 05/08/2023 Time: 13:06 Bed 5 Private MD: ED Physician Darren Baltazar HPI: 05/08 13:26 This 78 yrs old Female presents to ER via EMS with complaints of near syncope. kb 13:26 Pt is a 78 year old female who presents for dizziness and near syncope. Pt states kb dizziness started yesterday and got worse today. Denies chest pain or shortness of breath. EMS reports pt was hypotensive (60/40) upon their arrival and was orthostatic positive. Pt was given IV fluids and is now normotensive. . Historical: - Allergies: 13:21 No Known Allergies; ko1 - PMHx: 13:21 Hypertensive disorder; ko1 - PSHx: 13:22 pacemaker/defibrilator placement; ko1 - Immunization history:: Adult Immunizations up to date. - Social history:: Smoking status: Patient denies any tobacco usage or history of. ROS: 13:25 Constitutional: Negative for fever, chills, and weight loss, kb 13:25 Neuro: Positive for dizziness, near syncope, 13:25 All other systems are negative, Exam: 13:25 Constitutional: This is a well developed, well nourished patient who is awake, alert, kb and in no acute distress. Head/Face: Normocephalic, atraumatic. ENT: Moist Mucous membranes Cardiovascular: Regular rate Respiratory: Respirations even and unlabored. No increased work of breathing. Talking in full sentences Abdomen/GI: Soft, non-tender. No distention Skin: Warm, dry with normal turgor. Normal color. MS/ Extremity: Pulses equal, no cyanosis. Neurovascular intact. Full, normal range of motion. Neuro: Awake and alert, GCS 15, oriented to person, place, time, and situation. Moves all extremities. Able to move from EMS to ED stretcher without assist or difficulty. Vital Signs: 13:10 BP 126 / 71; Pulse 65; Resp 20; Temp 97.4; Pulse Ox 98% ; ko1 13:54 BP 117 / 75; Pulse 82; Resp 15; Pulse Ox 100% ; ko1 14:28 BP 110 / 63; Pulse 84; Resp 15; Pulse Ox 99% ; ko1 15:06 Weight 68.04 kg; Height 5 ft. 2 in. ; mb9 15:06 BP 113 / 64; Pulse 80; Resp 18; Pulse Ox 100% on R/A; mb9 15:06 Body Mass Index 27.44 (68.04 kg, 157.48 cm) mb9 MDM: 13:10 Patient medically screened. kb 13:26 Data reviewed: vital signs, nurses notes. Historians other than the Patient: EMS: [facility]. 14:42 Differential Diagnosis: cardiac arrhythmia, idiopathic syncope, dehydration, abnormal kb ekg, abnormal electrolytes. Consideration of Admission/Observation Patient was admitted/placed on observation. Escalation of care including admission/observation considered. Management of patient was discussed with the following: Hospitalist: Hospitalist team, pt accepts for admission under Dr Mcleod. Counseling: I had a detailed discussion with the patient and/or guardian regarding the historical points, exam findings, and any diagnostic results supporting the discharge/admit diagnosis, lab results, radiology results, the need for further work-up and treatment in the hospital. 05/08 13:11 Order name: Basic Metabolic Panel; Complete Time: 13:51 kb 05/08 13:11 Order name: CBC with Diff; Complete Time: 13:30 kb 05/08 13:11 Order name: Hepatic Function; Complete Time: 13:51 kb 05/08 13:11 Order name: Magnesium; Complete Time: 13:51 kb 05/08 13:11 Order name: Protime (+inr); Complete Time: 13:40 kb 05/08 13:11 Order name: Ptt, Activated; Complete Time: 13:40 kb 05/08 13:11 Order name: Troponin High Sensitivity; Complete Time: 13:51 kb 05/08 13:11 Order name: Urinalysis w/ reflexes; Complete Time: 14:51 kb 05/08 15:14 Order name: CBC with Automated Diff EDMS 05/08 15:14 Order name: CBC with Automated Diff EDMS 05/08 15:14 Order name: Urinalysis w/ reflexes EDMS 05/08 15:15 Order name: Comprehensive Metabolic Panel EDMS 05/08 15:15 Order name: Comprehensive Metabolic Panel EDMS 05/08 15:15 Order name: Lipid Profile EDMS 05/08 15:15 Order name: Lipid Profile [facility] 05/08 15:15 Order name: Magnesium [facility] 05/08 15:15 Order name: Magnesium [facility] 05/08 15:15 Order name: Troponin High Sensitivity [facility] 05/08 15:15 Order name: Troponin High Sensitivity [facility] 05/08 15:15 Order name: Troponin High Sensitivity [facility] 05/08 13:11 Order name: Chest Single View XRAY; Complete Time: 13:41 kb 05/08 13:11 Order name: EKG; Complete Time: 13:11 kb 05/08 15:14 Order name: CONS Physician Consult [facility] 05/08 13:11 Order name: Cardiac monitoring; Complete Time: 13:13 kb 05/08 13:11 Order name: EKG - Nurse/Tech; Complete Time: 13:13 kb 05/08 13:11 Order name: IV Saline Lock; Complete Time: 13:15 kb 05/08 13:11 Order name: Labs collected and sent; Complete Time: 13:17 kb 05/08 13:11 Order name: NPO; Complete Time: 13:13 kb 05/08 13:11 Order name: O2 Per Protocol; Complete Time: 13:12 kb 05/08 13:11 Order name: O2 Sat Monitoring; Complete Time: 13:13 kb Administered Medications: No medications were administered Disposition: 13:47 I was immediately available on-site in the Emergency Department for consultation in the ms3 care of the patient. Disposition Summary: 05/08/23 14:45 Hospitalization Ordered Notes: Hospitalization Status: Observation kb Provider: Hill Mcleod Location: Telemetry/MedSur (observation) kb Condition: Stable kb Problem: new kb Symptoms: are unchanged kb Bed/Room Type: Standard kb Room Assignment: 408(05/08/23 15:18) em1 Diagnosis - Dizziness and giddiness kb - Syncope Near kb - Hypotension, unspecified kb - Hyperglycemia, unspecified kb Forms: - Medication Reconciliation Form kb - SBAR form kb - Leadership Thank You Letter kb Signatures: Dispatcher [employer] EDMS Aggie Murillo, SHIELA PHILIP-Ashwin Vargas em1 Darren Baltazar, DO ms3 Yolanda Albright, RN RN ko1 Corrections: (The following items were deleted from the chart) 13:28 13:25 Constitutional: This is a well developed, well nourished patient who is awake, kb alert, and in no acute distress. Head/Face: Normocephalic, atraumatic. ENT: Moist Mucous membranes Cardiovascular: Regular rate Respiratory: Respirations even and unlabored. No increased work of breathing. Talking in full sentences Abdomen/GI: Soft, non-tender. No distention Skin: Warm, dry with normal turgor. Normal color. MS/ Extremity: Pulses equal, no cyanosis. Neurovascular intact. Full, normal range of motion. Neuro: Awake and alert, GCS 15, oriented to person, place, time, and situation. Moves all extremities. Normal gait. kb 15:18 14:45 kb em1
[2023-05-08 14:47] LABS: Specific Gravity 1.025 (1.005-1.030); Sqamous Epithelial <5 /HPF (None Seen); Urine Bacteria <20 /HPF (<20); Urine Bilirubin NEGATIVE (Negative); Urine Blood Negative (Negative); Urine Clarity Clear (Clear); Urine Color Light-Yellow (Yellow); Urine Crystals Unidentified Few /HPF (None Seen); Urine Culture Reflex Order NOT NEEDED; Urine Glucose 4+ (Over) (Negative); Urine Ketones NEGATIVE (Negative); Urine Microscopic Reflex YN ORDER UMIC; Urine Mucus Slight /HPF (None Seen); Urine Nitrite NEGATIVE (Negative); Urine Protein NEGATIVE (Negative); Urine Urobilinogen Normal (Normal); Urine WBC <5 /HPF (<5); Urine Yeast (Budding) Trace /HPF (None Seen); Urine pH 5.5 (5.0-7.0)
--- NOTE | 2023-05-08 15:42 | P.HP ---
Certification for Inpatient Patient admitted to: Inpatient With expected LOS: >2 Midnights Patient will require the following post-hospital care: None Practitioner: I am a practitioner with admitting privileges, knowledge of patient current condition, hospital course, and medical plan of care. Services: Services provided to patient in accordance with Admission requirements found in Title 42 Section 412.3 of the Code of Federal Regulations <Alejandra Stevens - Last Filed: 05/08/23 18:40> Patient History Date of Service: 05/08/23 Reason for admission: syncope, hypotension, diabetes History of Present Illness: Pt is a 78 yo female with past medical history of Htn, DM II, CHF with EF 24 % per pt, s/p AICD who presents with dizziness and near syncope. The symptoms started yesterday and progressively worsened so pt called EMS. Upon arrival pt had BP of 60/40. Denies chest pain, shortness of breath, nausea, vomiting, diaphoresis. Denies feeling defibrillator firing. On admission, lab studies show Na 134, Cr 1.10, glucose 389. Friend at bedside, pt is in NAD. Ms. Maggie Silverio complains of early satiety for a couple of months and has adjusted her metformin to daily instead of BID for the past week. Home medications list reviewed: Yes - Past Medical/Surgical History Has patient received pneumonia vaccine in the past: No Diabetic: No -: HTN -: DM -: varicose vein removal -: herniated disc repair -: left breast tumor removal -: pacer/defibrillator -: right arm -: cholecystectomy Psychosocial/ Personal History: Lives at home alone, Children nearby - Family History Family History: Reviewed- Non-Contributory - Social History Smoking Status: Unknown if ever smoked Alcohol use: No CD- Drugs: No Caffeine use: Yes Place of Residence: Home <Alejandra Stveens - Last Filed: 05/08/23 18:40> Date of Service: 05/08/23 <Hill Mcleod - Last Filed: 05/08/23 21:21> Allergies tramadol Adverse Reaction (Intermediate, Verified 05/08/23 15:55) Nausea/Vomiting Home Medications: Aspirin Chewable [Aspirin Chewable*] 1 tab PO DAILY 05/08/23 Atorvastatin Calcium [Lipitor] 10 mg PO BEDTIME 05/08/23 Carvedilol [Coreg] 1 tab PO DAILY 05/08/23 Dapagliflozin Propanediol [Farxiga] 10 mg PO DAILY 05/08/23 Metformin HCl 1 tab PO BID 05/08/23 Sacubitril/Valsartan [Entresto 49 mg-51 mg Tablet] 1 tab PO BID 05/08/23 Review of Systems 10-point ROS is otherwise unremarkable General: Weakness, Malaise Eyes: Unremarkable ENT: Unremarkable Respiratory: Unremarkable Cardiovascular: Unremarkable Gastrointestinal: Other (early saiety, anorexia) Genitourinary: Unremarkable Musculoskeletal: Back Pain, Other (pain across upper back s/p pacer/defib placement) Integumentary: Unremarkable Neurological: Other (dizziness) Lymphatics: Unremarkable <Alejandra Stevens - Last Filed: 05/08/23 18:40> Physical Examination - Physical Exam General: Alert, In no apparent distress, Oriented x3 HEENT: Atraumatic, Normocephalic, PERRLA Neck: 2+ carotid pulse no bruit Respiratory: Clear to auscultation bilaterally, Normal air movement Cardiovascular: No edema, Normal pulses, Regular rate/rhythm Capillary refill: <2 Seconds Gastrointestinal: Normal bowel sounds Musculoskeletal: No clubbing Integumentary: No rashes Neurological: Normal speech, Normal strength at 5/5 x4 extr Lymphatics: No axilla or inguinal lymphadenopathy External genitalia: Deferred Rectal: Deferred - Studies Laboratory Data (last 24 hrs) 05/08/23 05/08/23 05/08/23 13:16 13:16 13:16 WBC 8.00 Hgb 13.0 Hct 38.4 Plt Count 152 PT 12.4 INR 1.13 APTT 34.0 Sodium 134 L Potassium 4.6 BUN 22 H Creatinine 1.10 H Glucose 389 H Magnesium 1.8 Total Bilirubin 0.3 AST 15 ALT 28 Alkaline Phosphatase 157 H <HildaAlejandra - Last Filed: 05/08/23 18:40> - Studies Laboratory Data (last 24 hrs) 05/08/23 05/08/23 05/08/23 13:16 13:16 13:16 WBC 8.00 Hgb 13.0 Hct 38.4 Plt Count 152 PT 12.4 INR 1.13 APTT 34.0 Sodium 134 L Potassium 4.6 BUN 22 H Creatinine 1.10 H Glucose 389 H Magnesium 1.8 Total Bilirubin 0.3 AST 15 ALT 28 Alkaline Phosphatase 157 H <Hill Mcleod Kemal - Last Filed: 05/08/23 21:21> Assessment and Plan - Plan Near syncope: Will check Orthostatic vitals Echo and carotid ultrasound. Likely due to hypovolemia. Continue IVF. Pt denies taking any diuretic because of frequent urination. Will continue low salt diet, strict I/O and daily weight. CHF with Hypotension: BP was 60/40 at home. Responded to fluids in ED. Will continue gentle IVF and m onitor. Will f/u Echo. Hold Entresto for now (dose doubled in April). Consult Cardiology DM II: Continue accuchek, SSI, lantus 18u qhs, and ADA diet, hold farxiga/metformin Hyponatremia: Likely due to hypovolemia. Will give NS IVF and trend Na level. Hyperkalemia: K is 4.6. Will monitor. New Pancreatic Mass with possible obstruction: Consult GI Abd/pancreatic US, monitor lipase DVT ppx: SCD Code: full - Advance Directives Does patient have a Living Will: Yes Does patient have a Durable POA for Healthcare: No <Alejandra Stevens - Last Filed: 05/08/23 18:40> Physician Review Additional Text: Pt seen and examined. I agree with the note by the ASSESSMENT CLINICIAN. Pt is a 78 yo female with past medical history of Htn, DM II, CHF with EF 24 % per pt, s/p AICD who presents with dizziness and near syncope. The symptoms started yesterday and progressively worsened so pt called EMS. Upon arrival pt had BP Iof 60/40. She complained of abdominal bloating. On admission, lab studies show Na 134, Cr 1.10, glucose 389. CT abd shows a pancreatic mass. At bedside, pt is in NAD. A/P: Near syncope: Will check Orthostatic vitals, Echo and carotid ultrasound. Likely due to hypovolemia. Continue IVF Hx of CHF: Pt denies taking any diuretic because of frequent urination. Will continue low salt diet, strict I/O and daily weight. Will f/u Echo. AICD in place 2cm pancreatic mass: Will consult GI for EUS. Unable to do MRCP due to presence of AICD. Consult GI. DM II: Continue accuchek, SSI, lantus 18u qhs, and ADA diet Hypotension: BP was 60/40 at home. Will continue gentle IVF and monitor. Hyponatremia: Likely due to hypovolemia. Will give NS IVF and trend Na level. Hyperkalemia: K is 4.6. Will monitor. DVT ppx: SCD Code: full <Hill Mcleod - Last Filed: 05/08/23 21:21>
[2023-05-08] MEDS: ENOXAPARIN 40 MG/0.4 ML SQ SCH (16:12)
[2023-05-08] MEDS: NA CHLORIDE 0.9% 1,000 ML IV SCH ×2 (16:12→16:46)
[2023-05-08] MEDS: INSULIN REGULAR (HUMAN) 100 UNIT/ML SQ SCH (16:13)
--- NOTE | 2023-05-08 16:22 | RAD REPORT ---
EXAM DESCRIPTION: CT - [id number] - 05/08/2023 3:43 pm CLINICAL HISTORY: syncope COMPARISON: No comparisons TECHNIQUE: Axial thin cut noncontrast CT images of the head were obtained. Axial thin cut noncontrast CT images of the cervical spine were obtained. Multiplanar reformatted images were generated and reviewed. All CT scans are performed using dose optimization technique as appropriate and may include automated exposure control or mA/KV adjustment according to patient size. FINDINGS: CT HEAD WITHOUT CONTRAST: No acute hemorrhage, hydrocephalus or extra-axial collection is identified.No areas of brain edema or midline shift. The paranasal sinuses and mastoids are clear.The calvarium is intact. CT CERVICAL SPINE WITHOUT CONTRAST: No fracture or subluxation.Moderate multilevel degenerative changes with viral degrees of neural fora dory narrowing most pronounced on the left at C2-3 and C4-5.No prevertebral soft tissues swelling is identified. IMPRESSION: No acute traumatic intracranial or cervical spine findings. Cervical spine degenerative changes as above.
[2023-05-08 16:42] VITALS: BMI 27.4
--- NOTE | 2023-05-08 16:46 | RAD REPORT ---
EXAM DESCRIPTION: CT - Abdomen Pelvis W Contrast - 05/08/2023 3:43 pm CLINICAL HISTORY: SYNCOPE COMPARISON: Abdomen Pelvis W Contrast dated 10/01/2020; Abdomen Pelvis W Contrast dated 04/14/2017; Chest For Pe Angio dated 05/08/2023 TECHNIQUE: Thin cut axial CT imaging of the abdomen and pelvis was performed following intravenous a dministration of 100 mL Isovue 370. Multiplanar reformats were generated and reviewed. All CT scans are performed using dose optimization technique as appropriate and may include automated exposure control or mA/KV adjustment according to patient size. FINDINGS: No suspicious findings in the lung bases. The liver, spleen, and adrenal glands show no suspicious findings. Gallbladder was surgically removed . Decreased demonstrates dilation and tortuosity of the pancreatic duct up to 7 mm in caliber along the head and body. Subtle hypodense mass is pancreatic head anteriorly measuring 2 x 2 cm, appears to be new since the prior exam. Symmetric renal function is seen with no hydronephrosis or suspicious renal mass. No dilated bowel loops or bowel wall thickening. Mild colonic diverticulosis No free air, free fluid or inflammatory stranding. No hernia, mass or bulky lymphadenopathy. The urinary bladder is without s ignificant finding. No suspicious bony findings. IMPRESSION: No acute intra-abdominal process. New hypodense 2 cm mass in the region of the pancreatic head anteriorly, concerning for malignancy. D ilation and tortuosity of the pancreatic duct along the head and body, which is likely related to obs truction. Mild colonic diverticulosis.
--- NOTE | 2023-05-08 16:56 | RAD REPORT ---
EXAM DESCRIPTION: CT - Chest For Pe Angio - 05/08/2023 3:43 pm CLINICAL HISTORY: syncope, back pain, s/p pacer/defibrillator COMPARISON: Chest For Pe Angio dated 05/24/2022 TECHNIQUE: Thin axial CT images of the chest were obtained following administration of 100 mL Isovue 370 IV contrast. Multiplanar reconstructions, and maximum intensity projection reconstructions were generated and reviewed. Exam utilizes a protocol for optimal evaluation of pulmonary arterial tree. All CT scans are performed using dose optimization technique as appropriate and may include automated exposure control or mA/KV adjustment according to patient size. FINDINGS: Pulmonary arteries are normal. No emboli or other suspicious finding. No acute or signific ant aorta findings. No mass or infiltrate in the lung parenchyma. No pleural thickening or pleural effusion. No pneumotho rax. No abnormal mediastinal or hilar masses or lymphadenopathy seen. No chest wall mass or abnormal axill iary lymphadenopathy. IMPRESSION: No evidence of acute central pulmonary emboli. No other acute process in the chest.
[2023-05-08] MEDS: INSULIN GLARGINE 100 UNIT/ML SQ SCH (20:39)
[2023-05-08] MEDS: ATORVASTATIN 10 MG TAB PO SCH (20:39)
[2023-05-08 21:11] VITALS: O2SAT 95
[2023-05-08 21:18] LABS: Troponin High Sensitivity 5.1 pg/mL (<58.9)
--- NOTE | 2023-05-08 21:42 | RAD REPORT ---
EXAM DESCRIPTION: US - CP - 05/08/2023 9:21 pm CLINICAL HISTORY: syncope COMPARISON: Head C Spine Mpr Wo Con dated 05/08/2023 TECHNIQUE: Real-time sonographic grayscale, color duplex, and spectral wave Doppler evaluation of [facility] carotid systems was performed. FINDINGS: Normal high resistance waveforms are noted in both external carotid arteries. The common c arotid arteries and internal carotid arteries show normal low resistance waveforms. No significant plaque formation is seen. Peak systolic velocity less than 125 cm/ sec bilaterally. I CA/CCA peak systolic ratios less than 2.0 bilaterally. Antegrade flow seen in both vertebral arteries. IMPRESSION: No significant atherosclerotic changes noted. No evidence of a hemodynamically significant stenosis. Evaluation of carotid artery stenosis, if any, is reported based on consensus recommendations of the Society of Radiologists in Ultrasound (Pb et al., Radiology, 2003)
[2023-05-09 06:49] LABS: Absolute Eosinophils 0.3 K/uL (0-0.5); Absolute Lymphocytes (CBC) 2.4 K/uL (0.7-4.9); Absolute Monocytes 0.7 K/uL (0.1-1.3); Absolute Neutrophil 4.9 K/uL (1.8-8.0); Basophils % 0.6 % (0-1.3); Eosinophils % 3.9 % (0-4.4); Hemoglobin 12.9 g/dL (12.0-15.0); Lymphocytes % 29.2 % (15.3-44.8); MCH 31.6 pg (27.0-35.0); MCHC 34.1 g/dL (32.0-36.0); MCV 92.8 fL (80-100); MPV 9.9 fL (7.6-11.3); Neutrophils % 58.3 % (41.7-73.7); Platelets 143 thou/uL (152-406); RBC Red Blood Cell Count 4.09 M/uL (3.86-4.86); Red Cell Distribution Width 12.6 % (12.1-15.2)
[2023-05-09 07:10] LABS: Anion Gap 7.3 mEq/L (5.0-15.0); Bilirubin Total 0.3 mg/dL (0.2-1.0); Globulin 3.4 g/dL (2.3-3.5); Potassium 4.3 mEq/L (3.5-5.1); Protein, Total 6.4 g/dL (6.4-8.2)
[2023-05-09 07:11] LABS: Albumin/Globulin Ratio 0.9 (1.1-1.8); Magnesium 1.7 mg/dL (1.6-2.4); Troponin High Sensitivity 5.1 pg/mL (<58.9)
[2023-05-09] MEDS: DIAZEPAM 5 MG TABLET PO ONE (07:44)
[2023-05-09] MEDS: FENTANYL CITR 100 MCG/2 ML IV ONE (07:44)
[2023-05-09] MEDS: ASPIRIN 81 MG CHEWABLE TABLET PO SCH (07:44)
[2023-05-09] MEDS: MAGNESIUM SULFATE 1 gm IVPB 1 GM/100 ML BAG IV ONE (07:45)
[2023-05-09] MEDS ORDERED: PNEUMOCOCCAL VACCINE 0.5 ML IMVAC ONE (08:00)
--- NOTE | 2023-05-09 08:24 | RAD REPORT ---
EXAM DESCRIPTION: US - Abdomen Exam Limited - 05/09/2023 5:21 am CLINICAL HISTORY: evaluate new pancreatic mass/obstruction COMPARISON: Abdomen Pelvis W Contrast dated 05/08/2023 TECHNIQUE: Sonographic grayscale and color flow images of the right upper abdominal quadrant were o btained. FINDINGS: The gallbladder was surgically removed. The common bile duct is normal in caliber, measuri ng 4 mm. The liver demonstrates no findings of intrahepatic biliary dilatation. The pancreatic head region is obscured by gas limiting evaluation. Prominent pancreatic duct measurin g 7 mm. IMPRESSION: Status post cholecystectomy. No intra or extrahepatic biliary ductal dilation. Prominent pancreatic duct. Evaluation of the pancreatic head region is obscured by bowel gas.
[2023-05-09 09:25] VITALS: TEMP 97.1
--- NOTE | 2023-05-09 11:40 | P.PN ---
Subjective Date of Service: 05/09/23 Chief Complaint: syncope, hypotension, diabetes Subjective: No new changes, Other (continued neck and upper back pain) <Alejandra Stevens - Last Filed: 05/09/23 11:44> Date of Service: 05/09/23 <Hill Mcleod - Last Filed: 05/09/23 15:58> Review of Systems 10-point ROS is otherwise unremarkable General: As per HPI Eyes: Unremarkable ENT: Unremarkable Respiratory: Unremarkable Cardiovascular: Unremarkable Gastrointestinal: Unremarkable Genitourinary: Unremarkable Musculoskeletal: Unremarkable Integumentary: Unremarkable Neurological: As per HPI Lymphatics: Unremarkable <Alejandra Stevens - Last Filed: 05/09/23 11:44> Physical Examination - Vital Signs Temperature: 97.1 F Blood Pressure: 105/63 Pulse: 80 Respirations: 16 Pulse Ox (%): 93 - Physical Exam General: Alert, In no apparent distress, Oriented x3 HEENT: Atraumatic, Normocephalic Neck: Supple, 2+ carotid pulse no bruit Respiratory: Clear to auscultation bilaterally, Normal air movement Cardiovascular: No edema, Normal pulses Capillary refill: <2 Seconds Gastrointestinal: Normal bowel sounds, No ascites, No tenderness Musculoskeletal: No clubbing Integumentary: No rashes Neurological: Normal gait Lymphatics: No axilla or inguinal lymphadenopathy External genitalia: Deferred Rectal: Deferred - Studies Laboratory Data (last 24 hrs) 05/08/23 05/08/23 05/08/23 13:16 13:16 13:16 WBC 8.00 Hgb 13.0 Hct 38.4 Plt Count 152 PT 12.4 INR 1.13 APTT 34.0 Sodium 134 L Potassium 4.6 BUN 22 H Creatinine 1.10 H Glucose 389 H Magnesium 1.8 Total Bilirubin 0.3 AST 15 ALT 28 Alkaline Phosphatase 157 H <Alejandra Stevens - Last Filed: 05/09/23 11:44> Assessment And Plan - Plan Near syncope: Will check Orthostatic vitals Carotid ultrasound. Likely due to hypovolemia. Continue IVF. Pt denies taking any diuretic because of frequent urination. Will continue low salt diet, strict I/O and daily weight. Pt has known low EF, AICD placed in Feb 15, recent increase in dose of antihypertensives CHF with Hypotension: BP was 60/40 at home. Responded to fluids in ED. Will continue gentle IVF and monitor. Will f/u Echo, Hold Entresto for now (dose doubled in April. Consult Cardiology DM II: Continue accucheck, SSI, lantus 18u qhs, and ADA diet, hold farxiga/metformin Hyponatremia: Likely due to hypovolemia. Will give NS IVF and trend Na level. Hyperkalemia: K is 4.6. Will monitor. New Pancreatic Mass with possible obstruction: Consult GI - deferred to specialty as outpatient Abd/pancreatic US, monitor lipase -> 1281 (asymptomatic) Will attempt to obtain followup with Davin Lopez, Transplant surgery team, [address] [place] [id number] DVT ppx: SCD Code: full <Alejandra Stevens - Last Filed: 05/09/23 11:44> - Plan Pt seen and examined. I agree with the note by the HEATING AND VENTILATING DRAFTER. Pt is eager to go home. She will follow up with GI in [facility]. <Hill Mcleod - Last Filed: 05/09/23 15:58>
[2023-05-09 12:52] VITALS: BP 109/67
--- NOTE | 2023-05-09 14:53 | ECHO ---
HEIGHT: 5 ft 2 in WEIGHT: 150 lb 0 oz DATE OF STUDY: 05/09/[address]: Alejandra Cleveland FINAL CANOE INSPECTOR-BC 2-DIMENSIONAL: YES M.MODE: YES DOPPLER: YES COLOR FLOW: YES TDS: NO PORTABLE: YES DEFINITY: NO BUBBLE STUDY: NO DIAGNOSIS: SYNCOPE/LOW EJECTION FRACTION/PACEMAKER CARDIAC HISTORY: CATHERIZATION: SURGERY: PROSTHETIC VALVE: PACEMAKER: DEFIBRILLATOR MEASUREMENTS (cm) DIASTOLIC (NORMALS) SYSTOLIC (NORMALS) IVSd 1.0 (0.6-1.2) LA Diam 3.3 (1.9-4.0) LVEF 20-25% LVIDd 3.7 (3.5-5.7) LVIDs 2.8 (2.0-3.5) %FS 24% LVPWd 1.0 (0.6-1.2) Ao Diam 3.0 (2.0-3.7) 2 DIMENSIONAL ASSESSMENT: RIGHT ATRIUM: NORMAL LEFT ATRIUM: NORMAL RIGHT VENTRICLE: NORMAL LEFT VENTRICLE: MILD DILATATION TRICUSPID VALVE: MILD TRICUSPID REGURGITATION MITRAL VALVE: NORMAL PULMONIC VALVE: NORMAL AORTIC VALVE: NORMAL PERICARDIAL EFFUSION: NONE AORTIC ROOT: NORMAL LEFT VENTRICULAR WALL MOTION: SEVERE GLOBAL HYPOKINESIS WITH AKINETIC ANTERIOR AND ANTEROSEPTAL BOSWELL (DYSSYNCHRONY FROM PACING) DOPPLER/COLOR FLOW: DIASTOLIC DYSFUNCTION. COMMENTS: 1. SEVERE GLOBAL HYPOKINESIS, APICAL/SEPTAL AKINESIS (DYSSYNCHRONY FROM PACING); SEVERE REDUCED LEFT VENTRICLE SYSTOLIC FUNCTION, EJECTION FRACTION 20-25, DIASTOLIC DYSFUNCTION 2. RIGHT VENTRICULAR SYSTOLIC PRESSURE 25-30mmHg TECHNOLOGIST: MARCO ANOTNIO MARTIN
--- NOTE | 2023-05-09 14:56 | P.DS ---
Admission Date: 05/08/23 Discharge Date: 05/09/23 Reason for Admission: syncope, hypotension, diabetes Brief History of Present Illness: Pt is a 78 yo female with past medical history of Htn, DM II, CHF with EF 24 % per pt, s/p AICD who presents with dizziness and near syncope. The symptoms started yesterday and progressively worsened so pt called EMS. Upon arrival pt had BP of 60/40. Denies chest pain, shortness of breath, nausea, vomiting, diaphoresis. Denies feeling defibrillator firing. On admission, lab studies show Na 134, Cr 1.10, glucose 389. Friend at bedside, pt is in NAD. Ms. Maggie Silverio complains of early satiety for a couple of months and has adjusted her metformin to daily instead of BID for the past week. Hospital Course: Date: 05/09/23 06:00 Upon further radiographic evaluation, pancreatic head mass identified, dilatation of pancreatic duct to 7mm. Dr. Ovalle requests patient follow up with pancreatic specialist. Initialization Date: 05/09/23 11:33 Dr. Lopez (Hepatic transplant) recommends Dr. Kisha Kramer for pancreatic evaluation. [address] [place], [place] [id number] [address] at [phone] Sulaiman Kramer at [facility] for 05/16/23 at 1500. His office is located at [address] [place] [address] Phone number [phone] Fax number [phone] <Alejandra Stevens - Last Filed: 05/09/23 14:50> Admission Date: 05/08/23 Discharge Date: 05/09/23 Hospital Course: Pt seen and examined. I agree with the note by the IT ASSOCIATE. Pt will follow up with GI at [facility] for further evaluation of the pancreatic mass <Hill Mcleod - Last Filed: 05/09/23 15:50> Disposition: ROUTINE DISCHARGE Discharge Condition: GOOD Vital Signs/Physical Exam: Temp Pulse Resp BP Pulse Ox 97.1 F 93 H 18 109/67 94 05/09/23 12:00 05/09/23 12:00 05/09/23 12:00 05/09/23 12:00 05/09/23 12:00 General: Alert, In no apparent distress, Oriented x3 HEENT: Atraumatic, Normocephalic, PERRLA Neck: Supple, 2+ carotid pulse no bruit Respiratory: Clear to auscultation bilaterally, Normal air movement Cardiovascular: No edema, Normal pulses, Regular rate/rhythm Capillary refill: <2 Seconds Gastrointestinal: Normal bowel sounds, Soft and benign, Non-distended Musculoskeletal: No clubbing, No swelling Integumentary: No rashes Neurological: Normal speech Lymphatics: No axilla or inguinal lymphadenopathy External genitalia: Deferred Rectal: Deferred Laboratory Data at Discharge: WBC 8.40 thou/uL (4.3-10.9) 05/09/23 05:40 Hgb 12.9 g/dL (12.0-15.0) 05/09/23 05:40 Hct 38.0 % (36.0-45.0) 05/09/23 05:40 Plt Count 143 thou/uL (152-406) L 05/09/23 05:40 PT 12.4 SECONDS (9.5-12.5) 05/08/23 13:16 INR 1.13 05/08/23 13:16 APTT 34.0 SECONDS (24.3-36.9) 05/08/23 13:16 Sodium 136 mEq/L (136-145) 05/09/23 05:40 Potassium 4.3 mEq/L (3.5-5.1) 05/09/23 05:40 BUN 16 mg/dL (7-18) 05/09/23 05:40 Creatinine 0.70 mg/dL (0.55-1.02) 05/09/23 05:40 Glucose 211 mg/dL (74-106) H 05/09/23 05:40 Magnesium 1.7 mg/dL (1.6-2.4) 05/09/23 05:40 Total Bilirubin 0.3 mg/dL (0.2-1.0) 05/09/23 05:40 AST 14 U/L (15-37) L 05/09/23 05:40 ALT 21 U/L (13-56) 05/09/23 05:40 Alkaline Phosphatase 127 U/L (45-117) H 05/09/23 05:40 Triglycerides 215 mg/dL (<150) H 05/09/23 05:40 Cholesterol 111 mg/dL (<200) 05/09/23 05:40 HDL Cholesterol 25 mg/dL (40-60) L 05/09/23 05:40 Cholesterol/HDL Ratio 4.44 05/09/23 05:40 Lipase 1281 U/L (13-75) H 05/08/23 20:50 <Steevns,Alejandra - Last Filed: 05/09/23 14:50> Vital Signs/Physical Exam: Temp Pulse Resp BP Pulse Ox 97.1 F 93 H 18 109/67 94 05/09/23 12:00 05/09/23 12:00 05/09/23 12:00 05/09/23 12:00 05/09/23 12:00 Laboratory Data at Discharge: WBC 8.40 thou/uL (4.3-10.9) 05/09/23 05:40 Hgb 12.9 g/dL (12.0-15.0) 05/09/23 05:40 Hct 38.0 % (36.0-45.0) 05/09/23 05:40 Plt Count 143 thou/uL (152-406) L 05/09/23 05:40 PT 12.4 SECONDS (9.5-12.5) 05/08/23 13:16 INR 1.13 05/08/23 13:16 APTT 34.0 SECONDS (24.3-36.9) 05/08/23 13:16 Sodium 136 mEq/L (136-145) 05/09/23 05:40 Potassium 4.3 mEq/L (3.5-5.1) 05/09/23 05:40 BUN 16 mg/dL (7-18) 05/09/23 05:40 Creatinine 0.70 mg/dL (0.55-1.02) 05/09/23 05:40 Glucose 211 mg/dL (74-106) H 05/09/23 05:40 Magnesium 1.7 mg/dL (1.6-2.4) 05/09/23 05:40 Total Bilirubin 0.3 mg/dL (0.2-1.0) 05/09/23 05:40 AST 14 U/L (15-37) L 05/09/23 05:40 ALT 21 U/L (13-56) 05/09/23 05:40 Alkaline Phosphatase 127 U/L (45-117) H 05/09/23 05:40 Triglycerides 215 mg/dL (<150) H 05/09/23 05:40 Cholesterol 111 mg/dL (<200) 05/09/23 05:40 HDL Cholesterol 25 mg/dL (40-60) L 05/09/23 05:40 Cholesterol/HDL Ratio 4.44 05/09/23 05:40 Lipase 1281 U/L (13-75) H 05/08/23 20:50 <Hill Mcleod - Last Filed: 05/09/23 15:50> Diet: AHA Activity: Ad eh <Alejandra Stevens - Last Filed: 05/09/23 14:50> <Hill Mcleod - Last Filed: 05/09/23 15:50> Home Medications: Aspirin Chewable [Aspirin Chewable*] 1 tab PO DAILY 05/08/23 Atorvastatin Calcium [Lipitor*] 10 mg PO BEDTIME 05/08/23 Dapagliflozin Propanediol [Farxiga] 10 mg PO DAILY 05/08/23 Metformin HCl 1 tab PO BID 05/08/23 Sacubitril/Valsartan [Entresto 49 mg-51 mg Tablet] 1 tab PO BID 05/08/23 carvediloL [Coreg*] 25 mg PO BID 6AM 6PM 30 Days #60 tab 05/09/23 New Medications: carvediloL [Coreg*] 25 mg PO BID 6AM 6PM 30 Days #60 tab Physician Discharge Instructions: Continue ad eh activity. Take coreg 25mg po BID with other home meds. Follow up with Dr. Kendrick Ha at [facility] within 1 week for further evaluation of the pancreatic mass. Follow up with Sulaiman Lopez on Sunday at 3pm. His office number is [phone]. His office is at [facility] [place] [address] ( [facility] 6th floor). Follow up with PCP in 1 week to check A1c. Do not drink more than 1 liter of water per day. Followup: Tim Ha DO [Primary Care Provider] - 1 Week Kendrick aH MD [OUTSIDE PHYSICIAN] - 1 Week
[2023-05-09] MEDS ORDERED: carvediloL 25 MG TAB PO SCH (18:00)
--- NOTE | 2023-05-10 14:45 | EKG ---
Test Date: 2023-05-08 Test Time: 13:24:20 Other Sports Official: ALIS MEASUREMENT RESULTS: Intervals: Rate: 66 MT: 134 QRSD: 148 QT: 466 QTc: 488 Galt: P: 17 MT: 134 QRS: 11 T: 123 INTERPRETIVE STATEMENTS: Normal sinus rhythm Left bundle branch block Abnormal ECG Compared to ECG 05/24/2022 17:41:08 Left bundle-branch block now present Left-axis deviation no longer present Left ventricular hypertrophy no longer present Early repolarization no longer present Myocardial infarct finding no longer present Electronically Signed On 05-10-23 14:41:52 HAMMER MILL OPERATOR by Prudencio Garcia
== END 2023-05-09 15:56 | disposition home or self-care (01) | DRG 641 ==
LOC: ER 13:06 → ERHOLD 15:08 → 4TH 15:41
PROVIDERS: ADMIT Hospitalist; ATTEND Hospitalist
DX: E87.1 Hypo-osmolality and hyponatremia (principal); I50.22 Chronic systolic (congestive) heart failure; I11.0 Hypertensive heart disease with heart failure; E87.5 Hyperkalemia; I95.9 Hypotension, unspecified; E11.9 Type 2 diabetes mellitus without complications; K86.9 Disease of pancreas, unspecified; Z60.2 Problems related to living alone; Z88.5 Allergy status to narcotic agent; Z79.82 Long term (current) use of aspirin; Z90.49 Acquired absence of other specified parts of digestive tract; Z79.02 Long term (current) use of antithrombotics/antiplatelets; Z79.84 Long term (current) use of oral hypoglycemic drugs; Z79.899 Other long term (current) drug therapy; Z95.810 Presence of automatic (implantable) cardiac defibrillator
CPT/HCPCS: 36415; 70450; 71045; 71275; 72125; 74177; 76705; 80048; 80053; 80061; 80076; 81001; 82947; 83690; 83735; 84484; 85025; 85610; 85730; 93005; 93306; 93880; 94760; 99285; J1650; J1815; J3010; J3475; J7030; Q9967

== ENCOUNTER 2023-07-27 12:41 | Inpatient (IN) | payer MEDICARE ==
[2023-07-27] MEDS ORDERED: NA CHLORIDE 0.9% 1,000 ML ONE ×4 (13:22→21:10)
[2023-07-27 13:50] LABS: Absolute Eosinophils 0.1 K/uL (0-0.5); Absolute Lymphocytes (CBC) 1.4 K/uL (0.7-4.9); Absolute Monocytes 0.3 K/uL (0.1-1.3); Absolute Neutrophil 6.3 K/uL (1.8-8.0); Basophils % 0.3 % (0-1.3); Eosinophils % 1.8 % (0-4.4); Hematocrit 33.6 % (36.0-45.0); Hemoglobin 11.2 g/dL (12.0-15.0); Lymphocytes % 17.4 % (15.3-44.8); MCH 32.1 pg (27.0-35.0); MCHC 33.3 g/dL (32.0-36.0); MCV 96.5 fL (80-100); MPV 10.4 fL (7.6-11.3); Monocytes % 3.9 % (3.3-12.3); Neutrophils % 76.6 % (41.7-73.7); Platelets 162 thou/uL (152-406); RBC Red Blood Cell Count 3.48 M/uL (3.86-4.86); Red Cell Distribution Width 15.3 % (12.1-15.2)
[2023-07-27 13:52] LABS: PT Prothrombin Time 11.9 SECONDS (9.5-12.5); PTT, Activated Partial Thromb 33.3 SECONDS (24.3-36.9); Protime INR 1.08
[2023-07-27 14:07] LABS: Albumin 3.2 g/dL (3.4-5.0); Albumin/Globulin Ratio 0.9 (1.1-1.8); Anion Gap 9.1 mEq/L (5.0-15.0); Bilirubin Total 0.5 mg/dL (0.2-1.0); Globulin 3.5 g/dL (2.3-3.5); Magnesium 1.5 mg/dL (1.6-2.4); Potassium 4.1 mEq/L (3.5-5.1); Protein, Total 6.7 g/dL (6.4-8.2); Troponin High Sensitivity 3.6 pg/mL (<58.9)
[2023-07-27] MEDS ORDERED: Magnesium Sulfate 2gm IVPB 2 G/50 ML BAG IV ONE (14:21)
--- NOTE | 2023-07-27 14:30 | RAD REPORT ---
EXAM DESCRIPTION: RAD - Chest Single View - 07/27/2023 2:17 pm CLINICAL HISTORY: CHEST PAINS COMPARISON: Chest Single View dated 05/08/2023; Chest Single View dated 05/24/2022; Chest Pa And Lat (2 Views) dated 05/03/2020; Chest Pa And Lat (2 Views) dated 05/02/2019 FINDINGS: Lines: Right IJ approach Port-A-Cath with tip overlying the SVC. Left subclavian approach ICD. Lungs: No evidence of edema or pneumonia. Pleural: No significant pleural effusions or pneumothorax. Cardiac: Similar cardiomegaly. Mediastinum: Within normal limits. Bones: No acute fractures. Other: None IMPRESSION: No acute cardiopulmonary disease.
[2023-07-27] MEDS ORDERED: NA CHLORIDE 0.9% 100 ML ONE ×2 (15:48→22:01)
[2023-07-27] MEDS ORDERED: PIPERACIL/TAZO 3.375 GM VIAL IV ONE (15:48)
[2023-07-27] MEDS ORDERED: NA CHLORIDE 0.9% 250 ML ONE (17:01)
[2023-07-27] MEDS ORDERED: VANCOMYCIN 1 GM/VIAL ONE (17:01)
--- NOTE | 2023-07-27 17:33 | RAD REPORT ---
EXAM DESCRIPTION: CT - Chest For Pe Angio - 07/27/2023 5:24 pm CLINICAL HISTORY: PALPATATIONS COMPARISON: Chest For Pe Angio dated 05/08/2023; Chest For Pe Angio dated 05/24/2022 TECHNIQUE: Dynamically enhanced axial 3 mm thick images of the chest were obtained during administra tion of <100> mL Isovue 370 IV contrast. Coronal and oblique reconstruction images were generated and reviewed. Exam utilizes a protocol for optimal evaluation of pulmonary arterial tree. Maximum intensity projections 3D imaging was utilized All CT scans are performed using dose optimization technique as appropriate and may include automated exposure control or mA/KV adjustment according to patient size. FINDINGS: Chest Wall: No suspicious thyroid nodules or pathologic lymphadenopathy. Right IJ approach Port-A-Cath. Left upper chest wall pacemaker. Lungs: There is some mild interlobular septal thickening. No consolidation. Pleura: No significant effusions or pneumothorax. Mediastinum/tucker: Prominent hilar lymph nodes that we reactive. Prominent subcarinal lymph node that is nonspecific. Mild circumferential thickened distal esophagus which could reflect esophagitis. Pulmonary arteries/Aorta: No filling defect identified. No aortic aneurysm. Heart: No significant pericardial effusion. Scattered coronary artery calcifications. Cardiomegaly. Upper abdomen: Reference same-day CT of the abdomen and pelvis. Bones: No acute abnormality. IMPRESSION: Negative for pulmonary embolism. Mild interstitial edema suspected. No evidence of pneum onia.
--- NOTE | 2023-07-27 17:52 | RAD REPORT ---
EXAM DESCRIPTION: CTAbdomen Pelvis W Contrast - 07/27/2023 5:25 pm CLINICAL HISTORY: PALPATATIONS COMPARISON: Abdomen Pelvis W Contrast dated 05/08/2023; Abdomen Pelvis W Contrast dated 10/01/2020; Abdomen Pelvis W Contrast dated 04/14/2017 TECHNIQUE: CT of the abdomen and pelvis was performed. All CT scans are performed using dose optimization technique as appropriate and may include automated exposure control or mA/KV adjustment according to patient size. FINDINGS: Lower chest: No acute abnormality. Liver: Moderate intrahepatic biliary duct dilatation. Biliary: Worsening extrahepatic biliary duct dilatation. Cholecystectomy. Stomach: No significant focal abnormality. Duodenum: No significant focal abnormality. Pancreas: The pancreatic head mass has increased in size measuring approximately 2.4 cm, previously 2 cm. Similar pancreatic atrophy and pancreatic ductal dilatation. Spleen: No significant abnormality. Adrenal: No suspicious lesions. Kidney/ureter: No hydronephrosis. No renal calculi. Retroperitoneum: No retroperitoneal adenopathy. Vascular: No aneurysm. Bowel: No significant focal abnormality. Peritoneum: Small volume of pleural free fluid. Fat containing umbilical hernia. Bladder: Grossly unremarkable. Reproductive: No adnexal masses. Bones: No acute fracture. Grade 1 anterolisthesis of L3 of L4. Multilevel degenerative changes are pr esent in the spine. Other: n/a IMPRESSION: Mild increase in size of the pancreatic head mass with worsening intra and extrahepatic biliary duct dilatation. The patient may need an ERCP with stent placement. No other acute findings i dentified.
--- NOTE | 2023-07-27 19:22 | P.HP ---
Certification for Inpatient Patient admitted to: Inpatient With expected LOS: >2 Midnights Patient will require the following post-hospital care: None Practitioner: I am a practitioner with admitting privileges, knowledge of patient current condition, hospital course, and medical plan of care. Services: Services provided to patient in accordance with Admission requirements found in Title 42 Section 412.3 of the Code of Federal Regulations Patient History Date of Service: 07/27/23 Reason for admission: Chest pain, hypotension History of Present Illness: 78-year-old female with history of pancreatic cancer on chemotherapy, diabetes mellitus type [id number], chronic systolic congestive heart failure with AICD in place, hypertension presents emergency department with chief complaint of chest pain, palpitations. She received her fifth dose of weekly chemotherapy on 07/25/2023. For the past few days she been having some pleuritic chest pain when she takes a deep breath as well as palpitations, some mild epigastric pain noted as well. She also states that she feels constipated. She was evaluated in the emergency department her labs are significant for sodium 131 glucose of 363 lactic acid 2.6 improved to 1.6 after hydration magnesium 1.5 which was replaced, mild elevations in AST, ALT and alk phos, T. bili normal. Hemoglobin 11.2 hematocrit 33.6 white blood cell count normal she has noted to be tachycardic with heart rate between 125 and 140 and blood pressure soft with systolics in the 90s, was initially 70 87/50 on arrival to ED. Blood cultures were obtained she was started on empiric antibiotics in the emergency department CTA of the chest was performed which was negative for pulmonary embolism or other acute findings. ED provider wishes to admit patient for further evaluation and management of her tachycardia, hypotension. Allergies tramadol Adverse Reaction (Intermediate, Verified 05/08/23 15:55) Nausea/Vomiting Home Medications: Aspirin Chewable [Aspirin Chewable*] 1 tab PO DAILY 05/08/23 Atorvastatin Calcium [Lipitor*] 10 mg PO BEDTIME 05/08/23 Dapagliflozin Propanediol [Farxiga] 10 mg PO DAILY 05/08/23 Metformin HCl 1 tab PO BID 05/08/23 Sacubitril/Valsartan [Entresto 49 mg-51 mg Tablet] 1 tab PO BID 05/08/23 carvediloL [Coreg*] 25 mg PO BID 6AM 6PM 30 Days #60 tab 05/09/23 - Past Medical/Surgical History Diabetic: No -: HTN -: DM -: Pancreatic cancer on chemotherapy -: Chronic systolic congestive heart failure -: varicose vein removal -: herniated disc repair -: left breast tumor removal -: pacer/defibrillator -: right arm -: cholecystectomy Psychosocial/ Personal History: Lives at home alone, Children nearby - Social History Smoking Status: Never smoker Alcohol use: No CD- Drugs: No Caffeine use: Yes Place of Residence: Home Review of Systems 10-point ROS is otherwise unremarkable Cardiovascular: Chest Pain Physical Examination - Physical Exam General: Alert, In no apparent distress, Oriented x3 HEENT: Atraumatic, PERRLA, Mucous membr. moist/pink Neck: Supple, 2+ carotid pulse no bruit, No LAD Respiratory: Clear to auscultation bilaterally, Normal air movement Cardiovascular: Regular rate/rhythm (sinus tach 130), Normal S1 S2 Gastrointestinal: Normal bowel sounds, No tenderness Musculoskeletal: No tenderness Integumentary: No rashes Neurological: Normal speech, Normal strength at 5/5 x4 extr, Normal tone, Normal affect - Studies Laboratory Data (last 24 hrs) 07/27/23 07/27/23 07/27/23 13:25 13:25 13:25 WBC 8.20 Hgb 11.2 L Hct 33.6 L Plt Count 162 PT 11.9 INR 1.08 APTT 33.3 Sodium 131 L Potassium 4.1 BUN 17 Creatinine 0.87 Glucose 363 H Magnesium 1.5 L Total Bilirubin 0.5 AST 46 H ALT 98 H Alkaline Phosphatase 228 H Assessment and Plan - Plan Assessment: Chest pain Sinus tachycardia Hypotension History of pancreatic cancer on chemotherapy Chronic systolic congestive heart failure status post AICD placement Diabetes mellitus type [id number] with hyperglycemia Hypertension Plan: Chest pain Sinus tachycardia Hypotension Chronic systolic congestive heart failure status post AICD placement History of pancreatic cancer on chemotherapy Reports pleuritic chest pain last 3 days-CT negative for PE or other acute thoracic findings No significant pericardial effusion noted on CT Possibly dehydrated, some improvement with IV fluids Unclear what chemotherapy agent patient is on, last received on 07/25/2023 No other changes in medications recently Will attempt to obtain records from [facility] lactate 2.6, improved after IVF no source of infection, on empiric abx with vanc/cefepime while we await cultures CT abd pelvis with mild enlarging pancreatic mass with increasing ductal dilation LFTs mildly elevated but Bili WNL repeat LFTs in AM Diabetes mellitus type [id number] with hyperglycemia ACHS Accu-Chek, sliding scale insulin Hypertension Hold oral antihypertensive agents as blood pressure is soft at this time DVT PPX: Lovenox Code status: Full Discharge Plan: Home Plan to discharge in: 72 Hours - Advance Directives Does patient have a Living Will: Yes Does patient have a Durable POA for Healthcare: No - Code Status/Comfort Care Code Status Assessed: Yes (Full code) Critical Care: No Time Spent Managing Pts Care (In Minutes): 70
[2023-07-27] MEDS: NA CHLORIDE 0.9% 1,000 ML IV SCH (20:07)
[2023-07-27] MEDS ORDERED: MORPHINE 2 MG/ML SYR IV PRN (20:07)
[2023-07-27] MEDS: INSULIN REGULAR (HUMAN) 100 UNIT/ML SQ SCH (21:00)
[2023-07-27] MEDS ORDERED: CEFEPIME 1 GM/VIAL ONE (22:01)
[2023-07-27] MEDS: CEFEPIME 1 GM in NA CHLORIDE 0.9% 100 ML IV SCH (22:09)
[2023-07-28 05:03] LABS: Absolute Eosinophils 0.2 K/uL (0-0.5); Absolute Lymphocytes (CBC) 1.9 K/uL (0.7-4.9); Absolute Monocytes 0.1 K/uL (0.1-1.3); Absolute Neutrophil 3.6 K/uL (1.8-8.0); Basophils % 0.8 % (0-1.3); Eosinophils % 3.3 % (0-4.4); Hematocrit 28.7 % (36.0-45.0); Hemoglobin 9.8 g/dL (12.0-15.0); Lymphocytes % 32.4 % (15.3-44.8); MCH 32.9 pg (27.0-35.0); MCHC 34.3 g/dL (32.0-36.0); Monocytes % 1.9 % (3.3-12.3); Neutrophils % 61.6 % (41.7-73.7); Nucleated Red Blood Cells % 0.1 % (0-0); Platelets 127 thou/uL (152-406); RBC Red Blood Cell Count 2.99 M/uL (3.86-4.86); Red Cell Distribution Width 15.2 % (12.1-15.2)
[2023-07-28 05:10] LABS: PT Prothrombin Time 12.7 SECONDS (9.5-12.5); Protime INR 1.16
[2023-07-28 05:28] LABS: Albumin 2.6 g/dL (3.4-5.0); Albumin/Globulin Ratio 0.8 (1.1-1.8); Bilirubin Total 0.7 mg/dL (0.2-1.0); Globulin 3.2 g/dL (2.3-3.5); Protein, Total 5.8 g/dL (6.4-8.2); Thyroid Stimulating Hormone 3.09 uIU/mL (0.358-3.740)
[2023-07-28] MEDS: ENOXAPARIN 40 MG/0.4 ML SQ SCH (08:25)
[2023-07-28] MEDS: INSULIN REGULAR (HUMAN) 100 UNIT/ML ONE (08:35)
--- NOTE | 2023-07-28 09:21 | P.PN ---
Date of Service: 07/28/23 Subjective: No acute events overnight Reports improvement in pleuritic chest pain Still sinus tach 120-130 ROS: 10 point ROS as noted above, otherwise negative Physical exam GEN: Alert, oriented, NAD HEENT: Normal conjunctiva, sclera anicteric CV: Regular rate and rhythm, sinus tach 125 no edema Pulm: Nonlabored respirations on room air ABD: Soft, nontender, nondistended MSK: No joint tenderness Integumentary: No rashes, Port-A-Cath noted to chest wall Neuro: Normal speech, normal affect Vitals reviewed Assessment: Chest pain Sinus tachycardia Hypotension History of pancreatic cancer on chemotherapy Chronic systolic congestive heart failure status post AICD placement Diabetes mellitus type [id number] with hyperglycemia Hypertension Plan: Chest pain Sinus tachycardia Hypotension Chronic systolic congestive heart failure status post AICD placement History of pancreatic cancer on chemotherapy Reports pleuritic chest pain last 3 days-CT negative for PE or other acute thoracic findings No significant pericardial effusion noted on CT Possibly dehydrated, some improvement with IV fluids Unclear what chemotherapy agent patient is on, last received on 07/25/2023 No other changes in medications recently no source of infection, on empiric abx with vanc/cefepime while we await cultures CT abd pelvis with mild enlarging pancreatic mass with increasing ductal dilation LFTs improving on morning lab Lipase within normal limits Trend LFTs, obtain procalcitonin Await blood cultures Diabetes mellitus type [id number] with hyperglycemia ACHS Accu-Chek, sliding scale insulin Hypertension Hold oral antihypertensive agents as blood pressure is soft at this time DVT PPX: Lovenox Code status: Full Discharge Plan: Home Plan to discharge in: 24-48 Hours Time Spent Managing Pts Care (In Minutes): 35 <Jaime King - Last Filed: 07/28/23 09:21> Patient seen and examined. She denies any complain. BP improved. She has been afebrile. Chronic systolic heart failure s/p AICD H/o pancreatic cancer on chemo Sinus tachycardia Plan: Blood cultures shows no growth. Continue antibiotics for now. Obtain Echo given h/o systolic heart failure. <racquel monaco - Last Filed: 07/28/23 18:22>
[2023-07-28] MEDS: MORPHINE 4 MG/ML SYR ONE (09:33)
[2023-07-28] MEDS: CEFEPIME 2 GM in NA CHLORIDE 0.9% 100 ML IV SCH (11:09)
[2023-07-28] MEDS: ONDANSETRON 4 MG/2 ML VIAL IV PRN (11:10)
[2023-07-28] MEDS: VANCOMYCIN 1 GM in NA CHLORIDE 0.9% 250 ML IVPB SCH (12:21)
[2023-07-28] MEDS: INSULIN REGULAR (HUMAN) 100 UNIT/ML SQ SCH ×2 (13:30→16:03)
[2023-07-28] MEDS ORDERED: INSULIN REGULAR (HUMAN) 100 UNIT/ML SQ SCH (16:30)
[2023-07-28] MEDS ORDERED: VANCOMYCIN 1 GM in NA CHLORIDE 0.9% 250 ML IVPB SCH (17:00)
[2023-07-29 04:53] LABS: Absolute Eosinophils 0.2 K/uL (0-0.5); Absolute Lymphocytes (CBC) 1.7 K/uL (0.7-4.9); Absolute Monocytes 0.1 K/uL (0.1-1.3); Absolute Neutrophil 1.4 K/uL (1.8-8.0); Basophils % 1.3 % (0-1.3); Eosinophils % 6.6 % (0-4.4); Hemoglobin 9.8 g/dL (12.0-15.0); MCH 32.6 pg (27.0-35.0); MCHC 33.7 g/dL (32.0-36.0); MCV 96.8 fL (80-100); MPV 10.6 fL (7.6-11.3); Monocytes % 1.6 % (3.3-12.3); Neutrophils % 41.5 % (41.7-73.7); Nucleated Red Blood Cells % 0.1 % (0-0); Platelets 114 thou/uL (152-406); RBC Red Blood Cell Count 2.99 M/uL (3.86-4.86); Red Cell Distribution Width 15.1 % (12.1-15.2)
[2023-07-29 05:16] LABS: PT Prothrombin Time 13.4 SECONDS (9.5-12.5); Protime INR 1.23
[2023-07-29 05:19] LABS: Albumin 2.5 g/dL (3.4-5.0); Albumin/Globulin Ratio 0.8 (1.1-1.8); Bilirubin Total 0.7 mg/dL (0.2-1.0); Globulin 3.2 g/dL (2.3-3.5); Protein, Total 5.7 g/dL (6.4-8.2)
[2023-07-29] MEDS ORDERED: ACETAMINOPHEN 325 MG TABLET PO PRN (07:30)
[2023-07-29] MEDS: carvediloL 6.25 MG TAB PO SCH (08:12)
[2023-07-29] MEDS: ASPIRIN 81 MG CHEWABLE TABLET PO SCH (08:12)
--- NOTE | 2023-07-29 09:27 | P.PN ---
Date of Service: 07/29/23 Subjective: No acute events overnight Feeling better today ROS: 10 point ROS as noted above, otherwise negative Physical exam GEN: Alert, oriented, NAD HEENT: Normal conjunctiva, sclera anicteric CV: Regular rate and rhythm, sinus tach 120s no edema Pulm: Nonlabored respirations on room air ABD: Soft, nontender, nondistended MSK: No joint tenderness Integumentary: No rashes, Port-A-Cath noted to chest wall Neuro: Normal speech, normal affect Vitals reviewed Assessment: Chest pain Sinus tachycardia Hypotension History of pancreatic cancer on chemotherapy Chronic systolic congestive heart failure status post AICD placement Diabetes mellitus type 2vqy-shpzzti-aktrowrrw with hyperglycemia Hypertension Plan: Chest pain Sinus tachycardia Hypotension Chronic systolic congestive heart failure status post AICD placement History of pancreatic cancer on chemotherapy Reports pleuritic chest pain last 3 days-CTA negative for PE or other acute thoracic findings No significant pericardial effusion noted on CT Possibly dehydrated, some improvement with IV fluids Unclear what chemotherapy agent patient is on, last received on 07/25/2023 No other changes in medications recently no source of infection, on empiric abx with vanc/cefepime while we await cultures-no growth in [address] abd pelvis with mild enlarging pancreatic mass with increasing ductal dilation LFTs more elevated today, Tbili WNL Lipase within normal limits Trend LFTs, procal <0.05 Was on carvedilol at home, restarted 07/28 hopefully this will help with sinus tachycardia Echo ordered Diabetes mellitus type 9yge-ormhfyz-wmsodqiqg with hyperglycemia ACHS Accu-Chek, sliding scale insulin Hypertension Resume carvedilol at reduced dose given soft BP, tachycardia DVT PPX: Lovenox Code status: Full Discharge Plan: Home Plan to discharge in: 24-48 Hours Time Spent Managing Pts Care (In Minutes): 35 <Jaime King - Last Filed: 07/29/23 09:24> Patient seen and examined, plan of care discussed with Jaime King Patient denies any complaint. She denies any shortness of breath. Blood pressure has been soft. Suspect patient's tachycardia related to her LV dysfunction. Awaiting echocardiogram. Patient has wide-complex tachycardia. Continue home dose Coreg, avoid other AV puma blockers. Cardiology consult. <racquel monaco - Last Filed: 07/29/23 15:50>
[2023-07-29] MEDS: HYDROCODONE/APAP 5/325 MG TAB PO PRN (20:44)
[2023-07-30 05:00] LABS: Absolute Basophils 0.1 K/uL (0-0.5); Absolute Eosinophils 0.2 K/uL (0-0.5); Absolute Lymphocytes (CBC) 1.7 K/uL (0.7-4.9); Absolute Monocytes 0.1 K/uL (0.1-1.3); Absolute Neutrophil 1.5 K/uL (1.8-8.0); Basophils % 1.5 % (0-1.3); Eosinophils % 5.8 % (0-4.4); Hematocrit 28.2 % (36.0-45.0); Hemoglobin 9.5 g/dL (12.0-15.0); Lymphocytes % 48.2 % (15.3-44.8); MCH 32.6 pg (27.0-35.0); MCHC 33.8 g/dL (32.0-36.0); MCV 96.6 fL (80-100); MPV 9.9 fL (7.6-11.3); Monocytes % 2.5 % (3.3-12.3); Nucleated Red Blood Cells % 0.1 % (0-0); Platelets 121 thou/uL (152-406); RBC Red Blood Cell Count 2.92 M/uL (3.86-4.86); Red Cell Distribution Width 15.1 % (12.1-15.2)
[2023-07-30 05:10] LABS: PT Prothrombin Time 13.6 SECONDS (9.5-12.5); Protime INR 1.24
[2023-07-30 05:22] LABS: Albumin 2.6 g/dL (3.4-5.0); Albumin/Globulin Ratio 0.8 (1.1-1.8); Anion Gap 4.9 mEq/L (5.0-15.0); Bilirubin Total 0.5 mg/dL (0.2-1.0); Globulin 3.2 g/dL (2.3-3.5); Potassium 3.9 mEq/L (3.5-5.1); Protein, Total 5.8 g/dL (6.4-8.2)
[2023-07-30 06:17] LABS: Magnesium 1.5 mg/dL (1.6-2.4)
[2023-07-30] MEDS: POTASSIUM CL SA 10 MEQ TAB PO ONE (08:11)
[2023-07-30] MEDS: Magnesium Sulfate 2gm IVPB 2 G/50 ML BAG IV ONE (08:12)
--- NOTE | 2023-07-30 08:52 | P.PN ---
Date of Service: 07/30/23 Subjective: Continues to feel well tolerating diet ROS: 10 point ROS as noted above, otherwise negative Physical exam GEN: Alert, oriented, NAD HEENT: Normal conjunctiva, sclera anicteric CV: Regular rate and rhythm, sinus tach 105-110 no edema Pulm: Nonlabored respirations on room air ABD: Soft, nontender, nondistended MSK: No joint tenderness Integumentary: No rashes, Port-A-Cath noted to chest wall Neuro: Normal speech, normal affect Vitals reviewed Assessment: Chest pain Sinus tachycardia Hypotension History of pancreatic cancer on chemotherapy Chronic systolic congestive heart failure status post AICD placement Diabetes mellitus type 3bmr-esmqrfl-cektzekjn with hyperglycemia Hypertension Plan: Chest pain Sinus tachycardia Hypotension Chronic systolic congestive heart failure status post AICD placement History of pancreatic cancer on chemotherapy Reports pleuritic chest pain last 3 days-CTA negative for PE or other acute thoracic findings No significant pericardial effusion noted on CT Chest pain had improved Possibly dehydrated, some improvement with IV fluids Unclear what chemotherapy agent patient is on, last received on 07/25/2023 No other changes in medications recently no source of infection, on empiric abx with vanc/cefepime while we await cultures-no growth in 24 hours IV abx discontinued 07/29 CT abd pelvis with mild enlarging pancreatic mass with increasing ductal dilation LFTs improved today from yesterday, Tbili WNL Lipase within normal limits Trend LFTs, procal <0.05 Was on carvedilol at home, restarted 07/28 some improvement in sinus tach Echo ordered as well as cardiology consult-await results/recs Diabetes mellitus type 2wlt-zdobfyh-zwnhlzzct with hyperglycemia ACHS Accu-Chek, sliding scale insulin Hypertension Resume carvedilol at reduced dose given soft BP, tachycardia DVT PPX: Lovenox Code status: Full Discharge Plan: Home Plan to discharge in: 24-48 Hours Time Spent Managing Pts Care (In Minutes): 35
--- NOTE | 2023-07-30 12:06 | P.CNS ---
Date of Consult: 07/30/23 Chief Complaint: Chest pain, hypotension History of Present Illness: Patient with PMH of CHF s/p AICD, HTN, Pancreatic cancer on chemotherapy, presented with tachycardia, hypotension, no other cardiac complains, she follows up with cardiology in [place] and has been complaint with her medications. Allergies tramadol Adverse Reaction (Intermediate, Verified 05/08/23 15:55) Nausea/Vomiting Home Medications: Aspirin Chewable [Aspirin Chewable*] 1 tab PO DAILY 05/08/23 Atorvastatin Calcium [Lipitor*] 10 mg PO BEDTIME 05/08/23 Dapagliflozin Propanediol [Farxiga] 10 mg PO BEDTIME 05/08/23 Metformin HCl 1 tab PO BID 05/08/23 Sacubitril/Valsartan [Entresto 49 mg-51 mg Tablet] 1 tab PO BID 05/08/23 carvediloL [Coreg*] 25 mg PO BID 6AM 6PM 30 Days #60 tab 05/09/23 - Past Medical/Surgical History Diabetic: No -: HTN -: DM -: Pancreatic cancer on chemotherapy -: Chronic systolic congestive heart failure -: varicose vein removal -: herniated disc repair -: left breast tumor removal -: pacer/defibrillator -: right arm -: cholecystectomy Psychosocial/ Personal History: Lives at home alone, Children nearby - Social History Smoking Status: Never smoker Alcohol use: No CD- Drugs: No Caffeine use: Yes Place of Residence: Home Review of Systems 10-point ROS is otherwise unremarkable Physical Examination Temp Pulse Resp BP Pulse Ox 97 F 110 H 18 125/85 95 07/30/23 08:00 07/30/23 08:11 07/30/23 08:00 07/30/23 08:11 07/30/23 08:00 General: Alert, Oriented x3 HEENT: Atraumatic Neck: Supple Respiratory: Clear to auscultation bilaterally Cardiovascular: No edema, Normal S1 S2 Gastrointestinal: Normal bowel sounds - Problems (1) Sinus tachycardia Current Visit: Yes Status: Acute Plan: EKG reviewed and it is sinus tachycardia, patient HR is in the 100s now on tele Continue Coreg 6.25 mg po BID continue Tele. Echo (2) Congestive heart failure Current Visit: Yes Status: Acute Plan: Patient looks euvolemic on exam. coreg 6.25 mg po BID Entresto is on hold due to low BP (will start lower dose in am if BP tolerate it). (3) HTN (hypertension) Current Visit: Yes Status: Acute Plan: as above.
--- NOTE | 2023-07-30 14:45 | EKG ---
Test Date: 2023-07-27 Test Time: 19:17:52 Project Management Consultant: DENICE MEASUREMENT RESULTS: Intervals: Rate: 121 MN: 120 QRSD: 146 QT: 368 QTc: 522 [place]: P: MN: 120 QRS: 10 T: 113 INTERPRETIVE STATEMENTS: Sinus tachycardia Left bundle branch block Abnormal ECG Compared to ECG 05/08/2023 13:24:20 Sinus rhythm no longer present Electronically Signed On 07-30-23 14:39:43 CDT by Prudencio Garcia
--- NOTE | 2023-07-30 14:47 | EKG ---
Test Date: 2023-07-27 Test Time: 12:56:26 Brake Lining Curer: BÁRBARA MEASUREMENT RESULTS: Intervals: Rate: 140 OR: 104 QRSD: 142 QT: 356 QTc: 543 [place]: P: OR: 104 QRS: -10 T: 119 INTERPRETIVE STATEMENTS: Sinus tachycardia with short OR Left bundle branch block Abnormal ECG Compared to ECG 05/08/2023 13:24:20 Short OR interval now present Sinus rhythm no longer present Electronically Signed On 07-30-23 14:40:13 CDT by Prudencio Garcia
--- NOTE | 2023-07-30 14:55 | ECHO ---
HEIGHT: 5 ft 0 in WEIGHT: 134 lb 14.4 oz DATE OF STUDY: 07/30/[address]: Jaime King NP 2-DIMENSIONAL: YES M.MODE: YES DOPPLER: YES COLOR FLOW: YES TDS: PORTABLE: YES DEFINITY: BUBBLE STUDY: DIAGNOSIS: CHEST PAIN, TACHYCARDIA, HYPOTENSION CARDIAC HISTORY: CATHERIZATION: NO SURGERY: NO PROSTHETIC VALVE: NO PACEMAKER: YES MEASUREMENTS (cm) DIASTOLIC (NORMALS) SYSTOLIC (NORMALS) IVSd 1.2 (0.6-1.2) LA Diam 2.4 (1.9-4.0) LVEF 32% LVIDd 4.3 (3.5-5.7) LVIDs 3.6 (2.0-3.5) %FS 15% LVPWd 1.1 (0.6-1.2) Ao Diam 3.1 (2.0-3.7) 2 DIMENSIONAL ASSESSMENT: RIGHT ATRIUM: NORMAL LEFT ATRIUM: NORMAL RIGHT VENTRICLE: NORMAL WITH PACEMAKER LEFT VENTRICLE: DEPRESSED EJECTION FRACTION TRICUSPID VALVE: MILD TRICUSPID REGURGITATION MITRAL VALVE: MILD MITRAL REGURGITATION PULMONIC VALVE: NORMAL AORTIC VALVE: NORMAL PERICARDIAL EFFUSION: NONE AORTIC ROOT: NORMAL LEFT VENTRICULAR WALL MOTION: DISTAL ANTERIOR AND APICAL DYSKINESIS DOPPLER/COLOR FLOW: SEE BELOW COMMENTS: 1. MODERATELY DEPRESSED LEFT VENTRICULAR EJECTION FRACTION 30-35% 2. 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 MILD MITRAL REGURGITATION 4. MILD TRICUSPID REGURGITATION 5. SEVERE DIASTOLIC DYSFUNCTION TECHNOLOGIST: KAYLENE BARTON
[2023-07-30] MEDS: carvediloL 12.5 MG TAB PO SCH (16:42)
[2023-07-30] MEDS: GLUCERNA SHAKE 237 ML CAN PO SCH (20:52)
[2023-07-31 05:08] LABS: Absolute Eosinophils 0.1 K/uL (0-0.5); Absolute Lymphocytes (CBC) 1.6 K/uL (0.7-4.9); Absolute Monocytes 0.2 K/uL (0.1-1.3); Absolute Neutrophil 1.4 K/uL (1.8-8.0); Basophils % 1.2 % (0-1.3); Eosinophils % 2.9 % (0-4.4); Hematocrit 27.9 % (36.0-45.0); Hemoglobin 9.4 g/dL (12.0-15.0); Lymphocytes % 47.1 % (15.3-44.8); MCH 32.5 pg (27.0-35.0); MCHC 33.8 g/dL (32.0-36.0); MCV 96.4 fL (80-100); MPV 10.1 fL (7.6-11.3); Monocytes % 7.2 % (3.3-12.3); Neutrophils % 41.6 % (41.7-73.7); Platelets 99 thou/uL (152-406); Red Cell Distribution Width 14.9 % (12.1-15.2)
[2023-07-31 05:10] LABS: PT Prothrombin Time 13.6 SECONDS (9.5-12.5); Protime INR 1.24
[2023-07-31 05:24] LABS: Albumin 2.8 g/dL (3.4-5.0); Albumin/Globulin Ratio 0.9 (1.1-1.8); Anion Gap 4.9 mEq/L (5.0-15.0); Bilirubin Total 0.3 mg/dL (0.2-1.0); Globulin 3.1 g/dL (2.3-3.5); Potassium 3.9 mEq/L (3.5-5.1); Protein, Total 5.9 g/dL (6.4-8.2)
[2023-07-31 05:47] VITALS: O2SAT 93; BMI 26.2
[2023-07-31] MEDS: carvediloL 6.25 MG TAB PO SCH (08:13)
[2023-07-31] MEDS: POTASSIUM CL SA 10 MEQ TAB PO ONE (08:14)
[2023-07-31 08:25] VITALS: BP 122/79
[2023-07-31 08:26] VITALS: TEMP 97.1
[2023-07-31 08:42] LABS: Blood Morphology Comment NOT SEEN (NOT SEEN); Platelet Estimate DECR; White Blood Cell Scan OK (OK)
--- NOTE | 2023-07-31 11:41 | P.DS ---
Admission Date: 07/27/23 Discharge Date: 07/31/23 Disposition: ROUTINE DISCHARGE Discharge Condition: GOOD Reason for Admission: Chest pain, hypotension Brief History of Present Illness: 78-year-old female with history of pancreatic cancer on chemotherapy, diabetes mellitus type [id number]-aybemge-rvfmlhwyo, chronic systolic congestive heart failure with AICD in place, hypertension presents emergency department with chief complaint of chest pain, palpitations. She received her fifth dose of weekly chemotherapy on 07/25/2023. For the past few days she been having some pleuritic chest pain when she takes a deep breath as well as palpitations, some mild epigastric pain noted as well. She also states that she feels constipated. She was evaluated in the emergency department her labs are significant for sodium 131 glucose of 363 lactic acid 2.6 improved to 1.6 after hydration magnesium 1.5 which was replaced, mild elevations in AST, ALT and alk phos, T. bili normal. Hemoglobin 11.2 hematocrit 33.6 white blood cell count normal she has noted to be tachycardic with heart rate between 125 and 140 and blood pressure soft with systolics in the 90s, was initially 70 87/50 on arrival to ED. Blood cultures were obtained she was started on empiric antibiotics in the emergency department CTA of the chest was performed which was negative for pulmonary embolism or other acute findings. ED provider wishes to admit patient for further evaluation and management of her tachycardia, hypotension. Hospital Course: Assessment: Chest pain Sinus tachycardia Hypotension History of pancreatic cancer on chemotherapy Chronic systolic congestive heart failure status post AICD placement Diabetes mellitus type 4flo-goesfny-qjkcwbrem with hyperglycemia Hypertension Patient was admitted to the hospital for hypotension, tachycardia. She had received chemotherapy on 07/25/2023 and presented to the hospital on 07/27/2023. Upon arrival to the emergency department patient was hypotensive with a blood pressure of 77/50s and heart rate in the 130s. She was given IV fluids and her blood pressure did improve significantly although she maintained heart rate in 130s. CTA of the chest was performed which was negative for pulmonary realism or other acute thoracic findings, CT abdomen pelvis was also performed which showed mild increase in size of the mass in the pancreatic head from 2 to 2.4 cm, there was also some increased intra and extrahepatic ductal dilatation noted. She had mild elevations in her AST/ALT/alk phos as high as an AST of 184, ALT of 187 and alk phos of 261, at discharge AST is 50 ALT is 108 alk phos is 227 lipase was within normal limits T. bili has remained within normal limits and is 0.3 at discharge. Blood cultures were obtained and showed no growth, white blood cell count remained normal and she has been afebrile After her blood pressure improved with IV fluids we were able to restart her carvedilol at a reduced dose of 6.25 mg, her heart rate improved after starting her carvedilol back. She reports her heart rate always runs a bit high in the 90s to 115's, currently heart rate is 105 sinus tach. She was seen by cardiology and had an echocardiogram performed echocardiogram shows an ejection fraction of 30 to 35%, distal anteroseptal/anterior and apical dyskinesis (left ventricular apical aneurysm), mild mitral and tricuspid regurgitation, severe diastolic dysfunction. Patient has been tolerating her diet, has no epigastric pain or tenderness on exam, feeling much better today she has been off of IV fluids for 48 hours now maintaining her blood pressure. Cardiology recommends continuing carvedilol at 6.25 mg and taking half doses of her Entresto until she follows up with her primary doctor group. It is believed that her hypotension was related to dehydration, possibly side effect of her chemotherapy. Encouraged adequate oral intake. At discharge please start taking reduced dose of carvedilol that was sent to the pharmacy Carvedilol 6.25 mg by mouth twice daily This medication does contribute to lowering her heart rate Please take half doses of your Entresto until you are able to follow-up with your primary school cook. Check your blood pressure before taking your blood pressure medications, hold blood pressure medications if the top number is less than 105, if you can only take 1 take the carvedilol as it helps to reduce your heart rate and without it your heart rate is quite high Please follow-up with your oncologist tomorrow as scheduled Please also follow-up with your primary care doctor and school cook in the next 1 to 2 weeks In regards to the CT scan showing the increased intra and extrahepatic ductal dilatation please watch for any signs of abdominal pain or yellowing of the skin/eyes if you notice any of the symptoms please present to the hospital for evaluation, in the future a stent may be required Vital Signs/Physical Exam: Temp Pulse Resp BP Pulse Ox 97.1 F 107 H 15 122/79 93 07/31/23 08:00 07/31/23 08:13 07/31/23 08:00 07/31/23 08:13 07/31/23 08:00 General: Alert, In no apparent distress, Oriented x3 HEENT: Atraumatic, PERRLA Neck: Supple, JVD not distended Respiratory: Clear to auscultation bilaterally, Normal air movement Cardiovascular: Regular rate/rhythm, Normal S1 S2 Gastrointestinal: Normal bowel sounds, No tenderness Musculoskeletal: No tenderness Integumentary: No rashes Neurological: Normal speech, Normal tone, Normal affect Laboratory Data at Discharge: WBC 3.40 thou/uL (4.3-10.9) L 07/31/23 04:31 Hgb 9.4 g/dL (12.0-15.0) L 07/31/23 04:31 Hct 27.9 % (36.0-45.0) L 07/31/23 04:31 Plt Count 99 thou/uL (152-406) L 07/31/23 04:31 PT 13.6 SECONDS (9.5-12.5) H 07/31/23 04:31 INR 1.24 07/31/23 04:31 APTT 33.3 SECONDS (24.3-36.9) 07/27/23 13:25 Sodium 138 mEq/L (136-145) 07/31/23 04:31 Potassium 3.9 mEq/L (3.5-5.1) 07/31/23 04:31 BUN 9 mg/dL (7-18) 07/31/23 04:31 Creatinine 0.47 mg/dL (0.55-1.02) L 07/31/23 04:31 Glucose 149 mg/dL (74-106) H 07/31/23 04:31 Magnesium 1.9 mg/dL (1.6-2.4) 07/30/23 15:00 Total Bilirubin 0.3 mg/dL (0.2-1.0) 07/31/23 04:31 AST 50 U/L (15-37) H 07/31/23 04:31 ALT 108 U/L (13-56) H 07/31/23 04:31 Alkaline Phosphatase 227 U/L (45-117) H 07/31/23 04:31 Triglycerides 114 mg/dL (<150) 07/28/23 04:52 Cholesterol 80 mg/dL (<200) 07/28/23 04:52 HDL Cholesterol 31 mg/dL (40-60) L 07/28/23 04:52 Cholesterol/HDL Ratio 2.58 07/28/23 04:52 Lipase 23 U/L (13-75) 07/30/23 04:24 Home Medications: Aspirin Chewable [Aspirin Chewable*] 1 tab PO DAILY 05/08/23 Atorvastatin Calcium [Lipitor*] 10 mg PO BEDTIME 05/08/23 Dapagliflozin Propanediol [Farxiga] 10 mg PO BEDTIME 05/08/23 Metformin HCl 1 tab PO BID 05/08/23 Sacubitril/Valsartan [Entresto 49 mg-51 mg Tablet] 1 tab PO BID 05/08/23 carvediloL [Carvedilol] 6.25 mg PO BID #60 tab 07/31/23 New Medications: carvediloL [Carvedilol] 6.25 mg PO BID #60 tab Physician Discharge Instructions: Patient was admitted to the hospital for hypotension, tachycardia. She had rec eived chemotherapy on 07/25/2023 and presented to the hospital on 07/27/2023. Upon arrival to the emergency department patient was hypotensive with a blood pressure of 77/50s and heart rate in the 130s. She was given IV fluids and her blood pressure did improve significantly although she maintained heart rate in 130s. CTA of the chest was performed which was negative for pulmonary realism or other acute thoracic findings, CT abdomen pelvis was also performed which showed mild increase in size of the mass in the pancreatic head from 2 to 2.4 cm, there was also some increased intra and extrahepatic ductal dilatation noted. She had mild elevations in her AST/ALT/alk phos as high as an AST of 184, ALT of 187 and alk phos of 261, at discharge AST is 50 ALT is 108 alk phos is 227 lipase was within normal limits T. bili has remained within normal limits and is 0.3 at discharge. Blood cultures were obtained and showed no growth, white blood cell count remained normal and she has been afebrile After her blood pressure improved with IV fluids we were able to restart her carvedilol at a reduced dose of 6.25 mg, her heart rate improved after starting her carvedilol back. She reports her heart rate always runs a bit high in the 90s to 115's, currently heart rate is 105 sinus tach. She was seen by cardiology and had an echocardiogram performed echocardiogram shows an ejection fraction of 30 to 35%, distal anteroseptal/anterior and apical dyskinesis (left ventricular apical aneurysm), mild mitral and tricuspid regurgitation, severe diastolic dysfunction. Patient has been tolerating her diet, has no epigastric pain or tenderness on exam, feeling much better today she has been off of IV fluids for 48 hours now maintaining her blood pressure. Cardiology recommends continuing carvedilol at 6.25 mg and taking half doses of her Entresto until she follows up with her primary doctor group. It is believed that her hypotension was related to dehydration, possibly side effect of her chemotherapy. Encouraged adequate oral intake. At discharge please start taking reduced dose of carvedilol that was sent to the pharmacy Carvedilol 6.25 mg by mouth twice daily This medication does contribute to lowering her heart rate Please take half doses of your Entresto until you are able to follow-up with your primary school cook. Check your blood pressure before taking your blood pressure medications, hold blood pressure medications if the top number is less than 105, if you can only take 1 take the carvedilol as it helps to reduce your heart rate and without it your heart rate is quite high Please follow-up with your oncologist tomorrow as scheduled Please also follow-up with your primary care doctor and school cook in the next 1 to 2 weeks In regards to the CT scan showing the increased intra and extrahepatic ductal dilatation please watch for any signs of abdominal pain or yellowing of the skin/eyes if you notice any of the symptoms please present to the hospital for e valuation, in the future a stent may be requiredPROBLEM: (list out Acute Problems for the Current visit) GOAL: Clear understanding of disease process INSTRUCTIONS: Is believe that her hypotension was related to dehydration, possibly side effect of her chemotherapy. Encouraged adequate oral intake. At discharge please start taking reduced dose of carvedilol that was sent to the pharmacy Carvedilol 6.25 mg by mouth twice daily This medication does contribute to lowering her heart rate Please take half doses of your Entresto until you are able to follow-up with your primary school cook. Check your blood pressure before taking your blood pressure medications, hold blood pressure medications if the top number is less than 105, if you can only take 1 take the carvedilol as it helps to reduce your heart rate and without it your heart rate is quite high Please follow-up with your oncologist tomorrow as scheduled Please also follow-up with your primary care doctor and school cook in the next 1 to 2 weeks In regards to the CT scan showing the increased intra and extrahepatic ductal dilatation please watch for any signs of abdominal pain or yellowing of the skin/eyes if you notice any of the symptoms please present to the hospital for evaluation, in the future a stent may be required Diet: low carb, low salt Activity: Fall precautions DME DME: Date Ordered: Name of Company: [employer] Services Needed: None Name of Company: Date or Referral: IMMUNIZATION Influenza Vaccine Indicated: Influenza Vaccine Given: Date Given: Pneumonia Vaccine Indicated: No Pneumonia Vaccine Given: Date Given: Diet: ADA Activity: Fall precautions Followup: Tim Ha, DO [Primary Care Provider] - 1-2 Weeks Prudencio Garcia MD [ACTIVE - CAN ADMIT] - Time spent managing pt's care (in minutes): 35
== END 2023-07-31 09:30 | disposition home or self-care (01) | DRG 312 ==
LOC: ER 12:41 → ERHOLD 17:56 → 3RD-ICU 22:55
PROVIDERS: ADMIT Internal Medicine; ATTEND Hospitalist
DX: I95.2 Hypotension due to drugs (principal); I50.22 Chronic systolic (congestive) heart failure; C25.9 Malignant neoplasm of pancreas, unspecified; T45.1X5A Adverse effect of antineoplastic and immunosuppressive drugs, initial encounter; E86.0 Dehydration; I11.0 Hypertensive heart disease with heart failure; E11.65 Type 2 diabetes mellitus with hyperglycemia; K59.00 Constipation, unspecified; K86.9 Disease of pancreas, unspecified; I08.1 Rheumatic disorders of both mitral and tricuspid valves; R00.0 Tachycardia, unspecified; Z60.2 Problems related to living alone; Z88.5 Allergy status to narcotic agent; Z79.82 Long term (current) use of aspirin; Z79.02 Long term (current) use of antithrombotics/antiplatelets; Z90.49 Acquired absence of other specified parts of digestive tract; Z79.899 Other long term (current) drug therapy; Z95.810 Presence of automatic (implantable) cardiac defibrillator
CPT/HCPCS: 36415; 71045; 71275; 74177; 80053; 80061; 80202; 82947; 83605; 83690; 83735; 84145; 84439; 84443; 84484; 85025; 85610; 85730; 87040; 93005; 93306; 96361; 96365; 96367; 96375; 99285; J0692; J1650; J1815; J2405; J2543; J3475; J7030; J7050; Q9967